=== PATIENT | male | born 1965 | race Caucasian/White ===

== ENCOUNTER → 2019-11-01 15:19 | Outpatient (BNVA) | payer MEDICAID, SELFPAY | PROVIDERS: Family Provider Nurse Practitioner; PCP Nurse Practitioner; Visit Provider Nurse Practitioner | DX: I11.0 Hypertensive heart disease with heart failure (principal); I50.9 Heart failure, unspecified; E11.65 Type 2 diabetes mellitus with hyperglycemia | CPT/HCPCS: 80053; 81003; 82044; 83036 ==

== ENCOUNTER → 2020-02-17 11:28 | Outpatient (BNVA) | payer MEDICAID, SELFPAY | PROVIDERS: Family Provider Nurse Practitioner; PCP Nurse Practitioner; Visit Provider Nurse Practitioner | DX: E11.65 Type 2 diabetes mellitus with hyperglycemia (principal); I11.0 Hypertensive heart disease with heart failure; I50.9 Heart failure, unspecified | CPT/HCPCS: 80053; 80061; 81000; 83036 ==

== ENCOUNTER → 2020-05-30 13:51 | Outpatient (BNVA) | payer MEDICAID, SELFPAY | PROVIDERS: Family Provider Nurse Practitioner; PCP Nurse Practitioner; Visit Provider Nurse Practitioner | DX: E11.65 Type 2 diabetes mellitus with hyperglycemia (principal); Z12.5 Encounter for screening for malignant neoplasm of prostate | CPT/HCPCS: 80053; 81000; 82043; 83036; 85025; G0103 ==

== ENCOUNTER 2020-08-27 16:28 | Emergency (ER) | payer MEDICAID, SELFPAY ==
[2020-08-27 17:04] VITALS: BP 153/99; PULSE 60; RESP 18; TEMP 36.6; O2SAT 94; BMI 43.8
[2020-08-27 17:30] VITALS: PULSE 82
[2020-08-27] MEDS: tetanus-dipt-pertussis 0.5 mL SDV IM (17:54)
[2020-08-27] MEDS: cefTRIAXone 1,000 mg SDV 1000 MG IM (17:54)
--- NOTE | 2020-08-27 18:41 | XR_ITS ---
WS: [id number] Exam: XR knee RT 3V* [id number] Date/Time of Exam: 08/27/2020 6:53 PM Reason For Exam: fall No acute fracture or dislocation. The joint compartments are relatively well maintained. No joint eff usion. Bone spurring noted along the anterior superior aspect of the patella. XR/XR knee RT 3V* [id number] IMPRESSION: 1. No fracture or dislocation.
[2020-08-27 19:15] VITALS: BP 157/102; PULSE 60; O2SAT 93
--- NOTE | 2020-08-27 19:23 | W.ED.EXTPRO ---
HPI - Extremity Problem General: Chief complaint: Extremity Injury, Lower Stated complaint: leg lac Time Seen by Provider: 08/27/20 17:09 Source: patient Mode of arrival: ambulatory Limitations: no limitations History of Present Illness: HPI Narrative: The patient is a 55-year-old male who was walking down the steps of his porch and missed a step and fell. He sustained a laceration to his right knee which was bleeding. He takes Eliquis anticoagulation. He is here to be evaluated for the laceration. He denies hitting his head or losing consciousness. MD Complaint: extremity pain Pain Consistency: constant Location: right Associated symptoms: Deny arthralgias, chest pain, fever(s), myalgias, rash or short of breath Review of Systems General: Reports: 10 or more systems reviewed and unremarkable except in HPI and below Const: Denies: fever(s) Eyes: Denies: change in vision or blurry vision ENMT: Denies: throat pain, enlarged tonsils, odynophagia, hoarseness, mouth pain or swelling of lips/tongue Card: Denies: chest pain Resp: Denies: dyspnea, productive cough or non-productive cough GI: Denies: abdominal pain, nausea or vomiting : Denies: flank pain, dysuria, urinary frequency, urinary urgency or urinary hesitancy Musc: Denies: neck pain, back pain or extremity swelling Skin/Breast: Reports: other (Laceration); Denies: rash Neuro: Denies: headache(s), numbness in extremities or weakness in extremities Endo: Denies: polyuria, polydipsia or tired all the time PFSH ED PFSH: Medical History (Reviewed 08/27/20 @ 22:53 by Sarah Rhodes MD, [facility] [place]) Atrial fibrillation Benign essential hypertension with target blood pressure below 140/90 Controlled diabetes mellitus with hyperglycemia, without long-term current use of insulin Heart failure, unspecified Obesity Surgical History (Reviewed 08/27/20 @ 22:53 by Sarah Rhodes MD, [facility] [place]) No history of previous surgery Family History (Reviewed 08/27/20 @ 22:53 by Sarah Rhodes MD, [facility] [place]) Mother Diabetes Hypertension Father Alcohol abuse Other Heart disease Social History Smoking and tobacco status: current some day smoker Second hand smoke exposure: No Smoking risk assessment/counseling performed?: No Alcohol intake: unknown Desire information about alcohol rehabilitation?: No Counseling given: No Desire information about substance/drug rehabilitation?: No Counseling given: No Adopted: No Caregiver/support person: No Lives independently: Yes Household members: other Housing: House Marital status: Single Number of children: 0 Current occupational status: unemployed Pets and animals: Yes Pets & animals: cat(s) and dog(s) History of recent travel: No Current gender identity: Male Physical Exam Const: COMMON NORMALS: no acute distress, average body habitus, patient oriented x3, no limitations, healthy appearing, alert and well nourished HENMT: COMMON NORMALS: normocephalic, atraumatic and moist oral mucous membranes HEAD & SCALP: normocephalic and atraumatic Neck/C-Spine: COMMON NORMALS: full ROM, supple, no meningeal signs, no JVD and No carotid bruits Resp: COMMON NORMALS: normal respiratory effort, No retractions, No use of accessory muscles, clear to auscultation bilaterally and percussion normal AUSCULTATION: clear to auscultation bilaterally PERCUSSION: percussion normal Cardio: COMMON NORMALS: no JVD, regular rate, regular rhythm, S1 normal heart sound present, S2 normal heart sound present, No gallops present (Cardio), No clicks present (Cardio), No murmurs present (Cardio), No rub (Cardio) and Peripheral pulses 2+ throughout RATE: regular rate RHYTHM: regular rhythm HEART SOUNDS: S1 normal heart sound present and S2 normal heart sound present PERIPHERAL PULSES: Peripheral pulses 2+ throughout GI: COMMON NORMALS: Normal to inspection, nondistended, normoactive bowel sounds present, Soft to palpation, non-tender, No hepatosplenomegaly present, no masses and no bruits PALPATION: Yes Soft to palpation and Yes No hepatosplenomegaly present : COMMON NORMALS: Yes no CVA tenderness BLADDER/KIDNEY EXAM: Yes no CVA tenderness Back/Pelvis: COMMON NORMALS: no CVA tenderness Extremity: COMMON NORMALS: full ROM, capillary refill normal, no calf tenderness and no pedal edema RIGHT LOWER EXTREMITY: Yes knee joint (There is a V-shaped laceration just above his right knee, about 14 cm ) OTHER: The V-shaped laceration above his right knee is about 14 cm in length, involving underlying muscle and with venous bleeding. There is significant bleeding from the right lateral part of the wound. Neurovascular status is intact. Neuro: COMMON NORMALS: patient oriented x3 SENSORIUM/ORIENTATION: Yes alert MENINGEAL SIGNS: Yes no meningeal signs Skin: COMMON NORMALS: no rashes or lesions noted, no wounds, turgor normal, no jaundice, no petechiae and no mottling GENERAL SKIN EXAM: no rashes or lesions noted and turgor normal Procedures Laceration Laceration 1: Site: lower extremity Side (If applicable): right Size (cm): 14 Description: flap Depth: involves muscle layer Local Anesthetic: lidocaine 1% and with epi Amount of anesthesia used (mL): 15 Pre-repair: wound explored and irrigated extensively (using 500 ml of saline mixed with iodine) Skin layer closed with: nylon Size (cm): 3-0 Number of sutures: 12 Technique: simple, interrupted Subcutaneous layer closed with: vicryl Size: 3-0 Number of sutures: 5 Technique: simple, interrupted Muscle layer closed with: vicryl Size: 3-0 Number of sutures: 5 Technique: simple, interrupted Course Reevaluation(s): Reevaluation #1: Discussed his imaging findings with him. Knee looks fine without any fracture or dislocation. We will discharge him home with wound care instructions. He voiced understanding and is in agreement with the plan Time: 19:23 Vital Signs: Vital signs: Vital Signs Temperature 97.9 F 08/27/20 17:04 Pulse Rate 57 L 08/27/20 19:44 Respiratory Rate 18 08/27/20 19:44 Blood Pressure 166/90 08/27/20 19:44 Pulse Oximetry 96 08/27/20 19:44 MDM - Extremity (Nontraumatic) MDM Narrative: Medical decision making narrative: 55-year-old male who had a fairly significant laceration to his right knee that needed suturing. He also had venous bleeding and the vessels were ligated. Wound was extensively irrigated and he was given a prophylactic dose of intramuscular ceftriaxone. He was also discharged home with a prescription for Keflex. He was given wound care instructions and he is to follow-up with his primary care provider. Imaging Data^: Xray Ortho: Attestation: I personally reviewed and interpreted this imaging study as follows: My impression: No fracture or dislocation noted Discharge Plan Discharge Patient Disposition: Home Clinical Impression: Fall (on) (from) other stairs and steps, initial encounter Laceration of knee, right Qualifiers: Encounter type: initial encounter Qualified Code(s): S81.011A - Laceration without foreign body, right knee, initial encounter Condition: Stable Prescriptions: New Keflex 500 mg capsule 500 mg PO Q6H 7 Days Qty: 28 RF: 0 Continued furosemide 40 mg tablet 40 mg PO BID Qty: 60 RF: 2 potassium chloride [Klor-Con M20] 20 mEq tablet,ER particles/crystals 20 meq PO BID Qty: 60 RF: 2 metformin 500 mg tablet extended release 24hr 500 mg PO BID Qty: 60 RF: 2 carvedilol 25 mg tablet 25 mg PO DIRECTED Qty: 225 RF: 3 irbesartan 300 mg tablet 300 mg PO DAILY Qty: 30 RF: 5 Eliquis 5 mg tablet 5 mg PO BID Qty: 180 RF: 3 aspirin 81 mg tablet,delayed release (DR/EC) 81 mg PO DAILY RF: 0 amlodipine 10 mg tablet 10 mg PO DAILY RF: 0 simvastatin 20 mg tablet 20 mg PO DAILY RF: 0 Discharge Orders: Discharge Order (Routine); Ordered 08/27/20 Ordered By: Sarah Rhodes Referrals: Mariya Olivares FNP-C [Primary Care Provider] - 7-10 days (For wound evaluation and suture removal) Discharge Diet: Usual diet Discharge Activity: Increase activity as tolerated Patient Instructions: Laceration (ED), Fall Prevention (ED) Activity Restrictions/Additional Instructions: Return for any new or worsening symptoms. Follow-up with your primary care provider within 10 days. Sutures should be removed between 10 and 14 days. Keep the wound clean and dry. Leave the dressing on for the next 2 days, take it off after 2 days. After you take it of clean the wound with soap and water every day and apply an antibiotic ointment to it. Take the antibiotic as prescribed. 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
[2020-08-27 19:44] VITALS: BP 166/90; PULSE 57; RESP 18; O2SAT 96
== END 2020-08-27 19:57 | disposition home or self-care (01) ==
PROVIDERS: Emergency Provider Family Medicine; PCP Nurse Practitioner
DX: S81.011A Laceration without foreign body, right knee, initial encounter (principal); W10.8XXA Fall (on) (from) other stairs and steps, initial encounter; Y92.008 Other place in unspecified non-institutional (private) residence as the place of occurrence of the external cause; F17.200 Nicotine dependence, unspecified, uncomplicated; Z79.01 Long term (current) use of anticoagulants; Z79.84 Long term (current) use of oral hypoglycemic drugs; Z79.82 Long term (current) use of aspirin; Z23 Encounter for immunization
CPT/HCPCS: 12345; 13121; 13122; 73562; 90471; 90715; 96372; 99281; 99283; J0696

== ENCOUNTER → 2020-09-11 14:43 | Outpatient (BNVA) | payer MEDICAID, SELFPAY | PROVIDERS: PCP Nurse Practitioner; Visit Provider Nurse Practitioner | DX: E11.65 Type 2 diabetes mellitus with hyperglycemia (principal) | CPT/HCPCS: 80053; 80061; 83036; 85025 ==

== ENCOUNTER → 2020-12-12 16:04 | Outpatient (BNVA) | payer MEDICAID, SELFPAY | PROVIDERS: PCP Nurse Practitioner; Visit Provider Nurse Practitioner Family | DX: E11.65 Type 2 diabetes mellitus with hyperglycemia (principal); I50.9 Heart failure, unspecified; I11.0 Hypertensive heart disease with heart failure; I48.0 Paroxysmal atrial fibrillation | CPT/HCPCS: 80053; 80061; 83036; 84443; 85025 ==

== ENCOUNTER 2021-06-13 16:42 | Inpatient (IN) | payer MEDICAID, SELFPAY ==
[2021-06-13 16:54] VITALS: BP 151/90; PULSE 92; RESP 22; TEMP 36.5; O2SAT 88; BMI 47.1
--- NOTE | 2021-06-13 17:01 | W.ED.GIBLEED ---
HPI - GI Bleed General: Chief complaint: ER Hold Stated complaint: Sent from [facility], Left leg Pain, Cold Chills Time Seen by Provider: 06/13/21 17:01 History of Present Illness: HPI Narrative: Mr. Howe is a 56-year-old gentleman with history of hypertension, hyperlipidemia, obesity, heart failure, diabetes, atrial fibrillation on Eliquis who presents emergency department due to abnormal labs and blood in stool. He reports feeling somewhat ill gradually for the past few weeks. He has had blood in his stool and when he wipes every time that he has had a bowel movement. Since being on Eliquis he has infrequently had this however it typically resolves on its own. He has not had a colonoscopy. Associated with a sense of generalized fatigue and malaise. Additionally he started having left lower extremity redness, warmth, and pain. He was seen at outside clinic and found to have leukocytosis and hence was sent here. Overall the course of symptoms has been worsening. The intensity is moderate to severe. No other focal infectious symptoms though he does occasionally have chills and shortness of breath. No other specific exacerbating relieving factors identified. Review of Systems General: Reports: 10 or more systems reviewed and unremarkable except in HPI and below Narrative: CONSTITUTIONAL: See HPI EYES - denies pain, denies loss of vision EARS - denies ear issues. NOSE - denies congestion or rhinorrhea. THROAT - denies sore throat or difficulty swallowing. CARDIOVASCULAR - denies chest pain and palpitations RESPIRATORY -see HPI GASTROINTESTINAL -see HPI GENITOURINARY - denies dysuria or urinary frequency MUSCULOSKELETAL-see HPI SKIN -see HPI NEUROLOGIC - denies focal weakness or sensory changes HEMATOLOGIC/LYMPHATIC - denies easy bruising or lymphadenopathy. PFS ED PFSH: Medical History (Updated 06/14/21 @ 15:49 by Harlan Marrero MD) Atrial fibrillation Benign essential hypertension with target blood pressure below 140/90 Chronic kidney disease stage 2 Controlled diabetes mellitus with hyperglycemia, without long-term current use of insulin Heart failure, unspecified Echocardiogram from 2018 showed severely decreased left ventricular systolic function as well as grade 3 of 4 diastolic dysfunction consistent with combined CHF Hyperlipemia Mild aortic valve stenosis Aortic valve area 1.7 cm? 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 Obesity Surgical History No history of previous surgery Family History Mother Diabetes Hypertension Father Alcohol abuse Other Heart disease Social History (Updated 06/14/21 @ 09:15 by Angi Montes De Oca MD) Smoking and tobacco status: former smoker Second hand smoke exposure: No Alcohol intake: never Substance/Drug Use: never Adopted: No Caregiver/support person: No Lives independently: Yes Household members: other Housing: House Marital status: Single Number of children: 0 Current occupational status: unemployed Pets and animals: Yes Pets & animals: cat(s) and dog(s) Current gender identity: Male Physical Exam Narrative: EXAM NARRATIVE: GENERAL/CONSTITUTIONAL -somewhat ill-appearing. No acute distress. Obese. Supplemental oxygen in place. Eyes - PERRL, no conjunctival injection ENMT - Atraumatic external nose and ears. Moist mucous membranes NECK - supple. trachea midline CARDIOVASCULAR - regular rate and rhythm. Peripheral pulses 2+ and equal RESPIRATORY -clear to auscultation bilaterally. No retractions or accessory muscle use. ABDOMEN/GI -mildly tender to palpation on the left abdomen. Nondistended. No tenderness to percussion or evidence of peritonitis MSK -left lower extremity mild tenderness palpation SKIN -mild erythema and warmth of the left lower extremity NEURO - alert and appropriately oriented. strength and sensation intact. Moves all extremities equally. PSYCH - Appropriate mood and affect Course ED course: - Patient was seen and evaluated by me at bedside - Patient placed on cardiac monitors, IV access obtained - Initial evaluation notable for somewhat ill appearance, no acute distress. Abdominal tenderness present. Leg may have cellulitic changes. -Symptom treatment ordered - Labs notable for leukocytosis, no significant metabolic abnormalities. Procalcitonin elevated. - Imaging notable for no evidence of lobar consolidation or pneumonia on chest x-ray. CT abdomen and pelvis without evidence of diverticulitis. - Upon serial reexamination after treatment the patient was minimally improved - Based on patient history, evaluation, labs, and imaging as interpreted the most likely cause of the patient's condition is cellulitis - The results of ED evaluation were discussed with the patient including plan for admission due to requirement for level of care not available if discharged to prevent significant worsening/deterioration. -Hospitalist service contacted and agreed to admit the patient - Patient was admitted without further deterioration or significant events. Vital Signs: Vital signs: Vital Signs Temperature 98.5 F 06/15/21 13:28 Pulse Rate 69 06/15/21 13:28 Respiratory Rate 20 H 06/15/21 13:28 Blood Pressure 151/98 06/15/21 13:28 Pulse Oximetry 92 06/15/21 13:28 MDM - GI Bleed Medical Records: Attestation: I reviewed the patient's medical records. Lab Data: Attestation: I reviewed the patient's lab results. Labs: Lab Results 06/13/21 06/13/21 06/13/21 Range/Units 17:49 17:49 17:49 WBC 24.2 H (4.0-10.0) 10^3/ uL RBC 5.18 (4.1-5.3) 10^6/u L Hgb 14.5 (11.7-16.6) g/dL Hct 45.7 (42.0-52.0) % MCV 88.2 (80-94) fl MCH 28.0 (28.0-34.0) pg MCHC 31.7 (30.0-36.0) g/dL RDW 15.5 H (12.1-15.1) % Plt Count 301 (130-400) 10^3/c mm MPV 9.4 (7.4-10.4) fL Neut % (Auto) 87.5 % Lymph % (Auto) 2.7 % Sherman % (Auto) 7.6 % Eos % (Auto) 0.3 % Baso % (Auto) 0.5 % Neut # (Auto) 21.16 H (1.8-7.7) 10^3/u L Lymph # (Auto) 0.7 L (0.8-4.8) 10^3/u L Sherman # (Auto) 1.8 H (0.2-0.9) 10^3/u L Eos # (Auto) 0.1 (0.0-0.8) 10^3/u L Baso # (Auto) 0.1 (0.0-0.1) 10^3/u L Nucleated RBC % (a uto) 0 % Nucleated RBCs # 0.0 /100WBC PT (12.1-14.9) SECO NDS INR (0.8-1.2) APTT (23.9-36.7) SECO NDS Sodium 139 (136-145) mmol/L Potassium 3.8 (3.5-5.1) mmol/L Chloride 97 L (98-107) mmol/L Carbon Dioxide 29 (22-29) mmol/L Anion Gap 16.8 (5-19) BUN 11 (6-20) mg/dL Creatinine 0.7 (0.7-1.2) mg/dL GFR Calculation 116.2 (90-130) mL/min Glucose 113 (65-115) mg/dL Calculated Osmolal ity 288 (285-295) mOsm/k g Lactic Acid (0.5-2.2) mmol/L Calcium 9.6 (8.5-10.5) mg/dL Phosphorus (2.5-4.5) mg/dL Magnesium (1.7-2.3) mg/dL Iron (59-158) ug/dL Ferritin (30-400) ng/mL Total Bilirubin 0.7 (0.15-1.2) mg/dL AST 15 (0-40) U/L ALT 12 (0-41) U/L Alkaline Phosphata se 92 (40-130) IU/L Troponin T Baselin e (0-15) ng/L Troponin T 120 Min [place] (0-15) ng/L Delta Troponin T (0-10) ABS# C-Reactive Protein (0.0-4.9) mg/L NT-Pro-B Natriuret Pep 568 H (0-125) pg/mL Total Protein 8.0 (6.6-8.7) g/dL Albumin 4.4 (3.5-5.2) g/dL Globulin 3.6 (1.3-4.6) g/dL Procalcitonin (0-0.5) ng/mL TSH 0.42 (0.27-4.20) uIU/ mL Urine Color (Yellow) Urine Appearance (CLEAR) Urine pH (5-7) Ur Specific Gravit y (1.005-1.030) Urine Protein (Negative) Urine Glucose (UA) (Normal) Urine Ketones (Negative) Urine Blood (Negative) Urine Nitrate (Negative) Urine Bilirubin (Negative) Prot Sulfosalicyli c Acd (Negative) Urine Urobilinogen (Negative) mg/dL Ur Leukocyte Jennifer ase (Negative) Urine RBC (0-2) /hpf Urine WBC (0-5) /hpf Ur Squamous Epith Cells (0-5) /hpf Amorphous Sediment Urine Bacteria (NONE) /hpf SARS-CoV-2 Ag (Rap id) (Negative) Blood Type A Positive Rho(D) Type Positive Antibody Screen Negative 06/13/21 06/13/21 06/13/21 Range/Units 17:49 19:50 20:00 WBC (4.0-10.0) 10^3/ uL RBC (4.1-5.3) 10^6/u L Hgb (11.7-16.6) g/dL Hct (42.0-52.0) % MCV (80-94) fl MCH (28.0-34.0) pg MCHC (30.0-36.0) g/dL RDW (12.1-15.1) % Plt Count (130-400) 10^3/c mm MPV (7.4-10.4) fL Neut % (Auto) % Lymph % (Auto) % Sherman % (Auto) % Eos % (Auto) % Baso % (Auto) % Neut # (Auto) (1.8-7.7) 10^3/u L Lymph # (Auto) (0.8-4.8) 10^3/u L Sherman # (Auto) (0.2-0.9) 10^3/u L Eos # (Auto) (0.0-0.8) 10^3/u L Baso # (Auto) (0.0-0.1) 10^3/u L Nucleated RBC % (a uto) % Nucleated RBCs # /100WBC PT (12.1-14.9) SECO NDS INR (0.8-1.2) APTT (23.9-36.7) SECO NDS Sodium (136-145) mmol/L Potassium (3.5-5.1) mmol/L Chloride (98-107) mmol/L Carbon Dioxide (22-29) mmol/L Anion Gap (5-19) BUN (6-20) mg/dL Creatinine (0.7-1.2) mg/dL GFR Calculation (90-130) mL/min Glucose (65-115) mg/dL Calculated Osmolal ity (285-295) mOsm/k g Lactic Acid (0.5-2.2) mmol/L Calcium (8.5-10.5) mg/dL Phosphorus (2.5-4.5) mg/dL Magnesium (1.7-2.3) mg/dL Iron (59-158) ug/dL Ferritin (30-400) ng/mL Total Bilirubin (0.15-1.2) mg/dL AST (0-40) U/L ALT (0-41) U/L Alkaline Phosphata se (40-130) IU/L Troponin T Baselin e 13 (0-15) ng/L Troponin T 120 Min [place] (0-15) ng/L Delta Troponin T (0-10) ABS# C-Reactive Protein (0.0-4.9) mg/L NT-Pro-B Natriuret Pep (0-125) pg/mL Total Protein (6.6-8.7) g/dL Albumin (3.5-5.2) g/dL Globulin (1.3-4.6) g/dL Procalcitonin (0-0.5) ng/mL TSH (0.27-4.20) uIU/ mL Urine Color Yellow (Yellow) Urine Appearance Sl hazy (CLEAR) Urine pH 9 H (5-7) Ur Specific Gravit y 1.010 (1.005-1.030) Urine Protein 1+ H (Negative) Urine Glucose (UA) Norm (Normal) Urine Ketones Negative (Negative) Urine Blood Neg (Negative) Urine Nitrate Negative (Negative) Urine Bilirubin Neg (Negative) Prot Sulfosalicyli c Acd Positive (Negative) Urine Urobilinogen 1 H (Negative) mg/dL Ur Leukocyte Jennifer ase Negative (Negative) Urine RBC 0-4 H (0-2) /hpf Urine WBC 0-4 H (0-5) /hpf Ur Squamous Epith Cells 5-10 H (0-5) /hpf Amorphous Sediment Not Reportable Urine Bacteria Trace (NONE) /hpf SARS-CoV-2 Ag (Rap id) Negative (Negative) Blood Type Rho(D) Type Antibody Screen 06/13/21 06/13/21 06/14/21 Range/Units 20:15 20:15 09:01 WBC 20.5 H (4.0-10.0) 10^3/ uL RBC 4.47 (4.1-5.3) 10^6/u L Hgb 12.2 (11.7-16.6) g/dL Hct 39.3 L (42.0-52.0) % MCV 87.9 (80-94) fl MCH 27.3 L (28.0-34.0) pg MCHC 31.0 (30.0-36.0) g/dL RDW 15.5 H (12.1-15.1) % Plt Count 252 (130-400) 10^3/c mm MPV 9.4 (7.4-10.4) fL Neut % (Auto) 89.4 % Lymph % (Auto) 3.6 % Sherman % (Auto) 5.8 % Eos % (Auto) 0.0 % Baso % (Auto) 0.5 % Neut # (Auto) 18.30 H (1.8-7.7) 10^3/u L Lymph # (Auto) 0.7 L (0.8-4.8) 10^3/u L Sherman # (Auto) 1.2 H (0.2-0.9) 10^3/u L Eos # (Auto) 0.0 (0.0-0.8) 10^3/u L Baso # (Auto) 0.1 (0.0-0.1) 10^3/u L Nucleated RBC % (a uto) 0 % Nucleated RBCs # 0.0 /100WBC PT (12.1-14.9) SECO NDS INR (0.8-1.2) APTT (23.9-36.7) SECO NDS Sodium (136-145) mmol/L Potassium (3.5-5.1) mmol/L Chloride (98-107) mmol/L Carbon Dioxide (22-29) mmol/L Anion Gap (5-19) BUN (6-20) mg/dL Creatinine (0.7-1.2) mg/dL GFR Calculation (90-130) mL/min Glucose (65-115) mg/dL Calculated Osmolal ity (285-295) mOsm/k g Lactic Acid (0.5-2.2) mmol/L Calcium (8.5-10.5) mg/dL Phosphorus (2.5-4.5) mg/dL Magnesium (1.7-2.3) mg/dL Iron (59-158) ug/dL Ferritin (30-400) ng/mL Total Bilirubin (0.15-1.2) mg/dL AST (0-40) U/L ALT (0-41) U/L Alkaline Phosphata se (40-130) IU/L Troponin T Baselin e (0-15) ng/L Troponin T 120 Min [place] 12.99 (0-15) ng/L Delta Troponin T -0.01 L (0-10) ABS# C-Reactive Protein 34.0 H (0.0-4.9) mg/L NT-Pro-B Natriuret Pep (0-125) pg/mL Total Protein (6.6-8.7) g/dL Albumin (3.5-5.2) g/dL Globulin (1.3-4.6) g/dL Procalcitonin 6.36 H (0-0.5) ng/mL TSH (0.27-4.20) uIU/ mL Urine Color (Yellow) Urine Appearance (CLEAR) Urine pH (5-7) Ur Specific Gravit y (1.005-1.030) Urine Protein (Negative) Urine Glucose (UA) (Normal) Urine Ketones (Negative) Urine Blood (Negative) Urine Nitrate (Negative) Urine Bilirubin (Negative) Prot Sulfosalicyli c Acd (Negative) Urine Urobilinogen (Negative) mg/dL Ur Leukocyte Jennifer ase (Negative) Urine RBC (0-2) /hpf Urine WBC (0-5) /hpf Ur Squamous Epith Cells (0-5) /hpf Amorphous Sediment Urine Bacteria (NONE) /hpf SARS-CoV-2 Ag (Rap id) (Negative) Blood Type Rho(D) Type Antibody Screen 06/14/21 06/14/21 06/14/21 Range/Units 09:01 09:01 09:01 WBC (4.0-10.0) 10^3/ uL RBC (4.1-5.3) 10^6/u L Hgb (11.7-16.6) g/dL Hct (42.0-52.0) % MCV (80-94) fl MCH (28.0-34.0) pg MCHC (30.0-36.0) g/dL RDW (12.1-15.1) % Plt Count (130-400) 10^3/c mm MPV (7.4-10.4) fL Neut % (Auto) % Lymph % (Auto) % Sherman % (Auto) % Eos % (Auto) % Baso % (Auto) % Neut # (Auto) (1.8-7.7) 10^3/u L Lymph # (Auto) (0.8-4.8) 10^3/u L Sherman # (Auto) (0.2-0.9) 10^3/u L Eos # (Auto) (0.0-0.8) 10^3/u L Baso # (Auto) (0.0-0.1) 10^3/u L Nucleated RBC % (a uto) % Nucleated RBCs # /100WBC PT 20.80 H (12.1-14.9) SECO NDS INR 1.74 H (0.8-1.2) APTT 44.0 H (23.9-36.7) SECO NDS Sodium 135 L (136-145) mmol/L Potassium 3.6 (3.5-5.1) mmol/L Chloride 96 L (98-107) mmol/L Carbon Dioxide 29 (22-29) mmol/L Anion Gap 13.6 (5-19) BUN 14 (6-20) mg/dL Creatinine 0.7 (0.7-1.2) mg/dL GFR Calculation 116.2 (90-130) mL/min Glucose 183 H (65-115) mg/dL Calculated Osmolal ity 285 (285-295) mOsm/k g Lactic Acid (0.5-2.2) mmol/L Calcium 8.8 (8.5-10.5) mg/dL Phosphorus 3.0 (2.5-4.5) mg/dL Magnesium 1.5 L (1.7-2.3) mg/dL Iron 14 L (59-158) ug/dL Ferritin 122 (30-400) ng/mL Total Bilirubin 0.6 (0.15-1.2) mg/dL AST 13 (0-40) U/L ALT 9 (0-41) U/L Alkaline Phosphata se 64 (40-130) IU/L Troponin T Baselin e (0-15) ng/L Troponin T 120 Min [place] (0-15) ng/L Delta Troponin T (0-10) ABS# C-Reactive Protein 145.2 H (0.0-4.9) mg/L NT-Pro-B Natriuret Pep (0-125) pg/mL Total Protein 6.4 L (6.6-8.7) g/dL Albumin 3.3 L (3.5-5.2) g/dL Globulin 3.1 (1.3-4.6) g/dL Procalcitonin 8.69 H (0-0.5) ng/mL TSH (0.27-4.20) uIU/ mL Urine Color (Yellow) Urine Appearance (CLEAR) Urine pH (5-7) Ur Specific Gravit y (1.005-1.030) Urine Protein (Negative) Urine Glucose (UA) (Normal) Urine Ketones (Negative) Urine Blood (Negative) Urine Nitrate (Negative) Urine Bilirubin (Negative) Prot Sulfosalicyli c Acd (Negative) Urine Urobilinogen (Negative) mg/dL Ur Leukocyte Jennifer ase (Negative) Urine RBC (0-2) /hpf Urine WBC (0-5) /hpf Ur Squamous Epith Cells (0-5) /hpf Amorphous Sediment Urine Bacteria (NONE) /hpf SARS-CoV-2 Ag (Rap id) (Negative) Blood Type Rho(D) Type Antibody Screen 06/14/21 Range/Units 09:45 WBC (4.0-10.0) 10^3/ uL RBC (4.1-5.3) 10^6/u L Hgb (11.7-16.6) g/dL Hct (42.0-52.0) % MCV (80-94) fl MCH (28.0-34.0) pg MCHC (30.0-36.0) g/dL RDW (12.1-15.1) % Plt Count (130-400) 10^3/c mm MPV (7.4-10.4) fL Neut % (Auto) % Lymph % (Auto) % Sherman % (Auto) % Eos % (Auto) % Baso % (Auto) % Neut # (Auto) (1.8-7.7) 10^3/u L Lymph # (Auto) (0.8-4.8) 10^3/u L Sherman # (Auto) (0.2-0.9) 10^3/u L Eos # (Auto) (0.0-0.8) 10^3/u L Baso # (Auto) (0.0-0.1) 10^3/u L Nucleated RBC % (a uto) % Nucleated RBCs # /100WBC PT (12.1-14.9) SECO NDS INR (0.8-1.2) APTT (23.9-36.7) SECO NDS Sodium (136-145) mmol/L Potassium (3.5-5.1) mmol/L Chloride (98-107) mmol/L Carbon Dioxide (22-29) mmol/L Anion Gap (5-19) BUN (6-20) mg/dL Creatinine (0.7-1.2) mg/dL GFR Calculation (90-130) mL/min Glucose (65-115) mg/dL Calculated Osmolal ity (285-295) mOsm/k g Lactic Acid 1.8 (0.5-2.2) mmol/L Calcium (8.5-10.5) mg/dL Phosphorus (2.5-4.5) mg/dL Magnesium (1.7-2.3) mg/dL Iron (59-158) ug/dL Ferritin (30-400) ng/mL Total Bilirubin (0.15-1.2) mg/dL AST (0-40) U/L ALT (0-41) U/L Alkaline Phosphata se (40-130) IU/L Troponin T Baselin e (0-15) ng/L Troponin T 120 Min [place] (0-15) ng/L Delta Troponin T (0-10) ABS# C-Reactive Protein (0.0-4.9) mg/L NT-Pro-B Natriuret Pep (0-125) pg/mL Total Protein (6.6-8.7) g/dL Albumin (3.5-5.2) g/dL Globulin (1.3-4.6) g/dL Procalcitonin (0-0.5) ng/mL TSH (0.27-4.20) uIU/ mL Urine Color (Yellow) Urine Appearance (CLEAR) Urine pH (5-7) Ur Specific Gravit y (1.005-1.030) Urine Protein (Negative) Urine Glucose (UA) (Normal) Urine Ketones (Negative) Urine Blood (Negative) Urine Nitrate (Negative) Urine Bilirubin (Negative) Prot Sulfosalicyli c Acd (Negative) Urine Urobilinogen (Negative) mg/dL Ur Leukocyte Jennifer ase (Negative) Urine RBC (0-2) /hpf Urine WBC (0-5) /hpf Ur Squamous Epith Cells (0-5) /hpf Amorphous Sediment Urine Bacteria (NONE) /hpf SARS-CoV-2 Ag (Rap id) (Negative) Blood Type Rho(D) Type Antibody Screen EKG Data^: EKG 1: Attestation: I personally reviewed and interpreted this EKG as follows: EKG interpretation date: 06/13/21 EKG interpretation time: 18:05 Prior EKG tracings: not available for review Interpretation: Twelve-lead EKG shows an irregular rhythm at a rate of 85. DE interval not present in atrial fibrillation, QRS duration 118, QTc 413. Left axis deviation. Interpretation atrial fibrillation, left bundle branch block. EKG 2: Attestation: I personally reviewed and interpreted this EKG as follows: EKG interpretation date: 06/13/21 EKG interpretation time: 21:10 Prior EKG tracings: available for review Interpretation: Twelve-lead EKG shows an irregular rhythm at a rate of 80. DE interval not present in atrial fibrillation, QRS duration 121, QTc 424. Left axis deviation. Interpretation atrial fibrillation, left bundle branch block. Similar to prior. Discharge Plan Discharge Patient Disposition: Admitted As Inpatient Admit Provider: Angi Montes De Oca Coding Level of Care Code ED Retail Services Professional for Chg Fwmichele
--- NOTE | 2021-06-13 17:20 | XRR_ITS ---
PROCEDURE INFORMATION: Exam: XR Chest Exam date and time: 06/13/2021 5:20 PM Age: 56 years old Clinical indication: Shortness of breath TECHNIQUE: Imaging protocol: XR of the chest. Views: 1 view. COMPARISON: CR Chest 1 [place] [id number] 01/23/2018 2:35 PM FINDINGS: Lungs: There is some linear scarring or subsegmental atelectasis in the left mid lung. Visualized portions of the right lung are clear. Pleural spaces: Unremarkable. No pleural effusion. No pneumothorax. Pleural effusion seen on 01/23/2018 is no longer identified. Heart/Mediastinum: Heart is upper limits normal in size. Bones/joints: Degenerative changes are present in the thoracic spine. XR/XR chest 1V portable [id number] IMPRESSION: Platelike atelectasis or scarring in the left mid left.
--- NOTE | 2021-06-13 17:37 | ECG_ITS ---
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 Measurements Intervals [place] Rate: 85 P: MT: QRS: -60 QRSD: 118 T: 102 QT: 347 QTc: 413 Interpretive Statements ATRIAL FIBRILLATION LEFT ANTERIOR FASCICULAR BLOCK [QRS AXIS <= -45, QR IN I, RS IN II] MINIMAL VOLTAGE CRITERIA FOR LVH, CONSIDER NORMAL VARIANT [MEETS CRITERIA IN ONE OF: R(aVL), S(V1), R(V5), R(V5/V6)+S(V1)] ANTEROSEPTAL MYOCARDIAL INFARCTION , OF INDETERMINATE AGE [40+ ms Q WAVE IN V1-V4] MODERATE T-WAVE ABNORMALITY, CONSIDER LATERAL ISCHEMIA [-0.1+ mV T-WAVE IN I/aVL/V5/V6] Compared to ECG 01/28/2018 11:01:15 No significant changes Electronically Signed On 06-14-2021 8:54:44 CDT by Maria Eugenia Leavitt M.D. [id number] f
[2021-06-13 18:11] VITALS: RESP 15
[2021-06-13 18:12] LABS: Basophils # 0.1 10^3/uL (0.0-0.1); Basophils % 0.5 %; Eosinophils # 0.1 10^3/uL (0.0-0.8); Eosinophils % 0.3 %; Hematocrit 45.7 % (42.0-52.0); Hemoglobin 14.5 g/dL (11.7-16.6); Lymphocytes # 0.7 10^3/uL (0.8-4.8); Lymphocytes % 2.7 %; Mean Corpuscular HGB Conc 31.7 g/dL (30.0-36.0); Mean Corpuscular Volume 88.2 fl (80-94); Mean Platelet Volume 9.4 fL (7.4-10.4); Monocytes # 1.8 10^3/uL (0.2-0.9); Monocytes % 7.6 %; Neutrophils # 21.16 10^3/uL (1.8-7.7); Neutrophils % 87.5 %; Nucleated Red Blood Cells % 0 %; Platelet Count 301 10^3/cmm (130-400); Red Blood Count 5.18 10^6/uL (4.1-5.3); Red Cell Distribution Width 15.5 % (12.1-15.1); White Blood Count 24.2 10^3/uL (4.0-10.0)
--- NOTE | 2021-06-13 18:15 | CTR_ITS ---
PROCEDURE INFORMATION: Exam: CT Abdomen And Pelvis With Contrast Exam date and time: 06/13/2021 6:15 PM Age: 56 years old Clinical indication: Abdominal pain; Acute; Additional info: Leukocytosis, gi bleed, pain, ? diverticulitis TECHNIQUE: Imaging protocol: Computed tomography of the abdomen and pelvis with contrast. Radiation optimization: All CT scans at this facility use at least one of these dose optimization techniques: automated exposure control; mA and/or kV adjustment per patient size (includes targeted exams where dose is matched to clinical indication); or iterative reconstruction. Contrast material: OMNI 300; Contrast volume: 95 ml; Contrast route: INTRAVENOUS (IV); COMPARISON: CT abdomen pelvis w con* [id number] 01/23/2018 3:43 PM RADIATION DOSE METRICS: Total DLP (mGy-cm): 1823.27 FINDINGS: Lungs: There is calcified granuloma in the right lower lobe. Liver: There is no focal abnormality within the liver. Gallbladder and bile ducts: The gallbladder is normal. Pancreas: The pancreas is normal. Spleen: The spleen demonstrates punctate calcifications, consistent with remote granulomatous organism exposure. Adrenal glands: The adrenal glands are normal. Kidneys and ureters: There are multiple simple renal cysts. Largest is 4.4 cm. Stomach and bowel: There is no evidence of colitis/diverticulitis. There is no evidence of intestinal obstruction. Appendix: A normal appendix is identified. Intraperitoneal space: There is no evidence of free intraperitoneal fluid. Vasculature: The aorta demonstrates mild atherosclerotic calcification. There is no evidence of an abdominal aortic aneurysm. Lymph nodes: There are mildly prominent inguinal lymph nodes measuring up to 12 x 36 mm.There is no evidence of lymphadenopathy. Urinary bladder: There is nonspecific thickening of the urinary bladder wall. Please correlate for clinical findings of urinary tract infection. Reproductive: Unremarkable as visualized. Bones/joints: The lumbar spine demonstrates mild degenerative changes at multiple levels. Soft tissues: There are small bilateral inguinal hernias containing only fat. There is edema in the superficial subcutaneous soft tissues of the mid and lower anterior abdominal wall with overlying skin thickening. These findings are worrisome for cellulitis. Please correlate with physical examination findings. CT/CT abdomen pelvis w con* [id number] IMPRESSION: 1. Question of urinary bladder wall thickening. Please correlate for clinical findings of urinary tract infection. 2. Question of abdominal wall cellulitis. COMMENTS: Consistent with the [employer]'s Incidental Findings Committee white paper (J Am Dana Radiol 2018): Any incidental renal lesion less than 1 cm or classified as too small to characterize, or any incidental cystic renal lesion characterized as simple-appearing, is likely benign. No follow-up imaging is recommended for these lesions per consensus recommendations based on imaging criteria. Radiation Dose CTDIVOL = (mGy): DLP = 1823.27 (mGy-cm)
[2021-06-13 18:42] LABS: Alanine Aminotransferase 12 U/L (0-41); Albumin Level 4.4 g/dL (3.5-5.2); Alkaline Phosphatase 92 IU/L (40-130); Anion Gap 16.8 (5-19); Aspartate Amino Transferase 15 U/L (0-40); Blood Urea Nitrogen 11 mg/dL (6-20); Calcium 9.6 mg/dL (8.5-10.5); Carbon Dioxide 29 mmol/L (22-29); Chloride 97 mmol/L (98-107); Globulin 3.6 g/dL (1.3-4.6); Glomerular Filtration Rate 116.2 mL/min (90-130); Glucose 113 mg/dL (65-115); NT Pro B Type Natriuretic Pept 568 pg/mL (0-125); Osmolality Calculated 288 mOsm/kg (285-295); Potassium 3.8 mmol/L (3.5-5.1); Sodium 139 mmol/L (136-145); Thyroid Stimulating Hormone 0.42 uIU/mL (0.27-4.20); Total Bilirubin 0.7 mg/dL (0.15-1.2)
[2021-06-13] MEDS: iohexol 300 mg/mL 100 mL Btl IV (19:00)
[2021-06-13 19:04] LABS: Troponin(5th) Baseline 13 ng/L (0-15)
--- NOTE | 2021-06-13 19:37 | ECG_ITS ---
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 Measurements Intervals [place] Rate: 80 P: [place]: QRS: -64 QRSD: 121 T: 96 QT: 366 QTc: 424 Interpretive Statements ATRIAL FIBRILLATION LEFT ANTERIOR FASCICULAR BLOCK [QRS AXIS <= -45, QR IN I, RS IN II] ANTEROSEPTAL MYOCARDIAL INFARCTION , OF INDETERMINATE AGE [40+ ms Q WAVE IN V1-V4] MODERATE T-WAVE ABNORMALITY, CONSIDER LATERAL ISCHEMIA [-0.1+ mV T-WAVE IN I/aVL/V5/V6] Compared to ECG 01/28/2018 11:01:15 Left ventricular hypertrophy no longer present Myocardial infarct finding still present T-wave abnormality still present Possible ischemia still present Electronically Signed On 06-14-2021 9:07:12 CDT by Maria Eugenia Leavitt M.D. [id number]
[2021-06-13 20:00] VITALS: BP 136/87; PULSE 94; RESP 22; TEMP 37.6; O2SAT 94
[2021-06-13] MEDS: cefTRIAXone 1,000 MG in sodium chloride 0.9% (plus) 50 ML 100 MG IV (20:01)
[2021-06-13] MEDS: morphine 4 mg/mL SDV 1 mL IVP ×2 (20:01→21:07)
[2021-06-13] MEDS: doxycycline 100 MG in sodium chloride 0.9% (plus) 100 ML IV (20:35)
[2021-06-13 20:39] LABS: Add Urine Microscopic? YES; Bilirubin Urine Neg (Negative); Blood Urine Neg (Negative); Glucose Urine UA Norm (Normal); Ketones Urine Negative (Negative); Leukocyte Esterase Urine Negative (Negative); Nitrate Urine Negative (Negative); Protein Urine 1+ (Negative); RBC Urine 0-4 /hpf (0-2); Sulfosalicylic Acid Urine Positive (Negative); Urine Appearance SL Hazy (CLEAR); Urine Color Yellow (Yellow); Urobilinogen Urine 1 mg/dL (Negative); WBC Urine 0-4 /hpf (0-5); pH Urine 9 (5-7)
[2021-06-13 20:40] LABS: Add Urine Culture? No; Bacteria Urine TRACE /hpf
[2021-06-13 20:47] LABS: SARS Covid-2 Antigen Negative (Negative)
[2021-06-13 21:37] LABS: Troponin 5 2HR 12.99 ng/L (0-15)
[2021-06-13 21:38] LABS: Troponin 5 2HR Delta -0.01 ABS# (0-10)
[2021-06-13 22:18] VITALS: BP 132/75; PULSE 88; RESP 18; O2SAT 95
[2021-06-13 22:39] LABS: Procalcitonin 6.36 ng/mL (0-0.5)
--- NOTE | 2021-06-13 23:24 | PM.HP ---
Providers/Chief Complaint Admitting Physician: Angi Montes De Oca MD Primary Care Provider: Mariya Olivares, LAUNDRY PRICING CLERK-C Chief Complaint: Blood in stool, not feeling well History of Present Illness Bertin Howe is a 56 year old male who was sent to the emergency room by primary care provider because of several complaints. He had been seen at his primary care provider's office for refills of his medications. While there he mentioned that he been having some blood in his stools lately. It sounds like he noted blood some days but not every day recently. Sounds like bright red blood present when he wipes and sometimes its in the toilet. Difficult to fully quantify. Has not had any bleeding noted the last 24 hours. He is chronically on Eliquis for atrial fibrillation. In addition to this he reported some fever and chills along with nausea and abdominal pain. He was noted to have oxygen saturation of 91% on room air. Laboratory studies were checked and showed white blood count at 22,000. The [facility] wanted to send him to the hospital by ambulance but he came in by private vehicle. He described not feeling well for several weeks to the ED provider. He again reported the blood in the stools he also describes some shortness of breath and feeling cold at times. Laboratory studies were rechecked and showed a white count of 24,000 with a left shift. He was noted to have some erythema to his legs. He received Rocephin and doxycycline. Request was made for admission. In my discussion with him, he states that his legs always look like they do and are not worse than usual. No recent injury or sores. No increased swelling to the legs. No increase in skin findings to the lower extremities. Denies pain to the lower extremities. He does describe the bright red blood per rectum. [place] encouraged by the fact that his hemoglobin was okay. Denied any abdominal pain, fever, chills, cough, nausea or vomiting, diarrhea, difficulty urinating, painful or newly swollen joints. No rashes in his groins or skin folds. While in the emergency room he was noted to have some hypoxemia with sleep and was put on some oxygen. He is not chronically on oxygen. Denied recent increase in weight. Reported compliance with all of his medications. History is obtained from him and review of old records. Review of Systems Const: Reports: chills; Denies: fever(s) or change in weight Eyes: Denies: change in vision ENMT: Denies: throat pain or nasal congestion Card: Reports: edema (Chronic, no recent increase); Denies: chest pain or palpitations Resp: Reports: dyspnea; Denies: productive cough or non-productive cough GI: Reports: hematochezia; Denies: abdominal pain, nausea, vomiting, diarrhea, constipation or melena : Denies: difficulty urinating Musc: Denies: neck pain, back pain, extremity pain, joint swelling or joint redness Skin/Breast: Denies: rash or sores Neuro: Denies: headache(s), weakness in extremities or difficulty walking Psych: Denies: anxiety or depression Medications/Allergies Home Medications Medication Instructions Recorded Confirmed Last Taken Type apixaban 5 mg tablet 5 mg PO BID #180 tab 08/13/20 06/13/21 06/13/21 Rx irbesartan 300 mg tablet 300 mg PO DAILY #90 tab 01/04/21 06/13/21 06/13/21 Rx hydralazine 50 mg tablet 50 mg PO TID #90 tab 02/11/21 06/13/21 06/13/21 Rx aspirin 81 mg tablet,delayed 81 mg PO DAILY #30 tab 03/15/21 06/13/21 06/13/21 Rx release amlodipine 10 mg tablet 10 mg PO DAILY #30 tab 06/13/21 06/13/21 06/13/21 Rx carvedilol 25 mg PO . DIRECTED 06/13/21 06/13/21 06/13/21 History furosemide 40 mg tablet 40 mg PO BID #60 tab 06/13/21 06/13/21 06/13/21 Rx metformin 500 mg tablet,extended 500 mg PO BID #60 tab 06/13/21 06/13/21 06/13/21 Rx release 24hr potassium chloride 20 mEq 20 meq PO BID #60 tab 06/13/21 06/13/21 06/13/21 Rx tablet,extended release(part/cryst) simvastatin 20 mg tablet 20 mg PO DAILY #30 tab 06/13/21 06/13/21 06/12/21 Rx Allergies Allergy/AdvReac Type Severity Reaction Status Date / Time No Known Allergies Allergy Unverified 06/13/21 16:57 PFSH Acute PFSH: Medical History (Updated 06/14/21 @ 09:44 by Angi Montes De Oca MD) Atrial fibrillation Benign essential hypertension with target blood pressure below 140/90 Chronic kidney disease stage 2 Controlled diabetes mellitus with hyperglycemia, without long-term current use of insulin Heart failure, unspecified Echocardiogram from 2018 showed severely decreased left ventricular systolic function as well as grade 3 of 4 diastolic dysfunction consistent with combined CHF Hyperlipemia Mild aortic valve stenosis Aortic valve area 1.7 cm? 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 Obesity Surgical History No history of previous surgery Family History Mother Diabetes Hypertension Father Alcohol abuse Other Heart disease Social History (Updated 06/14/21 @ 09:15 by Angi Montes De Oca MD) Smoking and tobacco status: former smoker Second hand smoke exposure: No Alcohol intake: never Substance/Drug Use: never Adopted: No Caregiver/support person: No Lives independently: Yes Household members: other Housing: House Marital status: Single Number of children: 0 Current occupational status: unemployed Pets and animals: Yes Pets & animals: cat(s) and dog(s) Current gender identity: Male Vitals/I&O/Wt Last Vital Signs Temp 99.7 F H 06/13/21 20:00 Pulse 88 06/13/21 22:18 Resp 18 06/13/21 22:18 BP 132/75 06/13/21 22:18 Pulse Ox 95 06/13/21 22:18 06/13/21 06/13/21 06/14/21 14:59 22:59 06:59 Intake Total 150 / 150 Balance 150 / 150 Weight last 48 hrs Weight 140.614 kg Physical Exam Narrative: EXAM NARRATIVE: Constitutional: Asleep, easily arousable, oriented to person, place, able to provide history, cooperative HEENT: Normocephalic, atraumatic, sclera injected, nasopharynx is clear, oropharynx with fair dentition and a few teeth that look a bit rotted Neck: Large but supple Respiratory: Clear to auscultation bilaterally, no rales rhonchi or wheezes Cardiovascular: Regular rhythm, distant heart sounds Abdomen: Soft, obese, nontender, no induration, no significant rash under the pannus Extremities: Chronic stasis changes more prominent on the left lower extremity than the right with erythema noted to the left lower extremity more so than the right. Both have dry skin, no areas of fluctuance. Both legs are warm to touch equally without any increase in warmth to the left leg. There is some induration in the posterior calf on the left side which patient states is not new. No obvious pain with palpation. Skin: Feet are dirty but no wounds noted between toes, some scattered bruises on forearms, no rashes Neuro: Speech clear, face symmetric, extraocular movements are intact, moves all extremities Psych: Normal affect Data : 06/13/21 17:49 06/13/21 17:49 A&P Assessment and plan (1) Hematochezia: Status: Acute (2) Leukocytosis: Status: Acute Qualifiers: Leukocytosis type: unspecified Qualified Code(s): D72.829 - Elevated white blood cell count, unspecified (3) Poor dentition: Status: Acute (4) Malaise: Status: Acute (5) Chronic anticoagulation: Status: Chronic (6) Controlled diabetes mellitus with hyperglycemia, without long-term current use of insulin: Status: Chronic Qualifiers: Diabetes mellitus type: type 2 Qualified Code(s): E11.65 - Type 2 diabetes mellitus with hyperglycemia (7) Atrial fibrillation: Status: Chronic Qualifiers: Atrial fibrillation type: paroxysmal Qualified Code(s): I48.0 - Paroxysmal atrial fibrillation (8) Hyperlipemia: Status: Chronic Qualifiers: Hyperlipidemia type: unspecified Qualified Code(s): E78.5 - Hyperlipidemia, unspecified (9) Heart failure, unspecified: Last echocardiogram from 2018 showed severely increased left ventricular cavity size and severely decreased left ventricular systolic function with global left ventricular hypokinesis and grade 3/4 diastolic dysfunction along with severely elevated filling pressures Status: Chronic Qualifiers: Heart failure type: unspecified Heart failure chronicity: chronic Qualified Code(s): I50.9 - Heart failure, unspecified (10) BMI 45.0-49.9, adult: Status: Chronic Additional A&P Information Suspected component of obesity hypoventilation, plus or minus sleep apnea Observation admission currently Check pro calcitonin and CRP Blood cultures Received doxycycline and Rocephin in the emergency room, these were administered around 7 PM Will start on Augmentin secondary to dentition and reevaluate for additional antibiotics pending additional labs and studies Ultrasound of bilateral lower extremities Hemoccult of stool Repeat H&H in the morning Can try some Anusol HC Stool softeners If has persistent reports of bleeding or drop in H&H consideration could be given to endoscopy secondary to chronic anticoagulation Follow-up serial cardiac enzymes Telemetry monitoring Continue home medications with the exception of Metformin Sliding scale insulin for diabetes currently Monitor overall volume status Monitor oxygen levels, I suspect there is a component of obesity hypoventilation and possible sleep apnea contributing to low oxygen levels seen after he was resting in the emergency room Eliquis will provide appropriate VTE prophylaxis Supportive care otherwise Would benefit from outpatient sleep study which I discussed with him briefly Anticipate discharge home with outpatient follow-up Findings, concerns and plans were discussed with patient and he was given an opportunity to ask questions. Full code Attestations Medical Necessity Statement*: Anticipated stay less than 2 midnights in a gentleman with comorbid medical conditions as noted above presenting with reported hematochezia although normal H&H currently. Was identified as having a significant elevation white count without a clearly defined source of infection currently. Suspicion was for possibility of cellulitis in the emergency room. He was started on antibiotics. He is being admitted for further evaluation and treatment as indicated and noted above. Coding Level of Care Code Acute Compliance Review Specialist for [facility] Diagnoses Hematochezia K92.1 Leukocytosis D72.829 Leukocytosis type: unspecified Poor dentition K08.9 Malaise R53.81 Chronic anticoagulation Z79.01 Controlled diabetes mellitus with hyperglycemia, without long-term current use of insulin E11.65 Diabetes mellitus type: type 2 Atrial fibrillation I48.0 Atrial fibrillation type: paroxysmal Hyperlipemia E78.5 Hyperlipidemia type: unspecified Heart failure, unspecified I50.9 Heart failure type: unspecified Heart failure chronicity: chronic BMI 45.0-49.9, adult Z68.42
[2021-06-14] VITALS (9 sets, daily range): BP systolic 99–149; BP diastolic 45–79; PULSE 62–78; RESP 17–20; TEMP 36.5–37.2; O2SAT 1–99; BMI 48.2
[2021-06-14] MEDS: morphine 4 mg/mL SDV 1 mL IVP (02:00)
--- NOTE | 2021-06-14 05:08 | USCV_ITS ---
eBrtin Howe Age: 56 Gender: M : 1965 Exam Date: 06/14/2021 06:03 Ordering Phys: Angi Montes De Oca MD Technologist: Lizzy Hi Exam Location: [facility] [place] Indication: BLE EDEAM HISTORY: Lower extremity edema. PROCEDURES: Venous duplex imaging was performed in bilateral lower extremities. The following venous structures were evaluated: common femoral vein, profunda vein, proximal portion of the greater saphenous vein, superficial femoral vein, and the popliteal vein. In addition, the posterior tibial and peroneal trunk were evaluated. Serial compression, augmentation maneuvers, and spectral Doppler flow evaluation were performed. FINDINGS: Normal 2-D Doppler and augmentation and compressibility throughout the lower extremity venous structures. Additional imaging through the proximal calf veins also reveals no thrombus. Limited evaluation of the greater saphenous vein is patent with no thrombus. Bilateral subcutaneous edema. Examination was technically limited due to body habitus. CONCLUSIONS No DVT bilateral lower extremities. Dr. Radha Yoder DO (Electronically Signed) Final Date: 14 June 2021 07:26 S
--- NOTE | 2021-06-14 07:01 | PC.NURSE ---
Lights off, Resting on right side. Eyes closed , ever respiration. No acute distress noted. Continue to monitor
--- NOTE | 2021-06-14 07:03 | PC.NURSE ---
No acute distress noted. Continue to monitor
--- NOTE | 2021-06-14 07:44 | PC.NURSE ---
Call light answered and patient assisted up to bedside to void. Patient tolerated well.
[2021-06-14] MEDS: FUROsemide 40 mg Tablet PO (08:13)
[2021-06-14] MEDS: doxycycline 100 mg Tablet PO (08:14)
[2021-06-14] MEDS: losartan 50 mg Tablet 100 MG PO (08:14)
[2021-06-14] MEDS: amlodipine 10 mg Tablet PO (08:14)
[2021-06-14] MEDS: atorvastatin 40 mg Tablet 20 MG PO (08:17)
[2021-06-14] MEDS: hyDRALAzine 50 mg Tablet PO ×2 (08:17→20:17)
[2021-06-14] MEDS: aspirin 81 mg EC Tablet PO (08:17)
[2021-06-14] MEDS: apixaban 5 mg Tablet PO ×2 (08:40→17:41)
[2021-06-14] MEDS: potassium chloride ER 20 mEq Tablet PO ×2 (08:40→17:41)
[2021-06-14] MEDS: carvedilol 25 mg Tablet PO ×2 (08:40→20:17)
[2021-06-14 09:20] LABS: Basophils # 0.1 10^3/uL (0.0-0.1); Basophils % 0.5 %; Hematocrit 39.3 % (42.0-52.0); Hemoglobin 12.2 g/dL (11.7-16.6); Lymphocytes # 0.7 10^3/uL (0.8-4.8); Lymphocytes % 3.6 %; Mean Corpuscular Hemoglobin 27.3 pg (28.0-34.0); Mean Corpuscular Volume 87.9 fl (80-94); Mean Platelet Volume 9.4 fL (7.4-10.4); Monocytes # 1.2 10^3/uL (0.2-0.9); Monocytes % 5.8 %; Neutrophils % 89.4 %; Nucleated Red Blood Cells % 0 %; Platelet Count 252 10^3/cmm (130-400); Red Blood Count 4.47 10^6/uL (4.1-5.3); Red Cell Distribution Width 15.5 % (12.1-15.1); White Blood Count 20.5 10^3/uL (4.0-10.0)
[2021-06-14 09:36] LABS: INR 1.74 (0.8-1.2)
[2021-06-14 09:45] LABS: Alanine Aminotransferase 9 U/L (0-41); Albumin Level 3.3 g/dL (3.5-5.2); Alkaline Phosphatase 64 IU/L (40-130); Anion Gap 13.6 (5-19); Aspartate Amino Transferase 13 U/L (0-40); Blood Urea Nitrogen 14 mg/dL (6-20); C Reactive Protein 145.2 mg/L (0.0-4.9); Calcium 8.8 mg/dL (8.5-10.5); Carbon Dioxide 29 mmol/L (22-29); Chloride 96 mmol/L (98-107); Globulin 3.1 g/dL (1.3-4.6); Glomerular Filtration Rate 116.2 mL/min (90-130); Glucose 183 mg/dL (65-115); Magnesium 1.5 mg/dL (1.7-2.3); Osmolality Calculated 285 mOsm/kg (285-295); Potassium 3.6 mmol/L (3.5-5.1); Sodium 135 mmol/L (136-145); Total Bilirubin 0.6 mg/dL (0.15-1.2); Total Protein 6.4 g/dL (6.6-8.7)
[2021-06-14 09:51] LABS: Procalcitonin 8.69 ng/mL (0-0.5)
[2021-06-14] MEDS: cefepime 1,000 MG in sodium chloride 0.9% (plus) 50 ML 100 MG IV (10:00)
[2021-06-14 10:17] LABS: Lactic Sepsis W/Reflex 1.8 mmol/L (0.5-2.2)
--- NOTE | 2021-06-14 15:43 | PM.PN ---
Subjective Subjective: Interval history: Patient was seen this morning, he tells me that he has been experiencing increased bilateral lower extremity swelling recently, is also noticed more tenderness in redness appearance of bilateral lower extremities, denies any chest pain, does report increased shortness of breath recently, no nausea, no vomiting, no chest pain, denies a history of COPD, no history of heart failure, does have a history of atrial fibrillation is on Eliquis, does have diabetes, but does not remember the last time he checked his blood sugar, denies any hematochezia currently in the emergency room Vitals/I&O/Wt Last Vital Signs Temp 98.4 F 06/14/21 15:24 Pulse 78 06/14/21 15:24 Resp 17 06/14/21 15:24 BP 121/73 06/14/21 15:24 Pulse Ox 97 06/14/21 15:24 Weight last 48 hrs Weight 140.614 kg Physical Exam Const: COMMON NORMALS: no acute distress and patient oriented x3 Resp: COMMON NORMALS: normal respiratory effort, No retractions, No use of accessory muscles and clear to auscultation bilaterally AUSCULTATION: clear to auscultation bilaterally Cardio: COMMON NORMALS: regular rate, regular rhythm, S1 normal heart sound present and S2 normal heart sound present RATE: regular rate RHYTHM: regular rhythm HEART SOUNDS: S1 normal heart sound present and S2 normal heart sound present GI: COMMON NORMALS: Normal to inspection, nondistended, normoactive bowel sounds present, Soft to palpation and non-tender PALPATION: Yes Soft to palpation Extremity: NARRATIVE EXTREMITY EXAM: 3+ pitting edema bilaterally bilateral shins and forfeet with erythema, swelling, tenderness Neuro: COMMON NORMALS: patient oriented x3 Psych: COMMON NORMALS: mental status grossly normal Data : 06/14/21 09:01 06/14/21 09:01 Micro: Microbiology 06/14/21 09:07 Blood Culture - Preliminary Blood SPECIMEN COLLECTED 06/14/21 09:01 Blood Culture - Preliminary Blood SPECIMEN COLLECTED A&P Assessment and plan (1) Heart failure, unspecified: -Last echocardiogram from 2017 showed severely increased left ventricular cavity size and severely decreased left ventricular systolic function with global left ventricular hypokinesis and grade 3/4 diastolic dysfunction along with severely elevated filling pressures -Start Bumex 1 mg daily 12 hours, potassium placement -Fluid restrictions 1500 cc -Repeat cardiac echocardiogram -Monitor I's and O's, monitor creatinine, monitor potassium Status: Chronic Qualifiers: Heart failure type: unspecified Heart failure chronicity: chronic Qualified Code(s): I50.9 - Heart failure, unspecified (2) Bilateral lower leg cellulitis: -Clinically has bilateral lower extremity cellulitis -Bilateral lower extremity ultrasound negative for DVT -WBC 20.5, pro-Bertin 8.69, CRP 145 -Continue vancomycin, cefepime -Follow blood cultures -Monitor hemodynamics -We will consider imaging of bilateral lower extremities based on clinical progress Status: Acute (3) Hematochezia: -Currently no bloody or black stools -CT scan abdomen pelvis no acute findings -Hemoglobin stable at 12.2 -Obtain Hemoccult stool -Trend hemoglobin -Protonix 40 IV twice daily, Carafate -Hemodynamic stable -Continue Eliquis Status: Acute (4) Leukocytosis: Likely secondary to bilateral extremity cellulitis Status: Acute Qualifiers: Leukocytosis type: unspecified Qualified Code(s): D72.829 - Elevated white blood cell count, unspecified (5) Poor dentition: Status: Acute (6) Malaise: Status: Acute (7) Chronic anticoagulation: Status: Chronic (8) Controlled diabetes mellitus with hyperglycemia, without long-term current use of insulin: -Last A1c 6.9 -Recheck A1c -Continue insulin sliding scale Status: Chronic Qualifiers: Diabetes mellitus type: type 2 Qualified Code(s): E11.65 - Type 2 diabetes mellitus with hyperglycemia (9) Atrial fibrillation: -Continue carvedilol 25 mg twice daily -Continue Eliquis Status: Chronic Qualifiers: Atrial fibrillation type: paroxysmal Qualified Code(s): I48.0 - Paroxysmal atrial fibrillation (10) Hyperlipemia: Status: Chronic Qualifiers: Hyperlipidemia type: unspecified Qualified Code(s): E78.5 - Hyperlipidemia, unspecified (11) BMI 45.0-49.9, adult: Status: Chronic Additional A&P Information Suspected component of obesity hypoventilation, plus or minus sleep apnea, monitor for sleep apnea overnight Hypertension, continue home medications Eliquis will provide appropriate VTE prophylaxis Supportive care otherwise Would benefit from outpatient sleep study which I discussed with him briefly Anticipate discharge home with outpatient follow-up Findings, concerns and plans were discussed with patient and he was given an opportunity to ask questions. Full code Attestations Medical Necessity Statement*: Patient requires hospitalization, inpatient, greater than 2 midnights, for cellulitis of bilateral lower extremities, fluid overload, diastolic CHF exacerbation Coding Level of Care Code Acute [employer] for [facility] Fwd Diagnoses Heart failure, unspecified I50.9 Heart failure type: unspecified Heart failure chronicity: chronic Bilateral lower leg cellulitis L03.116; L03.115 Hematochezia K92.1 Leukocytosis D72.829 Leukocytosis type: unspecified Poor dentition K08.9 Malaise R53.81 Chronic anticoagulation Z79.01 Controlled diabetes mellitus with hyperglycemia, without long-term current use of insulin E11.65 Diabetes mellitus type: type 2 Atrial fibrillation I48.0 Atrial fibrillation type: paroxysmal Hyperlipemia E78.5 Hyperlipidemia type: unspecified BMI 45.0-49.9, adult Z68.42
--- NOTE | 2021-06-14 15:53 | XRR_ITS ---
PROCEDURE INFORMATION: Exam: XR Left Tibia and Fibula Exam date and time: 06/14/2021 3:53 PM Age: 56 years old Clinical indication: Condition or disease; Other: Cellultiis TECHNIQUE: Imaging protocol: XR Left tibia and fibula. Views: 2 views. COMPARISON: No relevant prior studies available. FINDINGS: Bones/joints: No irregular osseous cortical erosions or intramedullary lucencies. Osseous structures are intact. Soft tissues: Soft tissue swelling along the calf. XR/XR tibia fibula LT 2V [id number] IMPRESSION: No evidence of osteomyelitis.
--- NOTE | 2021-06-14 15:53 | XRR_ITS ---
PROCEDURE INFORMATION: Exam: XR Right Tibia and Fibula Exam date and time: 06/14/2021 3:53 PM Age: 56 years old Clinical indication: Condition or disease; Other: Cellultiis TECHNIQUE: Imaging protocol: XR Right tibia and fibula. Views: 2 views. COMPARISON: CR XR knee RT 3V* [id number] 08/27/2020 6:53 PM FINDINGS: Bones/joints: No irregular cortical erosions or intramedullary lucencies. Visualized osseous structures are intact. Soft tissues: Soft tissue swelling of the calf. XR/XR tibia fibula RT 2V [id number] IMPRESSION: No evidence of osteomyelitis.
[2021-06-14 16:34] LABS: Ferritin 122 ng/mL (30-400); Iron 14 ug/dL (59-158)
[2021-06-14] MEDS: sucralfate 1 gm/10 mL Oral Liq UDC PO ×2 (17:41→23:09)
[2021-06-14] MEDS: docusate sodium 100 mg Capsule PO (17:41)
[2021-06-14] MEDS: pantoprazole 40 mg SDV IVP (17:41)
[2021-06-14] MEDS: bumetanide 0.25 mg/mL SDV 4 mL 1 MG IV (17:47)
[2021-06-14 18:08] LABS: Basophils # 0.1 10^3/uL (0.0-0.1); Basophils % 0.6 %; Eosinophils # 0.1 10^3/uL (0.0-0.8); Eosinophils % 0.3 %; Hematocrit 43.7 % (42.0-52.0); Hemoglobin 13.3 g/dL (11.7-16.6); Lymphocytes # 1.3 10^3/uL (0.8-4.8); Lymphocytes % 7.1 %; Mean Corpuscular HGB Conc 30.4 g/dL (30.0-36.0); Mean Corpuscular Hemoglobin 27.2 pg (28.0-34.0); Mean Corpuscular Volume 89.4 fl (80-94); Mean Platelet Volume 9.6 fL (7.4-10.4); Monocytes # 1.4 10^3/uL (0.2-0.9); Monocytes % 7.6 %; Neutrophils # 15.43 10^3/uL (1.8-7.7); Neutrophils % 83.7 %; Nucleated Red Blood Cells % 0 %; Platelet Count 242 10^3/cmm (130-400); Red Blood Count 4.89 10^6/uL (4.1-5.3); Red Cell Distribution Width 15.8 % (12.1-15.1); White Blood Count 18.4 10^3/uL (4.0-10.0)
--- NOTE | 2021-06-14 20:10 | PC.NURSE ---
MANAGER RESORT reported accucheck result as 191.
[2021-06-14 20:32] LABS: LAB Peripheral Smear Sent for Review
[2021-06-15 00:58] LABS: Basophils # 0.1 10^3/uL (0.0-0.1); Basophils % 0.5 %; Eosinophils # 0.1 10^3/uL (0.0-0.8); Eosinophils % 0.7 %; Hematocrit 37.3 % (42.0-52.0); Hemoglobin 11.6 g/dL (11.7-16.6); Lymphocytes # 1.4 10^3/uL (0.8-4.8); Lymphocytes % 9.1 %; Mean Corpuscular HGB Conc 31.1 g/dL (30.0-36.0); Mean Corpuscular Hemoglobin 27.4 pg (28.0-34.0); Mean Platelet Volume 9.5 fL (7.4-10.4); Monocytes # 1.4 10^3/uL (0.2-0.9); Monocytes % 9.1 %; Neutrophils # 11.84 10^3/uL (1.8-7.7); Nucleated Red Blood Cells % 0 %; Platelet Count 227 10^3/cmm (130-400); Red Blood Count 4.24 10^6/uL (4.1-5.3); Red Cell Distribution Width 15.8 % (12.1-15.1); White Blood Count 14.8 10^3/uL (4.0-10.0)
[2021-06-15 04:00] VITALS: BP 113/74; PULSE 73; RESP 18; TEMP 37.2; O2SAT 91
[2021-06-15] MEDS: bumetanide 0.25 mg/mL SDV 4 mL 1 MG IV ×2 (05:27→17:55)
[2021-06-15] MEDS: pantoprazole 40 mg SDV IVP ×2 (05:27→16:44)
[2021-06-15 06:38] LABS: Basophils # 0.1 10^3/uL (0.0-0.1); Basophils % 0.6 %; Eosinophils # 0.1 10^3/uL (0.0-0.8); Eosinophils % 0.8 %; Hematocrit 40.2 % (42.0-52.0); Hemoglobin 12.2 g/dL (11.7-16.6); Lymphocytes # 1.3 10^3/uL (0.8-4.8); Lymphocytes % 8.6 %; Mean Corpuscular HGB Conc 30.3 g/dL (30.0-36.0); Mean Corpuscular Hemoglobin 27.1 pg (28.0-34.0); Mean Corpuscular Volume 89.3 fl (80-94); Mean Platelet Volume 9.7 fL (7.4-10.4); Monocytes # 1.5 10^3/uL (0.2-0.9); Monocytes % 9.8 %; Neutrophils # 12.14 10^3/uL (1.8-7.7); Neutrophils % 79.4 %; Nucleated Red Blood Cells % 0 %; Platelet Count 247 10^3/cmm (130-400); Red Cell Distribution Width 15.8 % (12.1-15.1); White Blood Count 15.3 10^3/uL (4.0-10.0)
[2021-06-15 06:43] LABS: INR 1.37 (0.8-1.2)
[2021-06-15 07:00] LABS: Alanine Aminotransferase 10 U/L (0-41); Albumin Level 3.5 g/dL (3.5-5.2); Alkaline Phosphatase 69 IU/L (40-130); Anion Gap 12.9 (5-19); Aspartate Amino Transferase 16 U/L (0-40); Blood Urea Nitrogen 14 mg/dL (6-20); C Reactive Protein 183.4 mg/L (0.0-4.9); Calcium 8.8 mg/dL (8.5-10.5); Carbon Dioxide 29 mmol/L (22-29); Chloride 99 mmol/L (98-107); Globulin 3.5 g/dL (1.3-4.6); Glomerular Filtration Rate 138.9 mL/min (90-130); Glucose 127 mg/dL (65-115); Magnesium 1.8 mg/dL (1.7-2.3); Osmolality Calculated 286 mOsm/kg (285-295); Phosphorus 2.7 mg/dL (2.5-4.5); Potassium 3.9 mmol/L (3.5-5.1); Sodium 137 mmol/L (136-145); Total Bilirubin 0.4 mg/dL (0.15-1.2)
[2021-06-15 07:32] LABS: Lactate (Lactic Acid level) 1.1 mmol/L (0.5-2.2)
[2021-06-15 08:19] LABS: NT Pro B Type Natriuretic Pept 661 pg/mL (0-125); Procalcitonin 5.82 ng/mL (0-0.5)
[2021-06-15 08:30] LABS: Creatine Phosphokinase 162 U/L (39-308)
[2021-06-15 08:40] VITALS: BP 134/81; PULSE 70; RESP 18; TEMP 36.5; O2SAT 95
--- NOTE | 2021-06-15 10:28 | USCV_ITS ---
Bertin Howe Age: 56 Gender: M : 1965 Exam Date: 06/15/2021 06:46 Ordering Phys: Harlan Marrero MD Technologist: Sherita Randall Exam Location: [facility] – [place] Indication: Bilateral lower extremity edema BP: 113 / 74 HR: 66 Rhythm: Atrial fibrillation Technical Quality: Technically difficult study MEASUREMENTS (Male / Female) Normal Values 2D ECHO LV Diastolic Diameter PLAX 5.0 cm 4.2 - 5.9 / 3.9 - 5.3 cm LV Systolic Diameter PLAX 3.9 cm LV Chamber Size 4.9 cm IVS Diastolic Thickness 1.5 cm 0.6 - 1.0 / 0.6 - 0.9 cm IVS Systolic Thickness 1.3 cm LVPW Diastolic Thickness 1.5 cm 0.6 - 1.0 / 0.6 - 0.9 cm LVPW Systolic Thickness 1.8 cm RV Chamber Size 3.9 cm LVOT Diameter 2.2 cm LV Ejection Fraction 2D Teich 44.1 % LA Diameter 4.5 cm LA Width 4.2 cm LA Height 6.6 cm RA Width 3.2 cm RA Height 5.6 cm Aorta at Sinotubular Diameter 3.1 cm M-MODE LV Diastolic Diameter MM 5.0 cm 4.2 - 5.9 / 3.9 - 5.3 cm LV Systolic Diameter MM 3.9 cm LV Ejection Fraction MM Teich 46.9 % IVS Diastolic Thickness MM 1.3 cm 0.6 - 1.0 / 0.6 - 0.9 cm IVS Systolic Thickness MM 1.0 cm LVPW Diastolic Thickness MM 1.8 cm 0.6 - 1.0 / 0.6 - 0.9 cm LVPW Systolic Thickness MM 1.8 cm RV Diastolic Diameter MM 3.8 cm Aortic Annulus Diameter 3.4 cm LA Ao Ratio MM 1.4 MV E Point Septal Separation 0.7 cm DOPPLER AV Peak Velocity 135.0 cm/s LVOT Peak Velocity 57.0 cm/s AV Area Cont Eq vti 1.5 cm squared AV Area Cont Eq pk 1.5 cm squared MV Area PHT 2.2 cm squared MV E' Velocity 84.0 cm/s TV Peak E Velocity 77.0 cm/s Right Atrial Pressure 8.0 mmHg FINDINGS Left Ventricle Normal left ventricular cavity size. Normal left ventricular systolic function. No regional wall motion abnormalities. Left ventricular ejection fraction is estimated at 55 %. In the presence of atrial fibrillation diastolic function cannot be assessed accurately Right Ventricle Normal right ventricular size. RVSP could not be calculated due to incomplete tricuspid regurgitation velocity profile. Right Atrium The right atrium is normal in size. Left Atrium The left atrium is normal in size. Mitral Valve Moderately thickened mitral valve. Moderate mitral annular calcification. No mitral valve stenosis. Trace mitral valve regurgitation. Aortic Valve Moderate aortic valve calcification.mild aortic valve stenosis, mean gradient 4.4 mmHg, [place] 1.5 cm squared. No regurgitation Tricuspid Valve Structurally normal tricuspid valve without significant stenosis or regurgitation. Pulmonary artery systolic pressure is normal. Pulmonic Valve Structurally normal pulmonic valve without significant stenosis. There is no pulmonic regurgitation. Pericardium Normal pericardium without effusion. Aorta Normal ascending aorta dimension. CONCLUSIONS 1-Normal left ventricular cavity size. Normal left ventricular systolic function. No regional wall motion abnormalities. Left ventricular ejection fraction is estimated at 55 %. In the presence of atrial fibrillation diastolic function cannot be assessed accurately. 2-Normal right ventricular size. RVSP could not be calculated due to incomplete tricuspid regurgitation velocity profile. 3-Moderate aortic valve calcification.mild aortic valve stenosis, mean gradient 4.4 mmHg, [place] 1.5 cm squared. No regurgitation 4-There is no pericardial effusion. 5-Right atrial pressure is around 20 mm of mercury. 6-When compared to the prior echocardiogram dated January 23, 2018 patient appeared to be in volume overload status as evident by increased right side atrial pressure of more than 25 mmHg. If clinically correlated consider diuresing the patient Jarred Zhang MD (Electronically Signed) Final Date: 15 June 2021 16:54 S
[2021-06-15] MEDS: docusate sodium 100 mg Capsule PO (11:25)
[2021-06-15] MEDS: sucralfate 1 gm/10 mL Oral Liq UDC PO ×3 (11:25→20:57)
[2021-06-15 11:26] VITALS: BP 134/81
[2021-06-15] MEDS: losartan 50 mg Tablet 100 MG PO (11:26)
[2021-06-15] MEDS: aspirin 81 mg EC Tablet PO (11:26)
[2021-06-15] MEDS: apixaban 5 mg Tablet PO ×2 (11:26→16:44)
[2021-06-15] MEDS: potassium chloride ER 20 mEq Tablet PO ×2 (11:27→16:44)
[2021-06-15] MEDS: carvedilol 25 mg Tablet PO ×2 (11:27→20:57)
[2021-06-15] MEDS: amlodipine 10 mg Tablet PO (11:27)
[2021-06-15] MEDS: hyDRALAzine 50 mg Tablet PO ×3 (11:27→20:57)
[2021-06-15] MEDS: atorvastatin 40 mg Tablet 20 MG PO (11:31)
--- NOTE | 2021-06-15 12:40 | P.PN_ITS ---
Subjective Subjective: Interval history: Patient was seen this morning, he is ambulating with minimal shortness of breath, still complains of bilateral lower extremity swelling, no nausea, no vomiting, no fevers, no chills, no chest pain, denies any bloody or black stools, Vitals/I&O/Wt Last Vital Signs Temp 97.7 F 06/15/21 08:40 Pulse 70 06/15/21 08:40 Resp 18 06/15/21 08:40 BP 134/81 06/15/21 11:26 Pulse Ox 95 06/15/21 08:40 06/14/21 06/15/21 06/15/21 22:59 06:59 14:59 Intake Total 790 / 790 500.0 / 1290.0 480 / 480 Balance 790 / 790 500.0 / 1290.0 480 / 480 Weight last 48 hrs Weight 143.925 kg Weight 140.614 kg Physical Exam Const: COMMON NORMALS: no acute distress and patient oriented x3 Resp: COMMON NORMALS: normal respiratory effort, No retractions, No use of accessory muscles and clear to auscultation bilaterally AUSCULTATION: clear to auscultation bilaterally Cardio: COMMON NORMALS: regular rate, regular rhythm, S1 normal heart sound present and S2 normal heart sound present RATE: regular rate RHYTHM: regular rhythm HEART SOUNDS: S1 normal heart sound present and S2 normal heart sound present GI: COMMON NORMALS: Normal to inspection, nondistended, normoactive bowel sounds present, Soft to palpation and non-tender PALPATION: Yes Soft to palpation Extremity: NARRATIVE EXTREMITY EXAM: Bilateral extremity edema, 2+ Bilateral lower extremities, starting from the shins, down to the forefoot, erythema, swelling, tenderness Neuro: COMMON NORMALS: patient oriented x3 Psych: COMMON NORMALS: mental status grossly normal Data : 06/15/21 05:29 06/15/21 05:29 Micro: Microbiology 06/14/21 09:07 Blood Culture - Preliminary Blood NEGATIVE TO DATE 06/14/21 09:01 Blood Culture - Preliminary Blood NEGATIVE TO DATE A&P Assessment and plan (1) Heart failure, unspecified: -Last echocardiogram from 2018 showed severely increased left ventricular cavity size and severely decreased left ventricular systolic function with global left ventricular hypokinesis and grade 3/4 diastolic dysfunction along with severely elevated filling pressures -Start Bumex 1 mg daily 12 hours, potassium replacement, will give an extra dose of metolazone today -Fluid restrictions 1500 cc -Repeat cardiac echocardiogram is pending -Monitor I's and O's, monitor creatinine, monitor potassium Status: Chronic Qualifiers: Heart failure type: unspecified Heart failure chronicity: chronic Q ualified Code(s): I50.9 - Heart failure, unspecified (2) Bilateral lower leg cellulitis: -Clinically has bilateral lower extremity cellulitis -Bilateral lower extremity ultrasound negative for DVT -Bilateral lower extremity x-rays unremarkable for underlying osteomyelitis -WBC 15.3, pro-Bertin 5.82, CRP 183 -Continue vancomycin, cefepime -Follow blood cultures -Monitor hemodynamics Status: Acute (3) Hematochezia: -Currently no bloody or black stools -CT scan abdomen pelvis no acute findings -Hemoglobin stable at 12.2 -Obtain Hemoccult stool -Trend hemoglobin -Protonix 40 IV twice daily, Carafate -Hemodynamic stable -Continue Eliquis Status: Acute (4) Leukocytosis: Likely secondary to bilateral extremity cellulitis Status: Acute Qualifiers: Leukocytosis type: unspecified Qualified Code(s): D72.829 - Elevated w melanie blood cell count, unspecified (5) Poor dentition: Status: Acute (6) Malaise: Status: Acute (7) Chronic anticoagulation: Status: Chronic (8) Controlled diabetes mellitus with hyperglycemia, without long-term current use of insulin: -Last A1c 6.9 -Recheck A1c 7.6 -Continue insulin sliding scale Status: Chronic Qualifiers: Diabetes mellitus type: type 2 Qualified Code(s): E11.65 - Type 2 diabetes mellitus with hyperglycemia (9) Atrial fibrillation: -Continue carvedilol 25 mg twice daily -Continue Eliquis Status: Chronic Qualifiers: Atrial fibrillation type: paroxysmal Qualified Code(s): I48.0 - Paroxysmal atrial fibrillation (10) Hyperlipemia: Status: Chronic Qualifiers: Hyperlipidemia type: unspecified Qualified Code(s): E78.5 - Hyperlipidemia, unspecified (11) BMI 45.0-49.9, adult: Status: Chronic Additional A&P Information Suspected component of obesity hypoventilation, plus or minus sleep apnea, monitor for sleep apnea overnight Hypertension, continue home medications Eliquis will provide appropriate VTE prophylaxis Supportive care otherwise Would benefit from outpatient sleep study which I discussed with him briefly Anticipate discharge home with outpatient follow-up Findings, concerns and plans were discussed with patient and he was given an opportunity to ask questions. Full code Plan for today, increase diuresis, add metolazone, continue antibiotics, monitor clinically Attestations Medical Necessity Statement*: Patient requires hospitalization for bilateral lower extremity cellulitis, CHF exacerbation, hematochezia Coding Level of Care Code Acute Artist Manager for [facility] Fwd Diagnoses Heart failure, unspecified I50.9 Heart failure type: unspecified Heart failure chronicity: chronic Bilateral lower leg cellulitis L03.116; L03.115 Hematochezia K92.1 Leukocytosis D72.829 Leukocytosis type: unspecified Poor dentition K08.9 Malaise R53.81 Chronic anticoagulation Z79.01 Controlled diabetes mellitus with hyperglycemia, without long-term current use of insulin E11.65 Diabetes mellitus type: type 2 Atrial fibrillation I48.0 Atrial fibrillation type: paroxysmal Hyperlipemia E78.5 Hyperlipidemia type: unspecified BMI 45.0-49.9, adult Z68.42
[2021-06-15 13:28] VITALS: BP 151/98; PULSE 69; RESP 20; TEMP 36.9; O2SAT 92
[2021-06-15] MEDS: cefepime 1,000 MG in sodium chloride 0.9% (plus) 50 ML 100 MG IV ×2 (13:57→22:01)
[2021-06-15] MEDS: metOLazone 5 MG Tablet 10 MG PO (14:01)
[2021-06-15 16:16] VITALS: BP 117/67; PULSE 64; RESP 16; TEMP 36.8; O2SAT 93
[2021-06-15 20:00] VITALS: BP 180/69; PULSE 69; RESP 18; TEMP 36.9; O2SAT 93
--- NOTE | 2021-06-15 20:51 | PC.NURSE ---
Addendum entered by Dayo Meadows RN 06/15/21 20:53: Stephanie reported the patient's sugar was 135, she had looked at the incorrect patient's sugar the first time. Original Note: NOBLE Brown, reported patient's accucheck was 123.
[2021-06-15 22:32] LABS: Vancomycin Trough 19.1 ug/mL (10-15)
[2021-06-16] VITALS (8 sets, daily range): BP systolic 120–148; BP diastolic 61–83; PULSE 52–73; RESP 17–23; TEMP 36.4–37; O2SAT 91–94
[2021-06-16] MEDS: bumetanide 0.25 mg/mL SDV 4 mL 1 MG IV ×3 (05:50→22:43)
[2021-06-16] MEDS: pantoprazole 40 mg SDV IVP ×2 (05:50→17:15)
[2021-06-16 05:58] LABS: Basophils # 0.1 10^3/uL (0.0-0.1); Basophils % 0.8 %; Eosinophils # 0.3 10^3/uL (0.0-0.8); Eosinophils % 2.1 %; Hematocrit 38.6 % (42.0-52.0); Lymphocytes # 1.3 10^3/uL (0.8-4.8); Lymphocytes % 11.2 %; Mean Corpuscular HGB Conc 31.1 g/dL (30.0-36.0); Mean Corpuscular Hemoglobin 27.2 pg (28.0-34.0); Mean Corpuscular Volume 87.5 fl (80-94); Mean Platelet Volume 9.6 fL (7.4-10.4); Monocytes # 1.2 10^3/uL (0.2-0.9); Monocytes % 10.2 %; Neutrophils # 8.89 10^3/uL (1.8-7.7); Neutrophils % 75.2 %; Nucleated Red Blood Cells % 0 %; Platelet Count 238 10^3/cmm (130-400); Red Blood Count 4.41 10^6/uL (4.1-5.3); Red Cell Distribution Width 15.4 % (12.1-15.1); White Blood Count 11.8 10^3/uL (4.0-10.0)
[2021-06-16 06:11] LABS: INR 1.36 (0.8-1.2)
[2021-06-16 06:20] LABS: Alanine Aminotransferase 12 U/L (0-41); Albumin Level 3.2 g/dL (3.5-5.2); Alkaline Phosphatase 82 IU/L (40-130); Anion Gap 11.6 (5-19); Aspartate Amino Transferase 18 U/L (0-40); Blood Urea Nitrogen 14 mg/dL (6-20); C Reactive Protein 107.9 mg/L (0.0-4.9); Calcium 8.5 mg/dL (8.5-10.5); Carbon Dioxide 29 mmol/L (22-29); Chloride 95 mmol/L (98-107); Globulin 3.5 g/dL (1.3-4.6); Glomerular Filtration Rate 138.9 mL/min (90-130); Glucose 130 mg/dL (65-115); Magnesium 1.8 mg/dL (1.7-2.3); Osmolality Calculated 276 mOsm/kg (285-295); Phosphorus 3.4 mg/dL (2.5-4.5); Potassium 3.6 mmol/L (3.5-5.1); Sodium 132 mmol/L (136-145); Total Bilirubin 0.4 mg/dL (0.15-1.2); Total Protein 6.7 g/dL (6.6-8.7)
[2021-06-16 06:21] LABS: Lactate (Lactic Acid level) 0.8 mmol/L (0.5-2.2)
[2021-06-16 06:27] LABS: NT Pro B Type Natriuretic Pept 493 pg/mL (0-125)
--- NOTE | 2021-06-16 06:36 | PC.NURSE ---
Patient's glucose was 148 reported by PRISON GUARD Stephanie.
[2021-06-16 06:38] LABS: Creatine Phosphokinase 109 U/L (39-308)
[2021-06-16 07:57] LABS: Glucose Point of Care 182 mg/dL (70-110)
[2021-06-16 08:06] LABS: Glucose Point of Care 191 mg/dL (70-110)
[2021-06-16 08:06] LABS: Glucose Point of Care 169 mg/dL (70-110)
[2021-06-16 08:08] LABS: Glucose Point of Care 157 mg/dL (70-110)
[2021-06-16 08:08] LABS: Glucose Point of Care 148 mg/dL (70-110)
[2021-06-16 08:08] LABS: Glucose Point of Care 235 mg/dL (70-110)
[2021-06-16 08:08] LABS: Glucose Point of Care 135 mg/dL (70-110)
[2021-06-16 08:08] LABS: Glucose Point of Care 148 mg/dL (70-110)
[2021-06-16 08:08] LABS: Glucose Point of Care 239 mg/dL (70-110)
[2021-06-16] MEDS: potassium chloride ER 20 mEq Tablet PO ×2 (08:57→17:15)
[2021-06-16] MEDS: atorvastatin 40 mg Tablet 20 MG PO (08:57)
[2021-06-16] MEDS: docusate sodium 100 mg Capsule PO ×2 (08:57→17:15)
[2021-06-16] MEDS: sucralfate 1 gm/10 mL Oral Liq UDC PO (08:57)
[2021-06-16] MEDS: aspirin 81 mg EC Tablet PO (08:57)
[2021-06-16] MEDS: losartan 50 mg Tablet 100 MG PO (08:57)
[2021-06-16] MEDS: apixaban 5 mg Tablet PO ×2 (08:57→17:15)
[2021-06-16] MEDS: hyDRALAzine 50 mg Tablet PO ×3 (08:57→21:01)
[2021-06-16] MEDS: carvedilol 25 mg Tablet PO ×2 (08:57→21:01)
[2021-06-16] MEDS: metOLazone 5 MG Tablet 10 MG PO (08:58)
[2021-06-16] MEDS: amlodipine 10 mg Tablet PO (08:58)
[2021-06-16] MEDS: vancomycin 1,500 MG/300 ML PIGGYBACK 200 MG IV ×2 (11:14→23:37)
[2021-06-16 11:27] LABS: Glucose Point of Care 161 mg/dL (70-110)
[2021-06-16] MEDS: cefepime 1,000 MG in sodium chloride 0.9% (plus) 50 ML 100 MG IV ×2 (14:08→22:50)
--- NOTE | 2021-06-16 14:41 | PM.PN ---
Subjective Subjective: Interval history: Patient was seen this morning, he continues to have bilateral lower extremity edema, but improving, no nausea, no vomiting, no abdominal pain, no fevers, no chills Vitals/I&O/Wt Last Vital Signs Temp 97.9 F 06/16/21 11:03 Pulse 66 06/16/21 11:03 Resp 18 06/16/21 11:03 BP 146/83 06/16/21 11:03 Pulse Ox 92 06/16/21 11:03 06/15/21 06/16/21 06/16/21 22:59 06:59 14:59 Intake Total 670 / 1200 620 / 1820 540 / 540 Output Total 700 / 700 Balance -30 / 500 620 / 1120 540 / 540 Weight last 48 hrs Weight 143.925 kg Physical Exam Const: COMMON NORMALS: no acute distress and patient oriented x3 Resp: COMMON NORMALS: normal respiratory effort, No retractions, No use of accessory muscles and clear to auscultation bilaterally AUSCULTATION: clear to auscultation bilaterally Cardio: COMMON NORMALS: regular rate, regular rhythm, S1 normal heart sound present and S2 normal heart sound present RATE: regular rate RHYTHM: regular rhythm HEART SOUNDS: S1 normal heart sound present and S2 normal heart sound present GI: COMMON NORMALS: Normal to inspection, nondistended, normoactive bowel sounds present, Soft to palpation and non-tender PALPATION: Yes Soft to palpation Extremity: COMMON NORMALS: no pedal edema NARRATIVE EXTREMITY EXAM: Bilateral extremity edema, 2+ Bilateral lower extremities, starting from the shins, down to the forefoot, erythema, swelling, tenderness Neuro: COMMON NORMALS: patient oriented x3 Psych: COMMON NORMALS: mental status grossly normal Data : 06/16/21 05:08 06/16/21 05:08 A&P Assessment and plan (1) Heart failure, unspecified: -Last echocardiogram from 2018 showed severely increased left ventricular cavity size and severely decreased left ventricular systolic function with global left ventricular hypokinesis and grade 3/4 diastolic dysfunction along with severely elevated filling pressures -Diuresis continues to be a bit lackluster, still +3 L -Increase Bumex to 1 mg every 8 hours, add metolazone 10 mg daily, potassium replacement -Fluid restrictions 1500 cc -Repeat cardiac echocardiogram 1-Normal left ventricular cavity size. Normal left ventricular systolic function. No regional wall motion abnormalities. Left ventricular ejection fraction is estimated at 55 %. In the presence of atrial fibrillation diastolic function cannot be assessed accurately. 2-Normal right ventricular size. RVSP could not be calculated due to incomplete tricuspid regurgitation velocity profile. 3-Moderate aortic valve calcification.mild aortic valve stenosis, mean gradient 4.4 mmHg, CHIRAG 1.5 cm squared. No regurgitation 4-There is no pericardial effusion. 5-Right atrial pressure is around 20 mm of mercury. 6-When compared to the prior echocardiogram dated January 23, 2018 patient appeared to be in volume overload status as evident by increased right side atrial pressure of more than 25 mmHg. If clinically correlated consider diuresing the patient -Monitor I's and O's, monitor creatinine, monitor potassium Status: Chronic Qualifiers: Heart failure type: unspecified Heart failure chronicity: chronic Qualified Code(s): I50.9 - Heart failure, unspecified (2) Bilateral lower leg cellulitis: -Clinically has bilateral lower extremity cellulitis -Bilateral lower extremity ultrasound negative for DVT -Bilateral lower extremity x-rays unremarkable for underlying osteomyelitis -WBC 11.8, CRP 107.9, pro-Bertin 3 -Continue vancomycin, cefepime -Follow blood cultures -Monitor hemodynamics Status: Acute (3) Hematochezia: -Currently no bloody or black stools -CT scan abdomen pelvis no acute findings -Hemoglobin stable at 12.0 -Obtain Hemoccult stool -Trend hemoglobin -Protonix 40 IV twice daily, Carafate -Hemodynamic stable -Continue Eliquis Status: Acute (4) Leukocytosis: Likely secondary to bilateral extremity cellulitis Status: Acute Qualifiers: Leukocytosis type: unspecified Qualified Code(s): D72.829 - Elevated white blood cell count, unspecified (5) Poor dentition: Status: Acute (6) Malaise: Status: Acute (7) Chronic anticoagulation: Status: Chronic (8) Controlled diabetes mellitus with hyperglycemia, without long-term current use of insulin: -Last A1c 6.9 -Recheck A1c 7.6 -Continue insulin sliding scale Status: Chronic Qualifiers: Diabetes mellitus type: type 2 Qualified Code(s): E11.65 - Type 2 diabetes mellitus with hyperglycemia (9) Atrial fibrillation: -Continue carvedilol 25 mg twice daily -Continue Eliquis Status: Chronic Qualifiers: Atrial fibrillation type: paroxysmal Qualified Code(s): I48.0 - Paroxysmal atrial fibrillation (10) Hyperlipemia: Status: Chronic Qualifiers: Hyperlipidemia type: unspecified Qualified Code(s): E78.5 - Hyperlipidemia, unspecified (11) BMI 45.0-49.9, adult: Status: Chronic Additional A&P Information Suspected component of obesity hypoventilation, plus or minus sleep apnea, monitor for sleep apnea overnight Hypertension, continue home medications Eliquis will provide appropriate VTE prophylaxis Supportive care otherwise Would benefit from outpatient sleep study which I discussed with him briefly Anticipate discharge home with outpatient follow-up Findings, concerns and plans were discussed with patient and he was given an opportunity to ask questions. Full code Plan for today, increase diuresis, add metolazone, continue antibiotics, monitor clinically Attestations Medical Necessity Statement*: Patient requires hospitalization for fluid overload, cellulitis Coding Level of Care Code Acute Information Systems Director for g Fwd Diagnoses Heart failure, unspecified I50.9 Heart failure type: unspecified Heart failure chronicity: chronic Bilateral lower leg cellulitis L03.116; L03.115 Hematochezia K92.1 Leukocytosis D72.829 Leukocytosis type: unspecified Poor dentition K08.9 Malaise R53.81 Chronic anticoagulation Z79.01 Controlled diabetes mellitus with hyperglycemia, without long-term current use of insulin E11.65 Diabetes mellitus type: type 2 Atrial fibrillation I48.0 Atrial fibrillation type: paroxysmal Hyperlipemia E78.5 Hyperlipidemia type: unspecified BMI 45.0-49.9, adult Z68.42
--- NOTE | 2021-06-16 15:18 | PC.CHAP ---
Pastoral Care Encounter/Spiritual Assessment Type of Contact [] Declined distribution spec visit [] Patient/Family/Request visit [] Outpatient visit [] Follow-up visit [] Physician referral [] Code/Alert [XX] Routine visit [] Staff referral [] Actively dying [] Patient sleeping [] Family support [] [] Out of room [] Palliative care [] [] Receiving care in room [] Pre-surgical visit [] Trauma [] Long length of stay [] ICU visit [] Other: Relational/Emotional Strength [] Patient feels connected with others/family/visitors/staff [] Distress [] Loneliness/isolation [] Abandonment Spirituality of Patient [] Person of Dominique [] Attends Mosque of their Dominique [] Believes in Prayer [] Reads Bible or Worship materials [] There are Spiritual issues to be addressed Cattle Rancher Interventions [] Prayer [] Active listening [] Non-anxious presence [] Spiritual/emotional support [] Crisis/trauma care [] Spiritual counseling [] Bereavement support [] Provided bereavement packet [] Provided Bible/devotional materials [] Provided toy/stuffed animal, coloring book to patient or family member [] Provided Communion [] Anointing/[place] [] Salvation [] Completed spiritual assessment [] Other: Impact on Illness or Injury [] Angry [] Fearful [] Anxious [] Often cries [] Exhaustion [] Unable to work [] Unable to attend rastafarian [] Unable to walk/stand [] Unable to read [] Unable to drive [] Unable to eat/drink [] Unable to sleep [] Unable to be with family [] Patient intubated [] Other: Summary: Pt agreed to distribution spec visit but did not really want to visit. Spiritual assessment was attempted but incomplete. Cattle Rancher reminded him of availability 04/05 should he wish to visit at another time. Time spent with patient: 5 mins
--- NOTE | 2021-06-16 15:33 | PC.NURSE ---
complete bed change done @ this time
[2021-06-16 16:24] LABS: Glucose Point of Care 193 mg/dL (70-110)
[2021-06-16] MEDS: sucralfate 1 gm Tablet PO ×2 (17:15→21:01)
[2021-06-16 20:28] LABS: Glucose Point of Care 167 mg/dL (70-110)
[2021-06-17 03:29] VITALS: BP 149/74; PULSE 64; RESP 19; TEMP 36.7; O2SAT 90
[2021-06-17] MEDS: pantoprazole 40 mg SDV IVP ×2 (06:14→16:28)
[2021-06-17] MEDS: bumetanide 0.25 mg/mL SDV 4 mL 1 MG IV ×3 (06:14→18:34)
[2021-06-17 06:43] LABS: Basophils # 0.1 10^3/uL (0.0-0.1); Basophils % 0.9 %; Eosinophils # 0.4 10^3/uL (0.0-0.8); Eosinophils % 3.8 %; Hematocrit 39.7 % (42.0-52.0); Hemoglobin 12.8 g/dL (11.7-16.6); Lymphocytes # 1.5 10^3/uL (0.8-4.8); Lymphocytes % 13.6 %; Mean Corpuscular HGB Conc 32.2 g/dL (30.0-36.0); Mean Corpuscular Hemoglobin 27.6 pg (28.0-34.0); Mean Corpuscular Volume 85.6 fl (80-94); Mean Platelet Volume 9.7 fL (7.4-10.4); Monocytes # 1.2 10^3/uL (0.2-0.9); Monocytes % 11.3 %; Neutrophils # 7.41 10^3/uL (1.8-7.7); Neutrophils % 69.5 %; Nucleated Red Blood Cells % 0 %; Platelet Count 288 10^3/cmm (130-400); Red Blood Count 4.64 10^6/uL (4.1-5.3); White Blood Count 10.7 10^3/uL (4.0-10.0)
[2021-06-17 06:54] LABS: Glucose Point of Care 128 mg/dL (70-110)
[2021-06-17 07:01] LABS: INR 1.27 (0.8-1.2)
[2021-06-17 07:10] LABS: Lactate (Lactic Acid level) 0.8 mmol/L (0.5-2.2)
[2021-06-17 07:19] LABS: Alanine Aminotransferase 21 U/L (0-41); Albumin Level 3.5 g/dL (3.5-5.2); Alkaline Phosphatase 66 IU/L (40-130); Anion Gap 14.2 (5-19); Aspartate Amino Transferase 21 U/L (0-40); Blood Urea Nitrogen 17 mg/dL (6-20); C Reactive Protein 61.7 mg/L (0.0-4.9); Calcium 8.7 mg/dL (8.5-10.5); Carbon Dioxide 32 mmol/L (22-29); Chloride 92 mmol/L (98-107); Globulin 3.5 g/dL (1.3-4.6); Glomerular Filtration Rate 138.9 mL/min (90-130); Glucose 118 mg/dL (65-115); Magnesium 1.7 mg/dL (1.7-2.3); Osmolality Calculated 283 mOsm/kg (285-295); Phosphorus 3.7 mg/dL (2.5-4.5); Potassium 3.2 mmol/L (3.5-5.1); Sodium 135 mmol/L (136-145); Total Bilirubin 0.6 mg/dL (0.15-1.2)
[2021-06-17 07:28] LABS: NT Pro B Type Natriuretic Pept 354 pg/mL (0-125); Procalcitonin 1.61 ng/mL (0-0.5)
[2021-06-17 07:39] LABS: Creatine Phosphokinase 70 U/L (39-308)
[2021-06-17 08:00] VITALS: BP 146/87; PULSE 81; RESP 18; TEMP 37.1; O2SAT 91
[2021-06-17] MEDS: sucralfate 1 gm Tablet PO ×4 (08:21→21:25)
[2021-06-17] MEDS: atorvastatin 40 mg Tablet 20 MG PO (08:21)
[2021-06-17] MEDS: carvedilol 25 mg Tablet PO ×2 (08:21→21:25)
[2021-06-17 08:22] VITALS: BP 146/87
[2021-06-17] MEDS: amlodipine 10 mg Tablet PO (08:22)
[2021-06-17] MEDS: losartan 50 mg Tablet 100 MG PO (08:22)
[2021-06-17] MEDS: potassium chloride ER 20 mEq Tablet PO ×2 (08:22→16:27)
[2021-06-17] MEDS: apixaban 5 mg Tablet PO ×2 (08:22→16:28)
[2021-06-17] MEDS: aspirin 81 mg EC Tablet PO (08:22)
[2021-06-17] MEDS: metOLazone 5 MG Tablet 10 MG PO (08:22)
[2021-06-17] MEDS: docusate sodium 100 mg Capsule PO ×2 (08:22→16:28)
[2021-06-17] MEDS: hyDRALAzine 50 mg Tablet PO ×3 (08:23→21:25)
[2021-06-17] MEDS: cefepime 1,000 MG in sodium chloride 0.9% (plus) 50 ML 100 MG IV (10:55)
[2021-06-17] MEDS: potassium chloride ER 20 mEq Tablet 40 MEQ PO (10:55)
[2021-06-17] MEDS: vancomycin 1,500 MG/300 ML PIGGYBACK 200 MG IV (11:45)
[2021-06-17 11:54] LABS: Glucose Point of Care 190 mg/dL (70-110)
[2021-06-17 12:00] VITALS: BP 115/74; PULSE 64; RESP 16; TEMP 36.4; O2SAT 92
[2021-06-17 15:00] VITALS: BP 125/77; PULSE 54; RESP 16; TEMP 37; O2SAT 93
--- NOTE | 2021-06-17 15:10 | PM.PN ---
Subjective Subjective: Interval history: Patient was seen this morning, he tells me is feeling a lot better, continues to have bilateral extremity edema, he is trying to restrict fluids as best as he can, no fevers, no chills, no nausea, no vomiting Vitals/I&O/Wt Last Vital Signs Temp 98.6 F 06/17/21 15:00 Pulse 54 L 06/17/21 15:00 Resp 16 06/17/21 15:00 BP 125/77 06/17/21 15:00 Pulse Ox 93 06/17/21 15:00 06/17/21 06/17/21 06/17/21 06:59 14:59 22:59 Intake Total 350 / 1420 470 / 470 Output Total 325 / 625 Balance 25 / 795 470 / 470 Physical Exam Const: COMMON NORMALS: no acute distress and patient oriented x3 Resp: COMMON NORMALS: normal respiratory effort, No retractions, No use of accessory muscles and clear to auscultation bilaterally AUSCULTATION: clear to auscultation bilaterally Cardio: COMMON NORMALS: regular rate, regular rhythm, S1 normal heart sound present and S2 normal heart sound present RATE: regular rate RHYTHM: regular rhythm HEART SOUNDS: S1 normal heart sound present and S2 normal heart sound present GI: COMMON NORMALS: Normal to inspection, nondistended, normoactive bowel sounds present, Soft to palpation and non-tender PALPATION: Yes Soft to palpation Extremity: NARRATIVE EXTREMITY EXAM: 2+ pitting edema Neuro: COMMON NORMALS: patient oriented x3 Psych: COMMON NORMALS: mental status grossly normal Data : 06/17/21 06:00 06/17/21 06:00 A&P Assessment and plan (1) Heart failure, unspecified: -Last echocardiogram from 2018 showed severely increased left ventricular cavity size and severely decreased left ventricular systolic function with global left ventricular hypokinesis and grade 3/4 diastolic dysfunction along with severely elevated filling pressures -Diuresis continues to be a bit lackluster, still +3.8 L -Increase Bumex to 1 mg every 6 hours, add metolazone 10 mg daily, potassium replacement -Fluid restrictions 1500 cc -Repeat cardiac echocardiogram 1-Normal left ventricular cavity size. Normal left ventricular systolic function. No regional wall motion abnormalities. Left ventricular ejection fraction is estimated at 55 %. In the presence of atrial fibrillation diastolic function cannot be assessed accurately. 2-Normal right ventricular size. RVSP could not be calculated due to incomplete tricuspid regurgitation velocity profile. 3-Moderate aortic valve calcification.mild aortic valve stenosis, mean gradient 4.4 mmHg, CHIRAG 1.5 cm squared. No regurgitation 4-There is no pericardial effusion. 5-Right atrial pressure is around 20 mm of mercury. 6-When compared to the prior echocardiogram dated January 23, 2018 patient appeared to be in volume overload status as evident by increased right side atrial pressure of more than 25 mmHg. If clinically correlated consider diuresing the patient -Monitor I's and O's, monitor creatinine, monitor potassium Status: Chronic Qualifiers: Heart failure type: unspecified Heart failure chronicity: chronic Qualified Code(s): I50.9 - Heart failure, unspecified (2) Bilateral lower leg cellulitis: -Clinically has bilateral lower extremity cellulitis, improving -Bilateral lower extremity ultrasound negative for DVT -Bilateral lower extremity x-rays unremarkable for underlying osteomyelitis -Stop vancomycin, cefepime, de-escalate to doxycycline Augmentin -Follow blood cultures -Monitor hemodynamics Status: Acute (3) Hematochezia: -Currently no bloody or black stools -CT scan abdomen pelvis no acute findings -Hemoglobin stable -Obtain Hemoccult stool -Trend hemoglobin -Protonix 40 IV twice daily, Carafate -Hemodynamic stable -Continue Eliquis Status: Acute (4) Leukocytosis: Likely secondary to bilateral extremity cellulitis Status: Acute Qualifiers: Leukocytosis type: unspecified Qualified Code(s): D72.829 - Elevated white blood cell count, unspecified (5) Poor dentition: Status: Acute (6) Malaise: Status: Acute (7) Chronic anticoagulation: Status: Chronic (8) Controlled diabetes mellitus with hyperglycemia, without long-term current use of insulin: -Last A1c 6.9 -Recheck A1c 7.6 -Continue insulin sliding scale Status: Chronic Qualifiers: Diabetes mellitus type: type 2 Qualified Code(s): E11.65 - Type 2 diabetes mellitus with hyperglycemia (9) Atrial fibrillation: -Continue carvedilol 25 mg twice daily -Continue Eliquis Status: Chronic Qualifiers: Atrial fibrillation type: paroxysmal Qualified Code(s): I48.0 - Paroxysmal atrial fibrillation (10) Hyperlipemia: Status: Chronic Qualifiers: Hyperlipidemia type: unspecified Qualified Code(s): E78.5 - Hyperlipidemia, unspecified (11) BMI 45.0-49.9, adult: Status: Chronic Additional A&P Information Suspected component of obesity hypoventilation, plus or minus sleep apnea, monitor for sleep apnea overnight Hypertension, continue home medications Eliquis will provide appropriate VTE prophylaxis Supportive care otherwise Would benefit from outpatient sleep study which I discussed with him briefly Anticipate discharge home with outpatient follow-up Findings, concerns and plans were discussed with patient and he was given an opportunity to ask questions. Full code Plan for today, increase diuresis, add metolazone, de-escalate antibiotics, monitor clinically Attestations Medical Necessity Statement*: Patient requires hospitalization for bilateral lower extremity cellulitis, CHF exacerbation, diastolic Coding Level of Care Code Acute Fiberglass Laminator for [facility] Fwd Diagnoses Heart failure, unspecified I50.9 Heart failure type: unspecified Heart failure chronicity: chronic Bilateral lower leg cellulitis L03.116; L03.115 Hematochezia K92.1 Leukocytosis D72.829 Leukocytosis type: unspecified Poor dentition K08.9 Malaise R53.81 Chronic anticoagulation Z79.01 Controlled diabetes mellitus with hyperglycemia, without long-term current use of insulin E11.65 Diabetes mellitus type: type 2 Atrial fibrillation I48.0 Atrial fibrillation type: paroxysmal Hyperlipemia E78.5 Hyperlipidemia type: unspecified BMI 45.0-49.9, adult Z68.42
[2021-06-17] MEDS: amoxicillin-clav 875-125 mg Tablet 1 TAB PO (16:27)
[2021-06-17] MEDS: doxycycline 100 mg Tablet PO (16:27)
[2021-06-17 17:05] LABS: Glucose Point of Care 183 mg/dL (70-110)
[2021-06-17 20:00] VITALS: BP 123/82; PULSE 69; RESP 18; TEMP 36.4; O2SAT 93
[2021-06-17 20:22] LABS: Anion Gap 17.6 (5-19); Blood Urea Nitrogen 20 mg/dL (6-20); Calcium 9.6 mg/dL (8.5-10.5); Carbon Dioxide 28 mmol/L (22-29); Chloride 92 mmol/L (98-107); Glomerular Filtration Rate 116.2 mL/min (90-130); Glucose 155 mg/dL (65-115); Osmolality Calculated 284 mOsm/kg (285-295); Potassium 3.6 mmol/L (3.5-5.1); Sodium 134 mmol/L (136-145)
[2021-06-17 20:31] LABS: Glucose Point of Care 188 mg/dL (70-110)
[2021-06-18] VITALS: BP 116/76; PULSE 68; RESP 20; TEMP 36.6; O2SAT 94
[2021-06-18] MEDS: bumetanide 0.25 mg/mL SDV 4 mL 1 MG IV ×2 (01:26→08:04)
[2021-06-18 04:00] VITALS: BP 122/77; PULSE 71; RESP 16; TEMP 36.7; O2SAT 91
[2021-06-18] MEDS: pantoprazole 40 mg SDV IVP (04:58)
[2021-06-18 06:33] LABS: Glucose Point of Care 138 mg/dL (70-110)
[2021-06-18 06:44] LABS: Basophils # 0.2 10^3/uL (0.0-0.1); Basophils % 1.4 %; Eosinophils # 0.4 10^3/uL (0.0-0.8); Eosinophils % 3.7 %; Hematocrit 43.3 % (42.0-52.0); Hemoglobin 13.6 g/dL (11.7-16.6); Lymphocytes # 1.9 10^3/uL (0.8-4.8); Mean Corpuscular HGB Conc 31.4 g/dL (30.0-36.0); Mean Corpuscular Hemoglobin 26.8 pg (28.0-34.0); Mean Corpuscular Volume 85.2 fl (80-94); Monocytes # 1.2 10^3/uL (0.2-0.9); Monocytes % 11.1 %; Neutrophils # 7.15 10^3/uL (1.8-7.7); Neutrophils % 65.5 %; Nucleated Red Blood Cells % 0 %; Platelet Count 350 10^3/cmm (130-400); Red Blood Count 5.08 10^6/uL (4.1-5.3); Red Cell Distribution Width 14.8 % (12.1-15.1); White Blood Count 10.9 10^3/uL (4.0-10.0)
[2021-06-18] MEDS: sucralfate 1 gm Tablet PO ×2 (06:51→12:31)
[2021-06-18 07:11] LABS: Magnesium 1.5 mg/dL (1.7-2.3); NT Pro B Type Natriuretic Pept 288 pg/mL (0-125)
[2021-06-18 07:22] VITALS: BP 142/80; PULSE 73; RESP 16; TEMP 37.1; O2SAT 93
[2021-06-18 08:03] VITALS: BP 142/80
[2021-06-18] MEDS: potassium chloride ER 20 mEq Tablet PO (08:03)
[2021-06-18] MEDS: amoxicillin-clav 875-125 mg Tablet 1 TAB PO (08:03)
[2021-06-18] MEDS: metOLazone 5 MG Tablet 10 MG PO (08:03)
[2021-06-18] MEDS: doxycycline 100 mg Tablet PO (08:03)
[2021-06-18] MEDS: docusate sodium 100 mg Capsule PO (08:03)
[2021-06-18] MEDS: losartan 50 mg Tablet 100 MG PO (08:03)
[2021-06-18] MEDS: amlodipine 10 mg Tablet PO (08:04)
[2021-06-18] MEDS: aspirin 81 mg EC Tablet PO (08:04)
[2021-06-18] MEDS: carvedilol 25 mg Tablet PO (08:04)
[2021-06-18] MEDS: hyDRALAzine 50 mg Tablet PO (08:04)
[2021-06-18] MEDS: atorvastatin 40 mg Tablet 20 MG PO (08:04)
[2021-06-18] MEDS: apixaban 5 mg Tablet PO (08:04)
[2021-06-18 11:21] VITALS: BP 125/86; PULSE 67; RESP 20; TEMP 36.7; O2SAT 93
[2021-06-18 12:06] LABS: Glucose Point of Care 225 mg/dL (70-110)
--- NOTE | 2021-06-18 12:23 | PM.DCS ---
Discharge Providers Date of Admission: 06/14/21 16:00 Date of Discharge: June 18, 2021 Attending Provider at Admission: Angi Montes De Oca MD Attending Provider at Discharge: Harlan Marrero MD Primary Care Provider: VETO Paulino Diagnoses at Discharge Discharge Diagnosis (1) Heart failure, unspecified: Status: Chronic Permanent problem details: Echocardiogram from 2018 showed severely decreased left ventricular systolic function as well as grade 3 of 4 diastolic dysfunction consistent with combined CHF Qualifiers: Heart failure type: unspecified Heart failure chronicity: chronic Qualified Code(s): I50.9 - Heart failure, unspecified (2) Bilateral lower leg cellulitis: Status: Acute (3) Hematochezia: Status: Acute (4) Leukocytosis: Status: Acute Qualifiers: Leukocytosis type: unspecified Qualified Code(s): D72.829 - Elevated white blood cell count, unspecified (5) Poor dentition: Status: Acute (6) Malaise: Status: Acute (7) Chronic anticoagulation: Status: Chronic Permanent problem details: eliquis (8) Controlled diabetes mellitus with hyperglycemia, without long-term current use of insulin: Status: Chronic Qualifiers: Diabetes mellitus type: type 2 Qualified Code(s): E11.65 - Type 2 diabetes mellitus with hyperglycemia (9) Atrial fibrillation: Status: Chronic Qualifiers: Atrial fibrillation type: paroxysmal Qualified Code(s): I48.0 - Paroxysmal atrial fibrillation (10) Hyperlipemia: Status: Chronic Qualifiers: Hyperlipidemia type: unspecified Qualified Code(s): E78.5 - Hyperlipidemia, unspecified (11) BMI 45.0-49.9, adult: Status: Chronic Reason for Visit Reason for Visit: Blood in stool, not feeling well Hospital Course Hospital Course This is a 56-year-old male with a past medical history of bilateral lower extreme edema with diastolic CHF, history of atrial fibrillation on Eliquis, noninsulin-dependent type 2 diabetes mellitus, hyperlipidemia, who presents to [facility] due to concerns for bilateral extremity edema, swelling, Patient was admitted to [facility] for diastolic CHF exacerbation, received diuretic therapy, fluid restrictions, repeat echocardiogram showed an EF of 55%, was with concerns for right ventricular overload, patient's symptomatology improved, lower extremity edema improved. Patient has been discharged on Bumex 1 mg twice daily, with metolazone Thursday, with potassium replacement, with close follow-up with primary care provider in 1 week for recheck potassium and creatinine. Patient was also advised to follow-up with cardiology within a week. For patient's bilateral extremity cellulitis, he received broad-spectrum antibiotic therapy, x-rays were unremarkable for underlying osteomyelitis, bilateral extremity ultrasound negative for DVT, de-escalate to oral antibiotics, clinically remained stable. Discharged on 5 remaining days of Augmentin and doxycycline. Patient also had concerns for hematochezia during his hospitalization, no bloody or black stools, hemoglobin remained stable, CT scan of the abdomen pelvis no acute findings, discharged on Protonix 40 twice daily, Carafate, with close follow-up with general surgery as outpatient for consideration of EGD and colonoscopy. Patient was advised if he were to have recurrent bloody or black stools, lightheadedness or dizziness go to the emergency room. Physical Exam Const: COMMON NORMALS: no acute distress and patient oriented x3 Resp: COMMON NORMALS: normal respiratory effort, No retractions, No use of accessory muscles and clear to auscultation bilaterally AUSCULTATION: clear to auscultation bilaterally Cardio: COMMON NORMALS: regular rate, regular rhythm, S1 normal heart sound present and S2 normal heart sound present RATE: regular rate RHYTHM: regular rhythm HEART SOUNDS: S1 normal heart sound present and S2 normal heart sound present GI: COMMON NORMALS: Normal to inspection, nondistended, normoactive bowel sounds present, Soft to palpation and non-tender PALPATION: Yes Soft to palpation Extremity: NARRATIVE EXTREMITY EXAM: 1+ pitting edema bilaterally Neuro: COMMON NORMALS: patient oriented x3 Psych: COMMON NORMALS: mental status grossly normal Discharge Data Data Completed and Pending: Completed Studies During Hospitalization Category Date Time Status CT abdomen pelvis w con* [id number] Urge nt Cat Scan 06/13/21 18:15 Completed XR chest 1V sadi ble [id number] Urgent Exams 06/13/21 17:20 Completed XR tibia fibula L T 2V [id number] Routine Exams 06/14/21 15:53 Completed XR tibia fibula R T 2V [id number] Routine Exams 06/14/21 15:53 [place] [id number] Routin e Ultrasound 06/14/21 05:08 Completed CV. echo complete * [id number] Routine Ultrasound 06/15/21 10:28 Completed Pending at discharge Category Date Time Status Blood Culture Sta t Lab 06/14/21 09:07 Results Complete Blood Co unt w/Auto AM LABS Lab 06/19/21 04:00 Ordered Complete Blood Co unt w/Auto AM LABS Lab 06/20/21 04:00 Ordered Immunochemical Fe max OCB Routine Lab 06/14/21 05:08 Uncollected Magnesium AM LABS Lab 06/19/21 04:00 Ordered Magnesium AM LABS Lab 06/20/21 04:00 Ordered NT Pro B Type Debby riuretic Pept QAM Lab 06/19/21 06:00 Ordered NT Pro B Type Debby riuretic Pept QAM Lab 06/20/21 06:00 Ordered Labs from last 24 hours 06/18/21 06/18/21 06/18/21 11:15 06:18 05:43 WBC RBC Hgb Hct MCV MCH MCHC RDW Plt Count MPV Neut % (Auto) Lymph % (Auto) [place] % (Auto) Eos % (Auto) Baso % (Auto) Neut # (Auto) Lymph # (Auto) [place] # (Auto) Eos # (Auto) Baso # (Auto) Nucleated RBC % (a uto) Nucleated RBCs # Sodium Potassium Chloride Carbon Dioxide Anion Gap BUN Creatinine GFR Calculation Glucose POC Glucose 225 H 138 H Calculated Osmolal ity Calcium Magnesium 1.5 L NT-Pro-B Natriuret Pep 288 H 06/18/21 06/17/21 06/17/21 05:43 20:25 19:58 WBC 10.9 H RBC 5.08 Hgb 13.6 Hct 43.3 MCV 85.2 MCH 26.8 L MCHC 31.4 RDW 14.8 Plt Count 350 MPV 10.0 Neut % (Auto) 65.5 Lymph % (Auto) 17.0 [place] % (Auto) 11.1 Eos % (Auto) 3.7 Baso % (Auto) 1.4 Neut # (Auto) 7.15 Lymph # (Auto) 1.9 [place] # (Auto) 1.2 H Eos # (Auto) 0.4 Baso # (Auto) 0.2 H Nucleated RBC % (a uto) 0 Nucleated RBCs # 0.0 Sodium 134 L Potassium 3.6 Chloride 92 L Carbon Dioxide 28 Anion Gap 17.6 BUN 20 Creatinine 0.7 GFR Calculation 116.2 Glucose 155 H POC Glucose 188 H Calculated Osmolal ity 284 L Calcium 9.6 Magnesium NT-Pro-B Natriuret Pep 06/17/21 16:50 WBC RBC Hgb Hct MCV MCH MCHC RDW Plt Count MPV Neut % (Auto) Lymph % (Auto) [place] % (Auto) Eos % (Auto) Baso % (Auto) Neut # (Auto) Lymph # (Auto) [place] # (Auto) Eos # (Auto) Baso # (Auto) Nucleated RBC % (a uto) Nucleated RBCs # Sodium Potassium Chloride Carbon Dioxide Anion Gap BUN Creatinine GFR Calculation Glucose POC Glucose 183 H Calculated Osmolal ity Calcium Magnesium NT-Pro-B Natriuret Pep Vitals: Last Vital Signs Temp 98.0 F 06/18/21 11:21 Pulse 67 06/18/21 11:21 Resp 20 H 06/18/21 11:21 BP 125/86 06/18/21 11:21 Pulse Ox 93 06/18/21 11:21 Discharge Plan Discharge Patient Disposition: Home Condition: Stable Prescriptions: New losartan 50 mg Tablet 100 mg PO DAILY 30 Days Qty: 60 RF: 0 carvedilol 25 mg Tablet 25 mg PO BID@ 30 Days Qty: 60 RF: 0 metolazone 5 mg Tablet 5 mg PO .mwf 30 Days Qty: 30 RF: 0 doxycycline monohydrate 100 mg Tablet 100 mg PO BID 5 Days Qty: 10 RF: 0 amoxicillin-pot clavulanate 875-125 mg Tablet 1 tab PO BID 5 Days Qty: 10 RF: 0 bumetanide 1 mg tablet 1 mg PO BID 30 Days Qty: 60 RF: 0 Protonix 40 mg tablet,delayed release (DR/EC) 40 mg PO BID 30 Days Qty: 60 RF: 0 Carafate 1 gram tablet 1 g PO BID 30 Days Qty: 60 RF: 0 Continued hydralazine 50 mg tablet 50 mg PO TID Qty: 90 RF: 12 aspirin 81 mg tablet,delayed release (DR/EC) 81 mg PO DAILY Qty: 30 RF: 2 amlodipine 10 mg tablet 10 mg PO DAILY Qty: 30 RF: 2 metformin 500 mg tablet extended release 24hr 500 mg PO BID Qty: 60 RF: 2 potassium chloride [Klor-Con M20] 20 mEq tablet,ER particles/crystals 20 meq PO BID Qty: 60 RF: 2 simvastatin 20 mg tablet 20 mg PO DAILY Qty: 30 RF: 2 Eliquis 5 mg tablet 5 mg PO BID Qty: 180 RF: 3 Discontinued furosemide 40 mg tablet 40 mg PO BID Qty: 60 RF: 2 irbesartan 300 mg tablet 300 mg PO DAILY Qty: 90 RF: 3 carvedilol 25 mg tablet 25 mg PO . DIRECTED RF: 0 Discharge Orders: Discharge Order (Routine); Ordered 06/18/21 Ordered By: Harlan Marrero Referrals: Mariya Olivares FNP-C [Primary Care Provider] - 06/19/21 4:20 pm Apolinar Torres MD [Physician] - 07/16/21 8:20 am (egd) Jarred Zhang MD [Physician] - 7-10 days Discharge Diet: Regular and Cardiac Discharge Activity: Resume usual activity Patient Instructions: Metolazone (By mouth), Bumetanide (By mouth), Sucralfate (By mouth), Doxycycline (By mouth), Amoxicillin/Clavulanate Potassium (By mouth), Losartan (By mouth), Carvedilol (By mouth), Pantoprazole (By mouth), Opioid Safety Activity Restrictions/Additional Instructions: -Please limit your fluid intake between 1500 to 200 mL -Please take Bumex 1 mg twice daily, with metolazone Thursday, with potassium replacement -Measure your weight daily, if you gain more than 2 to 3 pounds, or develop increased lower extremity swelling please take an extra 1 mg of Bumex with 20 mEq of potassium -Follow-up with cardiology in 1 week -Follow-up with primary care provider in 1 week for recheck kidney function -For your lower extremity cellulitis take antibiotics as prescribed -For your concerns for bloody stools, follow-up with general surgery for consideration of EGD and colonoscopy Discharge Attestations Time Spent in Discharge Care*: less than 30 min Quality Metrics Clinical Quality Measures During this hospital stay, did patient experience: None Coding Level of Care Code Acute Chg FW [place] note Diagnoses Heart failure, unspecified I50.9 Heart failure type: unspecified Heart failure chronicity: chronic Bilateral lower leg cellulitis L03.116; L03.115 Hematochezia K92.1 Leukocytosis D72.829 Leukocytosis type: unspecified Poor dentition K08.9 Malaise R53.81 Chronic anticoagulation Z79.01 Controlled diabetes mellitus with hyperglycemia, without long-term current use of insulin E11.65 Diabetes mellitus type: type 2 Atrial fibrillation I48.0 Atrial fibrillation type: paroxysmal Hyperlipemia E78.5 Hyperlipidemia type: unspecified BMI 45.0-49.9, adult Z68.42
--- NOTE | 2021-06-18 12:58 | PC.NURSE ---
Called patient's friend for ride home. Blade Larios. 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 patient waiting on covid vaccine.
--- NOTE | 2021-06-18 13:57 | PC.NURSE ---
patient given discharge instructions and verbalized understanding of instructions. patient waiting on friend for ride home.
[2021-06-18 15:14] VITALS: BP 125/86; PULSE 67; RESP 20; TEMP 36.7; O2SAT 93
--- NOTE | 2021-06-18 15:14 | PC.NURSE ---
patient taken to private vehicle by screen writer and assisted into vehicle.
--- NOTE | 2021-06-19 09:14 | PC.SOCIAL ---
discharge follow up call. patient picked up medications from pharmacy. attempted to review medications with patient. it appears patient doesn't understanding dosages. will attempt to get an in home visit scheduled and provide a scale for patient so he can weigh daily.
--- NOTE | 2021-06-21 11:31 | PC.SOCIAL ---
patient didn't go to his follow up appointment 06-19 with Mariya Olivares. Patient states he couldn't make it and didn't call and cancel. PCP will not order any home health until pt follows up in their office. spoke with patient and he isn't sure when he can make a follow up appointment. i gave pt the number to the office and told him to make his follow up appointment and they would evaluate him to see if he would benefit from home health.
== END 2021-06-18 15:15 | disposition home or self-care (01) | DRG 291 ==
LOC: ER 17:39 → ER IP 21:56 → MEDSURG 06-14 13:01
PROVIDERS: Admitting Provider Hospitalist; Emergency Provider Emergency Medicine; PCP Nurse Practitioner; Visit Provider Family Medicine
DX: I13.0 Hypertensive heart and chronic kidney disease with heart failure and stage 1 through stage 4 chronic kidney disease, or unspecified chronic kidney disease (principal); I50.33 Acute on chronic diastolic (congestive) heart failure; L03.116 Cellulitis of left lower limb; L03.115 Cellulitis of right lower limb; K92.1 Melena; Z68.42 Body mass index [BMI] 45.0-49.9, adult; E11.22 Type 2 diabetes mellitus with diabetic chronic kidney disease; E11.65 Type 2 diabetes mellitus with hyperglycemia; N18.2 Chronic kidney disease, stage 2 (mild); E78.5 Hyperlipidemia, unspecified; I48.0 Paroxysmal atrial fibrillation; I35.0 Nonrheumatic aortic (valve) stenosis; E66.9 Obesity, unspecified; R53.81 Other malaise; D72.829 Elevated white blood cell count, unspecified; K08.9 Disorder of teeth and supporting structures, unspecified; Z79.84 Long term (current) use of oral hypoglycemic drugs; Z87.891 Personal history of nicotine dependence; Z82.49 Family history of ischemic heart disease and other diseases of the circulatory system; Z83.3 Family history of diabetes mellitus; Z79.01 Long term (current) use of anticoagulants; Z79.82 Long term (current) use of aspirin
CPT/HCPCS: 36415; 36416; 71045; 73590; 74177; 80048; 80053; 80061; 80202; 80500; 81001; 82550; 82728; 82962; 83036; 83540; 83605; 83735; 83880; 84100; 84145; 84443; 84484; 85025; 85610; 85730; 86140; 86850; 86900; 87040; 87426; 87635; 93005; 93306; 93970; 96365; 96367; 96372; 96375; 97161; 97165; 99285; C9113; G0378; J0692; J0696; J1815; J2270; J3370; J3490; J7040; Q9967

== ENCOUNTER → 2021-08-07 10:56 | Outpatient (BNVA) | payer MEDICAID, SELFPAY | PROVIDERS: PCP Nurse Practitioner; Visit Provider Nurse Practitioner | DX: E11.65 Type 2 diabetes mellitus with hyperglycemia (principal); I11.0 Hypertensive heart disease with heart failure; I50.9 Heart failure, unspecified; E78.5 Hyperlipidemia, unspecified | CPT/HCPCS: 81000 ==

== ENCOUNTER → 2021-09-17 14:29 | Outpatient (BNVA) | payer MEDICAID, SELFPAY | PROVIDERS: PCP Nurse Practitioner; Visit Provider Nurse Practitioner | DX: I11.0 Hypertensive heart disease with heart failure; I50.9 Heart failure, unspecified; E11.65 Type 2 diabetes mellitus with hyperglycemia; E61.1 Iron deficiency; I10 Essential (primary) hypertension; E78.5 Hyperlipidemia, unspecified | CPT/HCPCS: 80053; 80061; 81000; 82607; 83036; 83540; 85025 ==

== ENCOUNTER → 2022-01-07 14:05 | Outpatient (BNVA) | payer MEDICAID, SELFPAY | PROVIDERS: PCP Nurse Practitioner; Visit Provider Internal Medicine Cardiovascular Disease | DX: E11.65 Type 2 diabetes mellitus with hyperglycemia (principal); I48.0 Paroxysmal atrial fibrillation; I11.0 Hypertensive heart disease with heart failure; I50.9 Heart failure, unspecified | CPT/HCPCS: 99213; 99214 ==

== ENCOUNTER → 2022-07-25 10:47 | Outpatient (BNVA) | payer MEDICAID, SELFPAY | PROVIDERS: PCP Internal Medicine; Visit Provider Internal Medicine Cardiovascular Disease | DX: I13.0 Hypertensive heart and chronic kidney disease with heart failure and stage 1 through stage 4 chronic kidney disease, or unspecified chronic kidney disease (principal); E11.22 Type 2 diabetes mellitus with diabetic chronic kidney disease; E11.65 Type 2 diabetes mellitus with hyperglycemia; N18.9 Chronic kidney disease, unspecified; I50.9 Heart failure, unspecified; Z87.891 Personal history of nicotine dependence; Z79.84 Long term (current) use of oral hypoglycemic drugs; I48.0 Paroxysmal atrial fibrillation; Z79.01 Long term (current) use of anticoagulants; E78.5 Hyperlipidemia, unspecified; E66.01 Morbid (severe) obesity due to excess calories; Z68.41 Body mass index [BMI] 40.0-44.9, adult | CPT/HCPCS: 99214 ==

== ENCOUNTER → 2023-03-06 11:45 | Outpatient (BNVA) | payer MEDICAID, SELFPAY | PROVIDERS: PCP Internal Medicine; Visit Provider Internal Medicine Cardiovascular Disease | DX: I48.0 Paroxysmal atrial fibrillation (principal); I11.0 Hypertensive heart disease with heart failure; I50.9 Heart failure, unspecified; E11.65 Type 2 diabetes mellitus with hyperglycemia; E66.01 Morbid (severe) obesity due to excess calories; Z68.41 Body mass index [BMI] 40.0-44.9, adult; Z87.891 Personal history of nicotine dependence; E78.5 Hyperlipidemia, unspecified | CPT/HCPCS: 36415; 80053; 80061; 85025; 99214 ==

== ENCOUNTER → 2023-09-02 13:15 | Outpatient (BNVA) | payer MEDICAID, SELFPAY | PROVIDERS: PCP Internal Medicine; Visit Provider Internal Medicine Cardiovascular Disease | DX: I13.0 Hypertensive heart and chronic kidney disease with heart failure and stage 1 through stage 4 chronic kidney disease, or unspecified chronic kidney disease (principal); E11.22 Type 2 diabetes mellitus with diabetic chronic kidney disease; E11.65 Type 2 diabetes mellitus with hyperglycemia; N18.2 Chronic kidney disease, stage 2 (mild); I50.9 Heart failure, unspecified; Z87.891 Personal history of nicotine dependence; Z79.84 Long term (current) use of oral hypoglycemic drugs; E78.5 Hyperlipidemia, unspecified; I48.0 Paroxysmal atrial fibrillation; Z79.01 Long term (current) use of anticoagulants; E66.01 Morbid (severe) obesity due to excess calories; Z68.41 Body mass index [BMI] 40.0-44.9, adult | CPT/HCPCS: 99214 ==

== ENCOUNTER 2023-11-21 15:25 | Observation (INO) | payer MEDICAID, SELFPAY ==
[2023-11-21] VITALS (10 sets, daily range): BP systolic 133–173; BP diastolic 93–104; PULSE 69–84; RESP 17–22; TEMP 36.9–37; O2SAT 91–94
--- NOTE | 2023-11-21 15:47 | XRR_ITS ---
PROCEDURE INFORMATION: Exam: XR Chest Exam date and time: 11/21/2023 4:15 PM Age: 58 years old Clinical indication: Shortness of breath; Patient HX: SOB; Cough TECHNIQUE: Imaging protocol: Radiologic exam of the chest. Views: 1 view. COMPARISON: CR XR chest 1V portable [id number] 06/13/2021 5:28 PM FINDINGS: Lungs: There are pulmonary parenchymal calcifications consistent with remote granulomatous organism exposure. Streaky densities at the lung bases are most consistent with scarring and/or atelectasis. Pleural spaces: Blunting of the costophrenic angles is suggestive of small pleural effusions. Heart/Mediastinum: Cardiomegaly. There are calcified mediastinal and perihilar lymph nodes consistent with prior granulomatous exposure. Bones/joints: Unremarkable. XR/XR chest 1V portable [id number] IMPRESSION: 1. Cardiomegaly. 2. Blunting of the costophrenic angles is suggestive of small pleural effusions. In combination with cardiomegaly, findings raise concern for congestive heart failure. Please correlate clinically. 3. Streaky densities at the lung bases are most consistent with scarring and/or atelectasis.
[2023-11-21 16:12] LABS: ABG PCO2 47.2 mmHg (35-45); ABG PH Result 7.42 (7.35-7.45); Arterial Blood Gas Hematocrit 47.7 % (42-52); Base Excess ABG 4.8 mmol/L (-2.0-2.0); Blood Gas Operator Identificat AMH; Blood Gas Sample Site Brachial, right; Blood Gas Sample Type Arterial; Carboxyhemoglobin 0.8 %THgb (0.4-20.1); HCO3 ABG 30.4 mmol/L (22-26); HGB O2 Sat 91.2 % (95-100); Methemoglobin 0.4 % (0.4-1.5); Oxygen Device NC; PO2 ABG 64.8 mmHg (80.0-100.0); PO2 FiO2 Ratio Arterial Blood 0; Total Hemoglobin 15.6 g/dL (14-18)
[2023-11-21 16:25] LABS: Basophils % 0.7 %; Eosinophils % 0.7 %; Hematocrit 50.6 % (37-53); Lymphocytes # 1.1 10^3/uL (0.8-4.8); Mean Corpuscular HGB Conc 31.2 g/dL (30-55); Mean Corpuscular Hemoglobin 28.1 pg (27-33); Mean Corpuscular Volume 89.9 fl (82-101); Mean Platelet Volume 9.3 fL (7.4-10.4); Monocytes # 0.6 10^3/uL (0.2-0.9); Monocytes % 10.7 %; Neutrophils # 3.89 10^3/uL (1.8-7.7); Neutrophils % 68.5 %; Nucleated Red Blood Cells % 0 %; Platelet Count 215 10^3/cmm (157-399); Red Blood Count 5.63 10^6/uL (3.85-5.65); Red Cell Distribution Width 15.3 % (12.1-15.1); White Blood Count 5.68 10^3/uL (3.29-11.43)
[2023-11-21 16:43] LABS: Lactic Sepsis W/Reflex 1.4 mmol/L (0.5-2.2)
[2023-11-21 16:54] LABS: Anion Gap 16.9 (5-19); Blood Urea Nitrogen 19 mg/dL (6-20); Calcium 8.8 mg/dL (8.5-10.5); Carbon Dioxide 26 mmol/L (22-29); Chloride 99 mmol/L (98-107); Glomerular Filtration Rate 86.4 mL/min (90-130); Glucose 129 mg/dL (65-115); NT Pro B Type Natriuretic Pept 396 pg/mL (0-125); Osmolality Calculated 290 mOsm/kg (285-295); Potassium 3.9 mmol/L (3.5-5.1); Sodium 138 mmol/L (136-145)
--- NOTE | 2023-11-21 17:36 | ECG_ITS ---
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 Measurements Intervals [place] Rate: 85 P: 0 CO: 0 QRS: -66 QRSD: 127 T: 88 QT: 372 QTc: 443 Interpretive Statements ATRIAL FIBRILLATION POSSIBLE RIGHT VENTRICULAR CONDUCTION DELAY [RSR (QR) IN V1/V2] MODERATE VOLTAGE CRITERIA FOR LVH, CONSIDER NORMAL VARIANT [MEETS CRITERIA IN ONE OF: R(aVL), S(V1), R(V5), R(V5/V6)+S(V1)] Possible INFERIOR MYOCARDIAL INFARCTION , PROBABLY OLD [40+ ms Q WAVE AND/OR ST/T ABNORMALITY IN II/aVF] ANTEROSEPTAL MYOCARDIAL INFARCTION , OF INDETERMINATE AGE [40+ ms Q WAVE IN V1-V4] MODERATE T-WAVE ABNORMALITY, CONSIDER LATERAL ISCHEMIA [-0.1+ mV T-WAVE IN I/aVL/V5/V6] Electronically Signed On 11-22-2023 8:21:02 BUSINESS ADMINISTRATION PROGRAM CHAIR by Mark Anthony Ny M.D. [email or web address]
[2023-11-21 17:45] LABS: Adenovirus Not Detected (NOT DETECT); Chlamydia Pneumoniae Not Detected (NOT DETECT); Coronavirus 229E,HKU1,NL63,OC4 Not Detected (NOT DETECT); Human Metapneumovirus Not Detected (NOT DETECT); Human Rhinovirus/Enterovirus Not Detected (NOT DETECT); Influenza A Detected (NOT DETECT); Influenza A H1 Not Detected (NOT DETECT); Influenza A H1-2009 Detected (NOT DETECT); Influenza A H3 Not Detected (NOT DETECT); Influenza B Not Detected (NOT DETECT); Mycoplasma Pneumoniae Not Detected (NOT DETECT); Parainfluenza Virus Type 1 Not Detected (NOT DETECT); Parainfluenza Virus Type 2 Not Detected (NOT DETECT); Parainfluenza Virus Type 3 Not Detected (NOT DETECT); Parainfluenza Virus Type 4 Not Detected (NOT DETECT); Respiratory Syncytial Virus A Not Detected (NOT DETECT); Respiratory Syncytial Virus B Not Detected (NOT DETECT); SARS-COV-2 Not Detected (NOT DETECT)
[2023-11-21 17:53] LABS: Influenza A Detected (NOT DETECT); Influenza A H1 Not Detected (NOT DETECT); Influenza A H1-2009 Detected (NOT DETECT); Influenza A H3 Not Detected (NOT DETECT); Influenza B Not Detected (NOT DETECT); Results from Genmark
[2023-11-21] MEDS: FUROsemide 10 mg/mL SDV 10mL 160 MG IVP (18:12)
[2023-11-21 18:19] LABS: Troponin(5th) Baseline 16 ng/L (0-15)
[2023-11-21 18:28] LABS: Troponin 5 2HR 13.95 ng/L (0-15); Troponin 5 2HR Delta -2.05 ABS# (0-10)
--- NOTE | 2023-11-21 19:55 | ECG_ITS ---
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 Measurements Intervals [place] Rate: 75 P: 0 CT: 0 QRS: -67 QRSD: 130 T: 86 QT: 387 QTc: 434 Interpretive Statements ATRIAL FIBRILLATION POSSIBLE RIGHT VENTRICULAR CONDUCTION DELAY [RSR (QR) IN V1/V2] LEFT ANTERIOR FASCICULAR BLOCK [QRS AXIS <= -45, QR IN I, RS IN II] VOLTAGE CRITERIA FOR LVH [MEETS CRITERIA IN ONE OF: R(aVL), S(V1), R(V5), R(V5/V6)+S(V1)] ANTEROSEPTAL MYOCARDIAL INFARCTION , OF INDETERMINATE AGE [40+ ms Q WAVE IN V1-V4] Compared to ECG 11/21/2023 15:32:13 Left anterior fascicular block now present T-wave abnormality no longer present Possible ischemia no longer present Myocardial infarct finding still present Electronically Signed On 11-22-2023 8:22:29 AIRLINE PILOT by Mark Anthony Ny M.D. [email or web address]
--- NOTE | 2023-11-21 20:05 | ED_ITS ---
HPI - SOB/Dyspnea 2 General: Chief Complaint: Shortness of Breath/Dyspnea Stated Complaint: SOB Time Seen by Provider: 11/21/23 15:36 History of Present Illness: HPI Narrative: This patient is a 58-year-old white male who presents to the emergency department with shortness of breath. Patient states he has been feeling very short of breath over the past 2 days. He has had a nonproductive cough. No fever. No chest pain. Patient does have history of diabetes, hypertension, atrial fibrillation and congestive heart failure. Review of Systems 2 General: Reports: 10 or more systems reviewed and unremarkable except in HPI and below Resp: Reports: dyspnea and non-productive cough PFSH ED 2 PFSH: Medical History Atrial fibrillation Benign essential hypertension with target blood pressure below 140/90 Chronic kidney disease stage 2 Diabetes mellitus with hyperglycemia Heart failure, unspecified Echocardiogram from 2018 showed severely decreased left ventricular systolic function as well as grade 3 of 4 diastolic dysfunction consistent with combined CHF Hyperlipemia Mild aortic valve stenosis Aortic valve area 1.7 cm? 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 Obesity Vitamin B12 deficiency Surgical History No history of previous surgery Family History Mother Diabetes Hypertension Father Alcohol abuse Other Heart disease Social History Smoking and tobacco/nicotine status: former use of tobacco/nicotine Second hand smoke exposure: No Alcohol intake: never Substance/Drug Use: never Adopted: No Caregiver/support person: No Lives independently: Yes Household members: other Housing: House Marital status: Single Number of children: 0 service: No Current occupational status: unemployed Pets and animals: Yes Pets & animals: cat(s) and dog(s) Do you think of yourself as: Straight/Heterosexual Current gender identity: Male Physical Exam 2 Const: COMMON NORMALS: patient oriented x3 and no limitations GENERAL APPEARANCE: cooperative and comfortable HENMT: COMMON NORMALS: normocephalic, atraumatic, Normal nasal mucous membranes and turbinates present, moist oral mucous membranes and oropharynx normal HEAD & SCALP: normal to inspection, normocephalic and atraumatic F HOLLY & SINUS: normal facial exam NOSE: Normal nasal mucous membranes and turbinates present Eye: COMMON NORMALS: Equal, round and reactive pupils present, EOMs intact bilaterally and conjunctivae normal GENERAL EYE: appearance normal, both eyes and all related structures CONJUNCTIVA: Yes conjunctivae normal PUPIL: Yes Equal, round and reactive pupils present Neck/C-Spine: COMMON NORMALS: supple Chest: COMMONS NORMALS: normal inspection of the chest Resp: EFFORT & INSPECTION: Yes able to speak in complete sentences and Yes respiratory distress (mild) AUSCULTATION: rales Cardio: COMMON NORMALS: regular rate RATE: regular rate RHYTHM: abnormal rhythm irregularly irregular GI: COMMON NORMALS: Normal to inspection, nondistended, normoactive bowel sounds present, Soft to palpation and non-tender AUSCULTATION: Yes normoactive bowel sounds PALPATION: Yes Soft to palpation : COMMON NORMALS: Yes no CVA tenderness BLADDER/KIDNEY EXAM: Yes no CVA tenderness Back/Pelvis: COMMON NORMALS: no CVA tenderness and thoracic and lumbar spine normal to inspection Extremity: COMMON NORMALS: normal to inspection Neuro: COMMON NORMALS: patient oriented x3 and CN's II-XII intact bilaterally Psych: COMMON NORMALS: mental status grossly normal, Normal thought process present and cooperative THOUGHT PROCESS: Normal thought process present Skin: COMMON NORMALS: no rashes or lesions noted, turgor normal and no jaundice GENERAL SKIN EXAM: no rashes or lesions noted and turgor normal Course 2 Vital Signs: Vital signs: Vital Signs Temperature 98.6 F 11/21/23 15:26 Pulse Rate 75 11/21/23 17:04 Respiratory Rate 17 11/21/23 17:04 Blood Pressure 173/104 11/21/23 15:26 Pulse Oximetry 94 11/21/23 17:04 Oxygen Delivery Me thod Nasal Cannula 11/21/23 17:04 Oxygen Flow Rate 4 11/21/23 17:04 MDM - SOB/Dyspnea Medical Decision Making EKG reveals atrial fibrillation with a ventricular rate of 85. There is appear to be intraventricular conduction delay. Chest x-ray reveals cardiomegaly and small bilateral pleural effusions consistent with congestive heart failure. Arterial blood gas on 4 L revealed a pH of 7.42, P CO2 of 47 and a pO2 of 65. CBC and CMP were normal. BNP was 396. Lactic acid 1.4. Troponin 16 with a 2- hour level of 14. COVID and influenza negative. Patient was given 160 mg of Lasix IV. He has diuresed well. We were able to take him off of the oxygen briefly but his sats did drop down into the mid 80s so we will place him back on 2 L of oxygen. He will need to be admitted for further diuresis. I discussed the case with Dr. Balbuena, hospitalist. He did accept the admission. Patient will be transferred to the floor shortly. He is stable. Differential Diagnosis Likely acute exacerbation of chronic obstructive airways disease, congestive heart failure and community acquired pneumonia Lab Data I reviewed the patient's lab results. 11/21/23 16:12 11/21/23 16:12 Labs/Radiology: Radiology Impressions Chest X-Ray 11/21/23 15:47 IMPRESSION: 1. Cardiomegaly. 2. Blunting of the costophrenic angles is suggestive of small pleural effusions. In combination with cardiomegaly, findings raise concern for congestive heart failure. Please correlate clinically. 3. Streaky densities at the lung bases are most consistent with scarring and/or atelectasis. Laboratory Results WBC 5.68 10^3/uL (3.29-11.43) 11/21/23 16:12 RBC 5.63 10^6/uL (3.85-5.65) 11/21/23 16:12 Hgb 15.80 g/dL (11.27-16.99) 11/21/23 16:12 Hct 50.6 % (37-53) 11/21/23 16:12 MCV 89.9 fl (82-101) 11/21/23 16:12 MCH 28.1 pg (27-33) 11/21/23 16:12 MCHC 31.2 g/dL (30-55) 11/21/23 16:12 RDW 15.3 % (12.1-15.1) H 11/21/23 16:12 Plt Count 215 10^3/cmm (157-399) 11/21/23 16:12 MPV 9.3 fL (7.4-10.4) 11/21/23 16:12 Neut % (Auto) 68.5 % 11/21/23 16:12 Lymph % (Auto) 19.0 % 11/21/23 16:12 Hockley % (Auto) 10.7 % 11/21/23 16:12 Eos % (Auto) 0.7 % 11/21/23 16:12 Baso % (Auto) 0.7 % 11/21/23 16:12 Neut # (Auto) 3.89 10^3/uL (1.8-7.7) 11/21/23 16:12 Lymph # (Auto) 1.1 10^3/uL (0.8-4.8) 11/21/23 16:12 [place]ockley # (Auto) 0.6 10^3/uL (0.2-0.9) 11/21/23 16:12 Eos # (Auto) 0.0 10^3/uL (0.0-0.8) 11/21/23 16:12 Baso # (Auto) 0.0 10^3/uL (0.0-0.1) 11/21/23 16:12 Nucleated RBC % (auto) 0 % 11/21/23 16: Nucleated RBCs # 0.0 /100WBC 11/21/23 16:12 Specimen Type Arterial 11/21/23 16:00 Sample Site Brachial, right 11/21/23 16:00 ABG pH 7.42 (7.35-7.45) 11/21/23 16:00 ABG pCO2 47.2 mmHg (35-45) H 11/21/23 16:00 ABG pO2 64.8 mmHg (80.0-100.0) L 11/21/23 16:00 ABG PO2/FiO2 Ratio 0 11/21/23 16:00 ABG HCO3 30.4 mmol/L (22-26) H 11/21/23 16:00 ABG Base Excess 4.8 mmol/L (-2.0-2.0) H 11/21/23 16:00 Reginaldo Test N/a 11/21/23 16:00 Hematocrit 47.7 % (42-52) 11/21/23 16:00 Hgb O2 Saturation 91.2 % (95-100) L 11/21/23 16:00 Carboxyhemoglobin 0.8 %THgb (0.4-20.1) 11/21/23 16:00 Methemoglobin 0.4 % (0.4-1.5) 11/21/23 16:00 Total Hemoglobin 15.6 g/dL (14-18) 11/21/23 16:00 O2 Delivery Device Nc 11/21/23 16:00 O2 Liters/Min 4.0 % 11/21/23 16:00 FiO2 36.0 % 11/21/23 16:00 Pathology Laboratory Technologist ID [facility] 11/21/23 16:00 Sodium 138 mmol/L (136-145) 11/21/23 16:12 Potassium 3.9 mmol/L (3.5-5.1) 11/21/23 16:12 Chloride 99 mmol/L (98-107) 11/21/23 16:12 Carbon Dioxide 26 mmol/L (22-29) 11/21/23 16:12 Anion Gap 16.9 (5-19) 11/21/23 16:12 BUN 19 mg/dL (6-20) 11/21/23 16:12 Creatinine 0.9 mg/dL (0.7-1.2) 11/21/23 16:12 GFR Calculation 86.4 mL/min (90-130) L 11/21/23 16:12 Glucose 129 mg/dL (65-115) H 11/21/23 16:12 Calculated Osmolality 290 mOsm/kg (285-295) 11/21/23 16:12 Lactic Acid 1.4 mmol/L (0.5-2.2) 11/21/23 16:12 Calcium 8.8 mg/dL (8.5-10.5) 11/21/23 16:12 Troponin T Baseline 16 ng/L (0-15) H 11/21/23 16:12 Troponin T 120 Minute 13.95 ng/L (0-15) 11/21/23 17:47 Delta Troponin T -2.05 ABS# (0-10) L 11/21/23 17:47 NT-Pro-B Natriuret Pep 396 pg/mL (0-125) H 11/21/23 16:12 Coronavirus 229E (PCR) Not detected (NOT DETECT) 11/21/23 15:57 Influenza A (H1) PCR Not detected (NOT DETECT) 11/21/23 17:53 Influ A (H1/09) PCR Detected (NOT DETECT) A 11/21/23 17:53 Influenza A (H3) PCR Not detected (NOT DETECT) 11/21/23 17:53 Influenza Type A Ag Cancelled 11/21/23 15:57 Influenza Type A (PCR) Detected (NOT DETECT) A 11/21/23 17:53 Influenza Type B Ag Cancelled 11/21/23 15:57 Influenza Type B (PCR) Not detected (NOT DETECT) 11/21/23 17:53 SARS-CoV-2 (PCR) Not detected (NOT DETECT) 11/21/23 15:57 All radiology interpretation(s) finalized by discharge Discharge Plan Discharge Patient Disposition: Admitted As Inpatient Clinical Impression: Congestive heart failure Condition: Stable Prescriptions: No Action potassium chloride 20 mEq tablet extended release 20 meq PO BID Qty: 180 1RF carvedilol 25 mg tablet 25 mg PO DIRECTED Qty: 225 6RF Rx Instructions: 37.5 (1.5 tabs) in AM and 25mg (1 tab) in PM furosemide 40 mg tablet 40 mg PO BID Qty: 60 6RF hydralazine 100 mg tablet 100 mg PO TID Qty: 90 6RF irbesartan 300 mg tablet 300 mg PO DAILY Qty: 30 6RF metformin 500 mg tablet extended release 24hr 500 mg PO BID Qty: 60 6RF Farxiga 5 mg tablet 5 mg PO DAILY Qty: 30 6RF Eliquis 5 mg tablet See Rx Instructions .ROUTE .COMPLEX Qty: 60 0RF Dose Instruction: Take 1 tablet by mouth twice daily Rx Instructions: Take 1 tablet by mouth twice daily Referrals: Brooke Geller MD [Primary Care Provider] - Coding Level of Care Code ED Manager Of Drilling for Alex Parada
--- NOTE | 2023-11-21 20:23 | P.HP_ITS ---
Providers/Chief Complaint 2 Admitting Physician: Samuel Balbuena MD Primary Care Provider: Brooke Geller MD Chief Complaint: SOB History of Present Illness Bertin Howe is a 58 year old male with a past medical history significant for congestive heart failure, type 2 diabetes mellitus, atrial fibrillation, obesity, and tobacco use disorder who presents emergency department with shortness of breath. He reports onset about 2 days ago. Endorses associated symptoms of mostly nonproductive cough, dizziness, lightheadedness, fatigue, myalgias, and generalized unwell feeling. He denies chest pain. Reports exertion worsens symptoms. Rest improves symptoms. In the emergency department, patient was found to be hypoxic requiring nasal cannula oxygen. He denies prior need for home oxygen. He was found to have influenza A infection. Reports several years since his last influenza vaccine. Chest x-ray revealed cardiomegaly with suspected pleural effusions. Patient denies known history of lung disease including asthma or COPD. He reports that he did smoke previously and occasionally will smoke now. He does not consider himself a heavy smoker. Review of Systems 2 Narrative: A complete review of systems was obtained and is negative except as stated in HPI. Medications/Allergies Home Medications Medication Instructions Recorded Confirmed Last Taken Type potassium chloride 20 mEq 20 meq PO BID #180 tabs 07/25/22 07/25/22 Unknown Rx tablet,extended release carvedilol 25 mg tablet 25 mg PO DIRECTED #225 tabs 09/02/23 09/02/23 Unknown Rx dapagliflozin propanediol 5 mg 5 mg PO DAILY #30 tabs 09/02/23 09/02/23 Unknown Rx tablet (Farxiga) furosemide 40 mg tablet 40 mg PO BID #60 tabs 09/02/23 09/02/23 Unknown Rx hydralazine 100 mg tablet 100 mg PO TID #90 tabs 09/02/23 09/02/23 Unknown Rx irbesartan 300 mg tablet 300 mg PO DAILY #30 tabs 09/02/23 09/02/23 Unknown Rx metformin 500 mg tablet,extended 500 mg PO BID #60 tabs 09/02/23 09/02/23 Unknown Rx release 24hr (osmotic) apixaban 5 mg tablet (Eliquis) See Rx Instructions .Route 11/19/23 Unknown Rx .COMPLEX #60 tabs Allergies Allergy/AdvReac Type Severity Reaction Status Date / Time No Known Allergies Allergy Verified 11/21/23 15:34 PFSH Acute 2 PFSH: Medical History (Updated 11/21/23 @ 20:30 by Samuel Balbuena MD) BMI 45.0-49.9, adult Vitamin B12 deficiency Diabetes mellitus with hyperglycemia Mild aortic valve stenosis Aortic valve area 1.7 cm? 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 Chronic kidney disease stage 2 Hyperlipemia Atrial fibrillation Heart failure, unspecified Echocardiogram from 2018 showed severely decreased left ventricular systolic function as well as grade 3 of 4 diastolic dysfunction consistent with combined CHF Benign essential hypertension with target blood pressure below 140/90 Obesity Surgical History No history of previous surgery Family History Mother Diabetes Hypertension Father Alcohol abuse Other Heart disease Social History Smoking and tobacco/nicotine status: former use of tobacco/nicotine Second hand smoke exposure: No Alcohol intake: never Substance/Drug Use: never Adopted: No Caregiver/support person: No Lives independently: Yes Household members: other Housing: House Marital status: Single Number of children: 0 service: No Current occupational status: unemployed Pets and animals: Yes Pets & animals: cat(s) and dog(s) Do you think of yourself as: Straight/Heterosexual Current gender identity: Male Vitals/I&O/Wt Last Vital Signs Temp 98.6 F 11/21/23 15:26 Pulse 75 11/21/23 17:04 Resp 17 11/21/23 17:04 BP 173/104 11/21/23 15:26 Pulse Ox 94 11/21/23 17:04 O2 Del Method Nasal Cannula 11/21/23 17:04 O2 Flow Rate 4 11/21/23 17:04 Weight last 48 hrs Weight 131.542 kg Physical Exam 2 Narrative: General: Patient is awake. Sitting on edge of bed. Ill-appearing. Head: Normocephalic. Atraumatic. EOM intact. Neck: Elevated JVD. Cardiovascular: Irregularly irregular rhythm with normal rate. No gallops. 1+ systolic murmur. 2+ pitting edema in bilateral lower extremities. Lungs: Breath sounds diminished bilateral bases. Wheezing is present. He is unable to talk in full sentences. Using some accessory muscles with speaking. On nasal cannula support. Skin: No jaundice. Chronic skin changes of bilateral lower extremities are present. Abdomen: Normal bowel sounds, abdomen soft and nontender. Genito Urinary: Genital exam not performed since complaints not related. Rectal: Rectal exam not performed since no symptoms indicated blood loss. Extremities: No cyanosis or clubbing. Musculoskeletal: No swollen or erythematous joints. Neurological: Moves all 4 extremities. No myoclonus. Data 11/21/23 16:12 11/21/23 16:12 Micro: Microbiology 11/21/23 16:16 Blood Culture - Preliminary Blood SPECIMEN COLLECTED 11/21/23 16:12 Blood Culture - Preliminary Blood SPECIMEN COLLECTED A&P Assessment and plan (1) Congestive heart failure: Acute on chronic heart failure with preserved ejection fraction Associated with acute hypoxic respiratory insufficiency, myocardial injury, suspected small bilateral pleural effusions Last TTE (07/11/2021): LVEF 55%, diastolic dysfunction indeterminate due to A-fib mild aortic stenosis Hold p.o. Lasix Status post Lasix 160 mg IVP in ED Start IV Lasix Strict I's and O's, use catheter if needed Daily weights Monitor renal function Supplemental oxygen for SpO2 goal of 92 to 96% Qualifiers: Heart failure chronicity: acute on chronic Heart failure type: u nspecified Qualified Code(s): I50.9 - Heart failure, unspecified (2) Influenza: Symptoms at 2 days, given we are admitting with acute hypoxia we will proceed with Tamiflu Influenza precautions (3) Atrial fibrillation: Chronic atrial fibrillation Continue beta-dina for rate control Continue apixaban for stroke prophylaxis Qualifiers: Atrial fibrillation type: paroxysmal Qualified Code(s): I48.0 - Paroxysmal atrial fibrillation (4) Benign essential hypertension with target blood pressure below 140/90: Blood pressure currently elevated Receiving IV diuresis Continue beta-dina Continue hydralazine Continue ARB, formulary alternative (5) Diabetes mellitus with hyperglycemia: Home Farxiga is nonformulary Hold home metformin Sliding-scale insulin correction Qualifiers: Diabetes mellitus type: type 2 Diabetes mellitus extermination supervisor insulin use: without extermination supervisor use Qualified Code(s): E11.65 - Type 2 diabetes mellitus with hyperglycemia (6) Obesity: Would benefit from weight loss Qualifiers: Obesity type: due to excess calories Obesity classification: adult class 3 (BMI >= 40) Serious obesity comorbidity presence: with serious comorbidity Body mass index: BMI 40.0-44.9 Qualified Code(s): E66.01 - Morbid (severe) obesity due to excess calories; Z68.41 - Body mass index (BMI) 40.0- 44.9, adult Plan DVT prophylaxis: Apixaban CODE STATUS: Full code Attestations 2 Medical Necessity Statement*: Patient presents with shortness of breath, found to have influenza infection with acute on chronic heart failure exacerbation with acute hypoxic respiratory insufficiency with expected hospitalization not to cross 2 midnights for IV diuresis, Tamiflu, supplemental oxygen and supportive care. Coding Level of Care Code Acute Code for [facility] Diagnoses Congestive heart failure I50.9 Heart failure chronicity: acute on chronic Heart failure type: unspecified Influenza J11.1 Paroxysmal atrial fibrillation I48.0 Atrial fibrillation type: paroxysmal Benign essential hypertension with target blood pressure below 140/90 I10 Type 2 diabetes mellitus with hyperglycemia, without long-term current use of insulin E11.65 Diabetes mellitus type: type 2 Diabetes mellitus [facility] insulin use: without extermination supervisor use Class 3 severe obesity due to excess calories with serious comorbidity and body mass index (BMI) of 40.0 to 44.9 in adult E66.01; Z68.41 Obesity type: due to excess calories Obesity classification: adult class 3 (BMI >= 40) Serious obesity comorbidity presence: with serious comorbidity Body mass index: BMI 40.0-44.9
--- NOTE | 2023-11-21 21:02 | PC.NURSE ---
Patient states he takes Metformin and Eliquis at home, but otherwise does not know what medications he takes at home and does not have a list with him. Unable to complete med rec at this time.
[2023-11-21 21:21] LABS: Procalcitonin 0.05 ng/mL (0-0.5)
[2023-11-21 21:33] LABS: Glucose Point of Care 290 mg/dL (70-110)
[2023-11-21] MEDS: insulin lispro 100 unit/1 mL SUBCUT (21:55)
[2023-11-21] MEDS: hyDRALAzine 50 mg Tablet 100 MG PO (21:55)
[2023-11-21] MEDS: oseltamivir phosphate 75 mg Capsule PO (21:55)
[2023-11-21] MEDS: apixaban 5 mg Tablet PO (21:55)
[2023-11-21] MEDS: carvedilol 25 mg Tablet PO (21:55)
[2023-11-21 22:42] LABS: Troponin 5 6HR 28.34 ng/L (0-15)
[2023-11-21 22:46] LABS: Troponin 5 6HR Delta 12.34 ng/L (0-12)
[2023-11-22] VITALS (16 sets, daily range): BP systolic 101–138; BP diastolic 62–82; PULSE 53–74; RESP 16–18; TEMP 36.3–37.1; O2SAT 90–96
[2023-11-22 03:32] LABS: Anion Gap 14.8 (5-19); Blood Urea Nitrogen 26 mg/dL (6-20); Calcium 8.8 mg/dL (8.5-10.5); Carbon Dioxide 30 mmol/L (22-29); Chloride 96 mmol/L (98-107); Glomerular Filtration Rate 68.5 mL/min (90-130); Glucose 165 mg/dL (65-115); Osmolality Calculated 292 mOsm/kg (285-295); Phosphorus 2.8 mg/dL (2.5-4.5); Potassium 3.8 mmol/L (3.5-5.1); Sodium 137 mmol/L (136-145)
--- NOTE | 2023-11-22 06:00 | USCV_ITS ---
Bertin Howe Age: 58 Gender: M : 1965 Exam Date: 11/22/2023 10:14 Ordering Phys: Samuel Balbuena MD Technologist: Jose Martin Woodward Exam Location: [facility] [place] Indication: chf BP: 124 / 82 HR: 62 Rhythm: Sinus Technical Quality: Poor MEASUREMENTS (Male / Female) Normal Values 2D ECHO LVOT Diameter 2.0 cm LV Ejection Fraction MOD 2C 76.2 % LV Ejection Fraction 2C AL 77.2 % LA Diameter 4.7 cm LA Width 4.1 cm LA Height 6.1 cm RA Width 4.4 cm RA Height 5.8 cm Aorta at Sinotubular Diameter 2.4 cm IVC Diameter 2.4 cm M-MODE Aortic Annulus Diameter 3.2 cm LA Ao Ratio MM 1.5 MV E Point Septal Separation 0.4 cm DOPPLER AV Peak Velocity 191.0 cm/s LVOT Peak Velocity 105.0 cm/s AV Area Cont Eq vti 2.3 cm squared AV Area Cont Eq pk 1.8 cm squared MV Peak Velocity 147.0 cm/s MV Area PHT 5.0 cm squared Mitral E to A Ratio 4.3 MV E' Velocity 89.0 cm/s TR Peak Velocity 303.9 cm/s TR Peak Gradient 36.9 mmHg TR Mean Velocity 234.4 cm/s TR Mean Gradient 22.9 mmHg TR Velocity Time Integral 64.7 cm Right Atrial Pressure 8.0 mmHg Pulmonary Artery Systolic Pressu 44.9 mmHg PV Peak Velocity 123.0 cm/s RV Acceleration Time 0.1 s RV Ejection Time 0.3 s RV AcT/ET 0.5 FINDINGS Left Ventricle The ventricle is not well-seen.normal left ventricular size, systolic function and wall thickness, with no regional wall motion abnormalities. Grade I/IV diastolic dysfunction (abnormal relaxation filling pattern), normal to mildly elevated filling pressures. Left ventricular ejection fraction is estimated at 55 %. Right Ventricle Normal right ventricular size and systolic function. Mild pulmonary hypertension, RVSP 44.9 mmHg. Right Atrium Mildly increased right atrial size. Left Atrium Mildly increased left atrial size. Mitral Valve Mitral valve not well visualized. Structurally normal mitral valve. No mitral valve regurgitation. Aortic Valve Aortic valve not well visualized. Structurally normal trileaflet aortic valve. No aortic valve regurgitation. No aortic valve stenosis. Tricuspid Valve Structurally normal tricuspid valve. Mild tricuspid valve regurgitation. Pulmonic Valve Pulmonic valve not well visualized. Pericardium Normal pericardium without effusion. Aorta Normal ascending aorta dimension. IVC The inferior vena cava appears normal. CONCLUSIONS The ventricle is not well-seen.normal left ventricular size, systolic function and wall thickness, with no regional wall motion abnormalities. Grade I/IV diastolic dysfunction (abnormal relaxation filling pattern), normal to mildly elevated filling pressures. Left ventricular ejection fraction is estimated at 55 %. Normal right ventricular size and systolic function. Mild pulmonary hypertension, RVSP 44.9 mmHg. Previous study was done in June 2021. The aortic stenosis noted on the previous study is not evident today. Dr. Mark Anthony Ny MD (Electronically Signed) Final Date: 23 November 2023 08:16 S
[2023-11-22 06:22] LABS: Glucose Point of Care 147 mg/dL (70-110)
[2023-11-22] MEDS: losartan 50 mg Tablet 150 MG PO (08:06)
[2023-11-22] MEDS: oseltamivir phosphate 75 mg Capsule PO ×2 (08:07→17:25)
[2023-11-22] MEDS: carvedilol 25 mg Tablet 37.5 MG PO (08:07)
[2023-11-22] MEDS: apixaban 5 mg Tablet PO ×2 (08:07→21:26)
[2023-11-22] MEDS: FUROsemide 10 mg/mL SDV 4mL 40 MG IVP ×3 (08:08→21:26)
[2023-11-22] MEDS: insulin lispro 100 unit/1 mL SUBCUT ×3 (08:08→22:18)
[2023-11-22] MEDS: hyDRALAzine 50 mg Tablet 100 MG PO ×3 (08:08→21:26)
[2023-11-22] MEDS: pneumococcal (23 valent) SDV 0.5 mL IM (08:09)
[2023-11-22] MEDS: flu vacc pf 2023-24 (6 mos+) 60 MCG IM (08:11)
--- NOTE | 2023-11-22 09:02 | PC.PHAR ---
pt states he takes care of his own medications-medications entered are what the pt states he takes and what ext shows-pt not sure if taking irbesartan 300mg daily ext shows last filled 10/24/23 30d/s-pt states still takes kcl 20meq bid and lasix 40mg bid ext shows last filled 08/09/23 30d/s-luana brady not open to verify last time filled-ext also shows amlodipine 10mg daily filled 08/09/23 30d/s and zocor 20mg daily filled 05/05/23 30d/s-notes are made in the pharmacy comments
[2023-11-22] MEDS: ipratropium-albuterol 3 mL Neb INHALATION ×3 (09:21→20:31)
[2023-11-22 11:23] LABS: Glucose Point of Care 256 mg/dL (70-110)
[2023-11-22] MEDS: methylPREDNISolone sod succ 40 mg/mL INJ IVP (13:54)
[2023-11-22] MEDS: ondansetron 2 mg/ML SDV 2 mL 4 MG IVP (13:55)
[2023-11-22] MEDS: benzonatate 100 mg Capsule PO ×2 (14:08→21:26)
[2023-11-22 14:54] LABS: Procalcitonin 0.08 ng/mL (0-0.5); Thyroid Stimulating Hormone 0.53 uIU/mL (0.27-4.20); Vitamin B12 363 pg/mL (232-1245)
[2023-11-22 15:05] LABS: Iron 23 ug/dL (59-158); Percent Saturation 7.9 % (20-50); Total Iron Binding Capacity 290 mcg/dl; Unsaturated Iron Binding 267 ug/dL (112-347)
--- NOTE | 2023-11-22 15:19 | P.PN_ITS ---
Subjective 2 Subjective: Admitted overnight. Seen sitting up in chair today. States feeling little better. Down to 3 L oxygen supplementation saturating more than 90%. Complaining of cough. Denies any vomiting but complaining of nausea. Vitals/I&O/Wt Last Vital Signs Temp 97.4 F L 11/22/23 09:16 Pulse 62 11/22/23 14:43 Resp 16 11/22/23 14:43 BP 132/77 11/22/23 11:15 Pulse Ox 94 11/22/23 14:43 O2 Del Method Nasal Cannula 11/22/23 14:43 O2 Flow Rate 3 11/22/23 14:43 11/22/23 11/22/23 11/22/23 06:59 14:59 22:59 Intake Total 800 / 800 240 / 240 Output Total 1200 / 1200 Balance -400 / -400 240 / 240 Weight last 48 hrs Weight 129.682 kg Weight 131.542 kg Physical Exam 2 Narrative: General: Patient is awake. Sitting on edge of bed. Ill-appearing. Head: Normocephalic. Atraumatic. EOM intact. Neck: Elevated JVD. Cardiovascular: Irregularly irregular rhythm with normal rate. No gallops. 1+ systolic murmur. 2+ pitting edema in bilateral lower extremities. Lungs: Breath sounds diminished bilateral bases. Wheezing is present. He is unable to talk in full sentences. Using some accessory muscles with speaking. On nasal cannula support. Skin: No jaundice. Chronic skin changes of bilateral lower extremities are present. Abdomen: Normal bowel sounds, abdomen soft and nontender. Genito Urinary: Genital exam not performed since complaints not related. Rectal: Rectal exam not performed since no symptoms indicated blood loss. Extremities: No cyanosis or clubbing. Musculoskeletal: No swollen or erythematous joints. Neurological: Moves all 4 extremities. No myoclonus. Urinary Catheter Management: Navarro: Cath Placed During This Visit: yes Reason for Continuing Indwelling Catheter: Accurate Measurement of Urinary Output in Critically Ill Patients Urinary Catheter Date of Insertion: 11/21/23 Urinary Catheter Time of Insertion: 21:23 Data 11/21/23 16:12 11/22/23 02:53 Micro: Microbiology 11/22/23 14:15 Bacterial Antigens - Final Urine Kidney 11/22/23 14:15 Legionella Urinary Antigen - Final Unknown Source 11/21/23 16:16 Blood Culture - Preliminary Blood SPECIMEN COLLECTED 11/21/23 16:12 Blood Culture - Preliminary Blood SPECIMEN COLLECTED A&P Assessment and plan (1) Congestive heart failure: Acute on chronic heart failure with preserved ejection fraction Associated with acute hypoxic respiratory insufficiency, myocardial injury, suspected small bilateral pleural effusions Last TTE (07/11/2021): LVEF 55%, diastolic dysfunction indeterminate due to A-fib mild aortic stenosis Continue with IV Lasix. Increase dose of 40 mg 3 times daily. Did get 160 mg of IV Lasix in the ER last night. Strict input charting, daily weights. Oxygen supplementation keeping saturation over 90%. Out of bed to chair. Qualifiers: Heart failure chronicity: acute on chronic Heart failure type: u nspecified Qualified Code(s): I50.9 - Heart failure, unspecified (2) Influenza: Continue Tamiflu. Pulmicort twice daily, DuoNeb every 6 hours. Tessalon Perles 3 times daily for cough along with Robitussin as needed. Methylprednisone 40 mg every 12 hourly. (3) Atrial fibrillation: Chronic atrial fibrillation. Rate controlled. Continue beta-dina for rate control Continue apixaban for stroke prophylaxis Qualifiers: Atrial fibrillation type: paroxysmal Qualified Code(s): I48.0 - Paroxysmal atrial fibrillation (4) Benign essential hypertension with target blood pressure below 140/90: Goal blood pressure less than 140/90 mmHg. Currently blood pressure is controlled. Continue with home dose of Coreg 25 mg nightly, 37.5 mg in a.m., hydralazine 100 mg 3 times daily, losartan 150 mg daily. Uptitrate as for goal blood pressures. (5) Diabetes mellitus with hyperglycemia: Check A1c. Sliding-scale insulin correction Qualifiers: Diabetes mellitus type: type 2 Diabetes mellitus watermaster insulin use: without skilled nursing use Qualified Code(s): E11.65 - Type 2 diabetes mellitus with hyperglycemia (6) Obesity: Would benefit from weight loss Qualifiers: Obesity type: due to excess calories Obesity classification: adult class 3 (BMI >= 40) Serious obesity comorbidity presence: with serious comorbidity Body mass index: BMI 40.0-44.9 Qualified Code(s): E66.01 - Morbid (severe) obesity due to excess calories; Z68.41 - Body mass index (BMI) 40.0- 44.9, adult Plan Patient would benefit from outpatient sleep apnea study. DVT prophylaxis: Apixaban CODE STATUS: Full code Attestations 2 Medical Necessity Statement*: Requires further hospitalization for management of hypoxia in setting of congestive heart failure, influenza in a patient with history of atrial fibrillation Diagnoses Congestive heart failure I50.9 Heart failure chronicity: acute on chronic Heart failure type: unspecified Influenza J11.1 Paroxysmal atrial fibrillation I48.0 Atrial fibrillation type: paroxysmal Benign essential hypertension with target blood pressure below 140/90 I10 Type 2 diabetes mellitus with hyperglycemia, without long-term current use of insulin E11.65 Diabetes mellitus type: type 2 Diabetes mellitus watermaster insulin use: without watermaster use Class 3 severe obesity due to excess calories with serious comorbidity and body mass index (BMI) of 40.0 to 44.9 in adult E66.01; Z68.41 Obesity type: due to excess calories Obesity classification: adult class 3 (BMI >= 40) Serious obesity comorbidity presence: with serious comorbidity Body mass index: BMI 40.0-44.9
[2023-11-22 17:07] LABS: Glucose Point of Care 140 mg/dL (70-110)
[2023-11-22] MEDS: budesonide 0.5 mg/2 mL Neb INHALATION (20:31)
[2023-11-22] MEDS: carvedilol 25 mg Tablet PO (21:26)
[2023-11-22 21:32] LABS: Glucose Point of Care 248 mg/dL (70-110)
[2023-11-23] VITALS (14 sets, daily range): BP systolic 88–121; BP diastolic 52–82; PULSE 57–78; RESP 16–20; TEMP 36.6–36.9; O2SAT 90–97
[2023-11-23] MEDS: methylPREDNISolone sod succ 40 mg/mL INJ IVP ×2 (02:00→14:57)
[2023-11-23 03:49] LABS: Add Urine Microscopic? YES; Bilirubin Urine Neg (Negative); Blood Urine 3+ (Negative); Glucose Urine UA Norm (Normal); Ketones Urine Negative (Negative); Leukocyte Esterase Urine 1+ (Negative); Nitrate Urine Negative (Negative); Protein Urine Trace (Negative); Urine Appearance SL Hazy (CLEAR); Urine Color Yellow (Yellow); Urobilinogen Urine Norm (Negative); pH Urine 5 (5-7)
[2023-11-23 03:55] LABS: RBC Urine 25-40 /hpf (0-2)
[2023-11-23 03:56] LABS: Bacteria Urine TRACE /hpf; Mucus Urine TRACE /hpf; Squamous Epithelial Cell Urine 0-4 /hpf (0-5)
[2023-11-23 04:01] LABS: Add Urine Culture? Yes
[2023-11-23 05:24] LABS: Basophils % 0.2 %; Hematocrit 49.1 % (37-53); Lymphocytes # 1.1 10^3/uL (0.8-4.8); Lymphocytes % 21.5 %; Mean Corpuscular HGB Conc 31.4 g/dL (30-55); Mean Corpuscular Hemoglobin 27.6 pg (27-33); Mean Corpuscular Volume 88.2 fl (82-101); Mean Platelet Volume 9.3 fL (7.4-10.4); Monocytes # 0.4 10^3/uL (0.2-0.9); Monocytes % 8.2 %; Neutrophils % 69.7 %; Nucleated Red Blood Cells % 0 %; Platelet Count 263 10^3/cmm (157-399); Red Blood Count 5.57 10^6/uL (3.85-5.65); Red Cell Distribution Width 15.5 % (12.1-15.1); White Blood Count 4.88 10^3/uL (3.29-11.43)
[2023-11-23 05:45] LABS: Chol HDL Ratio 5.08 mg/dL (1.0-5.00); Cholesterol 193 mg/dL (0-200); HDL Cholesterol 38 mg/dL (60-100); LDL Cholesterol Calculated 134 mg/dL (50-129); Magnesium 2.1 mg/dL (1.7-2.3); Triglycerides 105 mg/dL (0-150); VLDL Cholestrol Calculation 21 mg/dL (0-30)
[2023-11-23 05:46] LABS: Alanine Aminotransferase 18 U/L (0-41); Albumin Level 3.6 g/dL (3.5-5.2); Alkaline Phosphatase 70 U/L (40-130); Aspartate Amino Transferase 20 U/L (0-40); Blood Urea Nitrogen 43 mg/dL (6-20); Calcium 8.8 mg/dL (8.5-10.5); Carbon Dioxide 30 mmol/L (22-29); Chloride 95 mmol/L (98-107); Glomerular Filtration Rate 56.5 mL/min (90-130); Glucose 145 mg/dL (65-115); Osmolality Calculated 295 mOsm/kg (285-295); Sodium 136 mmol/L (136-145); Total Bilirubin 0.3 mg/dL (0.15-1.2); Total Protein 7.6 g/dL (6.6-8.7)
[2023-11-23 05:57] LABS: Folate Level > 20.0 ng/mL (4.5-32.2)
[2023-11-23 06:44] LABS: Glucose Point of Care 150 mg/dL (70-110)
[2023-11-23] MEDS: ipratropium-albuterol 3 mL Neb INHALATION ×3 (08:15→20:45)
[2023-11-23] MEDS: budesonide 0.5 mg/2 mL Neb INHALATION ×2 (08:15→20:45)
[2023-11-23] MEDS: carvedilol 25 mg Tablet 37.5 MG PO (08:37)
[2023-11-23] MEDS: losartan 50 mg Tablet 150 MG PO (08:37)
[2023-11-23] MEDS: hyDRALAzine 50 mg Tablet 100 MG PO ×3 (08:38→20:30)
[2023-11-23] MEDS: benzonatate 100 mg Capsule PO ×3 (08:38→20:31)
[2023-11-23] MEDS: oseltamivir phosphate 75 mg Capsule PO ×2 (08:38→17:39)
[2023-11-23] MEDS: apixaban 5 mg Tablet PO ×2 (08:38→20:30)
[2023-11-23] MEDS: insulin lispro 100 unit/1 mL SUBCUT ×4 (08:38→22:01)
--- NOTE | 2023-11-23 08:45 | PC.CHAP ---
Pastoral Care Encounter/Spiritual Assessment Type of Contact [] Declined mining detail draftsperson visit [] Patient/Family/Request visit [] Outpatient visit [] Follow-up visit [] Physician referral [] Code/Alert [] Routine visit [] Staff referral [] Actively dying [] Patient sleeping [] Family support [] [] Out of room [] Palliative care [] [] Receiving care in room [] Pre-surgical visit [] Trauma [] Long length of stay [] ICU visit [x] Other:Contact precautions. No visit. Relational/Emotional Strength [] Patient feels connected with others/family/visitors/staff [] Distress [] Loneliness/isolation [] Abandonment Spirituality of Patient [] Person of Dominique [] Attends Holiness of their Dominique [] Believes in Prayer [] Reads Bible or Samaritan materials [] There are Spiritual issues to be addressed Tool Machinist Interventions [] Prayer [] Active listening [] Non-anxious presence [] Spiritual/emotional support [] Crisis/trauma care [] Spiritual counseling [] Bereavement support [] Provided bereavement packet [] Provided Bible/devotional materials [] Provided toy/stuffed animal, coloring book to patient or family member [] Provided Communion [] Anointing/Veneta [] Salvation [] Completed spiritual assessment [] Other: Impact on Illness or Injury [] Angry [] Fearful [] Anxious [] Often cries [] Exhaustion [] Unable to work [] Unable to attend congregational [] Unable to walk/stand [] Unable to read [] Unable to drive [] Unable to eat/drink [] Unable to sleep [] Unable to be with family [] Patient intubated [] Other: Summary Time spent with patient
[2023-11-23] MEDS: FUROsemide 10 mg/mL SDV 4mL 40 MG IVP ×3 (08:46→20:58)
[2023-11-23 11:18] LABS: Glucose Point of Care 266 mg/dL (70-110)
--- NOTE | 2023-11-23 14:35 | P.PN_ITS ---
Subjective 2 Subjective: seen this am still on 2L NC but subjectively feels better Echo shows diastolic dysfunction Vitals/I&O/Wt Last Vital Signs Temp 98.2 F 11/23/23 12:00 Pulse 63 11/23/23 12:00 Resp 18 11/23/23 12:00 BP 106/70 11/23/23 12:00 Pulse Ox 96 11/23/23 12:00 O2 Del Method Nasal Cannula 11/23/23 12:00 O2 Flow Rate 2 11/23/23 08:00 11/22/23 11/23/23 11/23/23 22:59 06:59 14:59 Intake Total 720 / 720 Output Total 700 / 700 575 / 1275 Balance -700 / -460 -575 / -1035 720 / 720 Weight last 48 hrs Weight 129.682 kg Weight 131.542 kg Physical Exam 2 Narrative: General: Patient is awake. Sitting on recliner Head: Normocephalic. Atraumatic. EOM intact. Cardiovascular: Irregularly irregular rhythm with normal rate. No gallops. 1+ systolic murmur. 2+ pitting edema in bilateral lower extremities. Lungs: Breath sounds diminished bilateral bases. lung cta b/l, no wheezes/ronchi Skin: Chronic skin changes of bilateral lower extremities are present. Abdomen: Normal bowel sounds, abdomen soft and nontender. Extremities: No cyanosis or clubbing. Neurological: Moves all 4 extremities. Urinary Catheter Management: Navarro: Cath Placed During This Visit: yes Reason for Continuing Indwelling Catheter: Other Urinary Catheter Date of Insertion: 11/21/23 Urinary Catheter Time of Insertion: 21:23 Data 11/23/23 04:47 11/23/23 04:47 Micro: Microbiology 11/21/23 16:16 Blood Culture - Preliminary Blood NEGATIVE TO DATE 11/21/23 16:12 Blood Culture - Preliminary Blood NEGATIVE TO DATE 11/22/23 14:15 Bacterial Antigens - Final Urine Kidney 11/22/23 14:15 Legionella Urinary Antigen - Final Unknown Source A&P Assessment and plan (1) Congestive heart failure: Acute on chronic heart failure with preserved ejection fraction Associated with acute hypoxic respiratory insufficiency, myocardial injury, suspected small bilateral pleural effusions Last TTE (07/11/2021): LVEF 55%, diastolic dysfunction indeterminate due to A-fib mild aortic stenosis Continue with IV Lasix. Increase dose of 40 mg 3 times daily. Did get 160 mg of IV Lasix in the ER last night. Strict input charting, daily weights. Oxygen supplementation keeping saturation over 90%. Out of bed to chair. Qualifiers: Heart failure chronicity: acute on chronic Heart failure type: u nspecified Qualified Code(s): I50.9 - Heart failure, unspecified (2) Influenza: Continue Tamiflu. Pulmicort twice daily, DuoNeb every 6 hours. Tessalon Perles 3 times daily for cough along with Robitussin as needed. Methylprednisone 40 mg every 12 hourly. (3) Atrial fibrillation: Chronic atrial fibrillation. Rate controlled. Continue beta-dina for rate control Continue apixaban for stroke prophylaxis Qualifiers: Atrial fibrillation type: paroxysmal Qualified Code(s): I48.0 - Paroxysmal atrial fibrillation (4) Benign essential hypertension with target blood pressure below 140/90: Goal blood pressure less than 140/90 mmHg. Currently blood pressure is controlled. Continue with home dose of Coreg 25 mg nightly, 37.5 mg in a.m., hydralazine 100 mg 3 times daily, losartan 150 mg daily. Uptitrate as for goal blood pressures. (5) Diabetes mellitus with hyperglycemia: Check A1c. Sliding-scale insulin correction Qualifiers: Diabetes mellitus type: type 2 Diabetes mellitus termite renewal inspector insulin use: without mcc use Qualified Code(s): E11.65 - Type 2 diabetes mellitus with hyperglycemia (6) Obesity: Would benefit from weight loss Qualifiers: Obesity type: due to excess calories Obesity classification: adult class 3 (BMI >= 40) Serious obesity comorbidity presence: with serious comorbidity Body mass index: BMI 40.0-44.9 Qualified Code(s): E66.01 - Morbid (severe) obesity due to excess calories; Z68.41 - Body mass index (BMI) 40.0- 44.9, adult Plan Patient would benefit from outpatient sleep apnea study. DVT prophylaxis: Apixaban CODE STATUS: Full code Attestations 2 Medical Necessity Statement*: Requires further hospitalization for management of hypoxia in setting of congestive heart failure, influenza in a patient with history of atrial fibrillation Diagnoses Congestive heart failure I50.9 Heart failure chronicity: acute on chronic Heart failure type: unspecified Influenza J11.1 Paroxysmal atrial fibrillation I48.0 Atrial fibrillation type: paroxysmal Benign essential hypertension with target blood pressure below 140/90 I10 Type 2 diabetes mellitus with hyperglycemia, without long-term current use of insulin E11.65 Diabetes mellitus type: type 2 Diabetes mellitus mcc insulin use: without termite renewal inspector use Class 3 severe obesity due to excess calories with serious comorbidity and body mass index (BMI) of 40.0 to 44.9 in adult E66.01; Z68.41 Obesity type: due to excess calories Obesity classification: adult class 3 (BMI >= 40) Serious obesity comorbidity presence: with serious comorbidity Body mass index: BMI 40.0-44.9
[2023-11-23 17:00] LABS: Glucose Point of Care 230 mg/dL (70-110)
[2023-11-23] MEDS: carvedilol 25 mg Tablet PO (20:30)
[2023-11-23 20:37] LABS: Glucose Point of Care 202 mg/dL (70-110)
[2023-11-24] VITALS (13 sets, daily range): BP systolic 107–142; BP diastolic 65–91; PULSE 50–89; RESP 17–18; TEMP 36.4–36.7; O2SAT 91–93
[2023-11-24] MEDS: methylPREDNISolone sod succ 40 mg/mL INJ IVP ×3 (02:44→18:12)
[2023-11-24] MEDS: ipratropium-albuterol 3 mL Neb INHALATION ×4 (02:58→20:04)
[2023-11-24 06:22] LABS: Blood Urea Nitrogen 54 mg/dL (6-20); Calcium 8.6 mg/dL (8.5-10.5); Carbon Dioxide 30 mmol/L (22-29); Chloride 96 mmol/L (98-107); Glomerular Filtration Rate 68.5 mL/min (90-130); Glucose 193 mg/dL (65-115); Osmolality Calculated 304 mOsm/kg (285-295); Sodium 137 mmol/L (136-145)
[2023-11-24 06:28] LABS: Magnesium 2.2 mg/dL (1.7-2.3)
[2023-11-24 06:43] LABS: Glucose Point of Care 187 mg/dL (70-110)
[2023-11-24] MEDS: oseltamivir phosphate 75 mg Capsule PO ×2 (08:30→17:17)
[2023-11-24] MEDS: benzonatate 100 mg Capsule PO ×3 (08:30→21:57)
[2023-11-24] MEDS: insulin lispro 100 unit/1 mL SUBCUT ×4 (08:30→21:59)
[2023-11-24] MEDS: losartan 50 mg Tablet 150 MG PO (08:31)
[2023-11-24] MEDS: carvedilol 25 mg Tablet 37.5 MG PO (08:32)
[2023-11-24] MEDS: budesonide 0.5 mg/2 mL Neb INHALATION ×2 (09:05→20:04)
[2023-11-24] MEDS: cefTRIAXone 1,000 MG in sodium chloride 0.9% (plus) 50 ML 100 MG IV (10:34)
[2023-11-24] MEDS: apixaban 5 mg Tablet PO ×2 (10:35→21:57)
[2023-11-24 11:23] LABS: Glucose Point of Care 240 mg/dL (70-110)
--- NOTE | 2023-11-24 12:34 | P.PN_ITS ---
Subjective 2 Subjective: seen this morning patient wheezing and coughing UO 2400 overnight still requiring 2L NC denies hx of COPD but has been a smoker since a long time. not on any inhalers at home. Vitals/I&O/Wt Last Vital Signs Temp 97.5 F L 11/24/23 07:22 Pulse 61 11/24/23 11:59 Resp 18 11/24/23 11:59 BP 121/71 11/24/23 11:59 Pulse Ox 93 11/24/23 11:59 O2 Del Method Nasal Cannula 11/24/23 11:59 O2 Flow Rate 2 11/24/23 08:00 11/23/23 11/24/23 11/24/23 22:59 06:59 14:59 Intake Total 600 / 1320 50 / 50 Output Total 1200 / 1200 1200 / 2400 Balance -600 / 120 -1200 / -1080 50 / 50 Physical Exam 2 Narrative: General: Patient is awake. Sitting on recliner Head: Normocephalic. Atraumatic. EOM intact. Cardiovascular: Irregularly irregular rhythm with normal rate. No gallops. 1+ systolic murmur. 1+ pitting edema in bilateral lower extremities. wrinkling seen b/l LE. Lungs: Breath sounds diminished bilateral bases. lung cta b/l, active wheezing b/li Skin: Chronic skin changes of bilateral lower extremities are present. Abdomen: Normal bowel sounds, abdomen soft and nontender. Extremities: No cyanosis or clubbing. Neurological: Moves all 4 extremities. Urinary Catheter Management: Navarro: Cath Placed During This Visit: yes Reason for Continuing Indwelling Catheter: Other Urinary Catheter Date of Insertion: 11/21/23 Urinary Catheter Time of Insertion: 21:23 Data 11/23/23 04:47 11/24/23 05:20 Micro: Microbiology 11/22/23 03:30 Urine Culture - Preliminary Urine,Clean Catch Gram Negative Rods A&P Assessment and plan (1) Congestive heart failure: Acute on chronic heart failure with preserved ejection fraction Associated with acute hypoxic respiratory insufficiency, myocardial injury, suspected small bilateral pleural effusions Last TTE (07/11/2021): LVEF 55%, diastolic dysfunction indeterminate due to A-fib mild aortic stenosis Continue with IV Lasix. Descalate lasix to 40 BID. Pt net negative 2.5L since admission Strict input charting, daily weights. Oxygen supplementation keeping saturation over 90%. Out of bed to chair. Qualifiers: Heart failure chronicity: acute on chronic Heart failure type: u nspecified Qualified Code(s): I50.9 - Heart failure, unspecified (2) Influenza: Continue Tamiflu. Pulmicort twice daily, DuoNeb every 6 hours. Tessalon Perles 3 times daily for cough along with Robitussin as needed. Methylprednisone 40 mg Q8 hours (3) Atrial fibrillation: Chronic atrial fibrillation. Rate controlled. Continue beta-dina for rate control Continue apixaban for stroke prophylaxis Qualifiers: Atrial fibrillation type: paroxysmal Qualified Code(s): I48.0 - Paroxysmal atrial fibrillation (4) Benign essential hypertension with target blood pressure below 140/90: Goal blood pressure less than 140/90 mmHg. Currently blood pressure is controlled. Continue with home dose of Coreg 25 mg nightly, 37.5 mg in a.m., hydralazine 100 mg 3 times daily, losartan 150 mg daily. Uptitrate as for goal blood pressures. (5) Diabetes mellitus with hyperglycemia: Check A1c. Sliding-scale insulin correction Qualifiers: Diabetes mellitus type: type 2 Diabetes mellitus watermaster insulin use: without watermaster use Qualified Code(s): E11.65 - Type 2 diabetes mellitus with hyperglycemia (6) Obesity: Would benefit from weight loss Qualifiers: Obesity type: due to excess calories Obesity classification: adult class 3 (BMI >= 40) Serious obesity comorbidity presence: with serious comorbidity Body mass index: BMI 40.0-44.9 Qualified Code(s): E66.01 - Morbid (severe) obesity due to excess calories; Z68.41 - Body mass index (BMI) 40.0- 44.9, adult Plan Patient would benefit from outpatient sleep apnea study. DVT prophylaxis: Apixaban CODE STATUS: Full code Attestations 2 Medical Necessity Statement*: Requires further hospitalization for management of hypoxia in setting of congestive heart failure, influenza in a patient with history of atrial fibrillation Diagnoses Congestive heart failure I50.9 Heart failure chronicity: acute on chronic Heart failure type: unspecified Influenza J11.1 Paroxysmal atrial fibrillation I48.0 Atrial fibrillation type: paroxysmal Benign essential hypertension with target blood pressure below 140/90 I10 Type 2 diabetes mellitus with hyperglycemia, without long-term current use of insulin E11.65 Diabetes mellitus type: type 2 Diabetes mellitus group home insulin use: without group home use Class 3 severe obesity due to excess calories with serious comorbidity and body mass index (BMI) of 40.0 to 44.9 in adult E66.01; Z68.41 Obesity type: due to excess calories Obesity classification: adult class 3 (BMI >= 40) Serious obesity comorbidity presence: with serious comorbidity Body mass index: BMI 40.0-44.9
[2023-11-24 17:03] LABS: Glucose Point of Care 246 mg/dL (70-110)
[2023-11-24] MEDS: hyDRALAzine 50 mg Tablet 75 MG PO ×2 (17:17→21:57)
[2023-11-24] MEDS: FUROsemide 10 mg/mL SDV 4mL 40 MG IVP (17:18)
[2023-11-24 21:34] LABS: Glucose Point of Care 200 mg/dL (70-110)
[2023-11-24] MEDS: carvedilol 25 mg Tablet PO (21:57)
[2023-11-25] VITALS (10 sets, daily range): BP systolic 114–146; BP diastolic 69–93; PULSE 56–74; RESP 18–20; TEMP 36.4–36.6; O2SAT 90–94
[2023-11-25 05:59] LABS: Hematocrit 48.6 % (37-53); Lymphocytes # 1.3 10^3/uL (0.8-4.8); Lymphocytes % 15.3 %; Mean Corpuscular HGB Conc 31.9 g/dL (30-55); Mean Corpuscular Hemoglobin 27.7 pg (27-33); Mean Corpuscular Volume 86.9 fl (82-101); Mean Platelet Volume 9.4 fL (7.4-10.4); Monocytes # 0.6 10^3/uL (0.2-0.9); Neutrophils % 77.1 %; Nucleated Red Blood Cells % 0 %; Platelet Count 300 10^3/cmm (157-399); Red Blood Count 5.59 10^6/uL (3.85-5.65); Red Cell Distribution Width 14.9 % (12.1-15.1)
[2023-11-25] MEDS: methylPREDNISolone sod succ 40 mg/mL INJ IVP ×2 (06:15→09:48)
[2023-11-25 06:20] LABS: Alanine Aminotransferase 22 U/L (0-41); Albumin Level 3.5 g/dL (3.5-5.2); Alkaline Phosphatase 59 U/L (40-130); Anion Gap 13.8 (5-19); Aspartate Amino Transferase 25 U/L (0-40); Blood Urea Nitrogen 51 mg/dL (6-20); Carbon Dioxide 30 mmol/L (22-29); Chloride 98 mmol/L (98-107); Globulin 3.7 g/dL (1.3-4.6); Glomerular Filtration Rate 86.4 mL/min (90-130); Glucose 199 mg/dL (65-115); Osmolality Calculated 305 mOsm/kg (285-295); Potassium 3.8 mmol/L (3.5-5.1); Sodium 138 mmol/L (136-145); Total Bilirubin 0.4 mg/dL (0.15-1.2); Total Protein 7.2 g/dL (6.6-8.7)
[2023-11-25 06:27] LABS: Magnesium 2.3 mg/dL (1.7-2.3)
[2023-11-25 07:28] LABS: Slide Review Slide Review Perform
[2023-11-25] MEDS: budesonide 0.5 mg/2 mL Neb INHALATION (07:32)
[2023-11-25] MEDS: ipratropium-albuterol 3 mL Neb INHALATION (07:32)
[2023-11-25 08:54] LABS: Glucose Point of Care 308 mg/dL (70-110)
[2023-11-25] MEDS: losartan 50 mg Tablet 150 MG PO (09:47)
[2023-11-25] MEDS: hyDRALAzine 50 mg Tablet 75 MG PO ×2 (09:47→17:35)
[2023-11-25] MEDS: oseltamivir phosphate 75 mg Capsule PO ×2 (09:47→17:34)
[2023-11-25] MEDS: carvedilol 25 mg Tablet 37.5 MG PO (09:48)
[2023-11-25] MEDS: insulin lispro 100 unit/1 mL SUBCUT ×3 (09:49→17:35)
[2023-11-25] MEDS: FUROsemide 10 mg/mL SDV 4mL 40 MG IVP (09:50)
[2023-11-25] MEDS: benzonatate 100 mg Capsule PO (09:50)
[2023-11-25] MEDS: cefTRIAXone 1,000 MG in sodium chloride 0.9% (plus) 50 ML 100 MG IV (09:50)
[2023-11-25] MEDS: apixaban 5 mg Tablet PO (09:57)
[2023-11-25 12:04] LABS: Glucose Point of Care 293 mg/dL (70-110)
--- NOTE | 2023-11-25 12:13 | PM.DCS ---
Discharge Providers Date of Admission: 11/21/23 20:13 Date of Discharge: November 25, 2023 Attending Provider at Admission: Samuel Balbuena MD Attending Provider at Discharge: Rosa Davalos MD Primary Care Provider: Brooke Geller MD Diagnoses at Discharge Discharge Diagnosis (1) Congestive heart failure: Status: Acute Qualifiers: Heart failure chronicity: acute on chronic Heart failure type: unspecified Qualified Code(s): I50.9 - Heart failure, unspecified (2) Influenza: Status: Resolved (3) Atrial fibrillation: Status: Chronic Qualifiers: Atrial fibrillation type: paroxysmal Qualified Code(s): I48.0 - Paroxysmal atrial fibrillation (4) Benign essential hypertension with target blood pressure below 140/90: Status: Chronic (5) Diabetes mellitus with hyperglycemia: Status: Chronic Qualifiers: Diabetes mellitus mcc insulin use: without mcc use Diabetes mellitus type: type 2 Qualified Code(s): E11.65 - Type 2 diabetes mellitus with hyperglycemia (6) Obesity: Status: Chronic Qualifiers: Body mass index: BMI 40.0-44.9 Obesity classification: adult class 3 (BMI >= 40) Obesity type: due to excess calories Serious obesity comorbidity presence: with serious comorbidity Qualified Code(s): E66.01 - Morbid (severe) obesity due to excess calories; Z68.41 - Body mass index (BMI) 40.0-44.9, adult Reason for Visit Reason for Visit: SOB Hospital Course Hospital Course 58-year-old morbidly obese with history of atrial fibrillation congestive heart failure admitted for complaints of shortness of breath found to have CHF exacerbation, positive for flu and COPD exacerbation. He probably has un diagnosed COPD. Patient was treated with steroids and sent home on a steroid taper. Initially required 2 L nasal cannula but transition back to room air. Have given a referral for pulmonology. Started albuterol inhaler for patient as well. Patient demonstrates understanding, will get discharged in stable condition today. Answered all his questions to his satisfaction. Physical Exam Narrative: General: Patient is awake. Sitting on recliner Head: Normocephalic. Atraumatic. EOM intact., On room air. Cardiovascular: Irregularly irregular rhythm with normal rate. No gallops. 1+ systolic murmur. Trace pitting edema in bilateral lower extremities. wrinkling seen b/l LE. Lungs: Breath sounds diminished bilateral bases. lung cta b/l, active wheezing b/li Skin: Chronic skin changes of bilateral lower extremities are present. Abdomen: Normal bowel sounds, abdomen soft and nontender. Extremities: No cyanosis or clubbing. Neurological: Moves all 4 extremities. Urinary Catheter Management: Navarro: Cath Placed During This Visit: yes, but has since been removed by the nurse Reason for Continuing Indwelling Catheter: Decision to DC Catheter Urinary Catheter Date of Insertion: 11/21/23 Urinary Catheter Time of Insertion: 21:23 Date Urinary Catheter Removed: 11/24/23 Time Urinary Catheter Discontinued: 14:00 Discharge Data Studies Completed and Pending Completed Studies During Hospitalization Category Date Time Status XR chest 1V portable [id number] Stat Exams 11/21/23 15:47 Completed CV. echo complete* [id number] Routine Ultrasound 11/22/23 06:00 Completed Pending at discharge Category Date Time Status Blood Culture Stat Lab 11/21/23 16:16 Results Radiology Impressions Chest X-Ray 11/21/23 15:47 IMPRESSION: 1. Cardiomegaly. 2. Blunting of the costophrenic angles is suggestive of small pleural effusions. In combination with cardiomegaly, findings raise concern for congestive heart failure. Please correlate clinically. 3. Streaky densities at the lung bases are most consistent with scarring and/or atelectasis. Laboratory Results WBC 8.30 10^3/uL (3.29-11.43) 11/25/23 05:18 RBC 5.59 10^6/uL (3.85-5.65) 11/25/23 05:18 Hgb 15.50 g/dL (11.27-16.99) 11/25/23 05:18 Hct 48.6 % (37-53) 11/25/23 05:18 MCV 86.9 fl (82-101) 11/25/23 05:18 MCH 27.7 pg (27-33) 11/25/23 05:18 MCHC 31.9 g/dL (30-55) 11/25/23 05:18 RDW 14.9 % (12.1-15.1) 11/25/23 05:18 Plt Count 300 10^3/cmm (157-399) 11/25/23 05:18 MPV 9.4 fL (7.4-10.4) 11/25/23 05:18 Neut % (Auto) 77.1 % 11/25/23 05:18 Lymph % (Auto) 15.3 % 11/25/23 05:18 [place] % (Auto) 7.0 % 11/25/23 05:18 Eos % (Auto) 0.0 % 11/25/23 05:18 Baso % (Auto) 0.0 % 11/25/23 05:18 Neut # (Auto) 6.40 10^3/uL (1.8-7.7) 11/25/23 05:18 Lymph # (Auto) 1.3 10^3/uL (0.8-4.8) 11/25/23 05:18 [place] # (Auto) 0.6 10^3/uL (0.2-0.9) 11/25/23 05:18 Eos # (Auto) 0.0 10^3/uL (0.0-0.8) 11/25/23 05:18 Baso # (Auto) 0.0 10^3/uL (0.0-0.1) 11/25/23 05:18 Nucleated RBC % (auto) 0 % 11/25/23 05:18 Nucleated RBCs # 0.0 /100WBC 11/25/23 05:18 Specimen Type Arterial 11/21/23 16:00 Sample Site Brachial, right 11/21/23 16:00 ABG pH 7.42 (7.35-7.45) 11/21/23 16:00 ABG pCO2 47.2 mmHg (35-45) H 11/21/23 16:00 ABG pO2 64.8 mmHg (80.0-100.0) L 11/21/23 16:00 ABG PO2/FiO2 Ratio 0 11/21/23 16:00 ABG HCO3 30.4 mmol/L (22-26) H 11/21/23 16:00 ABG Base Excess 4.8 mmol/L (-2.0-2.0) H 11/21/23 16:00 Reginaldo Test N/a 11/21/23 16:00 Hematocrit 47.7 % (42-52) 11/21/23 16:00 Hgb O2 Saturation 91.2 % (95-100) L 11/21/23 16:00 Carboxyhemoglobin 0.8 %THgb (0.4-20.1) 11/21/23 16:00 Methemoglobin 0.4 % (0.4-1.5) 11/21/23 16:00 Total Hemoglobin 15.6 g/dL (14-18) 11/21/23 16:00 O2 Delivery Device Nc 11/21/23 16:00 O2 Liters/Min 4.0 % 11/21/23 16:00 FiO2 36.0 % 11/21/23 16:00 Spice Mixer ID Amh 11/21/23 16:00 Sodium 138 mmol/L (136-145) 11/25/23 05:18 Potassium 3.8 mmol/L (3.5-5.1) 11/25/23 05:18 Chloride 98 mmol/L (98-107) 11/25/23 05:18 Carbon Dioxide 30 mmol/L (22-29) H 11/25/23 05:18 Anion Gap 13.8 (5-19) 11/25/23 05:18 BUN 51 mg/dL (6-20) H 11/25/23 05:18 Creatinine 0.9 mg/dL (0.7-1.2) 11/25/23 05:18 GFR Calculation 86.4 mL/min (90-130) L 11/25/23 05:18 Glucose 199 mg/dL (65-115) H 11/25/23 05:18 POC Glucose 293 mg/dL (70-110) H 11/25/23 10:32 Estimat Average Glucose 192 11/23/23 04:47 Hemoglobin A1c 8.3 % (4.0-6.0) H 11/23/23 04:47 Calculated Osmolality 305 mOsm/kg (285-295) H 11/25/23 05:18 Lactic Acid 1.4 mmol/L (0.5-2.2) 11/21/23 16:12 Calcium 9.0 mg/dL (8.5-10.5) 11/25/23 05:18 Phosphorus 2.8 mg/dL (2.5-4.5) 11/22/23 02:53 Magnesium 2.3 mg/dL (1.7-2.3) 11/25/23 05:18 Iron 23 ug/dL (59-158) L 11/22/23 02:53 TIBC 290 mcg/dl 11/22/23 02:53 % Saturation 7.9 % (20-50) L 11/22/23 02:53 Unsat Iron Binding 267 ug/dL (112-347) 11/22/23 02:53 Total Bilirubin 0.4 mg/dL (0.15-1.2) 11/25/23 05:18 AST 25 U/L (0-40) 11/25/23 05:18 ALT 22 U/L (0-41) 11/25/23 05:18 Alkaline Phosphatase 59 U/L (40-130) 11/25/23 05:18 Troponin T Baseline 16 ng/L (0-15) H 11/21/23 16:12 Troponin T 120 Minute 13.95 ng/L (0-15) 11/21/23 17:47 Delta Troponin T -2.05 ABS# (0-10) L 11/21/23 17:47 Troponin T Hi Sens 6Hr 28.34 ng/L (0-15) H 11/21/23 22:12 Troponin T Hi Sens 6Hr Delta 12.34 ng/L (0-12) H* 11/21/23 22:12 NT-Pro-B Natriuret Pep 396 pg/mL (0-125) H 11/21/23 16:12 Total Protein 7.2 g/dL (6.6-8.7) 11/25/23 05:18 Albumin 3.5 g/dL (3.5-5.2) 11/25/23 05:18 Globulin 3.7 g/dL (1.3-4.6) 11/25/23 05:18 Triglycerides 105 mg/dL (0-150) 11/23/23 04:47 Cholesterol 193 mg/dL (0-200) 11/23/23 04:47 LDL Cholesterol, Calc 134 mg/dL (50-129) H 11/23/23 04:47 Total VLDL Cholesterol 21 mg/dL (0-30) 11/23/23 04:47 HDL Cholesterol 38 mg/dL (60-100) L 11/23/23 04:47 Cholesterol/HDL Ratio 5.08 mg/dL (1.0-5.00) H 11/23/23 04:47 Vitamin B12 363 pg/mL (232-1245) 11/22/23 02:53 Folate > 20.0 ng/mL (4.5-32.2) 11/23/23 04:47 Procalcitonin 0.08 ng/mL (0-0.5) 11/22/23 02:53 TSH 0.53 uIU/mL (0.27-4.20) 11/22/23 02:53 Urine Color Yellow (Yellow) 11/22/23 03:30 Urine Appearance Sl hazy (CLEAR) A 11/22/23 03:30 Urine pH 5 (5-7) 11/22/23 03:30 Ur Specific [place] 1.020 (1.005-1.030) 11/22/23 03:30 Urine Protein Trace (Negative) 11/22/23 03:30 Urine Glucose (UA) Norm (Normal) 11/22/23 03:30 Urine Ketones Negative (Negative) 11/22/23 03:30 Urine Blood 3+ (Negative) H 11/22/23 03:30 Urine Nitrate Negative (Negative) 11/22/23 03:30 Urine Bilirubin Neg (Negative) 11/22/23 03:30 Urine Urobilinogen Norm mg/dL (Negative) 11/22/23 03:30 Ur Leukocyte Esterase 1+ (Negative) H 11/22/23 03:30 Urine RBC 25-40 /hpf (0-2) H 11/22/23 03:30 Urine WBC 5-10 /hpf (0-5) H 11/22/23 03:30 Ur Squamous Epith Cells 0-4 /hpf (0-5) H 11/22/23 03:30 Amorphous Sediment Not Reportable 11/22/23 03:30 Urine Bacteria Trace /hpf (NONE) 11/22/23 03:30 Hyaline Casts 5-10 /lpf H 11/22/23 03:30 Other Casts Not Reportable 11/22/23 03:30 Urine Mucus Trace /hpf 11/22/23 03:30 Coronavirus 229E (PCR) Not detected (NOT DETECT) 11/21/23 15:57 Influenza A (H1) PCR Not detected (NOT DETECT) 11/21/23 17:53 Influ A (H1/09) PCR Detected (NOT DETECT) A 11/21/23 17:53 Influenza A (H3) PCR Not detected (NOT DETECT) 11/21/23 17:53 Influenza Type A Ag Cancelled 11/21/23 15:57 Influenza Type A (PCR) Detected (NOT DETECT) A 11/21/23 17:53 Influenza Type B Ag Cancelled 11/21/23 15:57 Influenza Type B (PCR) Not detected (NOT DETECT) 11/21/23 17:53 SARS-CoV-2 (PCR) Not detected (NOT DETECT) 11/21/23 15:57 Vitals Last Vital Signs Temp 97.7 F 11/25/23 08:00 Pulse 60 11/25/23 08:00 Resp 18 11/25/23 08:00 BP 139/87 11/25/23 09:47 Pulse Ox 90 11/25/23 10:15 O2 Del Method Room Air 11/25/23 08:00 O2 Flow Rate 1 11/25/23 02:00 Discharge Plan Discharge Patient Disposition: Home Condition: Stable Prescriptions: New prednisone 10 mg tablet See Rx Instructions .ROUTE .COMPLEX Qty: 30 0RF Rx Instructions: 40 mg x3d,30 mgx3,20 mg x3, 10 mgx3d cefdinir 300 mg capsule 300 mg PO BID 5 Days Qty: 10 0RF albuterol sulfate 90 mcg/actuation aerosol powdr breath activated 2 inh inhalation Q4H PRN (Reason: shortness of breath or wheezing) Qty: 1 0RF Continued potassium chloride 20 mEq tablet extended release 20 meq PO BID Qty: 180 1RF furosemide 40 mg tablet 40 mg PO BID Qty: 60 6RF hydralazine 100 mg tablet 100 mg PO TID Qty: 90 6RF irbesartan 300 mg tablet 300 mg PO DAILY Qty: 30 6RF metformin 500 mg tablet extended release 24hr 500 mg PO BID Qty: 60 6RF Farxiga 5 mg tablet 5 mg PO DAILY Qty: 30 6RF carvedilol 25 mg tablet See Rx Instructions .ROUTE .COMPLEX Rx Instructions: take 37.5mg (1.5 tabs) po in AM and 25mg (1 tab) po in PM Eliquis 5 mg tablet 5 mg PO BID Discharge Orders: Discharge Order (Routine); Ordered 11/25/23 Ordered By: Rosa Davalos Referrals: Brooke Geller MD [Primary Care Provider] - 12/03/23 10:30 am (APPOINTMENT WITH JUARE[facility] GEOR[facility] AT [facility] [address]) Discharge Diet: Cardiac and Diabetic Discharge Activity: Resume usual activity Patient Instructions: Prednisone (By mouth), Cefdinir (By mouth), Heart Failure (GEN), Influenza (GEN), CHF Stoplight, Opioid Safety Discharge Attestations Time Spent in Discharge Care*: greater than 30 min Quality Metrics Clinical Quality Measures [ No reported AMI, CVA or VTE this stay] Coding Level of Care Code Acute Code for Chg Fwd Diagnoses Congestive heart failure I50.9 Heart failure chronicity: acute on chronic Heart failure type: unspecified Influenza J11.1 Paroxysmal atrial fibrillation I48.0 Atrial fibrillation type: paroxysmal Benign essential hypertension with target blood pressure below 140/90 I10 Type 2 diabetes mellitus with hyperglycemia, without long-term current use of insulin E11.65 Diabetes mellitus drafting technician insulin use: without drafting technician use Diabetes mellitus type: type 2 Class 3 severe obesity due to excess calories with serious comorbidity and body mass index (BMI) of 40.0 to 44.9 in adult E66.01; Z68.41 Body mass index: BMI 40.0-44.9 Obesity classification: adult class 3 (BMI >= 40) Obesity type: due to excess calories Serious obesity comorbidity presence: with serious comorbidity
[2023-11-25 16:57] LABS: Glucose Point of Care 151 mg/dL (70-110)
[2023-11-26 07:32] LABS: Estmated Average Glucose 166; Hemoglobin A1C 7.4 % (4.0-6.0)
== END 2023-11-25 18:10 | disposition home or self-care (01) ==
LOC: ER 20:11 → MEDSURG 11-22 00:32
PROVIDERS: Student in an Organized Health Care Education/Training Program; Admitting Provider Internal Medicine; Emergency Provider Emergency Medicine; PCP Internal Medicine; Visit Provider Internal Medicine
DX: J11.1 Influenza due to unidentified influenza virus with other respiratory manifestations (principal); E11.22 Type 2 diabetes mellitus with diabetic chronic kidney disease; I13.0 Hypertensive heart and chronic kidney disease with heart failure and stage 1 through stage 4 chronic kidney disease, or unspecified chronic kidney disease; N18.2 Chronic kidney disease, stage 2 (mild); I50.9 Heart failure, unspecified; E11.65 Type 2 diabetes mellitus with hyperglycemia; E66.01 Morbid (severe) obesity due to excess calories; Z68.41 Body mass index [BMI] 40.0-44.9, adult; I48.91 Unspecified atrial fibrillation; Z87.891 Personal history of nicotine dependence
CPT/HCPCS: 36415; 36416; 36600; 51702; 71045; 80048; 80053; 80061; 81001; 82607; 82746; 82805; 82962; 83036; 83540; 83550; 83605; 83735; 83880; 84100; 84145; 84443; 84484; 85025; 86403; 87040; 87077; 87086; 87186; 87449; 87631; 87635; 90471; 90686; 90732; 93005; 93306; 94640; 94760; 96365; 96372; 96375; 96376; 99285; G0378; J0696; J1815; J1940; J2405; J2920; J7626

== ENCOUNTER → 2024-01-05 10:27 | Outpatient (BNVA) | payer MEDICAID, SELFPAY | PROVIDERS: PCP Internal Medicine; Visit Provider Nurse Practitioner Family | DX: I13.0 Hypertensive heart and chronic kidney disease with heart failure and stage 1 through stage 4 chronic kidney disease, or unspecified chronic kidney disease (principal); N18.2 Chronic kidney disease, stage 2 (mild); I50.9 Heart failure, unspecified; I48.0 Paroxysmal atrial fibrillation; Z87.891 Personal history of nicotine dependence | CPT/HCPCS: 36415; 80048; 83880; 99214 ==

== ENCOUNTER 2024-09-24 10:23 | Emergency (ER) | payer MEDICAID, SELFPAY ==
[2024-09-24 10:27] VITALS: BP 146/72; PULSE 68; RESP 19; TEMP 37.1; O2SAT 93; BMI 42.5
--- NOTE | 2024-09-24 10:32 | XRR_ITS ---
PROCEDURE INFORMATION: Exam: XR Chest Exam date and time: 09/24/2024 11:06 AM Age: 59 years old Clinical indication: Shortness of breath; Patient HX: PT here via EMS from home with C/O swelling to ble x 1 week. EMS states he ran out of his lasix. PT has 20 g in left hand via EMS. PT reports SOB. TECHNIQUE: Imaging protocol: Radiologic exam of the chest. Views: 1 view. COMPARISON: CR XR chest 1V portable [id number] 11/21/2023 4:15 PM FINDINGS: Lungs: Hypoventilatory changes at the lung bases. Pleural spaces: Unremarkable. No pleural effusion. No pneumothorax. Heart/Mediastinum: See Vasculature finding. Vasculature: Mild cardiomegaly and uncoiling of the thoracic aorta. Bones/joints: Unremarkable. XR/XR chest 1V portable [id number] IMPRESSION: No acute findings.
--- NOTE | 2024-09-24 10:32 | ECG_ITS ---
[facility] Test Date: 2024-09-24 Pat Name: Bertin Howe Department: Room: Gender: Male Stage Driver: MEGAN: 1965 Requested By: Chloe Rosario Order Number: [id number] Tasha MD: Lori Chao M.D. Measurements Intervals [place] Rate: 68 P: 0 IN: 0 QRS: -64 QRSD: 120 T: 68 QT: 388 QTc: 413 Interpretive Statements ATRIAL FIBRILLATION POSSIBLE RIGHT VENTRICULAR CONDUCTION DELAY [RSR (QR) IN V1/V2] MODERATE VOLTAGE CRITERIA FOR LVH, CONSIDER NORMAL VARIANT [MEETS CRITERIA IN ONE OF: R(aVL), S(V1), R(V5), R(V5/V6)+S(V1)] INFERIOR MYOCARDIAL INFARCTION , PROBABLY OLD [40+ ms Q WAVE AND/OR ST/T ABNORMALITY IN II/aVF] ANTEROSEPTAL MYOCARDIAL INFARCTION , OF INDETERMINATE AGE [40+ ms Q WAVE IN V1-V4] Compared to ECG 11/21/2023 19:55:35 Left anterior fascicular block no longer present Myocardial infarct finding still present Electronically Signed On 09-25-2024 22:27:24 BLOCK TRIMMER by Lori Chao M.D. [email or web address]
--- NOTE | 2024-09-24 10:34 | ED_ITS ---
HPI - SOB/Dyspnea 2 General: Chief Complaint: Extremity Problem,Nontraumatic Stated Complaint: edematous lower extremities Time Seen by Provider: 09/24/24 10:30 Source: patient and EMS Mode of arrival: EMS Limitations: no limitations History of Present Illness: HPI Narrative: 59-year-old male with a history of CHF A -fib obesity is also a former smoker. He states that he has ran out of his Lasix over the last week states he has been having increased swelling in his legs along with some dyspnea states had a cough as well and some wheezing he denies any fevers denies any chest pain Associated symptoms: Deny abdominal pain, chest pain, fever(s), nausea or vomiting Related Data Home Medications Medication Instructions Recorded Confirmed simvastatin 20 mg tablet 20 mg PO BEDTIME 09/24/24 09/24/24 Previous Rx's Medication Instructions Recorded metformin 500 mg tablet,extended 500 mg PO BID #60 tabs 09/02/23 release 24hr (osmotic) albuterol sulfate 90 mcg/actuation 2 inh inhalation Q4H PRN shortness 11/25/23 breath activated powder inhaler of breath or wheezing #1 ea amlodipine 10 mg tablet 10 mg PO DAILY #90 tabs 01/05/24 carvedilol 25 mg tablet 37.5 mg (1.5 x 25 mg) PO .COMPLEX 05/18/24 #75 tabs dapagliflozin propanediol 5 mg 5 mg PO DAILY #30 tabs 05/18/24 tablet (Farxiga) hydralazine 100 mg tablet 100 mg PO TID #90 tabs 05/18/24 irbesartan 300 mg tablet 300 mg PO DAILY #30 tabs 05/18/24 apixaban 5 mg tablet (Eliquis) 5 mg PO BID #180 tabs 08/16/24 potassium chloride 20 mEq 20 meq PO BID #180 tabs 08/16/24 tablet,extended release furosemide 40 mg tablet 40 mg PO BID #60 tabs 09/24/24 Allergies Allergy/AdvReac Type Severity Reaction Status Date / Time No Known Allergies Allergy Verified 09/24/24 10:39 Review of Systems 2 Const: Denies: fever(s), chills, body aches or change in appetite Eyes: Denies: eye discomfort ENMT: Denies: throat pain or dental pain Card: Denies: chest pain Resp: Reports: dyspnea GI: Denies: abdominal pain, nausea, vomiting or diarrhea Musc: Reports: extremity swelling; Denies: neck pain or back pain Skin/Breast: Denies: rash Neuro: Denies: headache(s) PFSH ED 2 PFSH: Medical History BMI 45.0-49.9, adult Vitamin B12 deficiency Diabetes mellitus with hyperglycemia Mild aortic valve stenosis Aortic valve area 1.7 cm? 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 Chronic kidney disease stage 2 Hyperlipemia Atrial fibrillation Heart failure, unspecified Echocardiogram from 2018 showed severely decreased left ventricular systolic function as well as grade 3 of 4 diastolic dysfunction consistent with combined CHF Benign essential hypertension with target blood pressure below 140/90 Obesity Surgical History No history of previous surgery Family History Mother Diabetes Hypertension Father Alcohol abuse Other Heart disease Social History Smoking and tobacco/nicotine status: former use of tobacco/nicotine Second hand smoke exposure: No Alcohol intake: never Substance/Drug Use: never Adopted: No Caregiver/support person: No Lives independently: Yes Household members: other Housing: House Marital status: Single Number of children: 0 service: No Current occupational status: unemployed Pets and animals: Yes Pets & animals: cat(s) and dog(s) Do you think of yourself as: Straight/Heterosexual Current gender identity: Male Physical Exam 2 Const: COMMON NORMALS: patient oriented x3 HENMT: COMMON NORMALS: normocephalic and atraumatic HEAD & SCALP: n ormocephalic and atraumatic Eye: COMMON NORMALS: conjunctivae normal CONJUNCTIVA: Yes conjunctivae normal Neck/C-Spine: COMMON NORMALS: full ROM and supple Chest: COMMONS NORMALS: normal inspection of the chest Resp: COMMON NORMALS: No retractions and No use of accessory muscles A USCULTATION: wheezes Cardio: COMMON NORMALS: regular rate, regular rhythm and No murmurs present (Cardio) RATE: regular rate RHYTHM: regular rhythm GI: COMMON NORMALS: Normal to inspection, nondistended, normoactive bowel sounds present, Soft to palpation, non-tender and no masses PALPATION: Yes Soft to palpation Extremity: NARRATIVE EXTREMITY EXAM: 2+ edema to lower ext Neuro: COMMON NORMALS: patient oriented x3, moves all extremities and no focal motor deficits Psych: COMMON NORMALS: mental status grossly normal, Normal thought process present and cooperative THOUGHT PROCESS: Normal thought process present Skin: COMMON NORMALS: no rashes or lesions noted and no wounds GENERAL SKIN EXAM: no rashes or lesions noted Course 2 Vital Signs: Vital signs: Vital Signs Temperature 98.7 F 09/24/24 10:27 Pulse Rate 80 09/24/24 12:33 Respiratory Rate 20 H 09/24/24 10:47 Blood Pressure 132/73 09/24/24 12:33 Pulse Oximetry 94 09/24/24 12:33 Oxygen Delivery Me thod Room Air 09/24/24 10:47 Oxygen Flow Rate 2 09/24/24 10:27 MDM - SOB/Dyspnea Medical Decision Making Patient presents here with lower extremity edema likely from his noncompliance on his Lasix he also tested positive for RSV no signs of pneumonia he is not requiring oxygen here at this time did give him a dose of Lasix here we will prescribe Lasix he is follow-up with PCP return if worsening. Medical Records I reviewed the patient's medical records. Lab Data I reviewed the patient's lab results. 09/24/24 11:01 09/24/24 11:01 Labs/Radiology: Radiology Impressions Chest X-Ray 09/24/24 10:32 IMPRESSION: No acute findings. Laboratory Results WBC 9.29 10^3/uL (3.29-11.43) 09/24/24 11:01 RBC 5.03 10^6/uL (3.85-5.65) 09/24/24 11:01 Hgb 12.90 g/dL (11.27-16.99) 09/24/24 11:01 Hct 43.7 % (37-53) 09/24/24 11:01 MCV 86.9 fl (82-101) 09/24/24 11:01 MCH 25.6 pg (27-33) L 09/24/24 11:01 MCHC 29.5 g/dL (30-55) L 09/24/24 11:01 RDW 16.1 % (12.1-15.1) H 09/24/24 11:01 Plt Count 328 10^3/cmm (157-399) 09/24/24 11:01 MPV 9.0 fL (7.4-10.4) 09/24/24 11:01 Neut % (Auto) 71.0 % 09/24/24 11:01 Lymph % (Auto) 16.4 % 09/24/24 11:01 [place] % (Auto) 8.6 % 09/24/24 11:01 Eos % (Auto) 2.6 % 09/24/24 11:01 Baso % (Auto) 0.8 % 09/24/24 11:01 Neut # (Auto) 6.60 10^3/uL (1.8-7.7) 09/24/24 11:01 Lymph # (Auto) 1.5 10^3/uL (0.8-4.8) 09/24/24 11:01 [place] # (Auto) 0.8 10^3/uL (0.2-0.9) 09/24/24 11:01 Eos # (Auto) 0.2 10^3/uL (0.0-0.8) 09/24/24 11:01 Baso # (Auto) 0.1 10^3/uL (0.0-0.1) 09/24/24 11:01 Nucleated RBC % (auto) 0 % 09/24/24 11:01 Nucleated RBCs # 0.0 /100WBC 09/24/24 11:01 Sodium 137 mmol/L (136-145) 09/24/24 11:01 Potassium 4.3 mmol/L (3.5-5.1) 09/24/24 11:01 Chloride 102 mmol/L (98-107) 09/24/24 11:01 Carbon Dioxide 26 mmol/L (22-29) 09/24/24 11:01 Anion Gap 13.3 (5-19) 09/24/24 11:01 BUN 15 mg/dL (8-23) 09/24/24 11:01 Creatinine 0.8 mg/dL (0.7-1.2) 09/24/24 11:01 GFR Calculation 98.6 mL/min (90-130) 09/24/24 11:01 Glucose 119 mg/dL (65-115) H 09/24/24 11:01 Calculated Osmolality 286 mOsm/kg (285-295) 09/24/24 11:01 Calcium 9.3 mg/dL (8.5-10.5) 09/24/24 11:01 Total Bilirubin 0.3 mg/dL (0.15-1.2) 09/24/24 11:01 AST 12 U/L (0-40) 09/24/24 11:01 ALT 11 U/L (0-41) 09/24/24 11:01 Alkaline Phosphatase 97 U/L (40-130) 09/24/24 11:01 NT-Pro-B Natriuret Pep 600 pg/mL (0-125) H 09/24/24 11:01 Total Protein 7.1 g/dL (6.6-8.7) 09/24/24 11:01 Albumin 3.7 g/dL (3.5-5.2) 09/24/24 11:01 Globulin 3.4 g/dL (1.3-4.6) 09/24/24 11:01 Coronavirus (PCR) Negative (Negative) 09/24/24 10:59 Influenza A (PCR) Negative (Negative) 09/24/24 10:59 Influenza Type B (PCR) Negative (Negative) 09/24/24 10:59 RSV (PCR) Positive (Negative) 09/24/24 10:59 All radiology interpretation(s) finalized by discharge EKG Data EKG 1: I personally reviewed and interpreted this EKG as follows: EKG Interpretation Date: 09/24/24 EKG interpretation time: 10:50 Interpretation: afib hr [address] elevation qrs 120 qtc 405 Discharge Plan Discharge Patient Disposition: Home Clinical Impression: Respiratory syncytial virus (RSV), Bilateral edema of lower extremity Condition: Stable Prescriptions: Continued furosemide 40 mg tablet 40 mg PO BID Qty: 60 6RF No Action metformin 500 mg tablet extended release 24hr 500 mg PO BID Qty: 60 6RF amlodipine 10 mg tablet 10 mg PO DAILY Qty: 90 3RF carvedilol 25 mg tablet 37.5 mg PO .COMPLEX Qty: 75 6RF Rx Instructions: 37.5 mg orally PO in AM and 25 mg PO in PM; Farxiga 5 mg tablet 5 mg PO DAILY Qty: 30 6RF hydralazine 100 mg tablet 100 mg PO TID Qty: 90 6RF irbesartan 300 mg tablet 300 mg PO DAILY Qty: 30 6RF Eliquis 5 mg tablet 5 mg PO BID Qty: 180 3RF potassium chloride 20 mEq tablet extended release 20 meq PO BID Qty: 180 1RF albuterol sulfate 90 mcg/actuation aerosol powdr breath activated 2 inh inhalation Q4H PRN (Reason: shortness of breath or wheezing) Qty: 1 0RF simvastatin 20 mg tablet 20 mg PO BEDTIME Discharge Orders: Discharge ED (Routine); Ordered 09/24/24 Ordered By: Chloe Rosario Referrals: Brooke Geller MD [Primary Care Provider] - 4-7 days Discharge Diet: Advance as tolerated Discharge Activity: Resume usual activity Patient Instructions: Edema (ED), RSV (Respiratory Syncytial Virus) Infection (ED) Coding Level of Care Code ED Shuttle Inspector for Alex Parada
[2024-09-24] MEDS: dexamethasone 10 mg/mL INJ IVP (10:37)
[2024-09-24 10:39] VITALS: BP 146/72; PULSE 54; RESP 17; O2SAT 93
[2024-09-24] MEDS: FUROsemide 10 mg/mL SDV 10mL 80 MG IVP (10:40)
[2024-09-24] MEDS: albuterol 2.5 mg/3 mL Neb INHALATION (10:42)
[2024-09-24] MEDS: ipratropium-albuterol 3 mL Neb INHALATION (10:42)
[2024-09-24 10:47] VITALS: PULSE 63; RESP 20; O2SAT 92
[2024-09-24 11:20] LABS: Basophils # 0.1 10^3/uL (0.0-0.1); Basophils % 0.8 %; Eosinophils # 0.2 10^3/uL (0.0-0.8); Eosinophils % 2.6 %; Hematocrit 43.7 % (37-53); Lymphocytes # 1.5 10^3/uL (0.8-4.8); Lymphocytes % 16.4 %; Mean Corpuscular HGB Conc 29.5 g/dL (30-55); Mean Corpuscular Hemoglobin 25.6 pg (27-33); Mean Corpuscular Volume 86.9 fl (82-101); Monocytes # 0.8 10^3/uL (0.2-0.9); Monocytes % 8.6 %; Nucleated Red Blood Cells % 0 %; Platelet Count 328 10^3/cmm (157-399); Red Blood Count 5.03 10^6/uL (3.85-5.65); Red Cell Distribution Width 16.1 % (12.1-15.1); White Blood Count 9.29 10^3/uL (3.29-11.43)
--- NOTE | 2024-09-24 11:28 | PC.PHAR ---
Spoke to pt and verified medications. Phoned pharmacy to verify last fill dates. Pt states he last took medications yesterday, nothing today.
[2024-09-24 11:52] LABS: Alanine Aminotransferase 11 U/L (0-41); Albumin Level 3.7 g/dL (3.5-5.2); Alkaline Phosphatase 97 U/L (40-130); Anion Gap 13.3 (5-19); Aspartate Amino Transferase 12 U/L (0-40); Blood Urea Nitrogen 15 mg/dL (8-23); Calcium 9.3 mg/dL (8.5-10.5); Carbon Dioxide 26 mmol/L (22-29); Chloride 102 mmol/L (98-107); Creatinine Clr Calc Pharmacy 127.5589; Globulin 3.4 g/dL (1.3-4.6); Glomerular Filtration Rate 98.6 mL/min (90-130); Glucose 119 mg/dL (65-115); NT Pro B Type Natriuretic Pept 600 pg/mL (0-125); Osmolality Calculated 286 mOsm/kg (285-295); Potassium 4.3 mmol/L (3.5-5.1); Sodium 137 mmol/L (136-145); Total Bilirubin 0.3 mg/dL (0.15-1.2); Total Protein 7.1 g/dL (6.6-8.7)
[2024-09-24 11:56] LABS: Covid PCR NEGATIVE (Negative); Influenza A NEGATIVE (Negative); Influenza B NEGATIVE (Negative); Respiratory Syncytial Virus Ce POSITIVE (Negative)
[2024-09-24 12:08] VITALS: PULSE 65; O2SAT 94
[2024-09-24 12:33] VITALS: BP 132/73; PULSE 80; O2SAT 94
== END 2024-09-24 12:59 | disposition home or self-care (01) ==
PROVIDERS: Emergency Provider Emergency Medicine; PCP Internal Medicine
DX: R60.0 Localized edema (principal); B97.4 Respiratory syncytial virus as the cause of diseases classified elsewhere; Z11.52 Encounter for screening for COVID-19; Z79.01 Long term (current) use of anticoagulants; Z87.891 Personal history of nicotine dependence; E11.22 Type 2 diabetes mellitus with diabetic chronic kidney disease; I13.0 Hypertensive heart and chronic kidney disease with heart failure and stage 1 through stage 4 chronic kidney disease, or unspecified chronic kidney disease; N18.2 Chronic kidney disease, stage 2 (mild); I50.9 Heart failure, unspecified
CPT/HCPCS: 0241U; 36415; 71045; 80053; 83880; 85025; 93005; 94640; 96374; 96375; 99285; J1100; J1940; J7613

== ENCOUNTER 2024-10-20 16:05 | Inpatient (IN) | payer MEDICAID, SELFPAY ==
[2024-10-20 16:07] VITALS: BP 126/67; PULSE 77; RESP 16; TEMP 36.8; O2SAT 94; BMI 53.1
--- NOTE | 2024-10-20 16:12 | ECG_ITS ---
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 Measurements Intervals [place] Rate: 79 P: 0 LA: 0 QRS: -73 QRSD: 116 T: 85 QT: 380 QTc: 437 Interpretive Statements ATRIAL FIBRILLATION LOW QRS VOLTAGE IN PRECORDIAL LEADS [QRS DEFLECTION < 1.0 mV IN CHEST LEADS] POSSIBLE RIGHT VENTRICULAR CONDUCTION DELAY [RSR (QR) IN V1/V2] LEFT ANTERIOR FASCICULAR BLOCK [QRS AXIS <= -45, QR IN I, RS IN II] ANTEROLATERAL MYOCARDIAL INFARCTION , OF INDETERMINATE AGE [40+ ms Q WAVE IN I/aVL/V3-V6] Compared to ECG 09/24/2024 10:50:06 Low QRS voltage now present Left anterior fascicular block now present Myocardial infarct finding still present Electronically Signed On 10-20-2024 18:15:38 ZOO KEEPER by Lori Chao M.D. [email or web address]
--- NOTE | 2024-10-20 16:13 | W.ED.PSYCHS ---
HPI - Psych General: Chief Complaint: Psychiatric Symptoms Stated Complaint: stress Time Seen by Provider: 10/20/24 16:06 Source: patient and EMS Mode of arrival: EMS Limitations: no limitations History of Present Illness: 59-year-old male is here with depression he states he has had some passing suicidal thoughts no specific plan. He states he has poor living conditions as well as because of extreme stress he denies any worse improving factors at this time. Associated symptoms: Reports depression and suicidal ideation Related Data Home Medications Medication Instructions Recorded Confirmed simvastatin 20 mg tablet 20 mg PO BEDTIME 09/24/24 10/20/24 dapagliflozin propanediol 10 mg 10 mg PO DAILY 10/20/24 10/20/24 tablet (Farxiga) Previous Rx's Medication Instructions Recorded metformin 500 mg tablet,extended 500 mg PO BID #60 tabs 09/02/23 release 24hr (osmotic) amlodipine 10 mg tablet 10 mg PO DAILY #90 tabs 01/05/24 carvedilol 25 mg tablet 37.5 mg (1.5 x 25 mg) PO .COMPLEX 05/18/24 #75 tabs hydralazine 100 mg tablet 100 mg PO TID #90 tabs 05/18/24 irbesartan 300 mg tablet 300 mg PO DAILY #30 tabs 05/18/24 apixaban 5 mg tablet (Eliquis) 5 mg PO BID #180 tabs 08/16/24 potassium chloride 20 mEq 20 meq PO BID #180 tabs 08/16/24 tablet,extended release furosemide 40 mg tablet 40 mg PO BID #60 tabs 09/24/24 Allergies Allergy/AdvReac Type Severity Reaction Status Date / Time No Known Allergies Allergy Verified 09/24/24 10:39 Review of Systems Const: Denies: fever(s), chills, body aches or change in appetite ENMT: Denies: throat pain or dental pain Card: Denies: chest pain Resp: Denies: dyspnea GI: Denies: abdominal pain, nausea, vomiting or diarrhea : Denies: dysuria Musc: Denies: neck pain or back pain Skin/Breast: Denies: rash Neuro: Denies: headache(s) Psych: Reports: depression and suicidal ideation [facility] PFSH: Medical History BMI 45.0-49.9, adult Vitamin B12 deficiency Diabetes mellitus with hyperglycemia Mild aortic valve stenosis Aortic valve area 1.7 cm? 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 Chronic kidney disease stage 2 Hyperlipemia Atrial fibrillation Heart failure, unspecified Echocardiogram from 2018 showed severely decreased left ventricular systolic function as well as grade 3 of 4 diastolic dysfunction consistent with combined CHF Benign essential hypertension with target blood pressure below 140/90 Obesity Surgical History No history of previous surgery Family History Mother Diabetes Hypertension Father Alcohol abuse Other Heart disease Social History Smoking and tobacco/nicotine status: former use of tobacco/nicotine Second hand smoke exposure: No Alcohol intake: never Substance/Drug Use: never Adopted: No Caregiver/support person: No Lives independently: Yes Household members: other Housing: House Marital status: Single Number of children: 0 service: No Current occupational status: unemployed Pets and animals: Yes Pets & animals: cat(s) and dog(s) Do you think of yourself as: Straight/Heterosexual Current gender identity: Male Physical Exam Const: COMMON NORMALS: no acute distress, patient oriented x3 and healthy appearing HENMT: COMMON NORMALS: normocephalic and atraumatic HEAD & SCALP: normocephalic and atraumatic Eye: COMMON NORMALS: conjunctivae normal CONJUNCTIVA: Yes conjunctivae normal Neck/C-Spine: COMMON NORMALS: full ROM and supple Chest: COMMONS NORMALS: normal inspection of the chest Resp: COMMON NORMALS: normal respiratory effort, No retractions, No use of accessory muscles and clear to auscultation bilaterally AUSCULTATION: clear to auscultation bilaterally Cardio: COMMON NORMALS: regular rate, regular rhythm and No murmurs present (Cardio) RATE: regular rate RHYTHM: regular rhythm GI: COMMON NORMALS: Normal to inspection, nondistended, normoactive bowel sounds present, Soft to palpation, non-tender and no masses PALPATION: Yes Soft to palpation Extremity: COMMON NORMALS: normal to inspection and full ROM Neuro: COMMON NORMALS: patient oriented x3, moves all extremities and no focal motor deficits Psych: COMMON NORMALS: mental status grossly normal, Normal thought process present and cooperative THOUGHT PROCESS: Normal thought process present THOUGHT CONTENT: Yes Suicidality present Skin: COMMON NORMALS: no rashes or lesions noted and no wounds GENERAL SKIN EXAM: no rashes or lesions noted Course Vital Signs: Vital signs: Vital Signs Temperature 98.3 F 10/20/24 16:07 Pulse Rate 77 10/20/24 16:07 Respiratory Rate 16 10/20/24 16:07 Blood Pressure 126/67 10/20/24 16:07 Pulse Oximetry 94 10/20/24 16:07 Oxygen Delivery Me thod Room Air 10/20/24 16:07 MDM - Psych Medical Decision Making Patient presents here with suicidal ideation he is medically cleared I spoke to psychiatrist will admit at this time. Medical Records I reviewed the patient's medical records. Lab Data I reviewed the patient's lab results. 10/20/24 16:34 10/20/24 16:34 Laboratory Results WBC 10.99 10^3/uL (3.29-11.43) 10/20/24 16:34 RBC 5.09 10^6/uL (3.85-5.65) 10/20/24 16:34 Hgb 12.80 g/dL (11.27-16.99) 10/20/24 16:34 Hct 43.9 % (37-53) 10/20/24 16:34 MCV 86.2 fl (82-101) 10/20/24 16:34 MCH 25.1 pg (27-33) L 10/20/24 16:34 MCHC 29.2 g/dL (30-55) L 10/20/24 16:34 RDW 15.6 % (12.1-15.1) H 10/20/24 16:34 Plt Count 415 10^3/cmm (157-399) H 10/20/24 16:34 MPV 8.7 fL (7.4-10.4) 10/20/24 16:34 Neut % (Auto) 73.5 % 10/20/24 16:34 Lymph % (Auto) 13.9 % 10/20/24 16:34 [place] % (Auto) 9.5 % 10/20/24 16:34 Eos % (Auto) 1.7 % 10/20/24 16:34 Baso % (Auto) 0.9 % 10/20/24 16:34 Neut # (Auto) 8.08 10^3/uL (1.8-7.7) H 10/20/24 16:34 Lymph # (Auto) 1.5 10^3/uL (0.8-4.8) 10/20/24 16:34 [place] # (Auto) 1.0 10^3/uL (0.2-0.9) H 10/20/24 16:34 Eos # (Auto) 0.2 10^3/uL (0.0-0.8) 10/20/24 16:34 Baso # (Auto) 0.1 10^3/uL (0.0-0.1) 10/20/24 16:34 Nucleated RBC % (auto) 0 % 10/20/24 16:34 Nucleated RBCs # 0.0 /100WBC 10/20/24 16:34 Sodium 140 mmol/L (136-145) 10/20/24 16:34 Potassium 4.2 mmol/L (3.5-5.1) 10/20/24 16:34 Chloride 100 mmol/L (98-107) 10/20/24 16:34 Carbon Dioxide 30 mmol/L (22-29) H 10/20/24 16:34 Anion Gap 14.2 (5-19) 10/20/24 16:34 BUN 18 mg/dL (8-23) 10/20/24 16:34 Creatinine 0.9 mg/dL (0.7-1.2) 10/20/24 16:34 GFR Calculation 86.1 mL/min (90-130) L 10/20/24 16:34 Glucose 101 mg/dL (65-115) 10/20/24 16:34 POC Glucose 108 mg/dL (70-110) 10/20/24 16:22 Calculated Osmolality 292 mOsm/kg (285-295) 10/20/24 16:34 Calcium 9.6 mg/dL (8.5-10.5) 10/20/24 16:34 Total Bilirubin 0.5 mg/dL (0.15-1.2) 10/20/24 16:34 AST 14 U/L (0-40) 10/20/24 16:34 ALT 9 U/L (0-41) 10/20/24 16:34 Alkaline Phosphatase 99 U/L (40-130) 10/20/24 16:34 Total Protein 7.5 g/dL (6.6-8.7) 10/20/24 16:34 Albumin 3.7 g/dL (3.5-5.2) 10/20/24 16:34 Globulin 3.8 g/dL (1.3-4.6) 10/20/24 16:34 TSH 1.36 uIU/mL (0.27-4.20) 10/20/24 16:34 Salicylates < 0.3 mg/dL (3-10) L 10/20/24 16:34 Urine Opiates Screen Negative ng/mL (Negative) 10/20/24 16:20 Acetaminophen < 5.0 ug/mL (10-30) L 10/20/24 16:34 Ur Barbiturates Screen Negative ng/mL (Negative) 10/20/24 16:20 Ur Phencyclidine Scrn Negative ng/mL (Negative) 10/20/24 16:20 Ur Amphetamines Screen Negative ng/mL (Negative) 10/20/24 16:20 U Benzodiazepines Scrn Negative ng/mL (Negative) 10/20/24 16:20 Urine Cocaine Screen Negative ng/mL (Negative) 10/20/24 16:20 U Marijuana (THC) Screen Negative ng/mL (Negative) 10/20/24 16:20 Ethyl Alcohol < 10 mg/dL (0-10) 10/20/24 16:34 Adenovirus (PCR) Not detected (NOT DETECT) 10/20/24 16:19 C. pneumoniae DNA (PCR) Not detected (NOT DETECT) 10/20/24 16:19 Coronavirus (PCR) Cancelled 10/20/24 16:19 Coronavirus 229E (PCR) Not detected (NOT DETECT) 10/20/24 16:19 Human Metapneumovir PCR Not detected (NOT DETECT) 10/20/24 16:19 Influenza A (H1) PCR Not detected (NOT DETECT) 10/20/24 16:19 Influenza A (PCR) Cancelled 10/20/24 16:19 Influ A (H1/09) PCR Not detected (NOT DETECT) 10/20/24 16:19 Influenza A (H3) PCR Not detected (NOT DETECT) 10/20/24 16:19 Influenza Type A (PCR) Not detected (NOT DETECT) 10/20/24 16:19 Influenza Type B (PCR) Cancelled 10/20/24 16:19 Influenza Type B (PCR) Not detected (NOT DETECT) 10/20/24 16:19 M. pneumoniae (PCR) Not detected (NOT DETECT) 10/20/24 16:19 Parainfluenza 1 (PCR) Not detected (NOT DETECT) 10/20/24 16:19 Parainfluenza 2 (PCR) Not detected (NOT DETECT) 10/20/24 16:19 Parainfluenza 3 (PCR) Not detected (NOT DETECT) 10/20/24 16:19 Parainfluenza 4 (PCR) Not detected (NOT DETECT) 10/20/24 16:19 RSV (PCR) Cancelled 10/20/24 16:19 RSV Type A (PCR) Not detected (NOT DETECT) 10/20/24 16:19 RSV Type B (PCR) Not detected (NOT DETECT) 10/20/24 16:19 Entero/Rhino (PCR) Not detected (NOT DETECT) 10/20/24 16:19 SARS-CoV-2 (PCR) Not detected (NOT DETECT) 10/20/24 16:19 No radiology studies performed this visit Discharge Plan Discharge Patient Disposition: Admitted As Inpatient Clinical Impression: Suicidal ideation Condition: Stable Prescriptions: No Action metformin 500 mg tablet extended release 24hr 500 mg PO BID Qty: 60 6RF amlodipine 10 mg tablet 10 mg PO DAILY Qty: 90 3RF carvedilol 25 mg tablet 37.5 mg PO .COMPLEX Qty: 75 6RF Rx Instructions: Take 37.5 mg (1.5 tablets) by mouth in the morning and 25 mg (1 tablet) in the evening. hydralazine 100 mg tablet 100 mg PO TID Qty: 90 6RF irbesartan 300 mg tablet 300 mg PO DAILY Qty: 30 6RF Eliquis 5 mg tablet 5 mg PO BID Qty: 180 3RF potassium chloride 20 mEq tablet extended release 20 meq PO BID Qty: 180 1RF simvastatin 20 mg tablet 20 mg PO BEDTIME furosemide 40 mg tablet 40 mg PO BID Qty: 60 6RF dapagliflozin propanediol [Farxiga] 10 mg tablet 10 mg PO DAILY Referrals: Brooke Geller MD [Primary Care Provider] - Coding Level of Care Code ED Pulp Operator for Alex Parada
[2024-10-20 16:27] LABS: Glucose Point of Care 108 mg/dL (70-110)
--- NOTE | 2024-10-20 16:35 | PC.NURSE ---
96 hour hold rights read and reviewed with patient. Shawn from security present during reading of rights. Patient verbalized understandings. Copy of rights given to patient.
[2024-10-20 16:39] LABS: Amphetamines Screen Urine Negative (Negative); Barbiturates Screen Urine Negative (Negative); Benzodiazepines Screen Urine Negative (Negative); Cocaine Screen Urine Negative (Negative); Opiate Screen Urine Negative (Negative); PCP Screen Urine Negative (Negative); THC Screen Urine Negative (Negative)
--- NOTE | 2024-10-20 16:39 | PC.PHAR ---
Pt has presented a current med list and has taken his morning medications.
[2024-10-20 16:55] LABS: Basophils # 0.1 10^3/uL (0.0-0.1); Basophils % 0.9 %; Eosinophils # 0.2 10^3/uL (0.0-0.8); Eosinophils % 1.7 %; Hematocrit 43.9 % (37-53); Lymphocytes # 1.5 10^3/uL (0.8-4.8); Lymphocytes % 13.9 %; Mean Corpuscular HGB Conc 29.2 g/dL (30-55); Mean Corpuscular Hemoglobin 25.1 pg (27-33); Mean Corpuscular Volume 86.2 fl (82-101); Mean Platelet Volume 8.7 fL (7.4-10.4); Monocytes % 9.5 %; Neutrophils # 8.08 10^3/uL (1.8-7.7); Neutrophils % 73.5 %; Nucleated Red Blood Cells % 0 %; Platelet Count 415 10^3/cmm (157-399); Red Blood Count 5.09 10^6/uL (3.85-5.65); Red Cell Distribution Width 15.6 % (12.1-15.1); White Blood Count 10.99 10^3/uL (3.29-11.43)
[2024-10-20 17:38] LABS: Alanine Aminotransferase 9 U/L (0-41); Albumin Level 3.7 g/dL (3.5-5.2); Alkaline Phosphatase 99 U/L (40-130); Anion Gap 14.2 (5-19); Aspartate Amino Transferase 14 U/L (0-40); Blood Urea Nitrogen 18 mg/dL (8-23); Calcium 9.6 mg/dL (8.5-10.5); Carbon Dioxide 30 mmol/L (22-29); Chloride 100 mmol/L (98-107); Creatinine Clr Calc Pharmacy 129.0652; Globulin 3.8 g/dL (1.3-4.6); Glomerular Filtration Rate 86.1 mL/min (90-130); Glucose 101 mg/dL (65-115); Osmolality Calculated 292 mOsm/kg (285-295); Potassium 4.2 mmol/L (3.5-5.1); Sodium 140 mmol/L (136-145); Thyroid Stimulating Hormone 1.36 uIU/mL (0.27-4.20); Total Bilirubin 0.5 mg/dL (0.15-1.2); Total Protein 7.5 g/dL (6.6-8.7)
[2024-10-20 17:39] LABS: Acetaminophen < 5.0 ug/mL (10-30); Alcohol Level < 10 mg/dL (0-10); Salicylate < 0.3 mg/dL (3-10)
[2024-10-20 18:26] LABS: Adenovirus Not Detected (NOT DETECT); Chlamydia Pneumoniae Not Detected (NOT DETECT); Coronavirus 229E,HKU1,NL63,OC4 Not Detected (NOT DETECT); Human Metapneumovirus Not Detected (NOT DETECT); Human Rhinovirus/Enterovirus Not Detected (NOT DETECT); Influenza A Not Detected (NOT DETECT); Influenza A H1 Not Detected (NOT DETECT); Influenza A H1-2009 Not Detected (NOT DETECT); Influenza A H3 Not Detected (NOT DETECT); Influenza B Not Detected (NOT DETECT); Mycoplasma Pneumoniae Not Detected (NOT DETECT); Parainfluenza Virus Type 1 Not Detected (NOT DETECT); Parainfluenza Virus Type 2 Not Detected (NOT DETECT); Parainfluenza Virus Type 3 Not Detected (NOT DETECT); Parainfluenza Virus Type 4 Not Detected (NOT DETECT); Respiratory Syncytial Virus A Not Detected (NOT DETECT); Respiratory Syncytial Virus B Not Detected (NOT DETECT); SARS-COV-2 Not Detected (NOT DETECT)
--- NOTE | 2024-10-20 20:34 | PC.NURSE ---
Addendum entered by Arturo Erickson RN 10/20/24 20:39: THE ATTEMPT WAS AT 1930, NOT 2030. Original Note: attempted to call report at 2030
--- NOTE | 2024-10-20 20:39 | PC.NURSE ---
ATTEMPTED TO CALL REPORT AGAIN AT 2038
[2024-10-20 21:00] VITALS: BP 121/73; PULSE 78; O2SAT 91
[2024-10-20 21:01] VITALS: BP 121/62; PULSE 70; RESP 20; TEMP 36.7; O2SAT 93
[2024-10-20 21:27] VITALS: BP 121/62; PULSE 70; RESP 20; TEMP 36.7; O2SAT 93
[2024-10-20] MEDS: hyDRALAzine 50 mg Tablet PO (22:58)
[2024-10-20] MEDS: atorvastatin 40 mg Tablet 20 MG PO (22:58)
[2024-10-21] VITALS (7 sets, daily range): BP systolic 92–135; BP diastolic 54–82; PULSE 52–69; RESP 16–20; TEMP 36.7–37.4; O2SAT 93–94
[2024-10-21 07:41] LABS: Glucose Point of Care 120 mg/dL (70-110)
[2024-10-21] MEDS: losartan 50 mg Tablet 100 MG PO (08:33)
[2024-10-21] MEDS: potassium chloride ER 20 mEq Tablet PO ×2 (08:33→17:18)
[2024-10-21] MEDS: amlodipine 10 mg Tablet PO (08:34)
[2024-10-21] MEDS: metformin XR 500 MG Tablet PO ×2 (08:34→17:18)
[2024-10-21] MEDS: hyDRALAzine 50 mg Tablet PO ×2 (08:34→20:33)
[2024-10-21] MEDS: FUROsemide 40 mg Tablet PO ×2 (08:34→17:18)
[2024-10-21] MEDS: hyDROXYzine 25 mg Capsule 50 MG PO (08:34)
[2024-10-21] MEDS: apixaban 5 mg Tablet PO ×2 (08:34→17:18)
[2024-10-21] MEDS: acetaminophen 325 mg Tablet 650 MG PO (08:45)
[2024-10-21] MEDS: carvedilol 25 mg Tablet 37.5 MG PO (09:08)
[2024-10-21 11:04] LABS: Glucose Point of Care 156 mg/dL (70-110)
--- NOTE | 2024-10-21 11:34 | PC.NURSE ---
Dizziness Patient reported to this nurse that he felt dizzy. Patient helped to the bench. Vitals signs were quickly obtained. Bp: 92/59, HR: 62, Sp02: 93% on RA. Patient given a drink and snack. Patient said that this doesn't typically happen to him, but that he did recently take a hot shower. Patient decided to go to dayroom to watch TV.
[2024-10-21 11:59] LABS: Glucose Point of Care 131 mg/dL (70-110)
--- NOTE | 2024-10-21 15:00 | PC.NURSE ---
BP 105/54, HYDRALAZINE NOT GIVEN DUE TO BP BEING LOW. PT STATES HE HAS NOT BEEN TAKING BP MEDICATIONS CONSISTENTLY AND THAT MAY BE WHY ITS LOW. SUPPORT VOICED.
--- NOTE | 2024-10-21 15:47 | P.NPUHP_ITS ---
Providers/Chief Complaint 2 Admitting Physician: Mahesh Lino MD Primary Care Provider: Brooke Geller MD Chief Complaint: stress HPI NPU History of Present Illness Bertin Howe is a 59 year old male who presented to the emergency department with the following report: Chief Complaint: Psychiatric Symptoms Stated Complaint: stress Time Seen by Provider: 10/20/24 16:06 Source: patient and EMS Mode of arrival: EMS Limitations: no limitations History of Present Illness: 59-year-old male is here with depression he states he has had some passing suicidal thoughts no specific plan. He states he has poor living conditions as well as because of extreme stress he denies any worse improving factors at this time. Associated symptoms: Reports depression and suicidal ideation. He was admitted to the neuropsychiatric unit for definitive treatment of those issues. He is unknown to [facility] psychiatric services inpatient or outpatient however he reports an inpatient hospitalization prior to the current historical documentation in this system. He denied any clarity about what that stay was about. But otherwise he presented with significant medical comorbidities reporting: Chief complaint Homelessness and suicidal ideation. History of the present complaint The individual reports not currently taking any mental health medication and has no known allergies to medication. They express dissatisfaction with their current living situation, citing a lack of running water and insufficient heat as primary concerns. This dissatisfaction led to their admission to the psychiatric hospital. They have a history of being in a psychiatric hospital once before, in 1993, but do not recall the specific reasons for that admission, only mentioning high blood pressure at the time. The individual denies having ever been to a mental health clinic or having seen a psychiatrist or therapist. They have never been on medication for mental health issues such as depression or anxiety and have not experienced hearing voices or similar symptoms. They report no history of depression but admit to having thoughts of wanting to or kill themselves frequently, though they have never acted on these thoughts. They attribute these thoughts to curiosity about rather than sadness or depression. They mention engaging in self- harm behavior when intoxicated, specifically burning themselves with a cigarette in a game with a friend, but do not report other self-harm behaviors. The individual denies experiencing anxiety, paranoia, or hallucinations. They do not report having nightmares or flashbacks, except for a period after being released from longterm when they experienced nightmares about being re- incarcerated. They describe these experiences as panic-inducing. They served approximately 15 years in longterm and have been out since October 2010. There is no reported family history of mental health or addiction problems, although the individual's father had issues with alcohol. They report no history of abuse or trauma during childhood. The individual has a history of high blood pressure and mentions a heart problem but does not provide further details. They have not undergone any surgeries. The individual reports having stopped smoking cigarettes while in longterm and does not currently use tobacco, alcohol, or drugs. They deny any history of substance abuse or rehabilitation. They have never been more than once and have no biological children. They identify as heterosexual and have no specific orthodoxy beliefs. They are currently unemployed and not on disability, living in a trailer owned by a cousin, which they find unsatisfactory due to its location and lack of amenities. They express concern about returning to this environment, fearing it might lead to self-harm or other negative outcomes. Mental health history In 1993, had a previous admission to a psychiatric hospital, though the specific reasons are unclear. Denies any history of attending mental health clinics or outpatient therapy. Reports frequent thoughts of wanting to , attributed to curiosity about rather than depression, and denies any history of acting on these thoughts. No history of medication for mental health issues, including depression or anxiety. Occasionally engages in self-harm behavior when intoxicated, such as holding a cigarette to the skin, but denies other self-harm behaviors. No reported family history of mental health problems. Social history Currently living in a trailer owned by a cousin, with issues such as no running water and limited job opportunities. Previously incarcerated for 15 years, released in October 2010. Stopped smoking cigarettes while in longterm. Does not drink much alcohol and has never had issues with alcohol or drugs, including cannabis, cocaine, methamphetamine, or opiates. No history of rehabilitation or treatment for substance use. No biological children and has been once, with the longest relationship lasting three to four years. Has two living brothers, with one . Parents five years ago. Obtained a GED after leaving school in the sixth grade. Not currently employed and not on disability. No service. No specific orthodoxy belief system mentioned. Meds NPU Home Medications Medication Instructions Recorded Confirmed Last Taken Type metformin 500 mg tablet,extended 500 mg PO BID #60 tabs 09/02/23 10/20/24 10/20/24 Rx release 24hr (osmotic) amlodipine 10 mg tablet 10 mg PO DAILY #90 tabs 01/05/24 10/20/24 10/20/24 Rx carvedilol 25 mg tablet 37.5 mg (1.5 x 25 mg) PO .COMPLEX 05/18/24 10/20/24 10/20/24 Rx #75 tabs hydralazine 100 mg tablet 100 mg PO TID #90 tabs 05/18/24 10/20/24 10/20/24 Rx irbesartan 300 mg tablet 300 mg PO DAILY #30 tabs 05/18/24 10/20/24 10/20/24 Rx apixaban 5 mg tablet (Eliquis) 5 mg PO BID #180 tabs 08/16/24 10/20/24 10/20/24 Rx potassium chloride 20 mEq 20 meq PO BID #180 tabs 08/16/24 10/20/24 10/20/24 Rx tablet,extended release furosemide 40 mg tablet 40 mg PO BID #60 tabs 09/24/24 10/20/24 10/20/24 Rx simvastatin 20 mg tablet 20 mg PO BEDTIME 09/24/24 10/20/24 10/19/24 History dapagliflozin propanediol 10 mg 10 mg PO DAILY 10/20/24 10/20/24 10/20/24 History tablet (Farxiga) Allergies Allergy/AdvReac Type Severity Reaction Status Date / Time No Known Allergies Allergy Verified 09/24/24 10:39 PFSH NPU 2 PFSH: Medical History BMI 45.0-49.9, adult Vitamin B12 deficiency Diabetes mellitus with hyperglycemia Mild aortic valve stenosis Aortic valve area 1.7 cm? 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 Chronic kidney disease stage 2 Hyperlipemia Atrial fibrillation Heart failure, unspecified Echocardiogram from 2018 showed severely decreased left ventricular systolic function as well as grade 3 of 4 diastolic dysfunction consistent with combined CHF Benign essential hypertension with target blood pressure below 140/90 Obesity Surgical History No history of previous surgery Family History Mother Diabetes Hypertension Father Alcohol abuse Other Heart disease Social History Smoking and tobacco/nicotine status: former use of tobacco/nicotine Second hand smoke exposure: No Alcohol intake: never Substance/Drug Use: never Adopted: No Caregiver/support person: No Lives independently: Yes Household members: other Housing: House Marital status: Single Number of children: 0 service: No Current occupational status: unemployed Pets and animals: Yes Pets & animals: cat(s) and dog(s) Do you think of yourself as: Straight/Heterosexual Current gender identity: Male Mental Status Exam 2 MSE Comments: This is a morbidly obese white male, in hospital scrubs, with limited grooming and eye contact. No abnormal movements, except for psychomotor retardation. Cooperative with exam in mild to moderate distress. Speech was decreased rate and volume. Mood described as okay; affect subdued. Thought process, organized. Thought content: patient endorses suicidal ideation and denies homicidal ideation; no delusions reported or noted; patient denies auditory or visual hallucinations. Reports having thoughts of wanting to or kill self about half the time, but has not acted on these thoughts. No current thoughts to hurt self or others. Denies problems with anxiety or depression. Describes mood as pretty decent today. Dissatisfaction with living conditions, such as lack of running water and heat, noted as stressors. Attention, concentration intact and memory appeared mostly reliable, but none were formally tested. Alert and oriented times three. Insight and judgment appear limited. Impulse control is impaired. Vitals/I&O/Wt Last Vital Signs Temp 98.4 F 10/21/24 12:00 Pulse 52 L 10/21/24 12:00 Resp 18 10/21/24 12:00 BP 105/54 10/21/24 12:00 Pulse Ox 94 10/21/24 12:00 O2 Del Method Room Air 10/21/24 12:00 Weight last 48 hrs Weight 158.757 kg Data NPU 10/20/24 16:34 10/20/24 16:34 A&P Assessment and plan (1) Suicidal ideation: (2) Adjustment disorder with mixed disturbance of emotions and conduct: (3) Depression: Plan This is a 59-year-old white male with no clear psychiatric history other than reports of consistent suicidal ideation throughout his life who presents with suicidal ideation and significant psychosocial challenges. 1. Continue current medication. Will identify whether psychotropic medications indicated. 2. Encourage individual, group and milieu therapy. 3. Continue every 15 minute checks for safety. 4. Encourage sober living treatment after discharge at the highest level care to which he is willing to commit. 5. Obtain collateral information. Involuntary Hold Information 2 96 Hour Hold: 96 Hour Involuntary Admission: Yes 96 Hour Hold Ending Date: 10/26/24 96 Hour Hold Ending Time: 16:20 Other Hold: Hold End Date: 10/26/24 Attestations NPU 2 Medical Necessity Statement*: Inpatient hospitalization is medically necessary and the clinically appropriate intervention, at this time. We will monitor medications and make changes as indicated. Patient will be in the hospital for over two midnights. Likely length of stay is three to five days. Coding Level of Care Code Acute Code for g Fwd Diagnoses Suicidal ideation R45.851 Adjustment disorder with mixed disturbance of emotions and conduct F43.25 Depression F32.A
[2024-10-21 15:58] LABS: Glucose Point of Care 136 mg/dL (70-110)
[2024-10-21] MEDS: ibuprofen 600 mg Tablet PO (17:19)
[2024-10-21 20:06] LABS: Glucose Point of Care 179 mg/dL (70-110)
[2024-10-21] MEDS: trazodone 50 mg Tablet PO (20:33)
[2024-10-21] MEDS: atorvastatin 40 mg Tablet 20 MG PO (20:33)
[2024-10-22 04:00] VITALS: BP 124/67; PULSE 62; RESP 18; TEMP 36.5; O2SAT 94
[2024-10-22 07:46] LABS: Glucose Point of Care 116 mg/dL (70-110)
[2024-10-22 08:00] VITALS: BP 150/86; PULSE 78; RESP 16; TEMP 36.6; O2SAT 95
[2024-10-22 08:26] VITALS: BP 150/86
[2024-10-22] MEDS: metformin XR 500 MG Tablet PO ×2 (08:26→18:30)
[2024-10-22] MEDS: losartan 50 mg Tablet 100 MG PO (08:26)
[2024-10-22] MEDS: ibuprofen 600 mg Tablet PO ×2 (08:27→22:15)
[2024-10-22] MEDS: amlodipine 10 mg Tablet PO (08:27)
[2024-10-22] MEDS: FUROsemide 40 mg Tablet PO ×2 (08:27→18:30)
[2024-10-22] MEDS: potassium chloride ER 20 mEq Tablet PO ×2 (08:27→18:30)
[2024-10-22] MEDS: hyDRALAzine 50 mg Tablet PO ×2 (08:27→22:15)
[2024-10-22] MEDS: apixaban 5 mg Tablet PO ×2 (08:27→18:30)
[2024-10-22] MEDS: carvedilol 25 mg Tablet 37.5 MG PO (08:27)
[2024-10-22 11:25] LABS: Glucose Point of Care 170 mg/dL (70-110)
[2024-10-22 12:00] VITALS: BP 114/67; PULSE 58; RESP 20; TEMP 36.4; O2SAT 92
[2024-10-22 16:00] VITALS: BP 129/78; PULSE 59; RESP 24; TEMP 36.8; O2SAT 94
[2024-10-22 16:51] LABS: Glucose Point of Care 139 mg/dL (70-110)
--- NOTE | 2024-10-22 19:41 | P.NPUPN_ITS ---
Subjective NPU 2 Subjective: Patient presented today reporting that he is doing okay. He continued to deny having major issues with depression. He had no clear interest in starting a medication. We discussed working with the social work team on Thursday for discharge planning. Mental Status Exam 2 MSE Comments: This is a morbidly obese white male, in hospital scrubs, with limited grooming and eye contact. No abnormal movements, except for psychomotor retardation. Cooperative with exam in mild to moderate distress. Speech was decreased rate and volume. Mood described as okay; affect subdued. Thought process, organized. Thought content: patient endorses suicidal ideation and denies homicidal ideation; no delusions reported or noted; patient denies auditory or visual hallucinations. Reports having thoughts of wanting to or kill self about half the time, but has not acted on these thoughts. No current thoughts to hurt self or others. Denies problems with anxiety or depression. Describes mood as pretty decent today. Dissatisfaction with living conditions, such as lack of running water and heat, noted as stressors. Attention, concentration intact and memory appeared mostly reliable, but none were formally tested. Alert and oriented times three. Insight and judgment appear limited. Impulse control is impaired. Vitals/I&O/Wt Last Vital Signs Temp 98.2 F 10/22/24 16:00 Pulse 59 L 10/22/24 16:00 Resp 24 H 10/22/24 16:00 BP 129/78 10/22/24 16:00 Pulse Ox 94 10/22/24 16:00 O2 Del Method Room Air 10/22/24 16:00 10/22/24 10/22/24 10/22/24 06:59 14:59 22:59 Intake Total 1200 / 1200 Balance 1200 / 1200 Data NPU 10/20/24 16:34 10/20/24 16:34 A&P Assessment and plan (1) Suicidal ideation: (2) Adjustment disorder with mixed disturbance of emotions and conduct: (3) Depression: Plan This is a 59-year-old white male with no clear psychiatric history other than reports of consistent suicidal ideation throughout his life who presents with suicidal ideation and significant psychosocial challenges. 1. Continue current medication. Will identify whether psychotropic medications indicated. 2. Encourage individual, group and milieu therapy. 3. Continue every 15 minute checks for safety. 4. Encourage sober living treatment after discharge at the highest level care to which he is willing to commit. 5. Obtain collateral information. Involuntary Hold Information 2 96 Hour Hold: 96 Hour Involuntary Admission: Yes 96 Hour Hold Ending Date: 10/26/24 96 Hour Hold Ending Time: 16:20 Other Hold: Hold End Date: 10/26/24 Attestations NPU 2 Medical Necessity Statement*: Inpatient hospitalization is medically necessary and the clinically appropriate intervention, at this time. We will monitor medications and make changes as indicated. Likely length of stay is three to five days. Coding Level of Care Code Acute Code for [facility] Fwd Diagnoses Suicidal ideation R45.851 Adjustment disorder with mixed disturbance of emotions and conduct F43.25 Depression F32.A
[2024-10-22 20:00] VITALS: BP 127/74; PULSE 73; RESP 18; TEMP 36.6; O2SAT 93
[2024-10-22 20:03] LABS: Glucose Point of Care 189 mg/dL (70-110)
[2024-10-22] MEDS: atorvastatin 40 mg Tablet 20 MG PO (22:16)
[2024-10-22] MEDS: trazodone 50 mg Tablet PO (22:16)
[2024-10-23] VITALS (7 sets, daily range): BP systolic 120–168; BP diastolic 65–77; PULSE 56–73; RESP 17–20; TEMP 36.4–36.8; O2SAT 93–96
--- NOTE | 2024-10-23 07:46 | P.NPUPN_ITS ---
Subjective NPU 2 Subjective: Patient reports today that he is doing all right. He did however state that if he had to return to the place I was living before I do not know what I would do. . We discussed that the social work team will be returning tomorrow and that they would be able to help him with identified any resources that exist in the community that would help him explore alternatives. We discussed however that he would be able to stay here indefinitely because of a problem with the place that he lives. Mental Status Exam 2 MSE Comments: This is a morbidly obese white male, in hospital scrubs, with limited grooming and eye contact. No abnormal movements, except for psychomotor retardation. Cooperative with exam in mild to moderate distress. Speech was decreased rate and volume. Mood described as okay; affect subdued. Thought process, organized. Thought content: patient endorses suicidal ideation and denies homicidal ideation; no delusions reported or noted; patient denies auditory or visual hallucinations. Reports having thoughts of wanting to or kill self about half the time, but has not acted on these thoughts. No current thoughts to hurt self or others. Denies problems with anxiety or depression. Describes mood as pretty decent today. Dissatisfaction with living conditions, such as lack of running water and heat, noted as stressors. Attention, concentration intact and memory appeared mostly reliable, but none were formally tested. Alert and oriented times three. Insight and judgment appear limited. Impulse control is impaired. Vitals/I&O/Wt Last Vital Signs Temp 97.9 F 10/23/24 04:00 Pulse 68 10/23/24 04:00 Resp 18 10/23/24 04:00 BP 146/75 10/23/24 04:00 Pulse Ox 94 10/23/24 04:00 O2 Del Method Room Air 10/23/24 04:00 Weight last 48 hrs Weight 145.331 kg Data NPU 10/20/24 16:34 10/20/24 16:34 A&P Assessment and plan (1) Suicidal ideation: (2) Adjustment disorder with mixed disturbance of emotions and conduct: (3) Depression: Plan This is a 59-year-old white male with no clear psychiatric history other than reports of consistent suicidal ideation throughout his life who presents with suicidal ideation and significant psychosocial challenges. 1. Continue current medication. Will identify whether psychotropic medications indicated. 2. Encourage individual, group and milieu therapy. 3. Continue every 15 minute checks for safety. 4. Encourage sober living treatment after discharge at the highest level care to which he is willing to commit. 5. Obtain collateral information. Involuntary Hold Information 2 96 Hour Hold: 96 Hour Involuntary Admission: Yes 96 Hour Hold Ending Date: 10/26/24 96 Hour Hold Ending Time: 16:20 Other Hold: Hold End Date: 10/26/24 Attestations NPU 2 Medical Necessity Statement*: Inpatient hospitalization is medically necessary and the clinically appropriate intervention, at this time. We will monitor medications and make changes as indicated. Likely length of stay is 2-4 days. Coding Level of Care Code Acute Code for [facility] Fwd Diagnoses Suicidal ideation R45.851 Adjustment disorder with mixed disturbance of emotions and conduct F43.25 Depression F32.A
[2024-10-23 08:07] LABS: Glucose Point of Care 130 mg/dL (70-110)
[2024-10-23] MEDS: FUROsemide 40 mg Tablet PO ×2 (08:41→17:39)
[2024-10-23] MEDS: amlodipine 10 mg Tablet PO (08:41)
[2024-10-23] MEDS: losartan 50 mg Tablet 100 MG PO (08:41)
[2024-10-23] MEDS: hyDRALAzine 50 mg Tablet PO ×3 (08:41→20:22)
[2024-10-23] MEDS: potassium chloride ER 20 mEq Tablet PO ×2 (08:42→17:39)
[2024-10-23] MEDS: metformin XR 500 MG Tablet PO ×2 (08:42→17:39)
[2024-10-23] MEDS: carvedilol 25 mg Tablet 37.5 MG PO (08:42)
[2024-10-23] MEDS: apixaban 5 mg Tablet PO ×2 (08:42→17:39)
[2024-10-23 11:40] LABS: Glucose Point of Care 160 mg/dL (70-110)
[2024-10-23 16:53] LABS: Glucose Point of Care 150 mg/dL (70-110)
[2024-10-23 19:17] LABS: Glucose Point of Care 183 mg/dL (70-110)
[2024-10-23] MEDS: carvedilol 25 mg Tablet PO (20:22)
[2024-10-23] MEDS: atorvastatin 40 mg Tablet 20 MG PO (20:22)
[2024-10-23] MEDS: trazodone 50 mg Tablet PO (20:22)
[2024-10-24] VITALS (8 sets, daily range): BP systolic 113–140; BP diastolic 59–85; PULSE 66–92; RESP 16–18; TEMP 36.4–37.1; O2SAT 92–96
[2024-10-24 07:34] LABS: Glucose Point of Care 145 mg/dL (70-110)
[2024-10-24] MEDS: FUROsemide 40 mg Tablet PO ×2 (08:26→17:54)
[2024-10-24] MEDS: hyDRALAzine 50 mg Tablet PO ×3 (08:26→20:37)
[2024-10-24] MEDS: potassium chloride ER 20 mEq Tablet PO ×2 (08:26→17:54)
[2024-10-24] MEDS: amlodipine 10 mg Tablet PO (08:26)
[2024-10-24] MEDS: losartan 50 mg Tablet 100 MG PO (08:27)
[2024-10-24] MEDS: carvedilol 25 mg Tablet 37.5 MG PO (08:27)
[2024-10-24] MEDS: apixaban 5 mg Tablet PO ×2 (08:27→17:54)
[2024-10-24] MEDS: metformin XR 500 MG Tablet PO ×2 (08:27→17:54)
[2024-10-24 11:37] LABS: Glucose Point of Care 174 mg/dL (70-110)
[2024-10-24 16:32] LABS: Glucose Point of Care 174 mg/dL (70-110)
--- NOTE | 2024-10-24 19:43 | W.PM.NPUPNS ---
Subjective NPU Subjective: The patient continued to report feeling suicidal and stated that he was frustrated with the swelling of his legs. He reported no side effects to his current medication. He had reported that he had been depressed for several months. He had stated that he continued to struggle with sleep. He was redirectable on the milieu. He had been unsure as to what his options were but stated that he had never resided in a [place] [facility] before in the past. Mental Status Exam MSE Comments: This is a morbidly obese white male, in hospital scrubs, with limited grooming and eye contact. No abnormal movements, except for psychomotor retardation. Cooperative with exam in mild to moderate distress. Speech was decreased rate and volume. Mood described as okay; affect subdued. Thought process, organized. Thought content: patient endorses suicidal ideation and denies homicidal ideation; no delusions reported or noted; patient denies auditory or visual hallucinations. Reports having thoughts of wanting to or kill self today with no plan. No current thoughts to hurt self or others. Denies problems with anxiety or depression. Describes mood as depressed today. His affect was restricted. Dissatisfaction with living conditions, such as lack of running water and heat, noted as stressors. Attention, concentration intact and memory appeared mostly reliable, but none were formally tested. Alert and oriented times three. Insight and judgment appear limited. Impulse control is impaired. Vitals/I&O/Wt Last Vital Signs Temp 97.6 F 10/24/24 16:00 Pulse 71 10/24/24 16:00 Resp 16 10/24/24 16:00 BP 119/72 10/24/24 16:00 Pulse Ox 95 10/24/24 16:00 O2 Del Method Room Air 10/24/24 04:00 Weight last 48 hrs Weight 145.331 kg Data NPU 10/20/24 16:34 10/20/24 16:34 A&P Assessment and plan (1) Suicidal ideation: (2) Adjustment disorder with mixed disturbance of emotions and conduct: (3) Depression: Plan This is a 59-year-old white male with no clear psychiatric history other than reports of consistent suicidal ideation throughout his life who presents with suicidal ideation and significant psychosocial challenges. 1. Continue current medications, add lexapro 10mg daily for depression. 2. Encourage individual, group and milieu therapy. 3. Continue every 15 minute checks for safety. 4. Encourage sober living treatment after discharge at the highest level care to which he is willing to commit. 5. Obtain collateral information. Involuntary Hold Information 96 Hour Hold: 96 Hour Involuntary Admission: Yes 96 Hour Hold Ending Date: 10/26/24 96 Hour Hold Ending Time: 16:20 Other Hold: Hold End Date: 10/26/24 Attestations NPU Medical Necessity Statement*: Inpatient hospitalization is medically necessary and the clinically appropriate intervention, at this time. We will monitor medications and make changes as indicated. Likely length of stay is 2-4 days. Coding Level of Care Code Acute Code for Chg Fwd Diagnoses Suicidal ideation R45.851 Adjustment disorder with mixed disturbance of emotions and conduct F43.25 Depression F32.A
[2024-10-24 20:27] LABS: Glucose Point of Care 188 mg/dL (70-110)
[2024-10-24] MEDS: atorvastatin 40 mg Tablet 20 MG PO (20:36)
[2024-10-24] MEDS: carvedilol 25 mg Tablet PO (20:37)
[2024-10-24] MEDS: ibuprofen 600 mg Tablet PO (20:38)
[2024-10-25] VITALS (7 sets, daily range): BP systolic 112–148; BP diastolic 51–73; PULSE 61–80; RESP 16–18; TEMP 36.6–36.8; O2SAT 91–96
[2024-10-25 07:11] LABS: Glucose Point of Care 185 mg/dL (70-110)
--- NOTE | 2024-10-25 08:36 | PC.NURSE ---
Morning assessment During morning assessment, patient denies anxiety. Patient says that he is always depressed. Patient's lower extremeties have plus 4 edema, with weeping. Patient says that this has been intermittently happening since 2018. Denies SI, HI, AVH
[2024-10-25] MEDS: losartan 50 mg Tablet 100 MG PO (08:39)
[2024-10-25] MEDS: carvedilol 25 mg Tablet 37.5 MG PO (08:40)
[2024-10-25] MEDS: amlodipine 10 mg Tablet PO (08:41)
[2024-10-25] MEDS: potassium chloride ER 20 mEq Tablet PO ×2 (08:41→18:05)
[2024-10-25] MEDS: hyDRALAzine 50 mg Tablet PO ×3 (08:41→20:33)
[2024-10-25] MEDS: FUROsemide 40 mg Tablet PO ×2 (08:41→18:00)
[2024-10-25] MEDS: escitalopram 10 mg Tablet PO (08:41)
[2024-10-25] MEDS: apixaban 5 mg Tablet PO ×2 (08:41→18:05)
[2024-10-25] MEDS: metformin XR 500 MG Tablet PO ×2 (08:41→18:05)
[2024-10-25] MEDS: acetaminophen 325 mg Tablet 650 MG PO (10:55)
[2024-10-25 11:42] LABS: Glucose Point of Care 151 mg/dL (70-110)
[2024-10-25 17:00] LABS: Glucose Point of Care 148 mg/dL (70-110)
--- NOTE | 2024-10-25 18:57 | P.NPUPN_ITS ---
Subjective NPU 2 Subjective: The patient 59-year-old male admitted with suicidal ideation and current homelessness. He had continued to complain of a myriad of symptoms including swelling in his leg. He had continued to report that if he were to return to a situation where he was homeless that he would harm himself. He had minimized any particular issues that had contributed to his difficulties with finding a living situation despite acknowledging being a sexual offender. He had been informed that shelters were largely not possible due to these previous charges. He reported no side effects from the Lexapro. He reported that he continued to struggle with anxiety and depression. He had reported adequate sleep. Mental Status Exam 2 MSE Comments: This is a morbidly obese white male, in hospital scrubs, with limited grooming and eye contact. No abnormal movements, except for psychomotor retardation. Cooperative with exam in mild to moderate distress. Speech was decreased in rate and volume. Mood described as allright; affect was restricted in range. Thought process was organized. Thought content: patient endorses suicidal ideation and denies homicidal ideation; no delusions reported or noted; patient denies auditory or visual hallucinations. Reports having thoughts of wanting to or kill self today with no plan. No current thoughts to hurt self or others. Denies problems with anxiety or depression. Describes mood as depressed today. His affect was restricted. Attention, concentration intact and memory appeared mostly reliable, but none were formally tested. Alert and oriented times three. Insight and judgment appear limited. Impulse control is impaired. Vitals/I&O/Wt Last Vital Signs Temp 97.9 F 10/25/24 04:00 Pulse 71 10/25/24 16:00 Resp 17 10/25/24 16:00 BP 133/73 10/25/24 16:00 Pulse Ox 91 10/25/24 16:00 O2 Del Method Room Air 10/25/24 04:00 Data NPU 10/20/24 16:34 10/20/24 16:34 A&P Assessment and plan (1) Suicidal ideation: (2) Adjustment disorder with mixed disturbance of emotions and conduct: (3) Depression: Plan This is a 59-year-old white male with no clear psychiatric history other than reports of consistent suicidal ideation throughout his life who presents with suicidal ideation and significant psychosocial challenges. 1. Continue current medications, continue lexapro 10mg daily for depression. 2. Encourage individual, group and milieu therapy. 3. Continue every 15 minute checks for safety. 4. Encourage sober living treatment after discharge at the highest level care to which he is willing to commit. 5. Obtain collateral information. Involuntary Hold Information 2 96 Hour Hold: 96 Hour Involuntary Admission: Yes 96 Hour Hold Ending Date: 10/26/24 96 Hour Hold Ending Time: 16:20 Other Hold: Hold End Date: 10/26/24 Attestations NPU 2 Medical Necessity Statement*: Inpatient hospitalization is medically necessary and the clinically appropriate intervention, at this time. We will monitor medications and make changes as indicated. The patient's likely length of stay is 2-4 days. Coding Level of Care Code Acute Code for [facility] Fwd Diagnoses Suicidal ideation R45.851 Adjustment disorder with mixed disturbance of emotions and conduct F43.25 Depression F32.A
[2024-10-25 19:15] LABS: Glucose Point of Care 156 mg/dL (70-110)
[2024-10-25] MEDS: atorvastatin 40 mg Tablet 20 MG PO (20:33)
[2024-10-25] MEDS: carvedilol 25 mg Tablet PO (20:33)
[2024-10-25] MEDS: trazodone 50 mg Tablet PO (20:33)
[2024-10-25] MEDS: ibuprofen 600 mg Tablet PO (21:33)
[2024-10-26] VITALS (7 sets, daily range): BP systolic 105–148; BP diastolic 59–89; PULSE 59–75; RESP 16–20; TEMP 36.4–36.7; O2SAT 92–98
[2024-10-26] MEDS: hyDRALAzine 50 mg Tablet PO ×2 (08:30→15:16)
[2024-10-26] MEDS: losartan 50 mg Tablet 100 MG PO (08:30)
[2024-10-26] MEDS: carvedilol 25 mg Tablet 37.5 MG PO (08:30)
[2024-10-26] MEDS: escitalopram 10 mg Tablet PO (08:30)
[2024-10-26] MEDS: apixaban 5 mg Tablet PO ×2 (08:31→17:37)
[2024-10-26] MEDS: metformin XR 500 MG Tablet PO ×2 (08:31→17:36)
[2024-10-26] MEDS: amlodipine 10 mg Tablet PO (08:31)
[2024-10-26] MEDS: FUROsemide 40 mg Tablet PO ×2 (08:31→17:37)
[2024-10-26] MEDS: potassium chloride ER 20 mEq Tablet PO ×2 (08:31→17:37)
[2024-10-26 11:18] LABS: Glucose Point of Care 173 mg/dL (70-110)
[2024-10-26] MEDS: acetaminophen 325 mg Tablet 650 MG PO (15:18)
--- NOTE | 2024-10-26 15:53 | P.NPUDS_ITS ---
Diagnoses at Discharge Discharge Diagnosis (1) Suicidal ideation: Status: Acute (2) Adjustment disorder with mixed disturbance of emotions and conduct: Status: Acute (3) Depression: Status: Acute Reason for Visit Reason for Visit: stress Brief History: History of Present Illness Bertin Howe is a 59 year old male who presented to the emergency department with the following report: Chief Complaint: Psychiatric Symptoms Stated Complaint: stress Time Seen by Provider: 10/20/24 16:06 Source: patient and EMS Mode of arrival: EMS Limitations: no limitations History of Present Illness: 59-year-old male is here with depression he states he has had some passing suicidal thoughts no specific plan. He states he has poor living conditions as well as because of extreme stress he denies any worse improving factors at this time. Associated symptoms: Reports depression and suicidal ideation. He was admitted to the neuropsychiatric unit for definitive treatment of those issues. He is unknown to [facility] psychiatric services inpatient or outpatient however he reports an inpatient hospitalization prior to the current historical documentation in this system. He denied any clarity about what that stay was about. But otherwise he presented with significant medical comor bidities reporting: Chief complaint Homelessness and suicidal ideation. History of the present complaint The individual reports not currently taking any mental health medication and has no known allergies to medication. They express dissatisfaction with their current living situation, citing a lack of running water and insufficient heat as primary concerns. This dissatisfaction led to their admission to the psychiatric hospital. They have a history of being in a psychiatric hospital once before, in 1993, but do not recall the specific reasons for that admission, only mentioning high blood pressure at the time. The individual denies having ever been to a mental health clinic or having seen a psychiatrist or therapist. They have never been on medication for mental health issues such as depression or anxiety and have not experienced hearing voices or similar symptoms. They report no history of depression but admit to having thoughts of wanting to or kill themselves frequently, though they have never acted on these thoughts. They attribute these thoughts to curiosity about rather than sadness or depression. They mention engaging in self- harm behavior when intoxicated, specifically burning themselves with a cigarette in a game with a friend, but do not report other self-harm behaviors. The individual denies experiencing anxiety, paranoia, or hallucinations. They do not report having nightmares or flashbacks, except for a period after being released from detention when they experienced nightmares about being re-incarcerate d. They describe these experiences as panic-inducing. They served approximately 15 years in detention and have been out since October 2010. There is no reported family history of mental health or addiction problems, although the individual's father had issues with alcohol. They report no history of abuse or trauma during childhood. The individual has a history of high blood pressure and mentions a heart problem but does not provide further details. They have not undergone any surgeries. The individual reports having stopped smoking cigarettes while in detention and does not currently use tobacco, alcohol, or drugs. They deny any history of substance abuse or rehabilitation. They have never been more than once and have no biological children. They identify as heterosexual and have no spec [facility] restorationist beliefs. They are currently unemployed and not on disability, living in a trailer owned by a cousin, which they find unsatisfactory due to its location and lack of amenities. They express concern about returning to this environment, fearing it might lead to self-harm or other negative outcomes. Mental health history In 1993, had a previous admission to a psychiatric hospital, though the specific reasons are unclear. Denies any history of attending mental health clinics or outpatient therapy. Reports frequent thoughts of wanting to , attributed to curiosity about rather than depression, and denies any history of acting on these thoughts. No history of medication for mental health issues, including depression or anxiety. Occasionally engages in self-harm behavior when intoxicated, such as holding a cigarette to the skin, but denies other self-harm behaviors. No reported family history of mental health problems. Social history Currently living in a trailer owned by a cousin, with issues such as no running water and limited job opportunities. Previously incarcerated for 15 years, released in October 2010. Stopped smoking cigarettes while in detention. Does not drink much alcohol and has never had issues with alcohol or drugs, including cannabis, cocaine, methamphetamine, or opiates. No history of rehabilitation or treatment for substance use. No biological children and has been once, with the longest relationship lasting three to four years. Has two living brothers, with one . Parents five years ago. Obtained a GED after leaving school in the sixth grade. Not currently employed and not on disability. No service. No specific restorationist belief system mentioned. Hospital Course Hospital Course During the hospitalization, the patient had routine laboratory studies which were within normal limits except for a few outliers.? Additionally, there was a general medical evaluation which was also within normal limits and revealed no new acute processes.? At the time of discharge, lethality was denied and psychosis was absent. .? Mood and anxiety were well managed.? The patient was started on Lexapro at 10mg daily to target depression. He had requested placement in penitentiary but was not allowed at requested shelters due to his actively being on the sexual offender list. The patient endorsed a plan to avoid all drugs of abuse and follow up with the aftercare recommendations of the treatment team.? The patient was evaluated and deemed to be absent credible lethality and had achieved the maximum benefit from an inpatient hospitalization, and so was discharged. ? Involuntary Hold Information 96 Hour Hold: 96 Hour Involuntary Admission: Yes 96 Hour Hold Ending Date: 10/26/24 96 Hour Hold Ending Time: 16:20 Other Hold: Hold End Date: 10/26/24 Mental Status Exam MSE Comments: This is a morbidly obese white male, in hospital scrubs, with limited grooming and eye contact. No abnormal movements, except for psychomotor retardation. Cooperative with exam in mild to moderate distress. Speech was decreased in rate and volume. Mood described as allright; affect was restricted in range. Thought process was organized. Thought content: ; no delusions reported or noted; patient denies auditory or visual hallucinations. He denied suicidal or homicidal ideation. There were current thoughts to hurt self or others. Describes mood as allright. His affect was restricted in range. Attention, concentration intact and memory appeared mostly reliable, but none were formally tested. Alert and oriented times three. Insight was poor and judgment appear fair. Impulse control is fair. Discharge Data Studies Completed and Pending: Laboratory Results WBC 10.99 10^3/uL (3. 29-11.43) 10/20/24 16:34 RBC 5.09 10^6/uL (3.8 5-5.65) 10/20/24 16:34 Hgb 12.80 g/dL (11.27 -16.99) 10/20/24 16:34 Hct 43.9 % (37-53) 10/20/24 16:34 MCV 86.2 fl (82-101) 10/20/24 16:34 MCH 25.1 pg (27-33) L 10/20/24 16:34 MCHC 29.2 g/dL (30-55) L 10/20/24 16:34 RDW 15.6 % (12.1-15.1 ) H 10/20/24 16:34 Plt Count 415 10^3/cmm (157 -399) H 10/20/24 16:34 MPV 8.7 fL (7.4-10.4) 10/20/24 16:34 Neut % (Auto) 73.5 % 10/20/24 16:34 Lymph % (Auto) 13.9 % 10/20/24 16:34 Osborne % (Auto) 9.5 % 10/20/24 16:34 Eos % (Auto) 1.7 % 10/20/24 16:34 Baso % (Auto) 0.9 % 10/20/24 16:34 Neut # (Auto) 8.08 10^3/uL (1.8 -7.7) H 10/20/24 16:34 Lymph # (Auto) 1.5 10^3/uL (0.8- 4.8) 10/20/24 16:34 Osborne # (Auto) 1.0 10^3/uL (0.2- 0.9) H 10/20/24 16:34 Eos # (Auto) 0.2 10^3/uL (0.0- 0.8) 10/20/24 16:34 Baso # (Auto) 0.1 10^3/uL (0.0- 0.1) 10/20/24 16:34 Nucleated RBC % (a uto) 0 % 10/20/24 16:34 Nucleated RBCs # 0.0 /100WBC 10/20/24 16:34 Sodium 140 mmol/L (136-1 45) 10/20/24 16:34 Potassium 4.2 mmol/L (3.5-5 .1) 10/20/24 16:34 Chloride 100 mmol/L (98-10 7) 10/20/24 16:34 Carbon Dioxide 30 mmol/L (22-29) H 10/20/24 16:34 Anion Gap 14.2 (5-19) 10/20/24 16:34 BUN 18 mg/dL (8-23) 10/20/24 16:34 Creatinine 0.9 mg/dL (0.7-1. 2) 10/20/24 16:34 GFR Calculation 86.1 mL/min (90-1 30) L 10/20/24 16:34 Glucose 101 mg/dL (65-115 ) 10/20/24 16:34 POC Glucose 173 mg/dL (70-110 ) H 10/26/24 11:13 Calculated Osmolal ity 292 mOsm/kg (285- 295) 10/20/24 16:34 Calcium 9.6 mg/dL (8.5-10 .5) 10/20/24 16:34 Total Bilirubin 0.5 mg/dL (0.15-1 .2) 10/20/24 16:34 AST 14 U/L (0-40) 10/20/24 16:34 ALT 9 U/L (0-41) 10/20/24 16:34 Alkaline Phosphata se 99 U/L (40-130) 10/20/24 16:34 Total Protein 7.5 g/dL (6.6-8.7 ) 10/20/24 16:34 Albumin 3.7 g/dL (3.5-5.2 ) 10/20/24 16:34 Globulin 3.8 g/dL (1.3-4.6 ) 10/20/24 16:34 TSH 1.36 uIU/mL (0.27 -4.20) 10/20/24 16:34 Salicylates < 0.3 mg/dL (3-10 ) L 10/20/24 16:34 Urine Opiates Scre en Negative ng/mL (N egative) 10/20/24 16:20 Acetaminophen < 5.0 ug/mL (10-3 0) L 10/20/24 16:34 Ur Barbiturates Sc reen Negative ng/mL (N egative) 10/20/24 16:20 Ur Phencyclidine S crn Negative ng/mL (N egative) 10/20/24 16:20 Ur Amphetamines Sc reen Negative ng/mL (N egative) 10/20/24 16:20 U Benzodiazepines Scrn Negative ng/mL (N egative) 10/20/24 16:20 Urine Cocaine Scre en Negative ng/mL (N egative) 10/20/24 16:20 U Marijuana (THC) Screen Negative ng/mL (N egative) 10/20/24 16:20 Ethyl Alcohol < 10 mg/dL (0-10) 10/20/24 16:34 Adenovirus (PCR) Not detected (NO T DETECT) 10/20/24 16:19 C. pneumoniae DNA (PCR) Not detected (NO T DETECT) 10/20/24 16:19 Coronavirus (PCR) Cancelled 10/20/24 16:19 Coronavirus 229E ( PCR) Not detected (NO T DETECT) 10/20/24 16:19 Human Metapneumovi r PCR Not detected (NO T DETECT) 10/20/24 16:19 Influenza A (H1) P CR Not detected (NO T DETECT) 10/20/24 16:19 Influenza A (PCR) Cancelled 10/20/24 16:19 Influ A (H1/09) PC R Not detected (NO T DETECT) 10/20/24 16:19 Influenza A (H3) P CR Not detected (NO T DETECT) 10/20/24 16:19 Influenza Type A ( PCR) Not detected (NO T DETECT) 10/20/24 16:19 Influenza Type B ( PCR) Cancelled 10/20/24 16:19 Influenza Type B ( PCR) Not detected (NO T DETECT) 10/20/24 16:19 M. pneumoniae (PCR ) Not detected (NO T DETECT) 10/20/24 16:19 Parainfluenza 1 (P CR) Not detected (NO T DETECT) 10/20/24 16:19 Parainfluenza 2 (P CR) Not detected (NO T DETECT) 10/20/24 16:19 Parainfluenza 3 (P CR) Not detected (NO T DETECT) 10/20/24 16:19 Parainfluenza 4 (P CR) Not detected (NO T DETECT) 10/20/24 16:19 RSV (PCR) Cancelled 10/20/24 16:19 RSV Type A (PCR) Not detected (NO T DETECT) 10/20/24 16:19 RSV Type B (PCR) Not detected (NO T DETECT) 10/20/24 16:19 Entero/Rhino (PCR) Not detected (NO T DETECT) 10/20/24 16:19 SARS-CoV-2 (PCR) Not detected (NO T DETECT) 10/20/24 16:19 Vitals: Last Vital Signs Temp 97.9 F 10/26/24 15:13 Pulse 61 10/26/24 15:13 Resp 18 10/26/24 15:13 BP 147/77 10/26/24 15:13 Pulse Ox 94 10/26/24 15:13 O2 Del Method Room Air 10/26/24 03:54 Discharge Plan Discharge Patient Disposition: Home Condition: Stable Prescriptions: New escitalopram oxalate 10 mg Tablet 10 mg PO DAILY 30 Days Qty: 30 1RF Continued metformin 500 mg tablet extended release 24hr 500 mg PO BID Qty: 60 6RF amlodipine 10 mg tablet 10 mg PO DAILY Qty: 90 3RF carvedilol 25 mg tablet 37.5 mg PO .COMPLEX Qty: 75 6RF Rx Instructions: Take 37.5 mg (1.5 tablets) by mouth in the morning and 25 mg (1 tablet) in the evening. hydralazine 100 mg tablet 100 mg PO TID Qty: 90 6RF irbesartan 300 mg tablet 300 mg PO DAILY Qty: 30 6RF Eliquis 5 mg tablet 5 mg PO BID Qty: 180 3RF potassium chloride 20 mEq tablet extended release 20 meq PO BID Qty: 180 1RF simvastatin 20 mg tablet 20 mg PO BEDTIME furosemide 40 mg tablet 40 mg PO BID Qty: 60 6RF dapagliflozin propanediol [Farxiga] 10 mg tablet 10 mg PO DAILY Discharge Orders: Discharge Order (Routine); Ordered 10/26/24 Ordered By: Rd Tavarez Referrals: [facility] [Other] (Thursday thru 7:30am to 4:30pm) [facility] [Other] - 11/04/24 10:30 am (Follow up with Destiny Burk) [facility] [Outside] - 10/28/24 10:30 am (Initial with ) Discharge Diet: Usual diet Discharge Activity: Resume usual activity Patient Instructions: Escitalopram (By mouth) (Lexapro), Depression (DC), Suicide Prevention (DC), Opioid Safety Discharge Attestations NPU Time Spent in Discharge Care*: less than 30 min Specific Discharge Activities: Specific discharge activities: educating patient, discussing with porter sample case/social workers/dc planners and documenting/other paperwork Coding Level of Care Code Acute Code for Chg Fwd Diagnoses Suicidal ideation R45.851 Adjustment disorder with mixed disturbance of emotions and conduct F43.25 Depression F32.A
[2024-10-26 16:59] LABS: Glucose Point of Care 119 mg/dL (70-110)
--- NOTE | 2024-10-26 18:44 | PC.NURSE ---
Andres Pham from [facility] called to say that his ride to home will be here between 8 and 830 pm. This nurse went over discharge information with patient. All questions answered
[2024-10-26 19:45] LABS: Glucose Point of Care 187 mg/dL (70-110)
== END 2024-10-26 20:45 | disposition home or self-care (01) | DRG 882 ==
LOC: ER 18:32 → NP 19:17
PROVIDERS: Admitting Provider Psychiatry & Neurology Psychiatry; Emergency Provider Emergency Medicine; PCP Internal Medicine; Visit Provider Psychiatry & Neurology Psychiatry
DX: F43.25 Adjustment disorder with mixed disturbance of emotions and conduct (principal); R45.851 Suicidal ideations; I13.0 Hypertensive heart and chronic kidney disease with heart failure and stage 1 through stage 4 chronic kidney disease, or unspecified chronic kidney disease; Z68.42 Body mass index [BMI] 45.0-49.9, adult; Z59.11 Inadequate housing environmental temperature; Z59.12 Inadequate housing utilities; F32.A Depression, unspecified; E11.22 Type 2 diabetes mellitus with diabetic chronic kidney disease; N18.2 Chronic kidney disease, stage 2 (mild); I50.9 Heart failure, unspecified; Z79.84 Long term (current) use of oral hypoglycemic drugs; E78.5 Hyperlipidemia, unspecified; E66.01 Morbid (severe) obesity due to excess calories
CPT/HCPCS: 36415; 36416; 80053; 80306; 80307; 82962; 84443; 85025; 87486; 87581; 87633; 93005; 97150; 97165; 99285

== ENCOUNTER 2024-10-28 13:08 | Inpatient (IN) | payer MEDICAID, SELFPAY ==
[2024-10-28] VITALS (11 sets, daily range): BP systolic 119–179; BP diastolic 62–100; PULSE 64–89; RESP 16–24; TEMP 36.4–36.9; O2SAT 88–95; BMI 45.6
--- NOTE | 2024-10-28 13:14 | XR_ITS ---
WS: [id number] XR chest 1V portable [id number] REASON FOR EXAM: Shortness of breath FINDINGS: Moderate tortuosity of the thoracic aorta with significant cardiomegaly. Central pulmonary venous congestion. Reticular interstitial changes in both lower lung alonzo with blunting of the right costophrenic angl e. Lung changes were not present on the previous examination of 09/24/2024. XR/XR chest 1V portable [id number] IMPRESSION: Abnormal chest most compatible with congestive heart failure.
--- NOTE | 2024-10-28 13:16 | ECG_ITS ---
[facility] Test Date: 2024-10-28 Pat Name: Bertin Howe Department: Room: Gender: Male Supply Person: MEGAN: 1965 Requested By: Nicky Lopez Order Number: [id number] Tasha MD: SHANNA MIRANDA Measurements Intervals [place] Rate: 72 P: 0 UT: 0 QRS: -75 QRSD: 132 T: 76 QT: 393 QTc: 431 Interpretive Statements ATRIAL FIBRILLATION INTRAVENTRICULAR CONDUCTION DELAY [130+ ms QRS DURATION] ANTEROSEPTAL MYOCARDIAL INFARCTION , OF INDETERMINATE AGE [40+ ms Q WAVE IN V1-V4] Compared to ECG 10/20/2024 16:19:31 Intraventricular conduction delay now present Left anterior fascicular block no longer present Myocardial infarct finding still present Electronically Signed On 10-28-2024 23:20:41 DATA WAREHOUSING MANAGER by SHANNA MIRANDA [email or web address]
--- NOTE | 2024-10-28 13:22 | ED_ITS ---
HPI - SOB/Dyspnea 2 General: Chief Complaint: Shortness of Breath/Dyspnea Stated Complaint: sob Time Seen by Provider: 10/28/24 13:09 History of Present Illness: HPI Narrative: 59-year-old male with history of morbid obesity, diabetes, hyperlipidemia,, atrial fibrillation, chronic anticoagulation on Eliquis, congestive heart failure, aortic valve stenosis and hypertension who presents emergency room with shortness of breath. He says he does not have any known COPD. He says over the last 24 hours she has had worsening shortness of breath. He could not sleep at all last night. Reports significant orthopnea. Worsening swelling in his legs and abdominal wall. No chest pain. EMS reports he was in the mid 70s on their presentation. They placed him on 4 L nasal cannula. Here on that 4 L after moving to the bed he is at 88%. No altered mental status. No focal motor deficits. No abdominal pain. No nausea or vomiting. Related Data Home Medications Medication Instructions Recorded Confirmed simvastatin 20 mg tablet 20 mg PO BEDTIME 09/24/24 10/28/24 dapagliflozin propanediol 10 mg 10 mg PO DAILY 10/20/24 10/28/24 tablet (Farxiga) Previous Rx's Medication Instructions Recorded metformin 500 mg tablet,extended 500 mg PO BID #60 tabs 09/02/23 release 24hr (osmotic) amlodipine 10 mg tablet 10 mg PO DAILY #90 tabs 01/05/24 carvedilol 25 mg tablet 37.5 mg (1.5 x 25 mg) PO .COMPLEX 05/18/24 #75 tabs hydralazine 100 mg tablet 100 mg PO TID #90 tabs 05/18/24 irbesartan 300 mg tablet 300 mg PO DAILY #30 tabs 05/18/24 apixaban 5 mg tablet (Eliquis) 5 mg PO BID #180 tabs 08/16/24 potassium chloride 20 mEq 20 meq PO BID #180 tabs 08/16/24 tablet,extended release furosemide 40 mg tablet 40 mg PO BID #60 tabs 09/24/24 escitalopram oxalate 10 mg tablet 10 mg PO DAILY 30 days #30 tabs 10/26/24 Allergies Allergy/AdvReac Type Severity Reaction Status Date / Time No Known Allergies Allergy Verified 09/24/24 10:39 Review of Systems 2 Narrative: Constitutional symptoms: Negative except as documented in HPI. Skin symptoms: Negative except as documented in HPI. Eye symptoms: Negative except as documented in HPI. ENMT symptoms: Negative except as documented in HPI. Respiratory symptoms: Negative except as documented in HPI. Cardiovascular symptoms: Negative except as documented in HPI. Gastrointestinal symptoms: Negative except as documented in HPI. Genitourinary symptoms: Negative except as documented in HPI. Musculoskeletal symptoms: Negative except as documented in HPI. Neurologic symptoms: Negative except as documented in HPI. Psychiatric symptoms: Negative except as documented in HPI. Endocrine symptoms: Negative except as documented in HPI. PFSH ED 2 PFSH: Medical History Adjustment disorder with mixed disturbance of emotions and conduct BMI 45.0-49.9, adult Vitamin B12 deficiency Diabetes mellitus with hyperglycemia Mild aortic valve stenosis Aortic valve area 1.7 cm? 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 Chronic kidney disease stage 2 Hyperlipemia Atrial fibrillation Heart failure, unspecified Echocardiogram from 2018 showed severely decreased left ventricular systolic function as well as grade 3 of 4 diastolic dysfunction consistent with combined CHF Benign essential hypertension with target blood pressure below 140/90 Obesity Surgical History No history of previous surgery Family History Mother Diabetes Hypertension Father Alcohol abuse Other Heart disease Social History Smoking and tobacco/nicotine status: former use of tobacco/nicotine Second hand smoke exposure: No Alcohol intake: never Substance/Drug Use: never Adopted: No Caregiver/support person: No Lives independently: Yes Household members: other Housing: House Marital status: Single Number of children: 0 service: No Current occupational status: unemployed Pets and animals: Yes Pets & animals: cat(s) and dog(s) Do you think of yourself as: Straight/Heterosexual Current gender identity: Male Physical Exam 2 Narrative: EXAM NARRATIVE: General: Alert, no acute distress. Skin: Warm, dry. Head: Normocephalic, atraumatic. Neck: Supple, trachea midline. Eye: Extraocular movements are intact. Ears, nose, mouth and throat: Oral mucosa moist. Cardiovascular: Irregularly irregular, Normal peripheral perfusion. Pitting edema of the abdominal wall and of the legs. Respiratory: coarse, scattered wheeze, mild increased wob. tachypnea, breath sounds are equal, Symmetrical chest wall expansion. Gastrointestinal: Soft, Nontender, Non distended, Normal bowel sounds. Musculoskeletal: Normal ROM, no deformity. Neurological: Alert and oriented to person, place, time, and situation, No focal neurological deficit observed. Psychiatric: Cooperative, appropriate mood & affect. Course 2 Vital Signs: Vital signs: Vital Signs Temperature 98.1 F 10/28/24 13:09 Pulse Rate 81 10/28/24 13:09 Respiratory Rate 23 H 10/28/24 13:09 Blood Pressure 174/99 10/28/24 13:09 Pulse Oximetry 88 L 10/28/24 13:09 Oxygen Delivery Me thod Nasal Cannula 10/28/24 13:09 Oxygen Flow Rate 4 10/28/24 13:09 MDM - SOB/Dyspnea Medical Decision Making Differential diagnosis for patient with shortness of breath includes but is not limited to and based on the above HPI, review of systems and physical exam: Pneumonia. Bronchitis. Asthma or COPD with acute exacerbation. Acute coronary syndrome / CT. Pulmonary embolism. Anxiety. Congestive heart failure. Viral infections including influenza and Covid-19. Atrial fibrillation. Anxiety. Pleural effusion. Pneumothorax. Orders placed to evaluate differential diagnosis based on the above differential, HPI and physical exam EKG: Time 1314. Rate 72. Atrial fibrillation with controlled rate, No ST-T changes, no ectopy, This was reviewed and interpreted by myself the ER physician at 1317. Chest x-ray: Increasing cardiomegaly, pulmonary edema. This was reviewed and interpreted by myself the emergency room physician. I also reviewed the radiology report. Lab Review: Laboratory results were reviewed and interpreted by myself the emergency room physician. Mild leukocytosis. No new anemia. Normal BUN and creatinine. I reviewed the patient's medical record. Reexamination: Patient is continue to require oxygen. Work of breathing is improved now that he is at rest. No altered mental status. No focal motor deficits. Consultation: I spoke with Dr. Marrero who is on-call for the hospitalist service. He agrees to admission. Assessment and plan: Acute exacerbation of congestive heart failure Hypoxemic respiratory failure Edema/anasarca Orthopnea ?80 mg IV Lasix in the emergency room ?Stable on 4 to 5 L nasal cannula. -I discussed the patient with the hospitalist on-call who is admitting the patient. - Discussed findings and plan with patient. Answered any questions. - All laboratory values were reviewed and interpreted personally by myself, the ER physician - All imaging was reviewed and interpreted personally by myself, the ER physician. - Evaluation and treatment of this problem were appropriate in the emergency setting Lab Data 10/28/24 13:37 10/28/24 13:37 Labs/Radiology: Radiology Impressions Chest X-Ray 10/28/24 13:14 IMPRESSION: Abnormal chest most compatible with congestive heart failure. Laboratory Results WBC 11.37 10^3/uL (3.29-11.43) 10/28/24 13:37 RBC 4.98 10^6/uL (3.85-5.65) 10/28/24 13:37 Hgb 12.60 g/dL (11.27-16.99) 10/28/24 13:37 Hct 41.8 % (37-53) 10/28/24 13:37 MCV 83.9 fl (82-101) 10/28/24 13:37 MCH 25.3 pg (27-33) L 10/28/24 13:37 MCHC 30.1 g/dL (30-55) 10/28/24 13:37 RDW 15.7 % (12.1-15.1) H 10/28/24 13:37 Plt Count 413 10^3/cmm (157-399) H 10/28/24 13:37 MPV 8.5 fL (7.4-10.4) 10/28/24 13:37 Neut % (Auto) 81.6 % 10/28/24 13:37 Lymph % (Auto) 9.8 % 10/28/24 13:37 [place] % (Auto) 5.8 % 10/28/24 13:37 Eos % (Auto) 1.1 % 10/28/24 13:37 Baso % (Auto) 1.1 % 10/28/24 13:37 Neut # (Auto) 9.28 10^3/uL (1.8-7.7) H 10/28/24 13:37 Lymph # (Auto) 1.1 10^3/uL (0.8-4.8) 10/28/24 13:37 [place] # (Auto) 0.7 10^3/uL (0.2-0.9) 10/28/24 13:37 Eos # (Auto) 0.1 10^3/uL (0.0-0.8) 10/28/24 13:37 Baso # (Auto) 0.1 10^3/uL (0.0-0.1) 10/28/24 13:37 Nucleated RBC % (auto) 0 % 10/28/24 13:37 Nucleated RBCs # 0.0 /100WBC 10/28/24 13:37 Specimen Type Arterial 10/28/24 13:20 Sample Site Brachial, left 10/28/24 13:20 ABG pH 7.45 (7.35-7.45) 10/28/24 13:20 ABG pCO2 42.8 mmHg (35-45) 10/28/24 13:20 ABG pO2 70.2 mmHg (80.0-100.0) L 10/28/24 13:20 ABG PO2/FiO2 Ratio 175 10/28/24 13:20 ABG HCO3 30.0 mmol/L (22-26) H 10/28/24 13:20 ABG O2 Saturation 90.0 10/28/24 13:20 ABG Base Excess 5.4 mmol/L (-2.0-2.0) H 10/28/24 13:20 Reginaldo Test Pos 10/28/24 13:20 A-a O2 Gradient 20.6 mmHg (5-10) H 10/28/24 13:20 Hematocrit 38.1 % (42-52) L 10/28/24 13:20 Hgb O2 Saturation 87.8 % (95-100) L 10/28/24 13:20 Carboxyhemoglobin 1.4 %THgb (0.4-20.1) 10/28/24 13:20 Methemoglobin 1.1 % (0.4-1.5) 10/28/24 13:20 Total Hemoglobin 12.4 g/dL (14-18) L 10/28/24 13:20 Sodium 140.0 mmol/L (131-143) 10/28/24 13:20 Potassium 4.1 mmol/L (3.5-5.0) 10/28/24 13:20 Glucose 146.0 mg/dL (70-115) H 10/28/24 13:20 Ionized Calcium 1.2 mmol/L (1.1-1.4) 10/28/24 13:20 O2 Delivery Device Nc 10/28/24 13:20 O2 Liters/Min 5.0 % 10/28/24 13:20 FiO2 40.0 % 10/28/24 13:20 Vice President Of Product Marketing ID Cak 10/28/24 13:20 Sodium 137 mmol/L (136-145) 10/28/24 13:37 Potassium 4.1 mmol/L (3.5-5.1) 10/28/24 13:37 Chloride 96 mmol/L (98-107) L 10/28/24 13:37 Carbon Dioxide 26 mmol/L (22-29) 10/28/24 13:37 Anion Gap 19.1 (5-19) H 10/28/24 13:37 BUN 12 mg/dL (8-23) 10/28/24 13:37 Creatinine 0.6 mg/dL (0.7-1.2) L 10/28/24 13:37 GFR Calculation 137.4 mL/min (90-130) H 10/28/24 13:37 Glucose 143 mg/dL (65-115) H 10/28/24 13:37 Calculated Osmolality 286 mOsm/kg (285-295) 10/28/24 13:37 Lactic Acid 1.7 mmol/L (0.5-2.2) 10/28/24 13:37 Calcium 9.4 mg/dL (8.5-10.5) 10/28/24 13:37 Total Bilirubin 0.7 mg/dL (0.15-1.2) 10/28/24 13:37 AST 15 U/L (0-40) 10/28/24 13:37 ALT 12 U/L (0-41) 10/28/24 13:37 Alkaline Phosphatase 90 U/L (40-130) 10/28/24 13:37 Troponin T Baseline 15 ng/L (0-15) 10/28/24 13:37 C-Reactive Protein 70.2 mg/L (0.0-4.9) H 10/28/24 13:37 NT-Pro-B Natriuret Pep 2426 pg/mL (0-125) H 10/28/24 13:37 Total Protein 7.2 g/dL (6.6-8.7) 10/28/24 13:37 Albumin 4.0 g/dL (3.5-5.2) 10/28/24 13:37 Globulin 3.2 g/dL (1.3-4.6) 10/28/24 13:37 Procalcitonin 0.05 ng/mL (0-0.5) 10/28/24 13:37 All radiology interpretation(s) finalized by discharge Discharge Plan Discharge Patient Disposition: Admitted As Inpatient Admit Provider: Harlan Marrero Clinical Impression: Acute hypoxemic respiratory failure, Acute exacerbation of chronic heart failure, Edema, Orthopnea Condition: Stable Coding Level of Care Code ED Research Laboratory Specialist for Alex Parada
[2024-10-28 13:31] LABS: Blood Gas Allen Test Pos; Blood Gas Operator Identificat CAK; Blood Gas Sample Type Arterial; Ionized Calcium Level - ABG 1.2 mmol/L (1.1-1.4); Oxygen Device NC
[2024-10-28 13:41] LABS: ABG PCO2 42.8 mmHg (35-45); ABG PH Result 7.45 (7.35-7.45); Alveolar-Arterial Oxygen Gradi 20.6 mmHg (5-10); Arterial Blood Gas Hematocrit 38.1 % (42-52); Base Excess ABG 5.4 mmol/L (-2.0-2.0); Blood Gas Sample Site Brachial, left; Carboxyhemoglobin 1.4 %THgb (0.4-20.1); HGB O2 Sat 87.8 % (95-100); Methemoglobin 1.1 % (0.4-1.5); PO2 ABG 70.2 mmHg (80.0-100.0); PO2 FiO2 Ratio Arterial Blood 175; Potassium Level - ABG 4.1 mmol/L (3.5-5.0); Total Hemoglobin 12.4 g/dL (14-18)
[2024-10-28 13:45] LABS: Basophils # 0.1 10^3/uL (0.0-0.1); Basophils % 1.1 %; Eosinophils # 0.1 10^3/uL (0.0-0.8); Eosinophils % 1.1 %; Hematocrit 41.8 % (37-53); Lymphocytes # 1.1 10^3/uL (0.8-4.8); Lymphocytes % 9.8 %; Mean Corpuscular HGB Conc 30.1 g/dL (30-55); Mean Corpuscular Hemoglobin 25.3 pg (27-33); Mean Corpuscular Volume 83.9 fl (82-101); Mean Platelet Volume 8.5 fL (7.4-10.4); Monocytes # 0.7 10^3/uL (0.2-0.9); Monocytes % 5.8 %; Neutrophils # 9.28 10^3/uL (1.8-7.7); Neutrophils % 81.6 %; Nucleated Red Blood Cells % 0 %; Platelet Count 413 10^3/cmm (157-399); Red Blood Count 4.98 10^6/uL (3.85-5.65); Red Cell Distribution Width 15.7 % (12.1-15.1); White Blood Count 11.37 10^3/uL (3.29-11.43)
[2024-10-28 14:01] LABS: Troponin(5th) Baseline 15 ng/L (0-15)
[2024-10-28 14:02] LABS: Lactic Sepsis W/Reflex 1.7 mmol/L (0.5-2.2)
[2024-10-28 14:17] LABS: NT Pro B Type Natriuretic Pept 2426 pg/mL (0-125); Procalcitonin 0.05 ng/mL (0-0.5)
[2024-10-28 14:28] LABS: Alanine Aminotransferase 12 U/L (0-41); Alkaline Phosphatase 90 U/L (40-130); Anion Gap 19.1 (5-19); Aspartate Amino Transferase 15 U/L (0-40); Blood Urea Nitrogen 12 mg/dL (8-23); C Reactive Protein 70.2 mg/L (0.0-4.9); Calcium 9.4 mg/dL (8.5-10.5); Carbon Dioxide 26 mmol/L (22-29); Chloride 96 mmol/L (98-107); Creatinine Clr Calc Pharmacy 176.7985; Globulin 3.2 g/dL (1.3-4.6); Glomerular Filtration Rate 137.4 mL/min (90-130); Glucose 143 mg/dL (65-115); Osmolality Calculated 286 mOsm/kg (285-295); Potassium 4.1 mmol/L (3.5-5.1); Sodium 137 mmol/L (136-145); Total Bilirubin 0.7 mg/dL (0.15-1.2); Total Protein 7.2 g/dL (6.6-8.7)
--- NOTE | 2024-10-28 14:39 | PC.PHAR ---
Patient states he has not been taking his medications . Patient isn't sure when he last took all his medication ,he thinks he last took them before the .
[2024-10-28] MEDS: FUROsemide 10 mg/mL SDV 10mL 80 MG IVP (14:46)
--- NOTE | 2024-10-28 15:13 | P.HP_ITS ---
Providers/Chief Complaint 2 Admitting Physician: Harlan Marrero MD Primary Care Provider: Brooke Geller MD Chief Complaint: sob History of Present Illness Bertin Howe is a 59 year old male with a past medical history of morbid obesity, atrial fibrillation, CHF, hyperlipidemia, hypertension, who presents [facility] for shortness of breath The patient reports that the swelling worsened during a recent stay in the neuropsychiatric unit for suicidal ideation. He denies chest pain, smoking, alcohol, or drug use. denies fever, nausea, vomiting, diarrhea, or recent falls. The patient does not use oxygen at home and walks without assistance. He reports a little back pain and some abdominal distension. The patient has not had any blood clots in the past. Review of Systems 2 Const: Denies: fever(s) or chills Card: Denies: chest pain Resp: Reports: dyspnea : Denies: flank pain Neuro: Denies: headache(s) Psych: Denies: anxiety, depression, paranoia, auditory hallucinations, tactile hallucinations, suicidal ideation or homicidal ideation Medications/Allergies Home Medications Medication Instructions Recorded Confirmed Last Taken Type metformin 500 mg tablet,extended 500 mg PO BID #60 tabs 09/02/23 10/28/24 10/20/24 Rx release 24hr (osmotic) amlodipine 10 mg tablet 10 mg PO DAILY #90 tabs 01/05/24 10/28/24 10/20/24 Rx carvedilol 25 mg tablet 37.5 mg (1.5 x 25 mg) PO .COMPLEX 05/18/24 10/28/24 10/20/24 Rx #75 tabs hydralazine 100 mg tablet 100 mg PO TID #90 tabs 05/18/24 10/28/24 10/20/24 Rx irbesartan 300 mg tablet 300 mg PO DAILY #30 tabs 05/18/24 10/28/24 10/20/24 Rx apixaban 5 mg tablet (Eliquis) 5 mg PO BID #180 tabs 08/16/24 10/28/24 10/20/24 Rx potassium chloride 20 mEq 20 meq PO BID #180 tabs 08/16/24 10/28/24 10/20/24 Rx tablet,extended release furosemide 40 mg tablet 40 mg PO BID #60 tabs 09/24/24 10/28/24 10/20/24 Rx simvastatin 20 mg tablet 20 mg PO BEDTIME 09/24/24 10/28/24 10/19/24 History dapagliflozin propanediol 10 mg 10 mg PO DAILY 10/20/24 10/28/24 10/20/24 History tablet (Farxiga) escitalopram oxalate 10 mg tablet 10 mg PO DAILY 30 days #30 tabs 10/26/24 10/28/24 Unknown Rx Allergies Allergy/AdvReac Type Severity Reaction Status Date / Time No Known Allergies Allergy Verified 09/24/24 10:39 PFSH Acute 2 PFSH: Medical History Adjustment disorder with mixed disturbance of emotions and conduct BMI 45.0-49.9, adult Vitamin B12 deficiency Diabetes mellitus with hyperglycemia Mild aortic valve stenosis Aortic valve area 1.7 cm? 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 Chronic kidney disease stage 2 Hyperlipemia Atrial fibrillation Heart failure, unspecified Echocardiogram from 2018 showed severely decreased left ventricular systolic function as well as grade 3 of 4 diastolic dysfunction consistent with combined CHF Benign essential hypertension with target blood pressure below 140/90 Obesity Surgical History No history of previous surgery Family History Mother Diabetes Hypertension Father Alcohol abuse Other Heart disease Social History Smoking and tobacco/nicotine status: former use of tobacco/nicotine Second hand smoke exposure: No Alcohol intake: never Substance/Drug Use: never Adopted: No Caregiver/support person: No Lives independently: Yes Household members: other Housing: House Marital status: Single Number of children: 0 service: No Current occupational status: unemployed Pets and animals: Yes Pets & animals: cat(s) and dog(s) Do you think of yourself as: Straight/Heterosexual Current gender identity: Male Vitals/I&O/Wt Last Vital Signs Temp 98.1 F 10/28/24 13:09 Pulse 81 10/28/24 13:09 Resp 23 H 10/28/24 13:09 BP 174/99 10/28/24 13:09 Pulse Ox 88 L 01/17/25 13:09 O2 Del Method Nasal Cannula 10/28/24 13:09 O2 Flow Rate 4 10/28/24 13:09 Weight last 48 hrs Weight 136.078 kg Physical Exam 2 Const: COMMON NORMALS: no acute distress and patient oriented x3 HENMT: COMMON NORMALS: normocephalic HEAD & SCALP: normocephalic Eye: COMMON NORMALS: Equal, round and reactive pupils present and EOMs intact bilaterally Neck/C-Spine: COMMON NORMALS: no JVD Resp: COMMON NORMALS: normal respiratory effort, No retractions, No use of accessory muscles and clear to auscultation bilaterally AUSCULTATION: c rackles and wheezes Cardio: COMMON NORMALS: regular rate, regular rhythm, S1 normal heart sound present and S2 normal heart sound present RATE: regular rate RHYTHM: r egular rhythm HEART SOUNDS: S1 normal heart sound present and S2 normal heart sound present GI: COMMON NORMALS: Normal to inspection, nondistended, normoactive bowel sounds present, Soft to palpation and non-tender : COMMON NORMALS: Yes no CVA tenderness Extremity: NARRATIVE EXTREMITY EXAM: Generalized anasarca, 3+ pitting edema bilateral extremities Neuro: COMMON NORMALS: patient oriented x3, CN's II-XII intact bilaterally and moves all extremities Psych: COMMON NORMALS: mental status grossly normal Data 10/28/24 13:37 10/28/24 13:37 Micro: Microbiology 10/28/24 13:39 Blood Culture - Preliminary Blood SPECIMEN COLLECTED 10/28/24 13:37 Blood Culture - Preliminary Blood SPECIMEN COLLECTED A&P Assessment and plan (1) Acute hypoxic respiratory failure: (2) Diastolic CHF: Plan Shortness of Breath and Bilateral Leg Swelling: The patient presents with SOB and significant bilateral leg swelling, likely due to fluid overload. The patient has a history of CHF, and the current presentation suggests an exacerbation. - lasix 40mg iv bid - Insert Navarro catheter for fluid management - Monitor fluid intake with restrictions to 1000 cc/day - Perform cardiac echo to assess heart function - Monitor closely in the hospital Acute Hypoxic Respiratory Failure: The patient is experiencing acute hypoxic respiratory failure secondary to diastolic CHF exacerbation. - Continue monitoring and supportive care Hypertension: Known history of HTN. - Continue current management Atrial Fibrillation: Known history of atrial fibrillation. - Continue current management Suicidal Ideation: Recent history of suicidal ideation, currently resolved. - Monitor mental health status Attestations 2 Medical Necessity Statement*: this is 59-year-old male who requires hospitalization, inpatientgreater than 2 midnights, acute CHF acute hypoxic respiratory failure Diagnoses Acute hypoxic respiratory failure J96.01 Diastolic CHF I50.30
--- NOTE | 2024-10-28 15:16 | ECG_ITS ---
[facility] Test Date: 2024-10-28 Pat Name: Bertin Howe Department: Room: 269 Gender: Male Flyer Builder: : 1965 Requested By: Nicky Lopez Order Number: [id number] Tasha MD: SHANNA MIRANDA Measurements Intervals [place] Rate: 85 P: 0 MD: 0 QRS: -79 QRSD: 140 T: 89 QT: 397 QTc: 474 Interpretive Statements ATRIAL FIBRILLATION RIGHT BUNDLE BRANCH BLOCK [120+ ms QRS DURATION, UPRIGHT V1, 40+ ms S IN I/aVL/V4/V5/V6] LEFT ANTERIOR FASCICULAR BLOCK [QRS AXIS <= -45, QR IN I, RS IN II] ANTEROSEPTAL MYOCARDIAL INFARCTION , OF INDETERMINATE AGE [40+ ms Q WAVE IN V1-V4] Compared to ECG 10/28/2024 13:14:16 Right bundle-branch block now present Left anterior fascicular block now present Intraventricular conduction delay no longer present Myocardial infarct finding still present Electronically Signed On 10-28-2024 23:32:17 ROOM ATTENDANTS by SHANNA MIRANDA [email or web address]
[2024-10-28 15:25] LABS: Erythrocyte Sedimentation Rate 104 mm/hr (0-10)
[2024-10-28 15:46] LABS: Bilirubin Urine Negative (Negative); Blood Urine Non-haemolysed trace (Negative); Glucose Urine UA Negative (Normal); Ketones Urine Trace (Negative); Leukocyte Esterase Urine Negative (Negative); Nitrate Urine Negative (Negative); Protein Urine 3+ (Negative); Specific Gravity, Urine 1.013 (1.005-1.030); Urine Appearance Cloudy (CLEAR); Urine Color Yellow (Yellow)
[2024-10-28 15:48] LABS: Add Urine Microscopic? YES; Bacteria Urine None Seen /hpf; Hyaline Casts Urine 2.87 /lpf; Squamous Epithelial Cell Urine 0-5 /hpf (0-5); WBC Urine 0-5 /hpf (0-5)
[2024-10-28 15:53] LABS: Estmated Average Glucose 163; Hemoglobin A1C 7.3 % (4.0-6.0)
[2024-10-28 15:58] LABS: Adenovirus Not Detected (NOT DETECT); Chlamydia Pneumoniae Not Detected (NOT DETECT); Coronavirus 229E,HKU1,NL63,OC4 Not Detected (NOT DETECT); Human Metapneumovirus Not Detected (NOT DETECT); Human Rhinovirus/Enterovirus Not Detected (NOT DETECT); Influenza A Not Detected (NOT DETECT); Influenza A H1 Not Detected (NOT DETECT); Influenza A H1-2009 Not Detected (NOT DETECT); Influenza A H3 Not Detected (NOT DETECT); Influenza B Not Detected (NOT DETECT); Mycoplasma Pneumoniae Not Detected (NOT DETECT); Parainfluenza Virus Type 1 Not Detected (NOT DETECT); Parainfluenza Virus Type 2 Not Detected (NOT DETECT); Parainfluenza Virus Type 3 Not Detected (NOT DETECT); Parainfluenza Virus Type 4 Not Detected (NOT DETECT); Respiratory Syncytial Virus A Not Detected (NOT DETECT); Respiratory Syncytial Virus B Not Detected (NOT DETECT); SARS-COV-2 Not Detected (NOT DETECT)
[2024-10-28 16:22] LABS: Troponin 5 2HR 13.92 ng/L (0-15)
[2024-10-28 16:24] LABS: Troponin 5 2HR Delta -1.08 ABS# (0-10)
[2024-10-28 16:37] LABS: Glucose Point of Care 172 mg/dL (70-110)
[2024-10-28] MEDS: carvedilol 25 mg Tablet PO (17:07)
[2024-10-28] MEDS: apixaban 5 mg Tablet PO (17:07)
[2024-10-28] MEDS: pantoprazole 40 mg SDV IVP (17:07)
[2024-10-28 17:36] LABS: Chol HDL Ratio 3.11 mg/dL (1.0-5.00); Cholesterol 146 mg/dL (0-200); HDL Cholesterol 47 mg/dL (60-100); LDL Cholesterol Calculated 83 mg/dL (50-129); LDL HDL Ratio 1.77 RATIO (0.00-3.22); Thyroid Stimulating Hormone 1.66 uIU/mL (0.27-4.20); Triglycerides 79 mg/dL (0-150)
[2024-10-28 19:57] LABS: Troponin 5 6HR 15.86 ng/L (0-15); Troponin 5 6HR Delta 0.86 ng/L (0-12)
[2024-10-28] MEDS: atorvastatin 40 mg Tablet 20 MG PO (21:05)
[2024-10-28] MEDS: hyDRALAzine 50 mg Tablet 100 MG PO (21:05)
[2024-10-28 21:12] LABS: Glucose Point of Care 272 mg/dL (70-110)
--- NOTE | 2024-10-28 22:51 | ECG_ITS ---
[employer] Test Date: 2024-10-28 Pat Name: Bertin Howe Department: Room: 269 Gender: Male Video System Repairer: : 1965 Requested By: Nicky Lopez Order Number: [id number] Tasha MD: SHANNA MIRANDA Measurements Intervals [place] Rate: 76 P: 0 NM: 0 QRS: -67 QRSD: 138 T: 72 QT: 395 QTc: 446 Interpretive Statements ATRIAL FIBRILLATION WITH ABERRANT CONDUCTION OR VENTRICULAR PREMATURE COMPLEXES INTRAVENTRICULAR CONDUCTION DELAY [130+ ms QRS DURATION] ANTEROSEPTAL MYOCARDIAL INFARCTION , OF INDETERMINATE AGE [40+ ms Q WAVE IN V1-V4] Compared to ECG 10/28/2024 15:10:00 Ventricular premature complex(es) now present Aberrant conduction of supraventricular beat(s) now present Intraventricular conduction delay now present Right bundle-branch block no longer present Left anterior fascicular block no longer present Myocardial infarct finding still present Electronically Signed On 10-28-2024 23:31:03 WATER RESOURCE ENGINEERING SPECIALIST by SHANNA MIRANDA [email or web address]
[2024-10-28] MEDS: labetalol 5 mg/mL SDV 20mL 10 MG IVP (23:53)
[2024-10-29] VITALS (11 sets, daily range): BP systolic 112–170; BP diastolic 60–98; PULSE 53–98; RESP 15–20; TEMP 36.3–36.7; O2SAT 93–96
[2024-10-29] MEDS: FUROsemide 10 mg/mL SDV 4mL 40 MG IVP ×2 (04:15→17:20)
[2024-10-29 04:55] LABS: Basophils % 0.3 %; Hematocrit 41.7 % (37-53); Lymphocytes # 0.9 10^3/uL (0.8-4.8); Lymphocytes % 8.6 %; Mean Corpuscular Hemoglobin 25.1 pg (27-33); Mean Corpuscular Volume 86.3 fl (82-101); Mean Platelet Volume 8.7 fL (7.4-10.4); Monocytes # 0.6 10^3/uL (0.2-0.9); Monocytes % 5.8 %; Neutrophils # 8.72 10^3/uL (1.8-7.7); Neutrophils % 84.4 %; Nucleated Red Blood Cells % 0 %; Platelet Count 436 10^3/cmm (157-399); Red Blood Count 4.83 10^6/uL (3.85-5.65); Red Cell Distribution Width 15.6 % (12.1-15.1); White Blood Count 10.33 10^3/uL (3.29-11.43)
[2024-10-29 05:18] LABS: Anion Gap 15.3 (5-19); Blood Urea Nitrogen 18 mg/dL (8-23); Calcium 9.6 mg/dL (8.5-10.5); Carbon Dioxide 27 mmol/L (22-29); Chloride 100 mmol/L (98-107); Creatinine Clr Calc Pharmacy 135.1189; Glomerular Filtration Rate 98.6 mL/min (90-130); Glucose 181 mg/dL (65-115); Magnesium 2.3 mg/dL (1.7-2.3); Osmolality Calculated 292 mOsm/kg (285-295); Phosphorus 3.2 mg/dL (2.5-4.5); Potassium 4.3 mmol/L (3.5-5.1); Sodium 138 mmol/L (136-145)
[2024-10-29 05:48] LABS: NT Pro B Type Natriuretic Pept 3001 pg/mL (0-125)
[2024-10-29 06:36] LABS: Glucose Point of Care 161 mg/dL (70-110)
[2024-10-29] MEDS: insulin lispro 100 unit/1 mL SUBCUT (08:20)
[2024-10-29] MEDS: escitalopram 10 mg Tablet PO (08:20)
[2024-10-29] MEDS: hyDRALAzine 50 mg Tablet 100 MG PO ×2 (08:20→17:19)
[2024-10-29] MEDS: losartan 50 mg Tablet 100 MG PO (08:21)
[2024-10-29] MEDS: apixaban 5 mg Tablet PO ×2 (08:21→17:20)
[2024-10-29] MEDS: carvedilol 25 mg Tablet 37.5 MG PO (08:22)
[2024-10-29] MEDS: metOLazone 5 MG Tablet PO (08:42)
--- NOTE | 2024-10-29 11:03 | PC.CHAP ---
Pastoral Care Encounter/Spiritual Assessment Type of Contact [] Declined superintendent schools visit [] Patient/Family/Request visit [] Outpatient visit [] Follow-up visit [] Physician referral [] Code/Alert [X] Routine visit [] Staff referral [] Actively dying [] Patient sleeping [] Family support [] [] Out of room [] Palliative care [] [] Receiving care in room [] Pre-surgical visit [] Trauma [] Long length of stay [] ICU visit [] Other: Relational/Emotional Strength [X] Patient feels connected with others/family/visitors/staff [] Distress [] Loneliness/isolation [] Abandonment Spirituality of Patient [] Person of Dominique [] Attends Shinto of their Dominique [] Believes in Prayer [] Reads Bible or Sikh materials [X] There are Spiritual issues to be addressed Grinder Set Up Operator Interventions [] Prayer [X] Active listening [] Non-anxious presence [] Spiritual/emotional support [] Crisis/trauma care [] Spiritual counseling [] Bereavement support [] Provided bereavement packet [] Provided Bible/devotional materials [] Provided toy/stuffed animal, coloring book to patient or family member [] Provided Communion [] Anointing/[place] [] Salvation [] Completed spiritual assessment [] Other: Impact on Illness or Injury [] Angry [] Fearful [X] Anxious [] Often cries [] Exhaustion [] Unable to work [] Unable to attend moravian [] Unable to walk/stand [] Unable to read [] Unable to drive [] Unable to eat/drink [] Unable to sleep [] Unable to be with family [] Patient intubated [] Other: Summary Refused Prayer, wanted to visit a min Time spent with patient 20 Min
[2024-10-29 11:59] LABS: Glucose Point of Care 153 mg/dL (70-110)
--- NOTE | 2024-10-29 15:11 | USCV_ITS ---
Bertin Howe Age: 59 Gender: M : 1965 Exam Date: 10/29/2024 06:54 Ordering Phys: Harlan Marrero MD Technologist: ERIKA [place] [facility] [place]: sob BP: 135 / 94 HR: 58 Rhythm: Sinus Technical Quality: Adequate MEASUREMENTS (Male / Female) Normal Values 2D ECHO LV Diastolic Diameter PLAX 5.2 cm 4.2 - 5.9 / 3.9 - 5.3 cm IVS Diastolic Thickness 1.1 cm 0.6 - 1.0 / 0.6 - 0.9 cm IVS Systolic Thickness 1.5 cm LVPW Diastolic Thickness 1.5 cm 0.6 - 1.0 / 0.6 - 0.9 cm LVPW Systolic Thickness 1.8 cm LVOT Diameter 2.0 cm LV Ejection Fraction 2D Teich 66.3 % LV Ejection Fraction MOD 4C 59.3 % LV Ejection Fraction MOD 2C 74.3 % LV Ejection Fraction 2C AL 73.7 % LA Diameter 4.5 cm RA Systolic Volume 4C AL 88.9 ml RA Systolic Volume 4C MOD 86.6 ml LA Sys Volume AL 84.1 cm cubed LA Sys Volume Index AL 31.5 cm cubed/m squared Aorta at Sinotubular Diameter 2.7 cm IVC Diameter 2.2 cm M-MODE LA Ao Ratio MM 1.3 AV Cusp Separation MM 2.3 cm DOPPLER AV Peak Velocity 179.3 cm/s LVOT Peak Velocity 106.0 cm/s AV Area Cont Eq vti 1.7 cm squared AV Area Cont Eq pk 1.9 cm squared MV Peak Velocity 173.0 cm/s MV Area PHT 4.0 cm squared Mitral E to A Ratio 3.3 TV Peak Velocity 233.3 cm/s TR Peak Velocity 253.0 cm/s TR Peak Gradient 25.6 mmHg TR Mean Velocity 223.0 cm/s TR Mean Gradient 20.1 mmHg TR Velocity Time Integral 85.2 cm PV Peak Velocity 118.0 cm/s RV Ejection Time 0.3 s FINDINGS Left Ventricle Normal left ventricular size, systolic function and wall thickness, with no regional wall motion abnormalities. Left ventricular ejection fraction is estimated at 60 %. Grade IV/IV diastolic dysfunction (irreversible restrictive filling pattern), severely elevated filling pressures. Right Ventricle The right ventricle is normal in size and function. Right Atrium The right atrium is normal in size. Left Atrium Moderately increased left atrial size. Mitral Valve Moderately thickened mitral valve. Moderate mitral annular calcification. No mitral valve stenosis. Trace mitral valve regurgitation. Aortic Valve Structurally normal aortic valve without significant sclerosis or stenosis. There is no aortic regurgitation. Tricuspid Valve Structurally normal tricuspid valve without significant stenosis or regurgitation. Pulmonary artery systolic pressure is normal. Pulmonic Valve Structurally normal pulmonic valve without significant stenosis. There is no pulmonic regurgitation. Pericardium Normal pericardium without effusion. Aorta Normal ascending aorta dimension. IVC The inferior vena cava appears normal. CONCLUSIONS Normal left ventricular size, systolic function and wall thickness, with no regional wall motion abnormalities. Left ventricular ejection fraction is estimated at 60 %. Grade IV/IV diastolic dysfunction (irreversible restrictive filling pattern), severely elevated filling pressures. Moderately increased left atrial size. There is no pericardial effusion. Right atrial pressure is around 5 mm of mercury. Jarred Zhang MD (Electronically Signed) Final Date: 29 October 2024 17:05 S
--- NOTE | 2024-10-29 15:53 | P.PN_ITS ---
Subjective 2 Subjective: Patient was seen this morning, he tells me that his edema and shortness of breath are improving, but continues to have swelling, increased abdominal distention, no nausea, no vomiting having bowel movements Vitals/I&O/Wt Last Vital Signs Temp 97.6 F 10/29/24 12:00 Pulse 62 10/29/24 12:00 Resp 15 10/29/24 12:00 BP 124/67 10/29/24 12:00 Pulse Ox 96 10/29/24 12:00 O2 Del Method Nasal Cannula 10/29/24 12:00 O2 Flow Rate 5 10/29/24 10:00 10/29/24 10/29/24 10/29/24 06:59 14:59 22:59 Intake Total 399 / 399 Output Total 900 / 2400 Balance -900 / -2160 399 / 399 Weight last 48 hrs Weight 142.428 kg Weight 140.614 kg Weight 136.078 kg Physical Exam 2 Const: COMMON NORMALS: no acute distress and patient oriented x3 Resp: COMMON NORMALS: normal respiratory effort, No retractions, No use of accessory muscles and clear to auscultation bilaterally AUSCULTATION: clear to auscultation bilaterally Cardio: COMMON NORMALS: regular rate, regular rhythm, S1 normal heart sound present and S2 normal heart sound present RATE: regular rate RHYTHM: r egular rhythm HEART SOUNDS: S1 normal heart sound present and S2 normal heart sound present GI: COMMON NORMALS: Normal to inspection, nondistended, normoactive bowel sounds present and non-tender Extremity: NARRATIVE EXTREMITY EXAM: 2+ pitting edema Neuro: COMMON NORMALS: patient oriented x3 Psych: COMMON NORMALS: mental status grossly normal Urinary Catheter Management: Navarro: Cath Placed During This Visit: yes Reason for Continuing Indwelling Catheter: Other Urinary Catheter Date of Insertion: 10/28/24 Data 10/29/24 04:05 10/29/24 04:05 Micro: Microbiology 10/28/24 13:39 Blood Culture - Preliminary Blood NEGATIVE TO DATE 10/28/24 13:37 Blood Culture - Preliminary Blood NEGATIVE TO DATE A&P Assessment and plan (1) Acute hypoxic respiratory failure: (2) Diastolic CHF: Plan Shortness of Breath and Bilateral Leg Swelling: The patient presents with SOB and significant bilateral leg swelling, likely due to fluid overload. The patient has a history of CHF, and the current presentation suggests an exacerbation. - lasix 40mg iv bid - Insert Navarro catheter for fluid management - Monitor fluid intake with restrictions to 1000 cc/day - Perform cardiac echo to assess heart function - Monitor closely in the hospital Acute Hypoxic Respiratory Failure: The patient is experiencing acute hypoxic respiratory failure secondary to diastolic CHF exacerbation. - Continue monitoring and supportive care Hypertension: Known history of HTN. - Continue current management Atrial Fibrillation: Known history of atrial fibrillation. - Continue current management Suicidal Ideation: Recent history of suicidal ideation, currently resolved. - Monitor mental health status Plan for today continue IV diuresis Attestations 2 Medical Necessity Statement*: Patient requires hospitalization for acute CHF requiring IV diuresis, Diagnoses Acute hypoxic respiratory failure J96.01 Diastolic CHF I50.30
[2024-10-29 16:55] LABS: Glucose Point of Care 149 mg/dL (70-110)
[2024-10-29] MEDS: carvedilol 25 mg Tablet PO (17:20)
[2024-10-29] MEDS: pantoprazole 40 mg SDV IVP (17:20)
[2024-10-29] MEDS: atorvastatin 40 mg Tablet 20 MG PO (20:50)
[2024-10-29 21:01] LABS: Glucose Point of Care 150 mg/dL (70-110)
[2024-10-30] VITALS (10 sets, daily range): BP systolic 106–131; BP diastolic 60–73; PULSE 56–74; RESP 18–22; TEMP 36.1–36.9; O2SAT 95–98
[2024-10-30 04:48] LABS: Basophils # 0.1 10^3/uL (0.0-0.1); Eosinophils # 0.1 10^3/uL (0.0-0.8); Eosinophils % 0.7 %; Hematocrit 37.4 % (37-53); Lymphocytes # 1.8 10^3/uL (0.8-4.8); Lymphocytes % 16.5 %; Mean Corpuscular HGB Conc 28.9 g/dL (30-55); Mean Corpuscular Hemoglobin 25.1 pg (27-33); Mean Corpuscular Volume 86.8 fl (82-101); Mean Platelet Volume 8.7 fL (7.4-10.4); Monocytes # 1.2 10^3/uL (0.2-0.9); Monocytes % 11.3 %; Neutrophils # 7.47 10^3/uL (1.8-7.7); Nucleated Red Blood Cells % 0 %; Platelet Count 381 10^3/cmm (157-399); Red Blood Count 4.31 10^6/uL (3.85-5.65); Red Cell Distribution Width 15.6 % (12.1-15.1); White Blood Count 10.68 10^3/uL (3.29-11.43)
[2024-10-30 05:15] LABS: NT Pro B Type Natriuretic Pept 2010 pg/mL (0-125)
[2024-10-30 05:18] LABS: Anion Gap 9.8 (5-19); Blood Urea Nitrogen 20 mg/dL (8-23); Calcium 9.4 mg/dL (8.5-10.5); Carbon Dioxide 34 mmol/L (22-29); Chloride 96 mmol/L (98-107); Creatinine Clr Calc Pharmacy 136.1267; Glomerular Filtration Rate 98.6 mL/min (90-130); Glucose 130 mg/dL (65-115); Magnesium 1.9 mg/dL (1.7-2.3); Osmolality Calculated 286 mOsm/kg (285-295); Phosphorus 3.9 mg/dL (2.5-4.5); Potassium 3.8 mmol/L (3.5-5.1); Sodium 136 mmol/L (136-145)
[2024-10-30 06:44] LABS: Glucose Point of Care 124 mg/dL (70-110)
[2024-10-30] MEDS: escitalopram 10 mg Tablet PO (08:20)
[2024-10-30] MEDS: apixaban 5 mg Tablet PO ×2 (08:21→17:00)
[2024-10-30] MEDS: FUROsemide 10 mg/mL SDV 4mL 40 MG IVP (08:25)
[2024-10-30] MEDS: metOLazone 5 MG Tablet PO (10:25)
[2024-10-30] MEDS: potassium chloride ER 20 mEq Tablet 40 MEQ PO (10:25)
[2024-10-30 11:43] LABS: Glucose Point of Care 229 mg/dL (70-110)
[2024-10-30] MEDS: insulin lispro 100 unit/1 mL SUBCUT (12:24)
--- NOTE | 2024-10-30 16:04 | P.PN_ITS ---
Subjective 2 Subjective: Patient was seen this morning, continues to complain of edema, increased anasarca, shortness of breath Vitals/I&O/Wt Last Vital Signs Temp 96.9 F L 10/30/24 12:00 Pulse 61 10/30/24 14:00 Resp 22 H 10/30/24 12:00 BP 131/62 10/30/24 12:00 Pulse Ox 95 10/30/24 12:00 O2 Del Method Nasal Cannula 10/30/24 12:00 O2 Flow Rate 5 10/29/24 20:00 10/30/24 10/30/24 10/30/24 06:59 14:59 22:59 Intake Total 520 / 520 Output Total 2500 / 3800 1750 / 1750 Balance -2500 / -3281 -1230 / -1230 Weight last 48 hrs Weight 141.43 kg Weight 142.428 kg Weight 140.614 kg Physical Exam 2 Const: COMMON NORMALS: no acute distress and patient oriented x3 Neck/C-Spine: COMMON NORMALS: no JVD Resp: COMMON NORMALS: normal respiratory effort, No retractions, No use of accessory muscles and clear to auscultation bilaterally AUSCULTATION: clear to auscultation bilaterally Cardio: COMMON NORMALS: no JVD, regular rate, regular rhythm, S1 normal heart sound present and S2 normal heart sound present RATE: regular rate RHYTHM: regular rhythm HEART SOUNDS: S1 normal heart sound present and S2 normal heart sound present GI: COMMON NORMALS: Normal to inspection, nondistended, normoactive bowel sounds present and non-tender Neuro: COMMON NORMALS: patient oriented x3 Psych: COMMON NORMALS: mental status grossly normal Skin: NARRATIVE SKIN EXAM: Plus edema, anasarca Urinary Catheter Management: Navarro: Cath Placed During This Visit: yes Reason for Continuing Indwelling Catheter: Accurate Measurement of Urinary Output in Critically Ill Patients Urinary Catheter Date of Insertion: 10/28/24 Data 10/30/24 04:29 10/30/24 04:29 Micro: Microbiology 10/28/24 13:39 Blood Culture - Preliminary Blood NEGATIVE TO DATE 10/28/24 13:37 Blood Culture - Preliminary Blood NEGATIVE TO DATE A&P Assessment and plan (1) Acute hypoxic respiratory failure: (2) Diastolic CHF: Plan Shortness of Breath and Bilateral Leg Swelling: The patient presents with SOB and significant bilateral leg swelling, likely due to fluid overload. The patient has a history of CHF, and the current presentation suggests an exacerbation. - lasix 40mg iv bid - Insert Navarro catheter for fluid management - Monitor fluid intake with restrictions to 1000 cc/day - Perform cardiac echo to assess heart function - Monitor closely in the hospital Acute Hypoxic Respiratory Failure: The patient is experiencing acute hypoxic respiratory failure secondary to diastolic CHF exacerbation. - Continue monitoring and supportive care Hypertension: Known history of HTN. - Continue current management Atrial Fibrillation: Known history of atrial fibrillation. - Continue current management Suicidal Ideation: Recent history of suicidal ideation, currently resolved. - Monitor mental health status Plan for today continue IV diuresis Attestations 2 Medical Necessity Statement*: Patient requires hospitalization for acute CHF exacerbation requiring IV diuresis Diagnoses Acute hypoxic respiratory failure J96.01 Diastolic CHF I50.30
[2024-10-30 16:39] LABS: Glucose Point of Care 111 mg/dL (70-110)
[2024-10-30] MEDS: pantoprazole 40 mg SDV IVP (17:00)
[2024-10-30] MEDS: atorvastatin 40 mg Tablet 20 MG PO (20:13)
[2024-10-30 21:10] LABS: Glucose Point of Care 186 mg/dL (70-110)
[2024-10-31] VITALS (11 sets, daily range): BP systolic 115–149; BP diastolic 52–89; PULSE 59–79; RESP 15–18; TEMP 36.6–36.9; O2SAT 94–97
[2024-10-31] MEDS: FUROsemide 10 mg/mL SDV 4mL 40 MG IVP ×2 (03:22→16:51)
[2024-10-31 04:49] LABS: Basophils # 0.1 10^3/uL (0.0-0.1); Basophils % 0.8 %; Eosinophils # 0.2 10^3/uL (0.0-0.8); Eosinophils % 1.9 %; Hematocrit 38.7 % (37-53); Lymphocytes # 1.7 10^3/uL (0.8-4.8); Lymphocytes % 17.9 %; Mean Corpuscular HGB Conc 29.2 g/dL (30-55); Mean Corpuscular Hemoglobin 25.5 pg (27-33); Mean Corpuscular Volume 87.4 fl (82-101); Monocytes # 1.3 10^3/uL (0.2-0.9); Monocytes % 13.4 %; Neutrophils % 65.6 %; Nucleated Red Blood Cells % 0 %; Platelet Count 378 10^3/cmm (157-399); Red Blood Count 4.43 10^6/uL (3.85-5.65); Red Cell Distribution Width 15.4 % (12.1-15.1); White Blood Count 9.46 10^3/uL (3.29-11.43)
[2024-10-31 04:57] LABS: NT Pro B Type Natriuretic Pept 1563 pg/mL (0-125)
[2024-10-31 05:13] LABS: Slide Review Slide Review Perform
[2024-10-31 05:36] LABS: Blood Urea Nitrogen 17 mg/dL (8-23); Calcium 9.2 mg/dL (8.5-10.5); Carbon Dioxide 27 mmol/L (22-29); Chloride 91 mmol/L (98-107); Creatinine Clr Calc Pharmacy 151.7143; Glucose 114 mg/dL (65-115); Osmolality Calculated 282 mOsm/kg (285-295); Phosphorus 3.3 mg/dL (2.5-4.5); Sodium 135 mmol/L (136-145)
[2024-10-31 05:37] LABS: Anion Gap 20.7 (5-19); Potassium 3.7 mmol/L (3.5-5.1)
[2024-10-31 06:47] LABS: Glucose Point of Care 130 mg/dL (70-110)
[2024-10-31] MEDS: escitalopram 10 mg Tablet PO (08:46)
[2024-10-31] MEDS: apixaban 5 mg Tablet PO ×2 (08:46→17:28)
[2024-10-31] MEDS: potassium chloride ER 20 mEq Tablet PO ×2 (09:44→20:54)
[2024-10-31 12:15] LABS: Glucose Point of Care 208 mg/dL (70-110)
[2024-10-31] MEDS: insulin lispro 100 unit/1 mL SUBCUT (12:51)
[2024-10-31] MEDS: pantoprazole 40 mg SDV IVP (16:50)
[2024-10-31 16:52] LABS: Glucose Point of Care 122 mg/dL (70-110)
--- NOTE | 2024-10-31 17:18 | P.PN_ITS ---
Subjective 2 Subjective: Patient was seen this morning, denies any fevers, no chills, tells me his edema is improving, Vitals/I&O/Wt Last Vital Signs Temp 97.9 F 10/31/24 16:58 Pulse 60 10/31/24 16:58 Resp 16 10/31/24 16:58 BP 123/72 10/31/24 16:58 Pulse Ox 97 10/31/24 16:58 O2 Del Method Nasal Cannula 10/31/24 16:58 O2 Flow Rate 5 10/31/24 10:00 10/31/24 10/31/24 10/31/24 06:59 14:59 22:59 Intake Total 480 / 480 Output Total 2500 / 5000 3100 / 3100 Balance -2500 / -4120 -2620 / -2620 Weight last 48 hrs Weight 136.35 kg Weight 141.43 kg Physical Exam 2 Const: COMMON NORMALS: no acute distress and patient oriented x3 Resp: COMMON NORMALS: normal respiratory effort, No retractions, No use of accessory muscles and clear to auscultation bilaterally AUSCULTATION: clear to auscultation bilaterally Cardio: COMMON NORMALS: regular rate, regular rhythm, S1 normal heart sound present and S2 normal heart sound present RATE: regular rate RHYTHM: r egular rhythm HEART SOUNDS: S1 normal heart sound present and S2 normal heart sound present GI: COMMON NORMALS: Normal to inspection, nondistended, normoactive bowel sounds present and non-tender Extremity: NARRATIVE EXTREMITY EXAM: 2+ edema Neuro: COMMON NORMALS: patient oriented x3 Psych: COMMON NORMALS: mental status grossly normal Urinary Catheter Management: Navarro: Cath Placed During This Visit: yes Reason for Continuing Indwelling Catheter: Other Urinary Catheter Date of Insertion: 10/28/24 Data 10/31/24 04:07 10/31/24 04:07 A&P Assessment and plan (1) Acute hypoxic respiratory failure: (2) Diastolic CHF: Plan Shortness of Breath and Bilateral Leg Swelling: The patient presents with SOB and significant bilateral leg swelling, likely due to fluid overload. The patient has a history of CHF, and the current presentation suggests an exacerbation. - lasix 40mg iv bid - Insert Navarro catheter for fluid management - Monitor fluid intake with restrictions to 1000 cc/day - Perform cardiac echo to assess heart function - Monitor closely in the hospital Acute Hypoxic Respiratory Failure: The patient is experiencing acute hypoxic respiratory failure secondary to diastolic CHF exacerbation. - Continue monitoring and supportive care Hypertension: Known history of HTN. - Continue current management Atrial Fibrillation: Known history of atrial fibrillation. - Continue current management Suicidal Ideation: Recent history of suicidal ideation, currently resolved. - Monitor mental health status Plan for today continue IV diuresis Attestations 2 Medical Necessity Statement*: Patient requires hospitalization for CHF exacerbation requiring IV diuresis Diagnoses Acute hypoxic respiratory failure J96.01 Diastolic CHF I50.30
[2024-10-31 20:11] LABS: Glucose Point of Care 168 mg/dL (70-110)
[2024-10-31] MEDS: atorvastatin 40 mg Tablet 20 MG PO (20:54)
[2024-11-01] VITALS (9 sets, daily range): BP systolic 99–151; BP diastolic 60–92; PULSE 63–86; RESP 16–19; TEMP 36.8–37.4; O2SAT 94–96
[2024-11-01] MEDS: FUROsemide 10 mg/mL SDV 4mL 40 MG IVP ×2 (03:54→17:17)
[2024-11-01 05:23] LABS: Basophils % 0.4 %; Eosinophils # 0.3 10^3/uL (0.0-0.8); Eosinophils % 2.9 %; Hematocrit 41.6 % (37-53); Lymphocytes % 10.7 %; Mean Corpuscular HGB Conc 29.8 g/dL (30-55); Mean Corpuscular Hemoglobin 25.3 pg (27-33); Mean Corpuscular Volume 84.7 fl (82-101); Mean Platelet Volume 8.3 fL (7.4-10.4); Monocytes # 0.9 10^3/uL (0.2-0.9); Monocytes % 9.2 %; Neutrophils % 76.2 %; Nucleated Red Blood Cells % 0 %; Platelet Count 352 10^3/cmm (157-399); Red Blood Count 4.91 10^6/uL (3.85-5.65); Red Cell Distribution Width 14.9 % (12.1-15.1); White Blood Count 9.45 10^3/uL (3.29-11.43)
[2024-11-01 06:01] LABS: Alanine Aminotransferase 14 U/L (0-41); Albumin Level 3.4 g/dL (3.5-5.2); Alkaline Phosphatase 69 U/L (40-130); Anion Gap 10.3 (5-19); Aspartate Amino Transferase 19 U/L (0-40); Blood Urea Nitrogen 16 mg/dL (8-23); Calcium 9.4 mg/dL (8.5-10.5); Chloride 90 mmol/L (98-107); Creatinine Clr Calc Pharmacy 130.9106; Globulin 3.2 g/dL (1.3-4.6); Glomerular Filtration Rate 98.6 mL/min (90-130); Glucose 129 mg/dL (65-115); Magnesium 1.6 mg/dL (1.7-2.3); Osmolality Calculated 291 mOsm/kg (285-295); Phosphorus 2.9 mg/dL (2.5-4.5); Potassium 3.3 mmol/L (3.5-5.1); Sodium 139 mmol/L (136-145); Total Bilirubin 0.5 mg/dL (0.15-1.2); Total Protein 6.6 g/dL (6.6-8.7)
[2024-11-01 06:03] LABS: Carbon Dioxide 42 mmol/L (22-29); NT Pro B Type Natriuretic Pept 1368 pg/mL (0-125)
[2024-11-01 06:25] LABS: Glucose Point of Care 126 mg/dL (70-110)
[2024-11-01] MEDS: potassium chloride ER 20 mEq Tablet PO ×2 (08:57→20:20)
[2024-11-01] MEDS: escitalopram 10 mg Tablet PO (08:57)
[2024-11-01] MEDS: potassium chloride ER 20 mEq Tablet 40 MEQ PO (08:58)
[2024-11-01] MEDS: acetaZOLAMIDE 250 mg Tablet PO ×2 (08:58→20:20)
[2024-11-01] MEDS: apixaban 5 mg Tablet PO ×2 (08:58→17:17)
[2024-11-01 11:27] LABS: Glucose Point of Care 176 mg/dL (70-110)
[2024-11-01] MEDS: insulin lispro 100 unit/1 mL SUBCUT ×2 (11:47→17:16)
--- NOTE | 2024-11-01 15:50 | P.PN_ITS ---
Subjective 2 Subjective: Patient was seen this morning, denies any fevers, no chills, no cough, no nausea, no vomiting he is edema is improving Vitals/I&O/Wt Last Vital Signs Temp 98.4 F 11/01/24 15:31 Pulse 72 11/01/24 15:31 Resp 19 H 11/01/24 15:31 BP 191/68 11/01/24 15:31 Pulse Ox 94 11/01/24 15:31 O2 Del Method Nasal Cannula 11/01/24 15:31 O2 Flow Rate 3 11/01/24 03:52 11/01/24 11/01/24 11/01/24 06:59 14:59 22:59 Intake Total 200 / 920 360 / 360 Output Total 650 / 6750 2225 / 2225 Balance -450 / -5830 -1865 / -1865 Weight last 48 hrs Weight 133.039 kg Weight 136.35 kg Physical Exam 2 Const: COMMON NORMALS: no acute distress and patient oriented x3 Resp: COMMON NORMALS: normal respiratory effort, No retractions, No use of accessory muscles and clear to auscultation bilaterally AUSCULTATION: clear to auscultation bilaterally Cardio: COMMON NORMALS: regular rate, regular rhythm, S1 normal heart sound present and S2 normal heart sound present RATE: regular rate RHYTHM: r egular rhythm HEART SOUNDS: S1 normal heart sound present and S2 normal heart sound present GI: COMMON NORMALS: Normal to inspection, nondistended, normoactive bowel sounds present and non-tender Extremity: NARRATIVE EXTREMITY EXAM: 1+ edema, continues to have anasarca Neuro: COMMON NORMALS: patient oriented x3 Psych: COMMON NORMALS: mental status grossly normal Urinary Catheter Management: Navarro: Cath Placed During This Visit: yes, but has since been removed by the nurse Reason for Continuing Indwelling Catheter: Decision to DC Catheter Urinary Catheter Date of Insertion: 10/28/24 Date Urinary Catheter Removed: 11/01/24 Time Urinary Catheter Discontinued: 14:01 Data 11/01/24 04:57 11/01/24 04:57 A&P Assessment and plan (1) Acute hypoxic respiratory failure: (2) Diastolic CHF: Plan Shortness of Breath and Bilateral Leg Swelling: The patient presents with SOB and significant bilateral leg swelling, likely due to fluid overload. The patient has a history of CHF, and the current presentation suggests an exacerbation. - lasix 40mg iv bid - Insert Navarro catheter for fluid management - Monitor fluid intake with restrictions to 1000 cc/day - Perform cardiac echo to assess heart function - Monitor closely in the hospital Acute Hypoxic Respiratory Failure: The patient is experiencing acute hypoxic respiratory failure secondary to diastolic CHF exacerbation. - Continue monitoring and supportive care Hypertension: Known history of HTN. - Continue current management Atrial Fibrillation: Known history of atrial fibrillation. - Continue current management Suicidal Ideation: Recent history of suicidal ideation, currently resolved. - Monitor mental health status Plan for today continue IV diuresis, 1 dose metolazone, -16 L so far Attestations 2 Medical Necessity Statement*: Patient requires hospitalization for acute hypoxic respiratory failure secondary to systolic CHF Diagnoses Acute hypoxic respiratory failure J96.01 Diastolic CHF I50.30
[2024-11-01 16:54] LABS: Glucose Point of Care 154 mg/dL (70-110)
[2024-11-01] MEDS: pantoprazole 40 mg SDV IVP (17:17)
[2024-11-01] MEDS: ondansetron 2 mg/ML SDV 2 mL 4 MG IVP (17:20)
[2024-11-01 20:05] LABS: Glucose Point of Care 154 mg/dL (70-110)
[2024-11-01] MEDS: atorvastatin 40 mg Tablet 20 MG PO (20:20)
[2024-11-02] VITALS (10 sets, daily range): BP systolic 130–147; BP diastolic 81–94; PULSE 61–88; RESP 16–18; TEMP 36.4–36.8; O2SAT 88–98
[2024-11-02 03:09] LABS: Basophils % 0.6 %; Eosinophils # 0.2 10^3/uL (0.0-0.8); Eosinophils % 2.4 %; Hematocrit 44.2 % (37-53); Lymphocytes # 0.6 10^3/uL (0.8-4.8); Mean Corpuscular HGB Conc 29.2 g/dL (30-55); Mean Corpuscular Hemoglobin 24.9 pg (27-33); Mean Corpuscular Volume 85.2 fl (82-101); Monocytes # 0.8 10^3/uL (0.2-0.9); Monocytes % 11.6 %; Neutrophils % 75.6 %; Nucleated Red Blood Cells % 0 %; Platelet Count 319 10^3/cmm (157-399); Red Blood Count 5.19 10^6/uL (3.85-5.65); White Blood Count 7.14 10^3/uL (3.29-11.43)
[2024-11-02 03:47] LABS: Alanine Aminotransferase 16 U/L (0-41); Albumin Level 3.6 g/dL (3.5-5.2); Alkaline Phosphatase 78 U/L (40-130); Anion Gap 10.6 (5-19); Aspartate Amino Transferase 19 U/L (0-40); Blood Urea Nitrogen 20 mg/dL (8-23); Calcium 9.1 mg/dL (8.5-10.5); Carbon Dioxide 40 mmol/L (22-29); Chloride 90 mmol/L (98-107); Creatinine Clr Calc Pharmacy 116.3649; Globulin 3.6 g/dL (1.3-4.6); Glomerular Filtration Rate 86.1 mL/min (90-130); Glucose 147 mg/dL (65-115); Magnesium 1.8 mg/dL (1.7-2.3); Osmolality Calculated 289 mOsm/kg (285-295); Potassium 3.6 mmol/L (3.5-5.1); Sodium 137 mmol/L (136-145); Total Bilirubin 0.4 mg/dL (0.15-1.2); Total Protein 7.2 g/dL (6.6-8.7)
[2024-11-02 03:49] LABS: NT Pro B Type Natriuretic Pept 1224 pg/mL (0-125)
[2024-11-02 06:28] LABS: Glucose Point of Care 135 mg/dL (70-110)
[2024-11-02] MEDS: apixaban 5 mg Tablet PO (07:56)
[2024-11-02] MEDS: escitalopram 10 mg Tablet PO (07:56)
[2024-11-02] MEDS: potassium chloride ER 20 mEq Tablet PO (07:56)
[2024-11-02] MEDS: acetaZOLAMIDE 250 mg Tablet PO (07:57)
[2024-11-02 10:42] LABS: Glucose Point of Care 219 mg/dL (70-110)
[2024-11-02] MEDS: metOLazone 5 MG Tablet PO (11:13)
--- NOTE | 2024-11-02 11:28 | PM.DCS ---
Discharge Providers Date of Admission: 10/28/24 14:38 Date of Discharge: November 02, 2024 Attending Provider at Admission: Harlan Marrero MD Attending Provider at Discharge: Harlan Marrero MD Primary Care Provider: Brooke Geller MD Diagnoses at Discharge Discharge Diagnosis (1) Acute hypoxic respiratory failure: Status: Acute (2) Diastolic CHF: Status: Acute Reason for Visit Reason for Visit: sob Hospital Course Hospital Course Bertin Howe is a 59 year old male with a past medical history of morbid obesity, atrial fibrillation, CHF, hyperlipidemia, hypertension, who presents [facility] for shortness of breath The patient reports that the swelling worsened during a recent stay in the neuropsychiatric unit for suicidal ideation. He denies chest pain, smoking, alcohol, or drug use. denies fever, nausea, vomiting, diarrhea, or recent falls. The patient does not use oxygen at home and walks without assistance. He reports a little back pain and some abdominal distension. The patient has not had any blood clots in the past. This is a 59-year-old male who presents [facility] for diastolic CHF exacerbation, fluid overload, lower extreme edema, he received IV diuresis, diuresed over 16 L, clinically improved. Will be discharged on Lasix 40 twice daily, with potassium replacement therapy with fluid restrictions, with close follow-up cardiology as outpatient Patient recently was admitted for suicidal ideation, during his hospitalization he denied any suicidal ideation, no homicidal ideation, denied feeling down or depressed or sad attempts were made to place patient to care home facility, however this was met with significant difficulty, given patient's psychiatric history, and reported criminal history, thus after multiple and prolonged attempts, he was discharged home, follow-up with primary care, follow-up cardiology Physical Exam Const: COMMON NORMALS: no acute distress and patient oriented x3 Resp: COMMON NORMALS: normal respiratory effort, No retractions, No use of accessory muscles and clear to auscultation bilaterally AUSCULTATION: clear to auscultation bilaterally Cardio: COMMON NORMALS: regular rate, regular rhythm, S1 normal heart sound present and S2 normal heart sound present RATE: regular rate RHYTHM: regular rhythm HEART SOUNDS: S1 normal heart sound present and S2 normal heart sound present GI: COMMON NORMALS: Normal to inspection, nondistended, normoactive bowel sounds present and non-tender Extremity: COMMON NORMALS: no pedal edema Neuro: COMMON NORMALS: patient oriented x3 Psych: COMMON NORMALS: mental status grossly normal Urinary Catheter Management: Navarro: Cath Placed During This Visit: yes, but has since been removed by the nurse Reason for Continuing Indwelling Catheter: Decision to DC Catheter Urinary Catheter Date of Insertion: 10/28/24 Date Urinary Catheter Removed: 11/01/24 Time Urinary Catheter Discontinued: 14:01 Discharge Data Studies Completed and Pending Completed Studies During Hospitalization Category Date Time Status XR chest 1V portable [id number] Stat Exams 10/28/24 13:14 Completed CV. echo complete* [id number] Routine Ultrasound 10/29/24 15:11 Completed Pending at discharge Category Date Time Status Blood Culture Stat Lab 10/28/24 13:39 Results Complete Blood Count w/Auto AM LABS Lab 11/03/24 04:00 Ordered Comprehensive Metabolic Panel AM LABS Lab 11/03/24 04:00 Ordered Magnesium AM LABS Lab 11/03/24 04:00 Ordered NT Pro B Type Natriuretic Pept QAM Lab 11/03/24 06:00 Ordered Phosphorus AM LABS Lab 11/03/24 04:00 Ordered Radiology Impressions Chest X-Ray 10/28/24 13:14 IMPRESSION: Abnormal chest most compatible with congestive heart failure. Laboratory Results WBC 7.14 10^3/uL (3.29-11.43) 11/02/24 02:26 RBC 5.19 10^6/uL (3.85-5.65) 11/02/24 02:26 Hgb 12.90 g/dL (11.27-16.99) 11/02/24 02:26 Hct 44.2 % (37-53) 11/02/24 02:26 MCV 85.2 fl (82-101) 11/02/24 02:26 MCH 24.9 pg (27-33) L 11/02/24 02:26 MCHC 29.2 g/dL (30-55) L 11/02/24 02:26 RDW 15.0 % (12.1-15.1) 11/02/24 02:26 Plt Count 319 10^3/cmm (157-399) 11/02/24 02:26 MPV 9.0 fL (7.4-10.4) 11/02/24 02:26 Neut % (Auto) 75.6 % 11/02/24 02:26 Lymph % (Auto) 9.0 % 11/02/24 02: [place] % (Auto) 11.6 % 11/02/24 02: Eos % (Auto) 2.4 % 11/02/24 02: Baso % (Auto) 0.6 % 11/02/24 02: Neut # (Auto) 5.40 10^3/uL (1.8-7.7) 11/02/24 02: Lymph # (Auto) 0.6 10^3/uL (0.8-4.8) L 11/02/24 02: [place] # (Auto) 0.8 10^3/uL (0.2-0.9) 11/02/24 02: Eos # (Auto) 0.2 10^3/uL (0.0-0.8) 11/02/24 02: Baso # (Auto) 0.0 10^3/uL (0.0-0.1) 11/02/24 02: Nucleated RBC % (auto) 0 % 11/02/24 02: Nucleated RBCs # 0.0 /100WBC 11/02/24 02: ESR 104 mm/hr (0-10) H 10/28/24 13:37 Specimen Type Arterial 10/28/24 13:20 Sample Site Brachial, left 10/28/24 13:20 ABG pH 7.45 (7.35-7.45) 10/28/24 13:20 ABG pCO2 42.8 mmHg (35-45) 10/28/24 13:20 ABG pO2 70.2 mmHg (80.0-100.0) L 10/28/24 13:20 ABG PO2/FiO2 Ratio 175 10/28/24 13:20 ABG HCO3 30.0 mmol/L (22-26) H 10/28/24 13:20 ABG O2 Saturation 90.0 10/28/24 13:20 ABG Base Excess 5.4 mmol/L (-2.0-2.0) H 10/28/24 13:20 Reginaldo Test Pos 10/28/24 13:20 A-a O2 Gradient 20.6 mmHg (5-10) H 10/28/24 13:20 Hematocrit 38.1 % (42-52) L 10/28/24 13:20 Hgb O2 Saturation 87.8 % (95-100) L 10/28/24 13:20 Carboxyhemoglobin 1.4 %THgb (0.4-20.1) 10/28/24 13:20 Methemoglobin 1.1 % (0.4-1.5) 10/28/24 13:20 Total Hemoglobin 12.4 g/dL (14-18) L 10/28/24 13:20 Sodium 140.0 mmol/L (131-143) 10/28/24 13:20 Potassium 4.1 mmol/L (3.5-5.0) 10/28/24 13:20 Glucose 146.0 mg/dL (70-115) H 10/28/24 13:20 Ionized Calcium 1.2 mmol/L (1.1-1.4) 10/28/24 13:20 O2 Delivery Device Nc 10/28/24 13:20 O2 Liters/Min 5.0 % 10/28/24 13:20 FiO2 40.0 % 10/28/24 13:20 Hotel Or Motel Manager ID Cak 10/28/24 13:20 Sodium 137 mmol/L (136-145) 11/02/24 02:26 Potassium 3.6 mmol/L (3.5-5.1) 11/02/24 02:26 Chloride 90 mmol/L (98-107) L 11/02/24 02:26 Carbon Dioxide 40 mmol/L (22-29) H 11/02/24 02:26 Anion Gap 10.6 (5-19) 11/02/24 02:26 BUN 20 mg/dL (8-23) 11/02/24 02:26 Creatinine 0.9 mg/dL (0.7-1.2) 11/02/24 02:26 GFR Calculation 86.1 mL/min (90-130) L 11/02/24 02:26 Glucose 147 mg/dL (65-115) H 11/02/24 02:26 POC Glucose 219 mg/dL (70-110) H 11/02/24 10:29 Estimat Average Glucose 163 10/28/24 13:37 Hemoglobin A1c 7.3 % (4.0-6.0) H 10/28/24 13:37 Calculated Osmolality 289 mOsm/kg (285-295) 11/02/24 02:26 Lactic Acid 1.7 mmol/L (0.5-2.2) 10/28/24 13:37 Calcium 9.1 mg/dL (8.5-10.5) 11/02/24 02:26 Phosphorus 3.0 mg/dL (2.5-4.5) 11/02/24 02:26 Magnesium 1.8 mg/dL (1.7-2.3) 11/02/24 02:26 Total Bilirubin 0.4 mg/dL (0.15-1.2) 11/02/24 02:26 AST 19 U/L (0-40) 11/02/24 02:26 ALT 16 U/L (0-41) 11/02/24 02:26 Alkaline Phosphatase 78 U/L (40-130) 11/02/24 02:26 Troponin T Baseline 15 ng/L (0-15) 10/28/24 13:37 Troponin T 120 Minute 13.92 ng/L (0-15) 10/28/24 15:48 Delta Troponin T -1.08 ABS# (0-10) L 10/28/24 15:48 Troponin T Hi Sens 6Hr 15.86 ng/L (0-15) H 10/28/24 18:53 Troponin T Hi Sens 6Hr Delta 0.86 ng/L (0-12) 10/28/24 18:53 C-Reactive Protein 70.2 mg/L (0.0-4.9) H 10/28/24 13:37 NT-Pro-B Natriuret Pep 1224 pg/mL (0-125) H 11/02/24 02:26 Total Protein 7.2 g/dL (6.6-8.7) 11/02/24 02:26 Albumin 3.6 g/dL (3.5-5.2) 11/02/24 02:26 Globulin 3.6 g/dL (1.3-4.6) 11/02/24 02:26 Triglycerides 79 mg/dL (0-150) 10/28/24 13:37 Cholesterol 146 mg/dL (0-200) 10/28/24 13:37 LDL Cholesterol, Calc 83 mg/dL (50-129) 10/28/24 13:37 HDL Cholesterol 47 mg/dL (60-100) L 10/28/24 13:37 LDL/HDL Ratio 1.77 RATIO (0.00-3.22) 10/28/24 13:37 Cholesterol/HDL Ratio 3.11 mg/dL (1.0-5.00) 10/28/24 13:37 Procalcitonin 0.05 ng/mL (0-0.5) 10/28/24 13:37 TSH 1.66 uIU/mL (0.27-4.20) 10/28/24 13:37 Urine Color Yellow (Yellow) 10/28/24 15:30 Urine Appearance Cloudy (CLEAR) A 10/28/24 15:30 Urine pH 7.0 (5-7) 10/28/24 15:30 Ur Specific [place] 1.013 (1.005-1.030) 10/28/24 15:30 Urine Protein 3+ (Negative) A 10/28/24 15:30 Urine Glucose (UA) Negative (Normal) 10/28/24 15:30 Urine Ketones Trace (Negative) 10/28/24 15:30 Urine Blood Non-haemolysed trace (Negative) 10/28/24 15:30 Urine Nitrate Negative (Negative) 10/28/24 15:30 Urine Bilirubin Negative (Negative) 10/28/24 15:30 Urine Urobilinogen 1.0 mg/dL (Negative) 10/28/24 15:30 Ur Leukocyte Esterase Negative (Negative) 10/28/24 15:30 Urine RBC 3-5 /hpf (0-2) 10/28/24 15:30 Urine WBC 0-5 /hpf (0-5) 10/28/24 15:30 Ur Squamous Epith Cells 0-5 /hpf (0-5) 10/28/24 15:30 Amorphous Sediment Not Reportable 10/28/24 15:30 Urine Bacteria None seen /hpf (NONE) 10/28/24 15:30 Hyaline Casts 2.87 /lpf 10/28/24 15:30 Adenovirus (PCR) Not detected (NOT DETECT) 10/28/24 14:01 C. pneumoniae DNA (PCR) Not detected (NOT DETECT) 10/28/24 14:01 Coronavirus 229E (PCR) Not detected (NOT DETECT) 10/28/24 14:01 Human Metapneumovir PCR Not detected (NOT DETECT) 10/28/24 14:01 Influenza A (H1) PCR Not detected (NOT DETECT) 10/28/24 14:01 Influ A (H1/09) PCR Not detected (NOT DETECT) 10/28/24 14:01 Influenza A (H3) PCR Not detected (NOT DETECT) 10/28/24 14:01 Influenza Type A (PCR) Not detected (NOT DETECT) 10/28/24 14:01 Influenza Type B (PCR) Not detected (NOT DETECT) 10/28/24 14:01 M. pneumoniae (PCR) Not detected (NOT DETECT) 10/28/24 14:01 Parainfluenza 1 (PCR) Not detected (NOT DETECT) 10/28/24 14:01 Parainfluenza 2 (PCR) Not detected (NOT DETECT) 10/28/24 14:01 Parainfluenza 3 (PCR) Not detected (NOT DETECT) 10/28/24 14:01 Parainfluenza 4 (PCR) Not detected (NOT DETECT) 10/28/24 14:01 RSV Type A (PCR) Not detected (NOT DETECT) 10/28/24 14:01 RSV Type B (PCR) Not detected (NOT DETECT) 10/28/24 14:01 Entero/Rhino (PCR) Not detected (NOT DETECT) 10/28/24 14:01 SARS-CoV-2 (PCR) Not detected (NOT DETECT) 10/28/24 14:01 Vitals Last Vital Signs Temp 98.3 F 11/02/24 08:00 Pulse 63 11/02/24 08:56 Resp 16 11/02/24 08:56 BP 130/81 11/02/24 08:00 Pulse Ox 98 11/02/24 09:07 O2 Del Method Room Air 11/02/24 09:07 O2 Flow Rate 2 11/02/24 08:56 Discharge Plan Discharge Patient Disposition: Home Condition: Stable Prescriptions: Continued metformin 500 mg tablet extended release 24hr 500 mg PO BID Qty: 60 6RF Eliquis 5 mg tablet 5 mg PO BID Qty: 180 3RF simvastatin 20 mg tablet 20 mg PO BEDTIME dapagliflozin propanediol [Farxiga] 10 mg tablet 10 mg PO DAILY escitalopram oxalate 10 mg Tablet 10 mg PO DAILY 30 Days Qty: 30 1RF furosemide 40 mg tablet 40 mg PO BID 30 Days Qty: 60 6RF potassium chloride 20 mEq tablet extended release 20 meq PO BID 30 Days Qty: 60 0RF Changed carvedilol 25 mg tablet 12.5 mg PO BID 30 Days Qty: 30 0RF Discontinued amlodipine 10 mg tablet 10 mg PO DAILY Qty: 90 3RF hydralazine 100 mg tablet 100 mg PO TID Qty: 90 6RF irbesartan 300 mg tablet 300 mg PO DAILY Qty: 30 6RF Discharge Orders: Discharge Order (Routine); Ordered 11/02/24 Ordered By: Harlan Marrero Other Ambulatory Orders: DME: Oxygen (Order) Location: None Selected Ordered By: Harlan Marrero Referrals: Jarred Zhang MD [Physician] - 1 week (We have notified your physician's clinic of the need for a follow-up appointment to be scheduled. If you have not heard from them within the next 2 business days, please call them directly. ) Destiny Burk FNP [Referring] - 11/04/24 10:30 am (APPOINTMENT IN [facility]) Discharge Diet: Cardiac Discharge Activity: Resume usual activity Patient Instructions: Heart Failure (GEN), CHF Stoplight, Opioid Safety Activity Restrictions/Additional Instructions: - Please follow-up with cardiology in 1 week -Minimize fluid intake to 1 L of fluid a day -See your primary care provider recheck your kidney function and your potassium -If you develop any chest pain please go to the emergency room Energy Assistance / Weatherization [facility] [address] [place] [address] [employer] [address] [place], [place] [phone] Thursday thru 7:30am to 4:30pm [employer] [facility] [address] [place] [address] [facility] [address] [place] [address] [address] [facility]) [place] [address] You are able to utilize [facility] for showering and resources until your water is restored. Medicaid Transportation Discharge Attestations Time Spent in Discharge Care*: greater than 30 min Quality Metrics Clinical Quality Measures [ No reported AMI, CVA or VTE this stay] Coding Level of Care Code 91227 Total time (in minutes) for Discharge: 45 Diagnoses Acute hypoxic respiratory failure J96.01 Diastolic CHF I50.30
[2024-11-02] MEDS: insulin lispro 100 unit/1 mL SUBCUT (12:16)
--- NOTE | 2024-11-02 14:01 | PC.NURSE ---
Patient was waiting for an Home O2 Eval to be completed. Patient qualified for 2 liters. Waiting for oxygen to be delivered now.
--- NOTE | 2024-11-02 15:55 | PC.NURSE ---
Discussed discharge with patient. Discussed follow up appointments, new medications and stopped medications. Patient had meds delivered to bedside, oxygen delivered to bedside and ride set up. Patient verbalized understanding.
--- NOTE | 2024-11-02 16:29 | PC.NURSE ---
Discussed CHF stop light with patient upon discharge.
== END 2024-11-02 16:30 | disposition home or self-care (01) | DRG 291 ==
LOC: ER 14:22 → MEDSURG 15:13
PROVIDERS: Admitting Provider Family Medicine; Emergency Provider Emergency Medicine; PCP Internal Medicine; Visit Provider Family Medicine
DX: I13.0 Hypertensive heart and chronic kidney disease with heart failure and stage 1 through stage 4 chronic kidney disease, or unspecified chronic kidney disease (principal); I50.33 Acute on chronic diastolic (congestive) heart failure; J96.01 Acute respiratory failure with hypoxia; E11.22 Type 2 diabetes mellitus with diabetic chronic kidney disease; N18.2 Chronic kidney disease, stage 2 (mild); Z79.84 Long term (current) use of oral hypoglycemic drugs; I48.91 Unspecified atrial fibrillation; Z79.01 Long term (current) use of anticoagulants; E78.5 Hyperlipidemia, unspecified; F43.25 Adjustment disorder with mixed disturbance of emotions and conduct; Z87.891 Personal history of nicotine dependence; Z79.02 Long term (current) use of antithrombotics/antiplatelets
CPT/HCPCS: 36415; 36416; 36600; 51702; 71045; 80048; 80051; 80053; 80061; 81001; 82330; 82805; 82962; 83036; 83605; 83735; 83880; 84100; 84145; 84443; 84484; 85025; 85651; 86140; 87040; 87486; 87581; 87633; 93005; 93306; 94664; 94760; 96372; 96374; 97161; 97165; 99285; J1815; J1940; J2405; J2470; J3490

== ENCOUNTER 2024-12-30 12:53 | Inpatient (IN) | payer MEDICAID, SELFPAY ==
[2024-12-30] VITALS (10 sets, daily range): BP systolic 108–194; BP diastolic 42–109; PULSE 60–82; RESP 16–22; TEMP 36.8–37.2; O2SAT 91–100
--- NOTE | 2024-12-30 13:37 | XR_ITS ---
WS: [id number] Left knee, 3 views, 12/30/2024 Clinical Data: pain Comparison: Left leg, 06/14/2021 Findings: No fractures or dislocations are seen. There is minimal medial joint compartment narrowing. The posterior left patella shows mild irregularity. The soft tissues are unremarkable. XR/XR knee LT 3V* [id number] Impression: Minimal osteoarthritis of the left knee.
--- NOTE | 2024-12-30 16:48 | XRR_ITS ---
PROCEDURE INFORMATION: Exam: XR Chest Exam date and time: 12/30/2024 5:04 PM Age: 59 years old Clinical indication: Dyspnea; SOB TECHNIQUE: Imaging protocol: Radiologic exam of the chest. Views: 1 view. COMPARISON: CR XR chest 1V portable [id number] 10/28/2024 1:40 PM FINDINGS: Lungs: Unremarkable. No consolidation. Pleural spaces: Unremarkable. No pleural effusion. No pneumothorax. Heart/Mediastinum: Cardiomegaly Bones/joints: Unremarkable. XR/XR chest 1V portable [id number] IMPRESSION: No acute cardiopulmonary findings.
--- NOTE | 2024-12-30 17:10 | USR_ITS ---
PROCEDURE INFORMATION: Exam: US Duplex Left Lower Extremity Veins, Limited Exam date and time: 12/30/2024 6:27 PM Age: 59 years old Clinical indication: Pain; Leg, lower; Left; Additional info: knee pain, swelling, erythema; R/O dvt TECHNIQUE: Imaging protocol: Real-time duplex ultrasound of the left extremity with 2-D ashton scale, color Doppler flow and spectral waveform analysis including responses to compression and other maneuvers (when performed) with image documentation. Limited exam focused on the left lower extremity veins. COMPARISON: CR XR knee LT 3V* [id number] 12/30/2024 1:31 PM FINDINGS: Left deep veins: Common femoral artery was not imaged. The femoral, proximal profunda femoral and popliteal veins are patent without thrombus. Normal Doppler waveforms. Normal compressibility and/or augmentation response. Superficial veins: Greater saphenous vein at the saphenofemoral junction is patent without thrombus. Soft tissues: Unremarkable. US/[place] [id number] IMPRESSION: Negative for left lower extremity deep venous thrombosis.
[2024-12-30] MEDS: FUROsemide 10 mg/mL SDV 4mL 40 MG IVP (17:13)
--- NOTE | 2024-12-30 17:17 | ED_ITS ---
HPI - Extremity Problem 2 General: Chief complaint: Extremity Injury, Lower Stated complaint: SOB - a fib Time Seen by Provider: 12/30/24 15:22 History of Present Illness: 59-year-old male presents emergency depa rtment complaining of left lower extremity pain around his knee. He reports no trauma. It has been getting worse. He has chronic bilateral lower extremity edema and is on apixaban. Patient reports currently he is taking Lasix 40 mg daily. He reports he feels short of breath. He has not been to the doctor in quite a long time. He has chronic hypoxic respiratory failure and is using 2 L of oxygen at home. He reports no fever or chills. No night sweats. Unfortunately, he does not have running water or transportation and therefore he cannot get to the doctor. On chart review, patient had an echocardiogram in October 2024. He had severely increased right ventricular filling pressures with grade 4 out of 4 diastolic dysfunction and moderately increased left atrial size. Patient does not have compression stockings. He has not been getting his feet wrapped. His left lower extremity and right lower extremity both have weeping and wounds. Associated symptoms: Deny chest pain or fever(s) Related Data Home Medications ?Medication ?Instructions ?Recorded ?Confirmed simvastatin 20 mg tablet 20 mg PO BEDTIME 09/24/24 dapagliflozin propanediol 10 mg 10 mg PO DAILY 5 12/30/24 tablet (Farxiga) Previous Rx's ?Medication ?Instructions ?Recorded metformin 500 mg tablet,extended 500 mg PO BID #60 tab s 09/02/23 release 24hr (osmotic) apixaban 5 mg tablet (Eliquis) 5 mg PO BID #180 tabs 1 10/16/23 carvedilol 25 mg tablet 12.5 mg (1/2 x 25 mg) PO BID 30 11/02/24 days #30 tabs furosemide 40 mg tablet 40 mg PO BID 30 days #60 tab s 11/02/24 potassium chloride 20 mEq 20 meq PO BID 30 days #60 ta bs 11/02/24 tablet,extended release Allergies Allergy/AdvReac Type Severity Reaction Status Date / Time No Known Allergies Allergy Verified 09/24/24 10:39 Review of Systems 2 General: Reports: 10 or more systems reviewed and unremarkable except in HPI and below Const: Denies: fever(s), chills or body aches Eyes: Denies: change in vision ENMT: Denies: throat pain Card: Denies: chest pain, edema or syncope Resp: Reports: dyspnea and wheezing; Denies: pain on inspiration, change in phlegm color or hemoptysis GI: Denies: abdominal pain, nausea, vomiting or diarrhea : Denies: flank pain, dysuria or urinary frequency Musc: Reports: extremity pain and extremity swelling; Denies: neck pain or back pain Skin/Breast: Reports: erythema, skin tenderness and skin swelling Neuro: Denies: headache(s), numbness in extremities, weakness in extremities, lack of coordination or difficulty walking PFSH ED 2 PFSH: Medical History Adjustment disorder with mixed disturbance of emotions and conduct BMI 45.0-49.9, adult Vitamin B12 deficiency Diabetes mellitus with hyperglycemia Mild aortic valve stenosis Aortic valve area 1.7 cm? 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 Chronic kidney disease stage 2 Hyperlipemia Atrial fibrillation Heart failure, unspecified Echocardiogram from 2018 showed severely decreased left ventricular systolic function as well as grade 3 of 4 diastolic dysfunction consistent with combined CHF Benign essential hypertension with target blood pressure below 140/90 Obesity Surgical History No history of previous surgery Family History Mother Diabetes Hypertension Father Alcohol abuse Other Heart disease Social History Smoking and tobacco/nicotine status: former use of tobacco/nicotine Second hand smoke exposure: No Alcohol intake: never Substance/Drug Use: never Adopted: No Caregiver/support person: No Lives independently: Yes Household members: other Housing: House Marital status: Single Number of children: 0 service: No Current occupational status: unemployed Pets and animals: Yes Pets & animals: cat(s) and dog(s) Do you think of yourself as: Straight/Heterosexual Current gender identity: Male Physical Exam 2 Narrative: EXAM NARRATIVE: Patient is morbidly obese. He does not appear to be in respiratory distress. He is on 2 L per nasal cannula. His lungs are relatively clear. No wheezing. He does have extensive bilateral lower extremity edema with ulcerations of the skin and weeping. There is a strong smell of body odor in the room and the patient is unkempt. Edema extends from his feet all the way up to his scrotum and abdominal wall. There is mild erythema of the scrotum and lower extremities, particular the left lower extremity. Const: COMMON NORMALS: alert and well nourished EXAM LIMITATIONS: no altered mental status HENMT: COMMON NORMALS: normocephalic, atraumatic and external ears normal H EAD & SCALP: normocephalic and atraumatic EXTERNAL EAR: Yes external ears normal MOUTH: no muffled voice Eye: COMMON NORMALS: conjunctivae normal and no scleral icterus C ONJUNCTIVA: Yes conjunctivae normal Neck/C-Spine: COMMON NORMALS: no JVD GENERAL: Yes normal visual inspection and Yes trachea midline Resp: COMMON NORMALS: normal respiratory effort, No use of accessory muscles and clear to auscultation bilaterally AUSCULTATION: clear to auscultation bilaterally Cardio: COMMON NORMALS: no JVD and regular rate RATE: regular rate GI: COMMON NORMALS: Soft to palpation and non-tender PALPATION: Yes Soft to palpation and No Guarding due to palpation present (GI) Neuro: COMMON NORMALS: moves all extremities, no focal motor deficits and no sensory deficits noted SENSORIUM/ORIENTATION: Yes alert SPEECH: speech normal Psych: COMMON NORMALS: mental status grossly normal, Normal thought process present, cooperative, normal affect and speech normal SPEECH: Yes normal speech THOUGHT PROCESS: Normal thought process present Course 2 Vital Signs: Vital signs: Vital Signs Temperature 98.9 F 12/30/24 13:02 Pulse Rate 60 12/30/24 13:02 Respiratory Rate 16 12/30/24 13:02 Blood Pressure 147/109 12/30/24 19:05 Pulse Oximetry 95 12/30/24 19:05 Oxygen Delivery Me thod Nasal Cannula 12/30/24 13:02 Oxygen Flow Rate 2 12/30/24 13:02 MDM - Extremity (Nontraumatic) Medical Decision Making Patient with diastolic heart failure and significant lower extremity edema extending all the way up to the scrotum and abdominal wall. He has orthopnea. Patient has no transportation and does not have running water. There are significant social determinants of health affecting his health care today. This is also affecting his healthcare decisions. Although he is not in any respiratory distress, I am anticipating admitting the patient for diuresis. He has been compliant with his Lasix 40 mg daily and is still having extensive edema. He does not have lower extremity wraps. He does not have wound care. He has no way of getting to appointments. He does not have established home health care. He does not have a safe disposition and therefore we are going to admit him to the hospital. The patient will get a left lower extremity ultrasound as he has some erythema and left knee pain. We did not find any musculoskeletal abnormality on physical exam. An x-ray of the left knee did not show any acute bony injury. The ultrasound can help us exclude DVT; however, it is noted the patient is already on anticoagulation so it may not change treatment unless he has very extensive DVT. Labs: BNP 876 Trop 17 Other labs no sig findings. Paged hospitalist for admission for supervised diuresis and social work. Lab Data 12/30/24 17:04 12/30/24 17:04 Radiology Impressions Knee X-Ray 12/30/24 13:37 Impression: Minimal osteoarthritis of the left knee. Chest X-Ray 12/30/24 16:48 IMPRESSION: No acute cardiopulmonary findings. Laboratory Results WBC 9.45 10^3/uL (3.29-11.43) 12/30/24 17:04 RBC 4.71 10^6/uL (3.85-5.65) 12/30/24 17:04 Hgb 11.40 g/dL (11.27-16.99) 12/30/24 17:04 Hct 40.3 % (37-53) 12/30/24 17:04 MCV 85.6 fl (82-101) 12/30/24 17:04 MCH 24.2 pg (27-33) L 12/30/24 17:04 MCHC 28.3 g/dL (30-55) L 12/30/24 17:04 RDW 16.6 % (12.1-15.1) H 12/30/24 17:04 Plt Count 238 10^3/cmm (157-399) 12/30/24 17:04 MPV 10.4 fL (7.4-10.4) 12/30/24 17:04 Neut % (Auto) 69.1 % 12/30/24 17:04 Lymph % (Auto) 15.7 % 12/30/24 17:04 [place] % (Auto) 11.5 % 12/30/24 17:04 Eos % (Auto) 2.5 % 12/30/24 17:04 Baso % (Auto) 0.7 % 12/30/24 17:04 Neut # (Auto) 6.52 10^3/uL (1.8-7.7) 12/30/24 17:04 Lymph # (Auto) 1.5 10^3/uL (0.8-4.8) 12/30/24 17:04 [place] # (Auto) 1.1 10^3/uL (0.2-0.9) H 12/30/24 17:04 Eos # (Auto) 0.2 10^3/uL (0.0-0.8) 12/30/24 17:04 Baso # (Auto) 0.1 10^3/uL (0.0-0.1) 12/30/24 17:04 Nucleated RBC % (auto) 0 % 12/30/24 17:04 Nucleated RBCs # 0.0 /100WBC 12/30/24 17:04 Sodium 142 mmol/L (136-145) 12/30/24 17:04 Potassium 3.9 mmol/L (3.5-5.1) 12/30/24 17:04 Chloride 100 mmol/L (98-107) 12/30/24 17:04 Carbon Dioxide 29 mmol/L (22-29) 12/30/24 17:04 Anion Gap 16.9 (5-19) 12/30/24 17:04 BUN 12 mg/dL (8-23) 12/30/24 17:04 Creatinine 0.9 mg/dL (0.7-1.2) 12/30/24 17:04 GFR Calculation 86.1 mL/min (90-130) L 12/30/24 17:04 Glucose 89 mg/dL (65-115) 12/30/24 17:04 Calculated Osmolality 293 mOsm/kg (285-295) 12/30/24 17:04 Calcium 9.3 mg/dL (8.5-10.5) 12/30/24 17:04 Total Bilirubin 0.5 mg/dL (0.15-1.2) 12/30/24 17:04 AST 12 U/L (0-40) 12/30/24 17:04 ALT < 5 U/L (0-41) 12/30/24 17:04 Alkaline Phosphatase 78 U/L (40-130) 12/30/24 17:04 Troponin T Baseline 17 ng/L (0-15) H 12/30/24 17:04 NT-Pro-B Natriuret Pep 876 pg/mL (0-125) H 12/30/24 17:04 Total Protein 6.8 g/dL (6.6-8.7) 12/30/24 17:04 Albumin 3.5 g/dL (3.5-5.2) 12/30/24 17:04 Globulin 3.3 g/dL (1.3-4.6) 12/30/24 17:04 XR interpretation done by ED provider, pending radiology final review ED provider radiology interpretation(s): US LLE: preliminary report that US is neg for DVT CXR 1 vie: ep interp: no effusion, no pulm edema, suspected atalectasis RLL, cardiomegaly EKG Data EKG 1: Interpretation: Atrial fibrillation, ventricular rate of 58, left axis deviation, partial left bundle branch block, no concerning ST segment elevations or depressions. Discharge Plan Discharge Patient Disposition: Placed in Observation Clinical Impression: Chronic anticoagulation, Diastolic CHF, Fluid overload, Open wound of lower extremity, Encounter for screening involving social determinants of health (SDoH) Obesity Qualifiers: Obesity type: due to excess calories Obesity classification: adult class 3 (BMI >= 40) Serious obesity comorbidity presence: with serious comorbidity Body mass index: BMI 40.0-44.9 Qualified Code(s): E66.01 - Morbid (severe) obesity due to excess calories Atrial fibrillation Qualifiers: Atrial fibrillation type: paroxysmal Qualified Code(s): I48.0 - Paroxysmal atrial fibrillation Coding Level of Care Code ED Lighting Fixtures Decorator for Alex Parada
--- NOTE | 2024-12-30 17:27 | ECG_ITS ---
[facility] Test Date: 2024-12-30 Pat Name: Bertin Howe Department: Room: Gender: Male Director Of Technology: MEGAN: 1965 Requested By: Shawn Mahmood Order Number: [id number] Tasha MD: lOman Al M.D. Measurements Intervals [place] Rate: 58 P: 0 NV: 0 QRS: -72 QRSD: 115 T: 77 QT: 402 QTc: 396 Interpretive Statements ATRIAL FIBRILLATION WITH SLOW VENTRICULAR RESPONSE LEFT ANTERIOR FASCICULAR BLOCK [QRS AXIS <= -45, QR IN I, RS IN II] ANTEROLATERAL MYOCARDIAL INFARCTION , OF INDETERMINATE AGE [40+ ms Q WAVE IN I/aVL/V3-V6] Compared to ECG 10/28/2024 22:51:35 Left anterior fascicular block now present Ventricular premature complex(es) no longer present Aberrant conduction of supraventricular beat(s) no longer present Intraventricular conduction delay no longer present Myocardial infarct finding still present Electronically Signed On 12-31-2024 07:39:15 CDT by Olman Al M.D. [email or web address]
[2024-12-30 17:37] LABS: Basophils # 0.1 10^3/uL (0.0-0.1); Basophils % 0.7 %; Eosinophils # 0.2 10^3/uL (0.0-0.8); Eosinophils % 2.5 %; Hematocrit 40.3 % (37-53); Lymphocytes # 1.5 10^3/uL (0.8-4.8); Lymphocytes % 15.7 %; Mean Corpuscular HGB Conc 28.3 g/dL (30-55); Mean Corpuscular Hemoglobin 24.2 pg (27-33); Mean Corpuscular Volume 85.6 fl (82-101); Mean Platelet Volume 10.4 fL (7.4-10.4); Monocytes # 1.1 10^3/uL (0.2-0.9); Monocytes % 11.5 %; Neutrophils # 6.52 10^3/uL (1.8-7.7); Neutrophils % 69.1 %; Nucleated Red Blood Cells % 0 %; Platelet Count 238 10^3/cmm (157-399); Red Blood Count 4.71 10^6/uL (3.85-5.65); Red Cell Distribution Width 16.6 % (12.1-15.1); White Blood Count 9.45 10^3/uL (3.29-11.43)
[2024-12-30 17:53] LABS: Slide Review Slide Review Perform
[2024-12-30 17:54] LABS: Troponin(5th) Baseline 17 ng/L (0-15)
[2024-12-30 18:01] LABS: Alanine Aminotransferase < 5 U/L (0-41); Albumin Level 3.5 g/dL (3.5-5.2); Alkaline Phosphatase 78 U/L (40-130); Anion Gap 16.9 (5-19); Aspartate Amino Transferase 12 U/L (0-40); Blood Urea Nitrogen 12 mg/dL (8-23); Calcium 9.3 mg/dL (8.5-10.5); Carbon Dioxide 29 mmol/L (22-29); Chloride 100 mmol/L (98-107); Globulin 3.3 g/dL (1.3-4.6); Glomerular Filtration Rate 86.1 mL/min (90-130); Glucose 89 mg/dL (65-115); NT Pro B Type Natriuretic Pept 876 pg/mL (0-125); Osmolality Calculated 293 mOsm/kg (285-295); Potassium 3.9 mmol/L (3.5-5.1); Sodium 142 mmol/L (136-145); Total Bilirubin 0.5 mg/dL (0.15-1.2); Total Protein 6.8 g/dL (6.6-8.7)
--- NOTE | 2024-12-30 18:48 | ECG_ITS ---
[employer] C-Note Test Date: 2024-12-30 Pat Name: Bertin Howe Department: Room: Gender: Male Title Curative Specialist: MEGAN: 1965 Requested By: Shawn Mahmood Order Number: [id number] Tasha MD: Olman Al M.D. Measurements Intervals [place] Rate: 69 P: 0 MN: 0 QRS: -65 QRSD: 120 T: 77 QT: 392 QTc: 421 Interpretive Statements ATRIAL FIBRILLATION LEFT AXIS DEVIATION [QRS AXIS < -30] MINIMAL VOLTAGE CRITERIA FOR LVH, CONSIDER NORMAL VARIANT [MEETS CRITERIA IN ONE OF: R(aVL), S(V1), R(V5), R(V5/V6)+S(V1)] ANTEROLATERAL MYOCARDIAL INFARCTION , AGE INDETERMINATE Compared to ECG 12/30/2024 17:27:42 Left-axis deviation now present Left anterior fascicular block no longer present Myocardial infarct finding still present Electronically Signed On 12-31-2024 07:45:26 CDT by Olman Al M.D. [email or web address] [id number]
--- NOTE | 2024-12-30 19:08 | PM.HP ---
Providers/Chief Complaint Primary Care Provider: Brooke Geller MD Chief Complaint: SOB - a fib History of Present Illness Bertin Howe is a 59 year old male with history of grade 4 diastolic dysfunction, failed attempts to get him to SNF secondary to psych and criminal history, presented with worsening of shortness of breath and lower extremity swelling. Patient is stating that he lives in a camper, has been compliant with his medication, uses 2 L of oxygen at baseline, came to the hospital to get his left leg checked out because it was painful. No signs of DVT, patient has anasarca, he has unkept appearance with feces and urine smell, lower extremity covered with dried feces. At the time of my evaluation patient is laying in left lateral position watching television, currently on 2 L hemodynamically stable, patient is agreeable for Navarro catheter placement stating that he will build to get up every time to use the urinal Patient is denying fever nausea vomiting diarrhea or chest pain. Workup showed normal CBC, BMP, Abnormal BNP Troponin not remarkably high, Review of Systems Const: Denies: fever(s) Eyes: Denies: change in vision ENMT: Denies: throat pain Card: Reports: palpitations and swelling of feet/ankles Resp: Reports: dyspnea Skin/Breast: Reports: rash, erythema and skin swelling Medications/Allergies Home Medications ?Medication ?Instructions ?Recorded ?Confirmed ?Last Taken ?Type metformin 500 mg tablet,extended 500 mg PO BID #60 tabs 09/02/23 12/30/24 12/29/24 Rx release 24hr (osmotic) apixaban 5 mg tablet (Eliquis) 5 mg PO BID #180 tabs 08/16/24 12/30/24 12/29/24 Rx simvastatin 20 mg tablet 20 mg PO BEDTIME 09/24/24 12/30/24 12/29/24 History dapagliflozin propanediol 10 mg 10 mg PO DAILY 10/20/24 12/30/24 12/29/24 History tablet (Farxiga) carvedilol 25 mg tablet 12.5 mg (1/2 x 25 mg) PO BID 30 11/02/24 12/30/24 12/29/24 Rx days #30 tabs furosemide 40 mg tablet 40 mg PO BID 30 days #60 tabs 11/02/24 12/30/24 12/29/24 Rx potassium chloride 20 mEq 20 meq PO BID 30 days #60 tabs 11/02/24 12/30/24 12/29/24 Rx tablet,extended release Allergies Allergy/AdvReac Type Severity Reaction Status Date / Time No Known Allergies Allergy Verified 12/30/24 21:05 PFSH Acute PFSH: Medical History Adjustment disorder with mixed disturbance of emotions and conduct BMI 45.0-49.9, adult Vitamin B12 deficiency Diabetes mellitus with hyperglycemia Mild aortic valve stenosis Aortic valve area 1.7 cm? 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 Chronic kidney disease stage 2 Hyperlipemia Atrial fibrillation Heart failure, unspecified Echocardiogram from 2018 showed severely decreased left ventricular systolic function as well as grade 3 of 4 diastolic dysfunction consistent with combined CHF Benign essential hypertension with target blood pressure below 140/90 Obesity Surgical History No history of previous surgery Family History Mother Diabetes Hypertension Father Alcohol abuse Other Heart disease Social History Smoking and tobacco/nicotine status: former use of tobacco/nicotine Second hand smoke exposure: No Alcohol intake: never Substance/Drug Use: never Adopted: No Caregiver/support person: No Lives independently: Yes Household members: other Housing: House Marital status: Single Number of children: 0 service: No Current occupational status: unemployed Pets and animals: Yes Pets & animals: cat(s) and dog(s) Do you think of yourself as: Straight/Heterosexual Current gender identity: Male Vitals/I&O/Wt Last Vital Signs Temp 98.9 F 12/30/24 13:02 Pulse 60 12/30/24 13:02 Resp 16 12/30/24 13:02 BP 147/109 12/30/24 19:05 Pulse Ox 95 12/30/24 19:05 O2 Del Method Nasal Cannula 12/30/24 13:02 O2 Flow Rate 2 12/30/24 13:02 Physical Exam Narrative: Morbidly obese Anasarca GCS 15 Currently on 2 L Active sign of fluid overload Scrotal edema Lower extremity covered with dry feces Edema started from toes extending all the way up to abdominal wall S1, S2 No audible stridor or wheezing Awake and alert AOx4 No active neurological deficits Data 12/30/24 17:04 12/30/24 17:04 A&P Assessment and plan (1) Diastolic CHF: (2) Acute exacerbation of chronic heart failure: (3) Chronic anticoagulation: (4) Vitamin B12 deficiency: (5) Fluid overload: (6) Poor dentition: (7) Acute hypoxemic respiratory failure: (8) Depression: Plan Acute diastolic CHF exacerbation Dietary indiscretion and most likely untreated sleep apnea No active chest pain No active infarctive changes on EKG, troponin not significantly high Start patient on IV diuretics Potassium replenishment twice daily as well Patient has anasarca with scrotal edema: Will request Navarro catheter placement Chronic hypoxia: Uses 2 L at baseline No active fever nausea vomiting diarrhea or cough Patient is type II diabetic: Takes metformin and Farxiga Will use consistent carb diet along sliding scale History of A-fib no active RVR: Continue chronic anticoagulating agent Eliquis along Coreg Full code Cardiac consistent carb diet Patient lives in a [facility], PDMP PDMP Reviewed: Not Reviewed Attestations Medical Necessity Statement*: Likely discharge within 48 hours of acute needing IV diuresis for CHF exacerbation Diagnoses Diastolic CHF I50.30 Acute exacerbation of chronic heart failure I50.9 Chronic anticoagulation Z79.01 Vitamin B12 deficiency E53.8 Fluid overload E87.70 Poor dentition K08.9 Acute hypoxemic respiratory failure J96.01 Depression F32.A
[2024-12-30 19:24] LABS: Troponin 5 2HR 17.66 ng/L (0-15); Troponin 5 2HR Delta 0.66 ABS# (0-10)
[2024-12-30 19:45] LABS: Glucose Point of Care 94 mg/dL (70-110)
[2024-12-30] MEDS: FUROsemide 10 mg/mL SDV 10mL 40 MG IVP (19:55)
--- NOTE | 2024-12-30 20:53 | PC.NURSE ---
Patient has very strong odor. Patient offered shower and refused. Patient educated to void in urinal for accurate urinary output measurement.
--- NOTE | 2024-12-30 21:20 | PC.NURSE ---
Addendum entered by Jackie Cervantes RN 12/30/24 21:28: Hydralazine x1 ordered. Original Note: Dr. Tarango notified of blood pressure of 194/42.
[2024-12-30] MEDS: hyDRALAzine 20 mg/mL INJ 1 mL 10 MG IVP (21:34)
--- NOTE | 2024-12-30 23:03 | ECG_ITS ---
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 Measurements Intervals [place] Rate: 76 P: 0 [place]: 0 QRS: -69 QRSD: 145 T: 83 QT: 405 QTc: 458 Interpretive Statements ATRIAL FIBRILLATION INTRAVENTRICULAR CONDUCTION DELAY [130+ ms QRS DURATION] Compared to ECG 12/30/2024 19:04:08 Intraventricular conduction delay now present Left-axis deviation no longer present Myocardial infarct finding no longer present Electronically Signed On 12-31-2024 07:44:42 CDT by Olman Al M.D. [email or web address] [id number]
[2024-12-31] VITALS (9 sets, daily range): BP systolic 122–157; BP diastolic 68–88; PULSE 57–77; RESP 18–20; TEMP 36.3–37.1; O2SAT 93–97
[2024-12-31] MEDS: acetaminophen 500 mg Tablet PO (02:28)
[2024-12-31 04:42] LABS: Basophils # 0.1 10^3/uL (0.0-0.1); Basophils % 0.7 %; Eosinophils # 0.2 10^3/uL (0.0-0.8); Eosinophils % 1.8 %; Lymphocytes # 1.7 10^3/uL (0.8-4.8); Lymphocytes % 16.9 %; Mean Corpuscular HGB Conc 29.2 g/dL (30-55); Mean Corpuscular Hemoglobin 24.6 pg (27-33); Mean Corpuscular Volume 84.3 fl (82-101); Mean Platelet Volume 10.2 fL (7.4-10.4); Monocytes # 1.1 10^3/uL (0.2-0.9); Monocytes % 11.4 %; Neutrophils # 6.78 10^3/uL (1.8-7.7); Neutrophils % 68.8 %; Nucleated Red Blood Cells % 0 %; Platelet Count 245 10^3/cmm (157-399); Red Blood Count 4.27 10^6/uL (3.85-5.65); Red Cell Distribution Width 16.6 % (12.1-15.1); White Blood Count 9.87 10^3/uL (3.29-11.43)
[2024-12-31 05:21] LABS: Anion Gap 10.1 (5-19); Blood Urea Nitrogen 13 mg/dL (8-23); C Reactive Protein 43.1 mg/L (0.0-4.9); Calcium 8.9 mg/dL (8.5-10.5); Carbon Dioxide 32 mmol/L (22-29); Chloride 98 mmol/L (98-107); Glomerular Filtration Rate 86.1 mL/min (90-130); Glucose 118 mg/dL (65-115); Magnesium 2.1 mg/dL (1.7-2.3); Osmolality Calculated 285 mOsm/kg (285-295); Phosphorus 3.5 mg/dL (2.5-4.5); Potassium 3.1 mmol/L (3.5-5.1); Sodium 137 mmol/L (136-145)
[2024-12-31 06:26] LABS: Glucose Point of Care 106 mg/dL (70-110)
[2024-12-31] MEDS: potassium chloride ER 20 mEq Tablet PO ×2 (08:55→18:03)
[2024-12-31] MEDS: sennosides-docusate Tablet 1 TAB PO (08:55)
[2024-12-31] MEDS: apixaban 5 mg Tablet PO ×2 (08:55→18:03)
[2024-12-31] MEDS: FUROsemide 10 mg/mL SDV 10mL 40 MG IVP ×2 (08:55→20:02)
--- NOTE | 2024-12-31 10:05 | PC.CHAP ---
Pastoral Care Encounter/Spiritual Assessment Type of Contact [] Declined chemistry quality control analyst visit [] Patient/Family/Request visit [] Outpatient visit [] Follow-up visit [] Physician referral [] Code/Alert [] Routine visit [] Staff referral [] Actively dying [X] Patient sleeping [] Family support [] [] Out of room [] Palliative care [] [] Receiving care in room [] Pre-surgical visit [] Trauma [] Long length of stay [] ICU visit [] Other: Relational/Emotional Strength [] Patient feels connected with others/family/visitors/staff [] Distress [] Loneliness/isolation [] Abandonment Spirituality of Patient [] Person of Dominique [] Attends Scientologist of their Dominique [] Believes in Prayer [] Reads Bible or Jainism materials [] There are Spiritual issues to be addressed Supervisor Contact And Service Clerks Interventions [] Prayer [] Active listening [] Non-anxious presence [] Spiritual/emotional support [] Crisis/trauma care [] Spiritual counseling [] Bereavement support [] Provided bereavement packet [] Provided Bible/devotional materials [] Provided toy/stuffed animal, coloring book to patient or family member [] Provided Communion [] Anointing/[place] [] Salvation [] Completed spiritual assessment [] Other: Impact on Illness or Injury [] Angry [] Fearful [] Anxious [] Often cries [] Exhaustion [] Unable to work [] Unable to attend alevism [] Unable to walk/stand [] Unable to read [] Unable to drive [] Unable to eat/drink [] Unable to sleep [] Unable to be with family [] Patient intubated [] Other: Summary Time spent with patient
[2024-12-31] MEDS: carvedilol 25 mg Tablet 12.5 MG PO ×2 (10:26→18:55)
[2024-12-31 11:13] LABS: Glucose Point of Care 133 mg/dL (70-110)
[2024-12-31 16:41] LABS: Glucose Point of Care 112 mg/dL (70-110)
--- NOTE | 2024-12-31 17:56 | P.PN_ITS ---
Subjective 2 Subjective: Complains of pain around the left knee. He has swelling increased on the medial aspect compared to the right side. States his knee has been hurting and he has been unable to bear any weight. Venous Doppler negative for DVT. Medications: Reviewed: Yes Vitals/I&O/Wt Last Vital Signs Temp 98.3 F 12/31/24 11:19 Pulse 57 L 12/31/24 11:19 Resp 20 H 12/31/24 10:00 BP 122/78 12/31/24 11:19 Pulse Ox 97 12/31/24 11:19 O2 Del Method Nasal Cannula 12/31/24 11:19 O2 Flow Rate 2 12/31/24 11:19 12/31/24 12/31/24 12/31/24 06:59 14:59 22:59 Intake Total 2000 / 1999 480 / 480 Output Total 1050 / 1450 Balance 950 / 550 480 / 480 Weight last 48 hrs Weight 124.783 kg Weight 131.95 kg Physical Exam 2 Narrative: General: No acute distress, AO x3 HEENT: PERRLA, pupils bilaterally equal and reactive, pallors not present Chest: Normal vesicular breath sounds, no added sounds, equal good air entry bilaterally CVS: S1-S2 regular, no murmurs, no tachycardia, no gallops, no rubs Abdomen: Soft, nontender, no organomegaly, bowel sounds present Neuro: No focal deficits, no facial deformity, AO x3, power 5/5 in all limbs Urinary Catheter Management: Navarro: Cath Placed During This Visit: yes Reason for Continuing Indwelling Catheter: Accurate Measurement of Urinary Output in Critically Ill Patients Urinary Catheter Date of Insertion: 12/30/24 Urinary Catheter Time of Insertion: 22:38 Data 12/31/24 04:13 12/31/24 04:13 A&P Assessment and plan (1) Diastolic CHF: (2) Acute exacerbation of chronic heart failure: (3) Chronic anticoagulation: (4) Vitamin B12 deficiency: (5) Fluid overload: (6) Poor dentition: (7) Acute hypoxemic respiratory failure: (8) Depression: Plan Acute diastolic CHF exacerbation Dietary indiscretion and most likely untreated sleep apnea No active chest pain No active infarctive changes on EKG, troponin not significantly high Start patient on IV diuretics Potassium replenishment twice daily as well Patient has anasarca with scrotal edema: Will request Navarro catheter placement Chronic hypoxia: Uses 2 L at baseline No active fever nausea vomiting diarrhea or cough Patient is type II diabetic: Takes metformin and Farxiga Will use consistent carb diet along sliding scale History of A-fib no active RVR: Continue chronic anticoagulating agent Eliquis along Coreg Full code Cardiac consistent carb diet Patient lives in a camper, December 31, 2024 Continue IV Lasix for diuresis. Has significant lower extremity edema, significant scrotal edema. Intertrigo noted in groin folds. Complaining of tenderness to the palpation over the left medial knee. States he has been unable to bear weight. On next comparing the 2 sides, it does appear to be a more localized swelling over the left medial knee. X-ray shows osteoarthritis of the left knee with medial joint compartment narrowing. Add tramadol for pain. PDMP PDMP Reviewed: Not Reviewed Attestations 2 Medical Necessity Statement*: Continued need for IV diuresis Coding Level of Care Code Acute Code for Chg Fwd Diagnoses Diastolic CHF I50.30 Acute exacerbation of chronic heart failure I50.9 Chronic anticoagulation Z79.01 Vitamin B12 deficiency E53.8 Fluid overload E87.70 Poor dentition K08.9 Acute hypoxemic respiratory failure J96.01 Depression F32.A
[2024-12-31] MEDS: nystatin powder 15 gm Btl 1 APPLIC TOPICAL (18:05)
[2024-12-31 20:42] LABS: Glucose Point of Care 130 mg/dL (70-110)
[2025-01-01] VITALS (9 sets, daily range): BP systolic 122–141; BP diastolic 56–77; PULSE 42–86; RESP 17–19; TEMP 36.5–36.6; O2SAT 91–97
[2025-01-01 04:57] LABS: Basophils # 0.1 10^3/uL (0.0-0.1); Eosinophils # 0.4 10^3/uL (0.0-0.8); Eosinophils % 3.9 %; Hematocrit 39.2 % (37-53); Lymphocytes # 1.9 10^3/uL (0.8-4.8); Lymphocytes % 19.8 %; Mean Corpuscular HGB Conc 28.3 g/dL (30-55); Mean Corpuscular Volume 84.8 fl (82-101); Mean Platelet Volume 8.5 fL (7.4-10.4); Monocytes # 1.1 10^3/uL (0.2-0.9); Monocytes % 11.8 %; Neutrophils # 6.04 10^3/uL (1.8-7.7); Neutrophils % 63.3 %; Nucleated Red Blood Cells % 0 %; Platelet Count 360 10^3/cmm (157-399); Red Blood Count 4.62 10^6/uL (3.85-5.65); Red Cell Distribution Width 16.3 % (12.1-15.1); White Blood Count 9.55 10^3/uL (3.29-11.43)
[2025-01-01 05:18] LABS: Alanine Aminotransferase < 5 U/L (0-41); Albumin Level 2.9 g/dL (3.5-5.2); Alkaline Phosphatase 67 U/L (40-130); Anion Gap 14.5 (5-19); Aspartate Amino Transferase 11 U/L (0-40); Blood Urea Nitrogen 11 mg/dL (8-23); Calcium 8.7 mg/dL (8.5-10.5); Carbon Dioxide 30 mmol/L (22-29); Chloride 99 mmol/L (98-107); Globulin 3.8 g/dL (1.3-4.6); Glomerular Filtration Rate 86.1 mL/min (90-130); Glucose 106 mg/dL (65-115); Osmolality Calculated 290 mOsm/kg (285-295); Potassium 3.5 mmol/L (3.5-5.1); Sodium 140 mmol/L (136-145); Total Bilirubin 0.5 mg/dL (0.15-1.2); Total Protein 6.7 g/dL (6.6-8.7)
[2025-01-01 06:50] LABS: Glucose Point of Care 107 mg/dL (70-110)
[2025-01-01] MEDS: potassium chloride ER 20 mEq Tablet PO ×2 (08:58→17:28)
[2025-01-01] MEDS: carvedilol 25 mg Tablet 12.5 MG PO ×2 (08:58→17:37)
[2025-01-01] MEDS: nystatin powder 15 gm Btl 1 APPLIC TOPICAL (08:59)
[2025-01-01] MEDS: sennosides-docusate Tablet 1 TAB PO (08:59)
[2025-01-01] MEDS: FUROsemide 10 mg/mL SDV 10mL 40 MG IVP ×2 (08:59→20:30)
[2025-01-01] MEDS: fluconazole 100 mg Tablet PO (08:59)
[2025-01-01] MEDS: apixaban 5 mg Tablet PO ×2 (08:59→17:37)
[2025-01-01 11:14] LABS: Glucose Point of Care 156 mg/dL (70-110)
[2025-01-01] MEDS: insulin lispro 100 unit/1 mL SUBCUT (11:51)
[2025-01-01 16:36] LABS: Glucose Point of Care 115 mg/dL (70-110)
--- NOTE | 2025-01-01 16:41 | P.PN_ITS ---
Subjective 2 Subjective: Lower extremity and scrotal edema is improving. States his knee pain is slightly better today but continues to be bothersome to him. Medications: Reviewed: Yes Vitals/I&O/Wt Last Vital Signs Temp 97.8 F 01/01/25 16:03 Pulse 70 01/01/25 16:03 Resp 18 01/01/25 16:03 BP 138/76 01/01/25 16:03 Pulse Ox 97 01/01/25 16:03 O2 Del Method Nasal Cannula 01/01/25 16:03 O2 Flow Rate 2 01/01/25 10:00 01/01/25 01/01/25 01/01/25 06:59 14:59 22:59 Intake Total 1160 / 1160 Output Total 1300 / 2200 1600 / 1600 Balance -1300 / -1480 -440 / -440 Weight last 48 hrs Weight 132.449 kg Weight 124.783 kg Weight 131.95 kg Physical Exam 2 Narrative: General: No acute distress, AO x3 HEENT: PERRLA, pupils bilaterally equal and reactive, pallors not present Chest: Normal vesicular breath sounds, no added sounds, equal good air entry bilaterally CVS: S1-S2 regular, no murmurs, no tachycardia, no gallops, no rubs Abdomen: Soft, nontender, no organomegaly, bowel sounds present Neuro: No focal deficits, no facial deformity, AO x3, power 5/5 in all limbs Extremities: Bilateral lower extremity edema and scrotal edema is improving today. Urinary Catheter Management: Navarro: Cath Placed During This Visit: yes Reason for Continuing Indwelling Catheter: Other Urinary Catheter Date of Insertion: 12/30/24 Urinary Catheter Time of Insertion: 22:38 Data 01/01/25 04:44 01/01/25 04:44 A&P Assessment and plan (1) Diastolic CHF: (2) Acute exacerbation of chronic heart failure: (3) Chronic anticoagulation: (4) Vitamin B12 deficiency: (5) Fluid overload: (6) Poor dentition: (7) Acute hypoxemic respiratory failure: (8) Depression: Plan Acute diastolic CHF exacerbation Dietary indiscretion and most likely untreated sleep apnea No active chest pain No active infarctive changes on EKG, troponin not significantly high Start patient on IV diuretics Potassium replenishment twice daily as well Patient has anasarca with scrotal edema: Will request Navarro catheter placement Chronic hypoxia: Uses 2 L at baseline No active fever nausea vomiting diarrhea or cough Patient is type II diabetic: Takes metformin and Taranxiga Will use consistent carb diet along sliding scale History of A-fib no active RVR: Continue chronic anticoagulating agent Eliquis along Coreg Full code Cardiac consistent carb diet Patient lives in a camper, December 31, 2024 Continue IV Lasix for diuresis. Has significant lower extremity edema, significant scrotal edema. Intertrigo noted in groin folds. Complaining of tenderness to the palpation over the left medial knee. States he has been unable to bear weight. On next comparing the 2 sides, it does appear to be a more localized swelling over the left medial knee. X-ray shows osteoarthritis of the left knee with medial joint compartment narrowing. Add tramadol for pain. January 01, 2025 Continue IV Lasix 40 mg every 12 hours for diuresis. Lower extremity edema is improving today. He is net -1300 cc since admission. Instructed to strictly water restriction. Developing mild alkalosis today with bicarb at 30. Closely monitor. Reviewed echocardiogram from October 2024 showing grade 4 diastolic dysfunction, severely elevated filling pressures, LVEF at 60%. Start local Voltaren application over the left knee and Motrin 600 mg 3 times daily as needed. Add Protonix for GI prophylaxis. Kidney function currently stable with creatinine at 0.9. Closely monitor with ongoing IV diuresis and NSAIDs added today. Continue oral fluconazole 100 mg daily for severe intertrigo in addition to nystatin cream. PDMP PDMP Reviewed: Not Reviewed Attestations 2 Medical Necessity Statement*: Continued admission for IV diuresis Coding Level of Care Code Acute Code for Chg Fwd Diagnoses Diastolic CHF I50.30 Acute exacerbation of chronic heart failure I50.9 Chronic anticoagulation Z79.01 Vitamin B12 deficiency E53.8 Fluid overload E87.70 Poor dentition K08.9 Acute hypoxemic respiratory failure J96.01 Depression F32.A
[2025-01-01] MEDS: diclofenac 1% Topical Gel 100 gm 1 APPLIC TOPICAL ×2 (17:37→20:30)
[2025-01-01 20:50] LABS: Glucose Point of Care 122 mg/dL (70-110)
[2025-01-02] VITALS (7 sets, daily range): BP systolic 103–180; BP diastolic 51–93; PULSE 48–61; RESP 16–22; TEMP 36.6–36.9; O2SAT 93–98
[2025-01-02 05:33] LABS: Basophils # 0.1 10^3/uL (0.0-0.1); Basophils % 1.2 %; Eosinophils # 0.5 10^3/uL (0.0-0.8); Eosinophils % 6.6 %; Hematocrit 38.9 % (37-53); Lymphocytes # 1.7 10^3/uL (0.8-4.8); Lymphocytes % 21.8 %; Mean Corpuscular HGB Conc 28.5 g/dL (30-55); Mean Corpuscular Hemoglobin 24.5 pg (27-33); Mean Corpuscular Volume 85.9 fl (82-101); Mean Platelet Volume 8.6 fL (7.4-10.4); Monocytes % 12.9 %; Neutrophils # 4.31 10^3/uL (1.8-7.7); Nucleated Red Blood Cells % 0 %; Platelet Count 344 10^3/cmm (157-399); Red Blood Count 4.53 10^6/uL (3.85-5.65); Red Cell Distribution Width 16.1 % (12.1-15.1); White Blood Count 7.57 10^3/uL (3.29-11.43)
[2025-01-02 05:57] LABS: Alanine Aminotransferase < 5 U/L (0-41); Albumin Level 2.9 g/dL (3.5-5.2); Alkaline Phosphatase 60 U/L (40-130); Anion Gap 12.7 (5-19); Aspartate Amino Transferase 10 U/L (0-40); Blood Urea Nitrogen 13 mg/dL (8-23); Calcium 8.8 mg/dL (8.5-10.5); Carbon Dioxide 33 mmol/L (22-29); Chloride 101 mmol/L (98-107); Globulin 3.5 g/dL (1.3-4.6); Glomerular Filtration Rate 98.6 mL/min (90-130); Glucose 114 mg/dL (65-115); Osmolality Calculated 297 mOsm/kg (285-295); Potassium 3.7 mmol/L (3.5-5.1); Sodium 143 mmol/L (136-145); Total Bilirubin 0.2 mg/dL (0.15-1.2); Total Protein 6.4 g/dL (6.6-8.7)
[2025-01-02 06:48] LABS: Glucose Point of Care 99 mg/dL (70-110)
[2025-01-02] MEDS: carvedilol 25 mg Tablet 12.5 MG PO (09:37)
[2025-01-02] MEDS: apixaban 5 mg Tablet PO ×2 (09:37→17:09)
[2025-01-02] MEDS: nystatin powder 15 gm Btl 1 APPLIC TOPICAL ×2 (09:38→17:10)
[2025-01-02] MEDS: fluconazole 100 mg Tablet PO (09:38)
[2025-01-02] MEDS: pantoprazole DR 40 mg Tablet PO (09:38)
[2025-01-02] MEDS: sennosides-docusate Tablet 1 TAB PO (09:38)
[2025-01-02] MEDS: potassium chloride ER 20 mEq Tablet PO ×2 (09:38→17:09)
[2025-01-02] MEDS: diclofenac 1% Topical Gel 100 gm 1 APPLIC TOPICAL ×4 (09:38→20:58)
[2025-01-02] MEDS: FUROsemide 10 mg/mL SDV 10mL 40 MG IVP ×2 (09:38→20:21)
[2025-01-02 10:55] LABS: Glucose Point of Care 171 mg/dL (70-110)
[2025-01-02] MEDS: insulin lispro 100 unit/1 mL SUBCUT ×2 (12:14→21:00)
--- NOTE | 2025-01-02 13:57 | ECG_ITS ---
[facility] Test Date: 2025-01-02 Pat Name: Bertin Howe Department: Room: 278 Gender: Male General Labor: MEGAN: 1965 Requested By: Jose Stuart Order Number: [id number] Tasha MD: Lori Chao M.D. Measurements Intervals [place] Rate: 50 P: 0 MS: 0 QRS: -66 QRSD: 138 T: 61 QT: 449 QTc: 413 Interpretive Statements ATRIAL FIBRILLATION WITH SLOW VENTRICULAR RESPONSE WITH ABERRANT CONDUCTION OR VENTRICULAR PREMATURE COMPLEXES INTRAVENTRICULAR CONDUCTION DELAY [130+ ms QRS DURATION] ANTEROLATERAL MYOCARDIAL INFARCTION , OF INDETERMINATE AGE [40+ ms Q WAVE IN I/aVL/V3-V6] Compared to ECG 12/30/2024 23:03:19 Ventricular premature complex(es) now present Aberrant conduction of supraventricular beat(s) now present Myocardial infarct finding now present Electronically Signed On 01-02-2025 21:07:57 CDT by Lori Chao M.D. [email or web address] [id number]
[2025-01-02 16:50] LABS: Glucose Point of Care 101 mg/dL (70-110)
--- NOTE | 2025-01-02 20:04 | P.PN_ITS ---
Subjective 2 Subjective: Bradycardic today. imprivng edema Medications: Reviewed: Yes Vitals/I&O/Wt Last Vital Signs Temp 97.8 F 01/02/25 15:30 Pulse 48 L 01/02/25 15:30 Resp 16 01/02/25 15:30 BP 129/51 01/02/25 15:30 Pulse Ox 98 01/02/25 15:30 O2 Del Method Nasal Cannula 01/02/25 15:30 O2 Flow Rate 2 01/02/25 15:30 01/02/25 01/02/25 01/02/25 06:59 14:59 22:59 Intake Total 358 / 358 240 / 598 Output Total 675 / 3775 1350 / 1350 Balance -675 / -2135 358 / 358 -1110 / -752 Weight last 48 hrs Weight 129.727 kg Weight 132.449 kg Physical Exam 2 Narrative: General: No acute distress, AO x3 HEENT: PERRLA, pupils bilaterally equal and reactive, pallors not present Chest: Normal vesicular breath sounds, no added sounds, equal good air entry bilaterally CVS: S1-S2 regular, no murmurs, no tachycardia, no gallops, no rubs Abdomen: Soft, nontender, no organomegaly, bowel sounds present Neuro: No focal deficits, no facial deformity, AO x3, power 5/5 in all limbs Extremities: Bilateral lower extremity edema and scrotal edema is improving today. Urinary Catheter Management: Navarro: Cath Placed During This Visit: yes Reason for Continuing Indwelling Catheter: Other Urinary Catheter Date of Insertion: 12/30/24 Urinary Catheter Time of Insertion: 22:38 Data 01/02/25 05:13 01/02/25 05:13 A&P Assessment and plan (1) Diastolic CHF: (2) Acute exacerbation of chronic heart failure: (3) Chronic anticoagulation: (4) Vitamin B12 deficiency: (5) Fluid overload: (6) Poor dentition: (7) Acute hypoxemic respiratory failure: (8) Depression: Plan 1. Acute diastolic CHF exacerbation - Likely due to dietary indiscretion and untreated sleep apnea - Continue IV Lasix 40 mg every 12 hours for diuresis - Strict water restriction instructed - Potassium replenishment twice daily 2. Left knee pain and swelling - stable - PT consult - Pain control 3. Intertrigo in groin folds - Continue oral fluconazole 100 mg daily - Nystatin cream application 4. Type II diabetes - Continue metformin and Farxiga - Consistent carb diet along with sliding scale insulin 5. History of A-fib with slow rate - Continue Eliquis - Continue Coreg however decerase dose to 3.125 mg BID 6. Chronic hypoxia - Continue 2 L oxygen at baseline 7. GI prophylaxis - Protonix PDMP PDMP Reviewed: Not Reviewed Attestations 2 Medical Necessity Statement*: Continued admission for IV diuresis Coding Level of Care Code Acute Code for Chg Fwd Diagnoses Diastolic CHF I50.30 Acute exacerbation of chronic heart failure I50.9 Chronic anticoagulation Z79.01 Vitamin B12 deficiency E53.8 Fluid overload E87.70 Poor dentition K08.9 Acute hypoxemic respiratory failure J96.01 Depression F32.A
[2025-01-02 20:44] LABS: Glucose Point of Care 156 mg/dL (70-110)
[2025-01-03 04:00] VITALS: BP 138/74; PULSE 53; RESP 18; TEMP 36.7; O2SAT 95
[2025-01-03 05:21] LABS: Basophils # 0.1 10^3/uL (0.0-0.1); Basophils % 1.1 %; Eosinophils # 0.5 10^3/uL (0.0-0.8); Hematocrit 41.2 % (37-53); Lymphocytes # 1.6 10^3/uL (0.8-4.8); Lymphocytes % 18.7 %; Mean Corpuscular HGB Conc 28.6 g/dL (30-55); Mean Corpuscular Hemoglobin 24.7 pg (27-33); Mean Corpuscular Volume 86.2 fl (82-101); Mean Platelet Volume 8.7 fL (7.4-10.4); Monocytes % 12.3 %; Neutrophils # 5.18 10^3/uL (1.8-7.7); Neutrophils % 61.5 %; Nucleated Red Blood Cells % 0 %; Platelet Count 358 10^3/cmm (157-399); Red Blood Count 4.78 10^6/uL (3.85-5.65); White Blood Count 8.43 10^3/uL (3.29-11.43)
[2025-01-03 05:40] LABS: Blood Urea Nitrogen 15 mg/dL (8-23); Calcium 8.9 mg/dL (8.5-10.5); Carbon Dioxide 33 mmol/L (22-29); Chloride 97 mmol/L (98-107); Glomerular Filtration Rate 86.1 mL/min (90-130); Glucose 130 mg/dL (65-115); Osmolality Calculated 287 mOsm/kg (285-295); Sodium 137 mmol/L (136-145)
[2025-01-03 05:45] LABS: Anion Gap 11.2 (5-19); Potassium 4.2 mmol/L (3.5-5.1)
[2025-01-03 05:53] LABS: Glucose Point of Care 123 mg/dL (70-110)
[2025-01-03 07:39] VITALS: BP 157/84; PULSE 66; RESP 16; TEMP 36.4; O2SAT 97
[2025-01-03 07:55] VITALS: PULSE 85; RESP 17; O2SAT 98
--- NOTE | 2025-01-03 08:31 | DCPLANNER ---
Patient inpatient - Left message for shy about home health request.
[2025-01-03] MEDS: sennosides-docusate Tablet 1 TAB PO (09:35)
[2025-01-03] MEDS: pantoprazole DR 40 mg Tablet PO (09:35)
[2025-01-03] MEDS: acetaminophen 500 mg Tablet PO (09:35)
[2025-01-03] MEDS: carvedilol 3.125 mg Tablet PO (09:35)
[2025-01-03] MEDS: fluconazole 100 mg Tablet PO (09:35)
[2025-01-03] MEDS: FUROsemide 10 mg/mL SDV 10mL 40 MG IVP (09:35)
[2025-01-03] MEDS: potassium chloride ER 20 mEq Tablet PO (09:35)
[2025-01-03] MEDS: apixaban 5 mg Tablet PO (09:35)
[2025-01-03] MEDS: nystatin powder 15 gm Btl 1 APPLIC TOPICAL (09:38)
[2025-01-03] MEDS: diclofenac 1% Topical Gel 100 gm 1 APPLIC TOPICAL (09:39)
[2025-01-03 10:33] LABS: Glucose Point of Care 156 mg/dL (70-110)
[2025-01-03 11:45] VITALS: BP 151/82; PULSE 68; RESP 15; TEMP 36.9; O2SAT 91
--- NOTE | 2025-01-03 13:03 | PM.DCS ---
Discharge Providers Date of Admission: 12/31/24 17:58 Date of Discharge: January 03, 2025 Attending Provider at Admission: Jarred Tarango MD Attending Provider at Discharge: Jose Stuart Primary Care Provider: Brooke Gleler MD Diagnoses at Discharge Discharge Diagnosis (1) Diastolic CHF: Status: Acute (2) Acute exacerbation of chronic heart failure: Status: Resolved (3) Chronic anticoagulation: Status: Chronic Permanent problem details: eliquis (4) Vitamin B12 deficiency: Status: Acute (5) Fluid overload: Status: Resolved (6) Poor dentition: Status: Acute (7) Acute hypoxemic respiratory failure: Status: Resolved (8) Depression: Status: Acute Reason for Visit Reason for Visit: SOB - a fib Hospital Course Hospital Course Per Dr. Tarango 59 year old male with history of grade 4 diastolic dysfunction, failed attempts to get him to SNF secondary to psych and criminal history, presented with worsening of shortness of breath and lower extremity swelling.Patient is stating that he lives in a camper, has been compliant with his medication, uses 2 L of oxygen at baseline, came to the hospital to get his left leg checked out because it was painful. No signs of DVT, patient has anasarca, he has unkept appearance with feces and urine smell, lower extremity covered with dried feces.At the time of my evaluation patient is laying in left lateral position watching television, currently on 2 L hemodynamically stable, patient is agreeable for Gimenez catheter placement stating that he will build to get up every time to use the urinal. Patient is denying fever nausea vomiting diarrhea or chest pain.Workup showed normal CBC, BMP,Abnormal BNP. Troponin not remarkably high . Acute diastolic CHF exacerbation - Likely due to dietary indiscretion and untreated sleep apnea - Continue IV Lasix 40 mg every 12 hours for diuresis - Strict water restriction instructed - Potassium replenishment twice daily - Recent echo in 10/2024 was noted Below: Normal left ventricular size, systolic function and wall thickness, with no regional wall motion abnormalities. Left ventricular ejection fraction is estimated at 60 %. Grade IV/IV diastolic dysfunction (irreversible restrictive filling pattern), severely elevated filling pressures. Moderately increased left atrial size. There is no pericardial effusion. Right atrial pressure is around 5 mm of mercury. Patient had noted improvement in overall condition. Was feeling comfortable with discharge which was arranged. Councled on home discharge plan and close outpatient follow up with PCP and cardiology. He was chest pain free and felt back to baseline. He did have a gimenez which was removed. Patient was able to void with out any problems. Physical Exam Narrative: General: No acute distress, AO x3 HEENT: PERRLA, pupils bilaterally equal and reactive, pallors not present Chest: Normal vesicular breath sounds, no added sounds, equal good air entry bilaterally CVS: S1-S2 regular, no murmurs, no tachycardia, no gallops, no rubs Abdomen: Soft, nontender, no organomegaly, bowel sounds present Neuro: No focal deficits, no facial deformity, AO x3, power 5/5 in all limbs Extremities: Bilateral lower extremity edema and scrotal edema is improving today. Urinary Catheter Management: Gimenez: Cath Placed During This Visit: yes Reason for Continuing Indwelling Catheter: Other Urinary Catheter Date of Insertion: 12/30/24 Urinary Catheter Time of Insertion: 22:38 Discharge Data Studies Completed and Pending Completed Studies During Hospitalization Category Date Time Status XR chest 1V portable [id number] Stat Exams 12/30/24 16:48 Completed XR knee LT 3V* [id number] Stat Exams 12/30/24 13:37 Completed US venous duplex lower extremity LT [CV venous duplex Ultrasound 12/30/24 17:10 [place] [id number]] Stat Pending at discharge Category Date Time Status Basic Metabolic Panel AM LABS Lab 01/04/25 04:00 Ordered Basic Metabolic Panel AM LABS Lab 01/05/25 04:00 Ordered Radiology Impressions Knee X-Ray 12/30/24 13:37 Impression: Minimal osteoarthritis of the left knee. Chest X-Ray 12/30/24 16:48 IMPRESSION: No acute cardiopulmonary findings. Venous Duplex 12/30/24 17:10 IMPRESSION: Negative for left lower extremity deep venous thrombosis. Laboratory Results WBC 8.43 10^3/uL (3.29-11.43) 01/03/25 05:04 RBC 4.78 10^6/uL (3.85-5.65) 01/03/25 05:04 Hgb 11.80 g/dL (11.27-16.99) 01/03/25 05:04 Hct 41.2 % (37-53) 01/03/25 05:04 MCV 86.2 fl (82-101) 01/03/25 05:04 MCH 24.7 pg (27-33) L 01/03/25 05:04 MCHC 28.6 g/dL (30-55) L 01/03/25 05:04 RDW 16.0 % (12.1-15.1) H 01/03/25 05:04 Plt Count 358 10^3/cmm (157-399) 01/03/25 05:04 MPV 8.7 fL (7.4-10.4) 01/03/25 05:04 Neut % (Auto) 61.5 % 01/03/25 05:04 Lymph % (Auto) 18.7 % 01/03/25 05:04 Finney % (Auto) 12.3 % 01/03/25 05:04 Eos % (Auto) 6.0 % 01/03/25 05:04 Baso % (Auto) 1.1 % 01/03/25 05:04 Neut # (Auto) 5.18 10^3/uL (1.8-7.7) 01/03/25 05:04 Lymph # (Auto) 1.6 10^3/uL (0.8-4.8) 01/03/25 05:04 Finney # (Auto) 1.0 10^3/uL (0.2-0.9) H 01/03/25 05:04 Eos # (Auto) 0.5 10^3/uL (0.0-0.8) 01/03/25 05:04 Baso # (Auto) 0.1 10^3/uL (0.0-0.1) 01/03/25 05:04 Nucleated RBC % (auto) 0 % 01/03/25 05:04 Nucleated RBCs # 0.0 /100WBC 01/03/25 05:04 Sodium 137 mmol/L (136-145) 01/03/25 05:04 Potassium 4.2 mmol/L (3.5-5.1) 01/03/25 05:04 Chloride 97 mmol/L (98-107) L 01/03/25 05:04 Carbon Dioxide 33 mmol/L (22-29) H 01/03/25 05:04 Anion Gap 11.2 (5-19) 01/03/25 05:04 BUN 15 mg/dL (8-23) 01/03/25 05:04 Creatinine 0.9 mg/dL (0.7-1.2) 01/03/25 05:04 GFR Calculation 86.1 mL/min (90-130) L 01/03/25 05:04 Glucose 130 mg/dL (65-115) H 01/03/25 05:04 POC Glucose 156 mg/dL (70-110) H 01/03/25 10:28 Calculated Osmolality 287 mOsm/kg (285-295) 01/03/25 05:04 Calcium 8.9 mg/dL (8.5-10.5) 01/03/25 05:04 Phosphorus 3.5 mg/dL (2.5-4.5) 12/31/24 04:13 Magnesium 2.1 mg/dL (1.7-2.3) 12/31/24 04:13 Total Bilirubin 0.2 mg/dL (0.15-1.2) 01/02/25 05:13 AST 10 U/L (0-40) 01/02/25 05:13 ALT < 5 U/L (0-41) 01/02/25 05:13 Alkaline Phosphatase 60 U/L (40-130) 01/02/25 05:13 Troponin T Baseline 17 ng/L (0-15) H 12/30/24 17:04 Troponin T 120 Minute 17.66 ng/L (0-15) H 12/30/24 18:59 Delta Troponin T 0.66 ABS# (0-10) 12/30/24 18:59 C-Reactive Protein 43.1 mg/L (0.0-4.9) H 12/31/24 04:13 NT-Pro-B Natriuret Pep 876 pg/mL (0-125) H 12/30/24 17:04 Total Protein 6.4 g/dL (6.6-8.7) L 01/02/25 05:13 Albumin 2.9 g/dL (3.5-5.2) L 01/02/25 05:13 Globulin 3.5 g/dL (1.3-4.6) 01/02/25 05:13 Vitals Last Vital Signs Temp 98.4 F 01/03/25 11:45 Pulse 68 01/03/25 11:45 Resp 15 01/03/25 11:45 BP 151/82 01/03/25 11:45 Pulse Ox 91 01/03/25 11:45 O2 Del Method Nasal Cannula 01/03/25 11:45 O2 Flow Rate 2 01/03/25 11:45 Discharge Plan Discharge Patient Disposition: Home Condition: Stable Prescriptions: New carvedilol 3.125 mg Tablet 3.125 mg PO BID Qty: 60 0RF Continued metformin 500 mg tablet extended release 24hr 500 mg PO BID Qty: 60 6RF Eliquis 5 mg tablet 5 mg PO BID Qty: 180 3RF simvastatin 20 mg tablet 20 mg PO BEDTIME dapagliflozin propanediol [Farxiga] 10 mg tablet 10 mg PO DAILY furosemide 40 mg tablet 40 mg PO BID 30 Days Qty: 60 6RF potassium chloride 20 mEq tablet extended release 20 meq PO BID 30 Days Qty: 60 0RF Discontinued carvedilol 25 mg tablet 12.5 mg PO BID 30 Days Qty: 30 0RF Discharge Orders: Discharge Order (Routine); Ordered 01/03/25 Ordered By: Jose Stuart Referrals: Destiny Burk FNP [Referring] - 01/12/25 10:30 am (This appointment will be at the [facility] Discharge Diet: Usual diet Discharge Activity: Increase activity as tolerated Patient Instructions: Carvedilol (By mouth), Ascites (GEN), CHF Stoplight, Opioid Safety Discharge Attestations Time Spent in Discharge Care*: greater than 30 min Status at Discharge: Cognitive status at discharge: cognitively intact, Behavioral status at discharge: cooperative, Functional status at discharge: uses cane/walker, Overall status at discharge: patient is progressing back to baseline Quality Metrics Clinical Quality Measures [ No reported AMI, CVA or VTE this stay] Coding Level of Care Code Acute Code for Chg Fwd Diagnoses Diastolic CHF I50.30 Acute exacerbation of chronic heart failure I50.9 Chronic anticoagulation Z79.01 Vitamin B12 deficiency E53.8 Fluid overload E87.70 Poor dentition K08.9 Acute hypoxemic respiratory failure J96.01 Depression F32.A
--- NOTE | 2025-01-03 15:48 | PC.NURSE ---
pt refused oxygen for transport, educ on benefits and risk of not wearing it home, pt still refused. notified.
== END 2025-01-03 14:10 | disposition home or self-care (01) | DRG 291 ==
LOC: ER 18:40 → MEDSURG 20:24
PROVIDERS: Student in an Organized Health Care Education/Training Program; Admitting Provider Internal Medicine; Emergency Provider Emergency Medicine; PCP Internal Medicine; Visit Provider Hospitalist
DX: I13.0 Hypertensive heart and chronic kidney disease with heart failure and stage 1 through stage 4 chronic kidney disease, or unspecified chronic kidney disease (principal); I50.33 Acute on chronic diastolic (congestive) heart failure; J96.01 Acute respiratory failure with hypoxia; Z68.41 Body mass index [BMI] 40.0-44.9, adult; E11.22 Type 2 diabetes mellitus with diabetic chronic kidney disease; N18.2 Chronic kidney disease, stage 2 (mild); Z79.84 Long term (current) use of oral hypoglycemic drugs; E53.8 Deficiency of other specified B group vitamins; Z99.81 Dependence on supplemental oxygen; F32.A Depression, unspecified; K08.9 Disorder of teeth and supporting structures, unspecified; E66.01 Morbid (severe) obesity due to excess calories; I48.91 Unspecified atrial fibrillation; Z79.01 Long term (current) use of anticoagulants; E78.5 Hyperlipidemia, unspecified; M25.562 Pain in left knee; L30.4 Erythema intertrigo; Z87.891 Personal history of nicotine dependence
CPT/HCPCS: 36415; 36416; 51702; 71045; 73562; 80048; 80053; 82962; 83735; 83880; 84100; 84484; 85025; 86140; 93005; 93971; 96372; 96374; 96376; 97116; 97161; 97530; 99285; G0378; J0360; J1815; J1940; J9999

== ENCOUNTER → 2025-05-12 13:04 | Outpatient (BNVA) | payer MEDICAID, SELFPAY | PROVIDERS: PCP Internal Medicine; Visit Provider Internal Medicine Cardiovascular Disease | DX: I10 Essential (primary) hypertension (principal); I48.0 Paroxysmal atrial fibrillation; E78.5 Hyperlipidemia, unspecified; I50.30 Unspecified diastolic (congestive) heart failure | CPT/HCPCS: 36415; 80048; 83880 ==

== ENCOUNTER 2025-05-20 10:22 | Emergency (ER) | payer MEDICAID, SELFPAY ==
[2025-05-20] VITALS (7 sets, daily range): BP systolic 166–208; BP diastolic 86–120; PULSE 56–75; RESP 18–31; TEMP 36.6; O2SAT 88–96; BMI 44.1
--- NOTE | 2025-05-20 10:24 | XRR_ITS ---
PROCEDURE INFORMATION: Exam: XR Chest Exam date and time: 05/20/2025 10:33 AM Age: 60 years old Clinical indication: Shortness of breath; Additional info: Cp/sob copd TECHNIQUE: Imaging protocol: Radiologic exam of the chest. Views: 1 view. COMPARISON: CR XR chest 1V portable [id number] 12/30/2024 5:04 PM FINDINGS: Lungs: Mild atelectasis or opacity at the left base with focal linear scar or discoid atelectasis in the left midlung similar to prior. Pleural spaces: Unremarkable. No pleural effusion. No pneumothorax. Heart/Mediastinum: Unremarkable. No cardiomegaly. Bones/joints: Unremarkable. XR/XR chest 1V portable [id number] IMPRESSION: Mild left pulmonary opacity/atelectasis.
--- NOTE | 2025-05-20 10:25 | ECG_ITS ---
[facility] Test Date: 2025-05-20 Pat Name: Bertin Howe Department: Room: Gender: Male Speech Lang Path: : 1965 Requested By: Blade Tejada Order Number: [id number] Cordova MD: Lori Chao M.D. Measurements Intervals [place] Rate: 56 P: 0 FL: 0 QRS: -68 QRSD: 132 T: 81 QT: 444 QTc: 431 Interpretive Statements ATRIAL FIBRILLATION WITH SLOW VENTRICULAR RESPONSE INTRAVENTRICULAR CONDUCTION DELAY [130+ ms QRS DURATION] VOLTAGE CRITERIA FOR LVH [MEETS CRITERIA IN ONE OF: R(aVL), S(V1), R(V5), R(V5/V6)+S(V1)] POSSIBLE ANTEROSEPTAL MYOCARDIAL INFARCTION , OF INDETERMINATE AGE [30 ms Q WAVE IN V1-V4] Compared to ECG 01/02/2025 13:57:26 Left ventricular hypertrophy now present Ventricular premature complex(es) no longer present Aberrant conduction of supraventricular beat(s) no longer present Myocardial infarct finding still present Electronically Signed On 05-23-2025 08:20:57 CDT by Lori Chao M.D. [id number]
[2025-05-20 10:38] LABS: Hematocrit 41.8 % (37-53); Hemoglobin 12.10 g/dL (11.27-16.99); Mean Corpuscular HGB Conc 28.9 g/dL (30-55); Mean Corpuscular Hemoglobin 23.8 pg (27-33); Mean Corpuscular Volume 82.3 fl (82-101); Nucleated Red Blood Cells % 0 %; Platelet Count 279 10^3/cmm (157-399); Red Blood Count 5.08 10^6/uL (3.85-5.65); White Blood Count 10.04 10^3/uL (3.29-11.43)
[2025-05-20] MEDS: methylPREDNISolone sod succ 125 mg/2 mL INJ IVP (10:47)
[2025-05-20 11:01] LABS: Troponin(5th) Baseline 21 ng/L (0-15)
[2025-05-20 11:14] LABS: Alanine Aminotransferase 12 U/L (0-41); Albumin Level 3.5 g/dL (3.5-5.2); Alkaline Phosphatase 87 U/L (40-130); Anion Gap 12.9 (5-19); Aspartate Amino Transferase 15 U/L (0-40); Blood Urea Nitrogen 13 mg/dL (8-23); Calcium 7.9 mg/dL (8.5-10.5); Carbon Dioxide 30 mmol/L (22-29); Chloride 100 mmol/L (98-107); Creatinine Clr Calc Pharmacy 146.8033; Globulin 2.9 g/dL (1.3-4.6); Glucose 142 mg/dL (65-115); NT Pro B Type Natriuretic Pept 607 pg/mL (0-125); Osmolality Calculated 291 mOsm/kg (285-295); Potassium 3.9 mmol/L (3.5-5.1); Sodium 139 mmol/L (136-145); Total Protein 6.4 g/dL (6.6-8.7)
--- NOTE | 2025-05-20 12:21 | W.ED.SOB ---
HPI - SOB/Dyspnea General: Chief Complaint: Shortness of Breath/Dyspnea Stated Complaint: sob; chest pain Time Seen by Provider: 05/20/25 10:23 History of Present Illness: HPI Narrative: HPI: Patient with history of COPD, CHF, and atrial fibrillation on rate control medication and apixaban presenting to the emergency department for worsening shortness of breath over the last 3 days. Patient has been seen frequently in the emergency department for CHF exacerbations requiring admission in the past. Patient has cardiology note that describes 55% ejection fraction. Patient states that the symptoms are mildly worsened over the last few days causing him to turn his home O2 up to 3 L a minute from baseline of 2 L/min. REVIEW OF SYSTEMS: 10 systems reviewed and otherwise unremarkable except for those noted in HPI. PHYSCIAL EXAM: Triage vital signs reviewed Gen: A&O NAD HEENT: NCAT, EOMI, not icteric. External ears normal. No rhinorrhea. Moist mucous membranes. Neck: Supple, full range of motion, no observable masses, No meningeal sign. Lungs: No Respiratory distress. Coarse breath sounds throughout CV: Bradycardic, no edema. Abdomen: Soft, nondistended, No rebound tenderness. MSK: No joint swelling, no redness. Skin: No rashes, petechiae, lesions. Normal color per patient. Neuro: Normal Gait, Grossly intact. Psych: Appropriate for situation. PROCEDURES: EKG: Rate: Normal Rhythm: Sinus [place]: Normal variant Intervals: Normal Ischemia: No STEMI criteria Related Data Home Medications ?Medication ?Instructions ?Recorded ?Confirmed simvastatin 20 mg tablet 20 mg PO BEDTIME 09/24/24 05/20/25 potassium chloride 20 mEq 20 meq PO BID 05/20/25 05/20/25 tablet,extended release silver sulfadiazine 1 % topical See Rx Instructions .Route .COMPLEX 05/20/25 05/20/25 cream Previous Rx's ?Medication ?Instructions ?Recorded metformin 500 mg tablet,extended 500 mg PO BID #60 tabs 09/02/23 release 24hr (osmotic) apixaban 5 mg tablet (Eliquis) 5 mg PO BID #180 tabs 05/12/25 carvedilol 3.125 mg tablet 3.125 mg PO BID #180 tabs 05/12/25 dapagliflozin propanediol 10 mg 10 mg PO DAILY #90 tabs 05/12/25 tablet (Farxiga) furosemide 40 mg tablet 40 mg PO BID #180 tabs 05/12/25 doxycycline hyclate 100 mg capsule 100 mg PO BID 5 days #10 caps 05/20/25 prednisone 10 mg tablet 40 mg (4 x 10 mg) PO DAILY 4 days 05/20/25 #16 tabs Allergies Allergy/AdvReac Type Severity Reaction Status Date / Time No Known Allergies Allergy Verified 05/12/25 11:47 [facility] ED PFSH: Medical History (Updated 05/20/25 @ 13:17 by Blade Tejada MD) Adjustment disorder with mixed disturbance of emotions and conduct BMI 45.0-49.9, adult Vitamin B12 deficiency Diabetes mellitus with hyperglycemia Mild aortic valve stenosis Aortic valve area 1.7 cm? 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 Chronic kidney disease stage 2 Hyperlipemia Atrial fibrillation Heart failure, unspecified Echocardiogram from 2018 showed severely decreased left ventricular systolic function as well as grade 3 of 4 diastolic dysfunction consistent with combined CHF Benign essential hypertension with target blood pressure below 140/90 Obesity Surgical History No history of previous surgery Family History Mother Diabetes Hypertension Father Alcohol abuse Other Heart disease Social History Smoking and tobacco/nicotine status: former use of tobacco/nicotine (4 years ago last use) Second hand smoke exposure: No Alcohol intake: never Substance/Drug Use: never Adopted: No Caregiver/support person: No Lives independently: Yes Household members: other Housing: House Marital status: Single Number of children: 0 service: No Current occupational status: unemployed Pets and animals: Yes Pets & animals: cat(s) and dog(s) Do you think of yourself as: Straight/Heterosexual Current gender identity: Male Course Vital Signs: Vital signs: Vital Signs Temperature 97.8 F 05/20/25 10:25 Pulse Rate 57 L 05/20/25 12:39 Respiratory Rate 23 H 05/20/25 12:27 Blood Pressure 166/86 05/20/25 12:27 Pulse Oximetry 93 05/20/25 12:48 Oxygen Delivery Me thod Nasal Cannula 05/20/25 12:39 Oxygen Flow Rate 2 05/20/25 12:48 MDM - SOB/Dyspnea Medical Decision Making MEDICAL DECISION MAKING: Differential diagnoses considered but not limited to: COPD exacerbation, occult ACS, electrolyte derangement, breakthrough pulmonary embolus, pneumothorax, pneumonia. Vitals nonactionable. Given history, examination, and pretest risk factors, concern for possible COPD exacerbation. Patient passed ambulatory trial in the emergency department on home oxygen without any desaturation or discomfort. Delta troponin negative. Dimer negative. Chest x-ray not demonstrating other acute pathology. Feel patient's presentation not consistent with decompensated hypoxic respiratory failure requiring admission, vascular Testred, or ACS at this time. Treating for COPD exacerbation. Will discharge patient home with recommendations for PCM follow-up. DISPO: AMARIS Tejada MD Staff physician, [facility] [place] [phone] Lab Data 05/20/25 10:33 05/20/25 10:33 Labs/Radiology: Radiology Impressions Chest X-Ray 05/20/25 10:24 IMPRESSION: Mild left pulmonary opacity/atelectasis. Laboratory Results WBC 10.04 10^3/uL (3.29-11.43) 05/20/25 10:33 RBC 5.08 10^6/uL (3.85-5.65) 05/20/25 10:33 Hgb 12.10 g/dL (11.27-16.99) 05/20/25 10:33 Hct 41.8 % (37-53) 05/20/25 10:33 MCV 82.3 fl (82-101) 05/20/25 10:33 MCH 23.8 pg (27-33) L 05/20/25 10:33 MCHC 28.9 g/dL (30-55) L 05/20/25 10:33 RDW 16.9 % (12.1-15.1) H 05/20/25 10:33 Plt Count 279 10^3/cmm (157-399) 05/20/25 10:33 MPV 8.8 fL (7.4-10.4) 05/20/25 10:33 Neut % (Auto) 67.0 % 05/20/25 10:33 Lymph % (Auto) 18.5 % 05/20/25 10:33 [place] % (Auto) 9.4 % 05/20/25 10:33 Eos % (Auto) 3.7 % 05/20/25 10:33 Baso % (Auto) 0.9 % 05/20/25 10:33 Neut # (Auto) 6.73 10^3/uL (1.8-7.7) 05/20/25 10:33 Lymph # (Auto) 1.9 10^3/uL (0.8-4.8) 05/20/25 10:33 [place] # (Auto) 0.9 10^3/uL (0.2-0.9) 05/20/25 10:33 Eos # (Auto) 0.4 10^3/uL (0.0-0.8) 05/20/25 10:33 Baso # (Auto) 0.1 10^3/uL (0.0-0.1) 05/20/25 10:33 Nucleated RBC % (auto) 0 % 05/20/25 10:33 Nucleated RBCs # 0.0 /100WBC 05/20/25 10:33 D-Dimer 0.29 ug/mLFEU (0-0.59) 05/20/25 10:33 Sodium 139 mmol/L (136-145) 05/20/25 10:33 Potassium 3.9 mmol/L (3.5-5.1) 05/20/25 10:33 Chloride 100 mmol/L (98-107) 05/20/25 10:33 Carbon Dioxide 30 mmol/L (22-29) H 05/20/25 10:33 Anion Gap 12.9 (5-19) 05/20/25 10:33 BUN 13 mg/dL (8-23) 05/20/25 10:33 Creatinine 0.7 mg/dL (0.7-1.2) 05/20/25 10:33 GFR Calculation 114.6 mL/min (90-130) 05/20/25 10:33 Glucose 142 mg/dL (65-115) H 05/20/25 10:33 Calculated Osmolality 291 mOsm/kg (285-295) 05/20/25 10:33 Calcium 7.9 mg/dL (8.5-10.5) L 05/20/25 10:33 Total Bilirubin 0.3 mg/dL (0.15-1.2) 05/20/25 10:33 AST 15 U/L (0-40) 05/20/25 10:33 ALT 12 U/L (0-41) 05/20/25 10:33 Alkaline Phosphatase 87 U/L (40-130) 05/20/25 10:33 Troponin T Baseline 21 ng/L (0-15) H 05/20/25 10:33 Troponin T 120 Minute 17.73 ng/L (0-15) H 05/20/25 12:02 Delta Troponin T -3.27 ABS# (0-10) L 05/20/25 12:02 NT-Pro-B Natriuret Pep 607 pg/mL (0-125) H 05/20/25 10:33 Total Protein 6.4 g/dL (6.6-8.7) L 05/20/25 10:33 Albumin 3.5 g/dL (3.5-5.2) 05/20/25 10:33 Globulin 2.9 g/dL (1.3-4.6) 05/20/25 10:33 All radiology interpretation(s) finalized by discharge Discharge Plan Discharge Patient Disposition: Home Clinical Impression: COPD (chronic obstructive pulmonary disease) Condition: Stable Prescriptions: New prednisone 10 mg tablet 40 mg PO DAILY 4 Days Qty: 16 0RF doxycycline hyclate 100 mg capsule 100 mg PO BID 5 Days Qty: 10 0RF No Action metformin 500 mg tablet extended release 24hr 500 mg PO BID Qty: 60 6RF Eliquis 5 mg tablet 5 mg PO BID Qty: 180 3RF carvedilol 3.125 mg tablet 3.125 mg PO BID Qty: 180 3RF dapagliflozin propanediol [Farxiga] 10 mg tablet 10 mg PO DAILY Qty: 90 3RF furosemide 40 mg tablet 40 mg PO BID Qty: 180 3RF simvastatin 20 mg tablet 20 mg PO BEDTIME silver sulfadiazine 1 % cream See Rx Instructions .ROUTE .COMPLEX Rx Instructions: APPLY A SMALL AMOUNT TO AFFECTED AREA ON BILATERAL LEGS TWICE DAILY. potassium chloride 20 mEq tablet extended release 20 meq PO BID Discharge Orders: Discharge ED (Routine); Ordered 05/20/25 Ordered By: Blade Tejada Referrals: Brooke Geller MD [Primary Care Provider, Internal Medicine] Discharge Diet: Advance as tolerated Discharge Activity: Resume usual activity Patient Instructions: COPD (Chronic Obstructive Pulmonary Disease) (DC), Opioid Safety, Pain Management, Patient Portal & María Elena Instructions Activity Restrictions/Additional Instructions: It has been a pleasure caring for you in the emergency department. Please ensure that you follow-up with your primary care physician for review of all data obtained during this encounter including any incidental findings and laboratory values. Keep in mind that if your condition worsens in any way, I strongly recommend that you return to the emergency department for repeat evaluation immediately. Print Language: Swedish Coding Level of Care Code ED Director Of Services for Alex Parada
[2025-05-20 12:24] LABS: Troponin 5 2HR 17.73 ng/L (0-15); Troponin 5 2HR Delta -3.27 ABS# (0-10)
[2025-05-20] MEDS: calcium gluconate 0.1 gm/mL 10% SDV 10mL 1 GM IVP (12:26)
--- NOTE | 2025-05-20 12:29 | ECG_ITS ---
[facility]: 2025-05[facility]20 Pat Name: Bertin Howe Department: Room: Gender: Male Geriatric Aide: MEGAN: 1965 Requested By: Blade Tejada Order Number: [id number] Cordova MD: SHANNA MIRANDA Measurements Intervals [place] Rate: 60 P: 0 NH: 0 QRS: -68 QRSD: 141 T: 81 QT: 434 QTc: 437 Interpretive Statements ATRIAL FIBRILLATION LEFT AXIS DEVIATION [QRS AXIS < -30] LEFT BUNDLE BRANCH BLOCK [120+ ms QRS DURATION, 80+ ms Q/S IN V1/V2, 85+ ms R IN I/aVL/V5/V6] Compared to ECG 05/20/2025 10:25:18 Left-axis deviation now present Left bundle-branch block now present Intraventricular conduction delay no longer present Left ventricular hypertrophy no longer present Myocardial infarct finding no longer present Electronically Signed On 05-23-2025 20:08:08 CDT by SHANNA MIRANDA [email or web address]
--- NOTE | 2025-05-20 12:32 | PC.PHAR ---
Pt presented medication list. Phoned Guanakito Pina for clarification on Carvedilol. Pts' list shows 25mg daily but [facility] currently, consistenly fills 3.125mg bid-last fill 05/12/25 30ds. Changed on pts' chart to the 3.125mg bid. [facility] shows last filled all pts' medications on 05/12/25 30ds.
== END 2025-05-20 13:57 | disposition home or self-care (01) ==
PROVIDERS: Emergency Provider General Practice; PCP Internal Medicine
DX: J44.9 Chronic obstructive pulmonary disease, unspecified (principal); Z79.84 Long term (current) use of oral hypoglycemic drugs; Z79.01 Long term (current) use of anticoagulants; Z87.891 Personal history of nicotine dependence; E78.5 Hyperlipidemia, unspecified; E11.22 Type 2 diabetes mellitus with diabetic chronic kidney disease; I13.0 Hypertensive heart and chronic kidney disease with heart failure and stage 1 through stage 4 chronic kidney disease, or unspecified chronic kidney disease; N18.2 Chronic kidney disease, stage 2 (mild); I50.9 Heart failure, unspecified
CPT/HCPCS: 36415; 71045; 80053; 83880; 84484; 85025; 85378; 93005; 94640; 94760; 96374; 96375; 99285; J0612; J2919; J9999